=== PATIENT | male | born 1945 | race Caucasian/White ===

== ENCOUNTER 2020-05-19 18:05 | Emergency (ER) | payer MEDICARE, SELFPAY ==
--- NOTE | ~2020-05-19 | CT_ITS ---
EXAMINATION: CT abdomen pelvis wo con DATE: 05/19/2020 18:58 INDICATION: Left lower quadrant abdominal pain TECHNIQUE: Computed tomography (CT) of the abdomen and pelvis was performed without intravenous contr ast. Automated exposure control and iterative reconstruction technique were employed. Exam dose: 834 .60 mGy-cm total exam DLP. COMPARISON: None. FINDINGS: Minimal predominantly dependent bilateral lower lobe atelectasis. Normal heart size. Coronary artery calcifications. No pericardial or pleural effusion. Small sliding hiatal hernia. Numerous cysts are scattered throughout both lobes of the liver and caudate process. Hepatic and sple hansel calcified granulomas. No pancreatic mass lesion or calcification or pancreatic duct dilatation. T he gallbladder is present. No bile duct dilatation. No adrenal mass lesion. Approximately 8 mm hyperdense right renal cyst. The kidneys are otherwise unremarkable. No urinary tr act calculus or hydroureteronephrosis. There is atherosclerotic calcification of the abdominal aorta, superior mesenteric and renal arteries , iliac arteries and femoral arteries. No abdominal aortic aneurysm. There is prostate enlargement. The urinary bladder is unremarkable. The rectum and colon have been resected. Right lower quadrant ileostomy. There is borderline diamet er of the small bowel with air fluid levels. No apparent obstruction, no pneumatosis or bowel wall t hickening; consider enteritis. No pneumoperitoneum. Left fat containing inguinal hernia. Status post left femoral pinning. No suspicious osteolytic or osteoblastic lesions are noted. IMPRESSION: Status post colectomy and ileostomy Borderline diameter of small bowel, with air fluid levels, without apparent obstruction; consider ent eritis Hepatic cysts 8 mm right hyperdense renal cyst Small sliding hiatal hernia Reviewed, dictated and finalized at [facility]. Reviewed, dictated and finalized at [facility]. IMPRESSION: Status post colectomy and ileostomy Borderline diameter of small bowel, with air fluid levels, without apparent obs truction; consider enteritis Hepatic cysts 8 mm right hyperdense renal cyst Small sliding hiatal hernia
[2020-05-19 18:27] VITALS: BP 140/100; PULSE 120; RESP 16; TEMP 35.8; O2SAT 98
[2020-05-19 18:40] LABS: Basophils Percent Auto 0.2 % (0.2-1.2); Hematocrit 46.8 % (42.0-52.0); Hemoglobin 15.2 g/dL (14.0-18.0); Immature Granulocyte Absolute 0.03 K/mm3 (0.00-0.031); Immature Granulocyte Percent A 0.3 % (0-0.5); Lymphocytes Absolute Auto 0.61 K/mm3 (0.9-3.2); Lymphocytes Percent Auto 5.8 % (18.3-44.2); Mean Corpuscular HGB Conc 32.5 g/dl (32-36); Mean Corpuscular Hemoglobin 30.9 pg (26-34); Mean Corpuscular Volume 95.1 fl (80-100); Mean Platelet Volume 9.9 fl (7.4-10.4); Monocytes Absolute Auto 0.5 K/mm3 (0.1-0.6); Neutrophils Absolute Auto 9.4 K/mm3 (1.3-6.7); Neutrophils Percent Auto 88.7 % (45.5-73.1); Platelet Count Result 262 k/mm3 (150-375); Red Blood Count 4.92 M/mm3 (4.6-6.20); Red Cell Distribution Width 13.3 % (11.5-14.5); White Blood Count 10.6 K/mm3 (4.5-10.0)
[2020-05-19 18:51] LABS: Alanine Aminotransferase 26 U/L (4-50); Albumin Level 4.5 g/dL (3.5-5.1); Alkaline Phosphatase 104 U/L (38-126); Aspartate Amino Transferase 30 U/L (17-59); Bilirubin,Total 0.4 mg/dL (0.2-1.3); Blood Urea Nitrogen 15 mg/dL (9-20); Calcium 9.4 mg/dL (8.4-10.2); Carbon Dioxide 22 mmol/L (22-30); Chloride 102 mmol/L (98-107); Estimated CRCL calculation 74 ml/min; Estimated Glomerular Filt Rate > 60; Glucose 143 mg/dL (75-110); Lipase 82 U/L (23-300); Sodium 135 mmol/L (137-145)
--- NOTE | 2020-05-19 19:16 | ED.ABDPAIN ---
HPI - Abdominal Pain General Chief Complaint: Abdominal Pain Stated Complaint: abd pain Time Seen by Provider: 05/19/20 18:46 Source: patient and family History of Present Illness HPI narrative: 74 years old white male history of Crohn's disease on sulfasalazine 4 tablets 4 times a day, right ileostomy, hypertension, hyperlipidemia, coronary stents presents with left lower quadrant pain started last night, constant, worse with movement, better at rest. Patient denies any fever, chills, nausea, vomiting. Patient did not eat since last night, have clear liquid stool in the ileostomy bag. 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 [employer] Related Data Home Medications Medication Instructions Recorded Confirmed atorvastatin 10 mg PO DAILY 05/19/20 hydrocodone-acetaminophen 1 tablet PO Q4H PRN 05/19/20 lisinopril 5 mg PO DAILY 05/19/20 metoprolol tartrate 25 mg PO BID 05/19/20 nitroglycerin [Nitrostat] 0.4 mg SUBLINGUAL Q5-15M PRN 05/19/20 primidone 100 mg PO BID 05/19/20 warfarin 7.5 mg PO 2XW 05/19/20 warfarin See Rx Instructions .ROUTE .COMPLEX 05/19/20 Allergies Allergy/AdvReac Type Severity Reaction Status Date / Time iodine Allergy Mild Unknown Verified 05/19/20 19:08 SHELLFISH Allergy Mild Unknown Uncoded 05/19/20 18:33 Review of Systems Review of Systems: Narrative: CONSTITUTIONAL: Denies fever, chills, or sweats. EYES: Denies visual changes, redness, or discharge. ENT: Denies rhinorrhea, congestion, sore throat, or otalgia. CARDIOVASCULAR: Denies chest pain, palpitations, or edema. RESPIRATORY: Denies cough or dyspnea. GASTROINTESTINAL: Denies abdominal pain, nausea, vomiting, or diarrhea. GENITOURINARY: Denies dysuria or hematuria. SKIN: Denies rash or itching. MUSCULOSKELETAL: Denies back pain, joint pain, or myalgia. NEUROLOGIC: Denies headache, numbness, or weakness. PSYCHIATRIC: Denies anxiety or depression. PMFSH Social History Social History Gender identity (if verbalized by the patient): Male Exam Narrative: Exam Narrative: General appearance: Well-developed, well-nourished Skin: Normal color Head: Normocephalic, nontraumatic Eyes: Clear conjunctiva ENT: Oropharynx normal, ears normal, nose normal Neck: Supple, nontender Chest and respiratory: Airway patent, no respiratory distress, no accessory muscle use Heart: Regular rate/rhythm Abdomen: Soft, moderate tenderness left lower abdomen, bulging, slightly distended, quiet bowel sounds, right lower abdomen ileostomy bag in place, have brownish liquid stool, no organomegaly, quiet bowel sounds Vascular: Normal peripheral pulses, normal capillary refill. Musculoskeletal: Normal range of motion, nontender back Neurologic: Alert and oriented ?3, [employer] B[employer] EXP[employer] is normal as tested, no gross motor deficit Course Course Emergency Course: Stable Vital Signs Vital signs: Vital Signs Temperature 35.8 C L 05/19/20 18: Pulse Rate 120 H 05/19/20 18:27 Respiratory Rate 16 05/19/20 18:27 Blood Pressure 140/100 H 05/19/20 18:27 Pulse Oximetry 98 05/19/20 18:27 Temperature 35.8 C L 05/19/20 18:27 Pulse Rate 83 05/19/20 21:15 Respiratory Rate 14 05/19/20 21:15 Blood Pressure 160/86 H 05/19/20 21:15 Pulse Oximetry 98 05/19/20 21:15 MDM - Abdominal Pain MDM Narrative Medical decision making narrative: Abdominal pain in a patient with Crohn's disease. Flareup of Crohn's, obstruction, diverticulitis are my concern. Labs, CT abdomen pelvis, IV fluids, IV Dilaudid and Zofran ordered. Further plan to follow Differential Diagnosis Differential diagnosis: Likely abdominal pain, diverticulitis,
--- NOTE | 2020-05-19 19:29 | PC.NURSE ---
Assumed care of pt. at this time. Report from [facility]
[2020-05-19] MEDS: ONDANSETRON INJ 4 MG/2 ML VIAL IV PUSH (19:31)
[2020-05-19] MEDS: SODIUM CHLORIDE 0.9% IV 1,000 ML 999 ML IV CONT (19:32)
[2020-05-19 20:00] VITALS: BP 166/88; PULSE 89; RESP 17; O2SAT 95
--- NOTE | 2020-05-19 20:23 | PC.NURSE ---
Pt attempting for urine sample
[2020-05-19 21:15] VITALS: BP 160/86; PULSE 83; RESP 14; O2SAT 98
[2020-05-19 21:30] LABS: Add Urine Microscopic? YES; Appearance Urine Clear (Clear); Bilirubin Urine Negative (Negative); Blood Urine Negative (Negative); Color Urine Yellow (Yellow); Glucose Urine UA Negative (Negative); Ketones Urine 1+ mg/dL (Negative); Leukocyte Esterase Ur Negative LEU/UL (Negative); Mucus Urine Moderate /lpf; Nitrate Urine Negative (Negative); Protein Urine 1+ mg/dL (Negative); Specific Grav Ur 1.029 (1.001-1.035); Urobilinogen Urine Negative mg/dL (<2.0); WBC Urine 0-3 /hpf
[2020-05-19 21:51] VITALS: BP 142/78; PULSE 86; RESP 20; O2SAT 98
[2020-05-19] MEDS: AMOXICILLIN/CLAVULANATE K 875-125 MG TAB 1 TABLET (22:00)
== END 2020-05-19 22:01 | disposition home or self-care (01) ==
PROVIDERS: Emergency Medicine; Emergency Provider Emergency Medicine; PCP Family Medicine
DX: K52.9 Noninfective gastroenteritis and colitis, unspecified (principal); K50.90 Crohn's disease, unspecified, without complications; I10 Essential (primary) hypertension; E78.5 Hyperlipidemia, unspecified; Z95.5 Presence of coronary angioplasty implant and graft; Z79.01 Long term (current) use of anticoagulants; Z93.2 Ileostomy status; Z90.49 Acquired absence of other specified parts of digestive tract; K76.89 Other specified diseases of liver; N28.1 Cyst of kidney, acquired; K44.9 Diaphragmatic hernia without obstruction or gangrene
CPT/HCPCS: 36415; 74176; 80053; 81001; 83690; 85025; 96374; 96375; 99284; A9270; J1170; J2405; J7030

== ENCOUNTER 2020-07-13 06:59 | Outpatient (NON) | payer MEDICARE, SELFPAY ==
[2020-07-14 00:37] LABS: SARS-CoV-2 RNA PCR Negative
== END 2020-07-13 07:00 ==
PROVIDERS: PCP Family Medicine; Visit Provider Family Medicine
DX: R68.89 Other general symptoms and signs (principal); Z20.828 Contact with and (suspected) exposure to other viral communicable diseases
CPT/HCPCS: 87635; C9803; U0003

== ENCOUNTER 2021-01-04 08:34 | Emergency (ER) | payer OTHER, SELFPAY ==
[2021-01-04 08:41] VITALS: BP 117/84; PULSE 68; RESP 20; TEMP 36.5; O2SAT 100
--- NOTE | 2021-01-04 08:41 | ED.GENADULT ---
HPI - General Adult General Chief complaint: Unspecified Stated complaint: possible too much warfarin Time Seen by Provider: 01/04/21 08:41 Source: patient Mode of arrival: ambulatory Limitations: no limitations History of Present Illness HPI narrative: A 75-year-old male comes into the emergency department this morning with complaints of accidentally taking an extra dose of his warfarin. Patient states that he took his warfarin, normal late last night. He states when he went to go take his morning medicines he accidentally grabbed the p.m. container and took all of his evening medications. Patient states that he now has had to 10 mg warfarin tablets within the span of 12 hours. Patient denies any bleeding or any issues. He states that he cannot and to get his INR checked. Related Data Home Medications Medication Instructions Recorded Confirmed atorvastatin 10 mg PO DAILY 05/19/20 hydrocodone-acetaminophen 1 tablet PO Q4H PRN 05/19/20 lisinopril 5 mg PO DAILY 05/19/20 metoprolol tartrate 25 mg PO BID 05/19/20 nitroglycerin [Nitrostat] 0.4 mg SUBLINGUAL Q5-15M PRN 05/19/20 primidone 100 mg PO BID 05/19/20 warfarin 7.5 mg PO 2XW 05/19/20 warfarin See Rx Instructions .ROUTE .COMPLEX 05/19/20 Allergies Allergy/AdvReac Type Severity Reaction Status Date / Time iodine Allergy Mild Unknown Verified 01/04/21 08:43 SHELLFISH Allergy Mild Unknown Uncoded 05/19/20 18:33 Review of Systems Review of Systems: Narrative: CONSTITUTIONAL: Denies fever, chills, or sweats. EYES: Denies visual changes, redness, or discharge. ENT: Denies rhinorrhea, congestion, sore throat, or otalgia. CARDIOVASCULAR: Denies chest pain, palpitations, or edema. RESPIRATORY: Denies cough or dyspnea. GASTROINTESTINAL: Denies abdominal pain, nausea, vomiting, or diarrhea. GENITOURINARY: Denies dysuria or hematuria. SKIN: Denies rash or itching. MUSCULOSKELETAL: Denies back pain, joint pain, or myalgia. NEUROLOGIC: Denies headache, numbness, dizziness, or weakness. PSYCHIATRIC: Denies anxiety or depression. [facility] Social History Social History Gender identity (if verbalized by the patient): Male Exam Narrative: Exam Narrative: GENERAL: Well-appearing, well-nourished, and in no acute distress. HEAD: Normocephalic, atraumatic. EYES: PERRLA and EOMI. ENT: Nares clear, no rhinorrhea or epistaxis. Mucous membranes moist. Oropharynx without tonsillar hypertrophy exudate or other lesions. Bilateral TMs pearly hough nonbulging NECK: Supple. No adenopathy or masses. No carotid bruits or JVD CHEST: Clear to auscultation. No respiratory distress. No wheezes rales or rhonchi HEART: Regular rate and rhythm. No murmur heard. Normal peripheral pulses. ABDOMEN: Soft, nontender, nondistended, normal active bowel sounds. EXTREMITIES: Normal range of motion. No edema. SKIN: Warm, dry, no rash. NEURO: No focal deficits. Alert and oriented x3. PSYCH: Normal mood and affect. Course Vital Signs Vital signs: Vital Signs Temperature 36.5 C 01/04/21 08:41 Pulse Rate 68 01/04/21 08:41 Respiratory Rate 20 01/04/21 08:41 Blood Pressure 117/84 01/04/21 08:41 Pulse Oximetry 100 01/04/21 08:41 Temperature 36.5 C 01/04/21 08:41 Pulse Rate 68 01/04/21 08:41 Respiratory Rate 20 01/04/21 08:41 Blood Pressure 117/84 01/04/21 08:41 Pulse Oximetry 100 01/04/21 08:41 Medical Decision Making MDM Narrative Medical decision making narrative: In brief this 75-year-old male came into the emergency department today after accidentally taking an extra dose of his Coumadin. After discussing it over with the patient and reassuring him I told him that while an extra dose this early on may temporarily raise his INR that he may skip his dose tonight and resume his schedule as normal tomorrow morning. Patient denied any bleeding issues. He stated that he felt fine and originally had presented to get his
== END 2021-01-04 09:13 | disposition home or self-care (01) ==
PROVIDERS: Emergency Provider Emergency Medicine
DX: T45.511A Poisoning by anticoagulants, accidental (unintentional), initial encounter (principal); Z79.01 Long term (current) use of anticoagulants
CPT/HCPCS: 99281

== ENCOUNTER 2021-01-18 13:58 | Outpatient (CLI) | payer OTHER, SELFPAY ==
--- NOTE | ~2021-01-18 | XR_ITS ---
EXAMINATION: XR chest 2V EXAM DATE: 01/18/2021 15:56 INDICATION: Primary osteoarthritis, right knee. Preoperative. TECHNIQUE: Frontal and lateral projections of the chest obtained and reviewed. Comparison is made to prior examination from 06/22/2018. FINDINGS: Mild hyperinflation. The lungs are clear. There are no pleural effusions. The cardiomedia stinal silhouette is within normal limits. There is no pneumothorax suspected. The bones and soft t issues are unremarkable. IMPRESSION: No acute cardiopulmonary findings. Reviewed, dictated and finalized at [facility]. [employer] OUTRE[employer] WORK[employer]
--- NOTE | 2021-01-18 15:27 | ECG_ITS ---
Measurements Intervals [place] Rate: 62 P: 22 IN: 135 QRS: -25 QRSD: 99 T: 10 QT: 405 QTc: 413 Interpretive Statements SINUS RHYTHM POOR R WAVE PROGRESSION, ANTERIOR LEADS BASELINE ARTIFACT- I, III, AVR, AVL, AVF BORDERLINE ECG Electronically Signed On 01-18-2021 15:46:04 ACADEMIC COORDINATOR by Babak Eden D.O.
[2021-01-18 15:56] LABS: Basophils Percent Auto 0.8 % (0.2-1.2); Eosinophils Percent Auto 0.6 % (0-4.4); Hematocrit 43.9 % (42.0-52.0); Hemoglobin 13.9 g/dL (14.0-18.0); Immature Granulocyte Absolute 0.02 K/mm3 (0.00-0.031); Immature Granulocyte Percent A 0.4 % (0-0.5); Lymphocytes Absolute Auto 1.33 K/mm3 (0.9-3.2); Lymphocytes Percent Auto 27.6 % (18.3-44.2); Mean Corpuscular HGB Conc 31.7 g/dl (32-36); Mean Corpuscular Hemoglobin 31.8 pg (26-34); Mean Corpuscular Volume 100.5 fl (80-100); Mean Platelet Volume 9.4 fl (7.4-10.4); Monocytes Absolute Auto 0.5 K/mm3 (0.1-0.6); Monocytes Percent Auto 9.3 % (2.6-8.5); Neutrophils Percent Auto 61.3 % (45.5-73.1); Platelet Count Result 211 k/mm3 (150-375); Red Blood Count 4.37 M/mm3 (4.6-6.20); Red Cell Distribution Width 13.9 % (11.5-14.5); White Blood Count 4.8 K/mm3 (4.5-10.0)
[2021-01-18 16:08] LABS: INR 1.8; Prothrombin Time 21.8 Seconds (11.1-14.7)
[2021-01-18 16:09] LABS: Partial Thromboplastin Time 33.2 SECONDS (22.3-36.8)
[2021-01-18 16:19] LABS: Albumin Level 3.8 g/dL (3.5-5.1); Anion Gap 1 mmol/L (8-16); Blood Urea Nitrogen 11 mg/dL (9-20); Calcium 8.7 mg/dL (8.4-10.2); Carbon Dioxide 32 mmol/L (22-30); Chloride 102 mmol/L (98-107); Estimated Glomerular Filt Rate > 60; Glucose 98 mg/dL (75-110); Potassium 4.3 mmol/L (3.4-5.0); Sodium 135 mmol/L (137-145)
[2021-01-18 16:21] LABS: Hemoglobin A1C 5.4 % (<5.7); Urine Cotinine NEGATIVE
== END 2021-01-18 13:59 | disposition home or self-care (01) ==
LOC: ANHSURGERY 14:00
PROVIDERS: Anesthesiology; Visit Provider Orthopaedic Surgery
DX: Z01.818 Encounter for other preprocedural examination (principal); M17.11 Unilateral primary osteoarthritis, right knee; Z92.29 Personal history of other drug therapy
CPT/HCPCS: 36415; 71046; 80048; 80307; 82040; 83036; 85025; 85610; 85730; 87070; 87077; 87186; 93005

== ENCOUNTER → 2021-02-01 01:54 | Outpatient (CLI) | payer OTHER, SELFPAY ==
[2021-02-01 19:28] LABS: SARS-CoV-2 RNA PCR Negative
== END ==
PROVIDERS: Visit Provider Orthopaedic Surgery
DX: Z01.812 Encounter for preprocedural laboratory examination (principal); Z20.822 Contact with and (suspected) exposure to COVID-19
CPT/HCPCS: C9803; U0003; U0005

== ENCOUNTER 2021-02-04 01:35 | Day surgery (SDC) | payer OTHER, SELFPAY ==
[2021-01-18 14:30] VITALS: BMI 28.5
--- NOTE | 2021-02-01 08:02 | PM.IMHP ---
H&P: HPI History of Present Illness Date/Time: 02/01/21 08:02 75-year-old male patient Dr. Guillen. He presents today for a right total knee arthroplasty. Patient has been having pain in this knee for years. He has been putting off knee replacement for long as possible. he has reached a point now where he is having pain daily basis he feels he is ready proceed with total knee arthroplasty rather continue nonsurgical treatment. He is unable take anti-inflammatories this point. He has a history of Crohn's disease and avoids anti-inflammatories. Patient does have a significant history pulmonary embolism back in 2017. He has been evaluated by hematology. Patient may have a Factor 5 Leiden deficiency. He was advised that he needs to be on Coumadin for life. Chief Complaint: right knee DJD Review of Systems Review of Systems: All systems reviewed & are unremarkable except as noted in HPI and below PMFSH Family History Family History (Updated 02/01/21 @ 08:16 by DIANE Geronimo) Other Heart disease Hypertension Social History Social History Smoking packs per day: 1 Smoking cigarettes per day: 20.0 Years smoked: 40 Smoking pack-years: 40.00 Smoking status: Former smoker Smoking end date: 05/16/08 Alcohol intake: current Drinks per week: 1 Substance use: never Gender identity (if verbalized by the patient): Male Spiritual care concerns: No Meds Home Medications and Allergies Home Medications Medication Instructions Recorded Confirmed Type atorvastatin 10 mg PO DAILY 05/19/20 01/18/21 History lisinopril 5 mg PO QAM 05/19/20 01/18/21 History metoprolol tartrate 25 mg PO BID 05/19/20 01/18/21 History nitroglycerin [Nitrostat] 0.4 mg SUBLINGUAL Q5-15M PRN 05/19/20 01/18/21 History primidone 200 mg PO BID 05/19/20 01/18/21 History warfarin See Rx Instructions .ROUTE .COMPLEX 05/19/20 01/18/21 History aspirin [Aspirin Low Dose] 81 mg PO DAILY 01/18/21 01/18/21 History coffee xt-phosphatidyl serine 1 tablet PO DAILY 01/18/21 01/18/21 History [Neuriva Original] cyanocobalamin (vitamin B-12) 1,000 mcg PO DAILY 01/18/21 01/18/21 History [Vitamin B-12] bownxocxout-xxr-ruiadlhxt-vitC 2 cap PO DAILY 01/18/21 01/18/21 History [Glucosamine Complex-MSM] lutein 20 mg PO DAILY 01/18/21 01/18/21 History multivitamin [Multiple Vitamin] 1 tablet PO DAILY 01/18/21 01/18/21 History sulfasalazine 500 mg PO QID 01/18/21 01/18/21 History warfarin 12.5 mg PO DIRECTED 01/18/21 01/18/21 History Allergies Allergy/AdvReac Type Severity Reaction Status Date / Time iodine Allergy Severe THROAT Verified 01/18/21 14:13 SWELLING SHELLFISH Allergy Severe THROAT Uncoded 01/18/21 14:13 SWELLING Exam Narrative: Exam Narrative: 75-year-old male for alert pleasant. He is 5 ft 10 and 200 lb. Range of motion right knee is from 3-135 degrees. He does have a large popliteal cyst palpable. Patient does walk with subtle limp. He has moderate medial pseudolaxity to valgus stress. Mild effusion. Normal sensation right lower extremity. No edema in the right lower extremity. Hip range of motion is full without discomfort. Normal quad strength. Severe pain with patellofemoral grind and moderate medial joint line tenderness. Resp: Auscultation: clear to auscultation bilaterally Cardio: Rate: regular rate Rhythm: regular rhythm Assessment and Plan Additional Plan 75-year-old male who has [id number] arthritis medial compartment of the right knee with continued symptoms. He feels at this point is ready to proceed with total knee arthroplasty. Surgical procedure as well as risks and complications were discussed in detail and all questions were answered and we will proceed. Patient will see his primary care doctor for pre-surgical clearance he has also been evaluated by his oxidized finish plater Dr. Mcnulty. Patient did have an echo in March of 2020. His eject
--- NOTE | 2021-02-01 14:49 | WPDANESEPPF ---
Anes - Initial Pre Proc Eval Procedure: Operation Date: 02/04/21 07:30 Proposed Procedures p Right Total Knee Arthroplasty - Clarence Street MD Date/Time: 02/01/21 14:49 Surgeon: Clarence Street MD Pre Op Diagnosis: OA Right Knee Patient Data Age: 75 Gender: M Height: 1.78 m Weight: 90.4 kg Allergies Allergy/AdvReac Type Severity Reaction Status Date / Time iodine Allergy Severe THROAT Verified 02/04/21 06:09 SWELLING SHELLFISH Allergy Severe THROAT Uncoded 02/04/21 06:09 SWELLING Home Medications Medication Instructions Recorded Confirmed Type atorvastatin 10 mg PO DAILY 05/19/20 02/04/21 History lisinopril 5 mg PO QAM 05/19/20 02/04/21 History metoprolol tartrate 25 mg PO BID 05/19/20 02/04/21 History nitroglycerin [Nitrostat] 0.4 mg SUBLINGUAL Q5-15M PRN 05/19/20 01/18/21 History primidone 200 mg PO BID 05/19/20 02/04/21 History warfarin See Rx Instructions .ROUTE .COMPLEX 05/19/20 02/04/21 History aspirin [Aspirin Low Dose] 81 mg PO DAILY 01/18/21 02/04/21 History coffee xt-phosphatidyl serine 1 tablet PO DAILY 01/18/21 02/04/21 History [Neuriva Original] cyanocobalamin (vitamin B-12) 1,000 mcg PO DAILY 01/18/21 02/04/21 History [Vitamin B-12] cqpjxnqcyra-dun-ydzziamtq-vitC 2 cap PO DAILY 01/18/21 02/04/21 History [Glucosamine Complex-MSM] lutein 20 mg PO DAILY 01/18/21 02/04/21 History multivitamin [Multiple Vitamin] 1 tablet PO DAILY 01/18/21 02/04/21 History sulfasalazine 500 mg PO QID 01/18/21 02/04/21 History warfarin 12.5 mg PO DIRECTED 01/18/21 02/04/21 History Patient hx anesthesia problems: none Family hx anesthesia problems: none PMFSH Past Medical History Medical History (Updated 02/01/21 @ 14:50 by Vinnie Lozano DO) CAD (coronary artery disease) Crohn's disease DVT (deep venous thrombosis) Hypertension Pulmonary embolism Surgical History Surgical History (Updated 02/01/21 @ 14:50 by Vinnie Lozano DO) History of coronary artery stent placement [id number] Family History Family History (Updated 02/01/21 @ 08:16 by DIANE Geronimo) Other Heart disease Hypertension Social History Social History Smoking packs per day: 1 Smoking cigarettes per day: 20.0 Years smoked: 40 Smoking pack-years: 40.00 Smoking status: Former smoker Smoking end date: 05/16/08 Alcohol intake: current Drinks per week: 1 Alcohol use details: 1 WINE/DAY, DRANK HEAVILY X 30 YEARS Substance use: never Living arrangements: alone Gender identity (if verbalized by the patient): Male Spiritual care concerns: No Anes - Eval Final PreProcedure Day of Procedure 02/01/21 14:49 Patient weight: overweight Heart: regular rate and rhythm Lungs: clear to auscultation and normal air movement Airway: Mallampati scale class II Neurological: alert and oriented Last oral intake: >/= 8 hours ASA classification: III Emergent: no Anesthetic plan: proceed Anesthesia type and monitoring: general LMA and standard monitoring Informed Consent: The patient's anesthetic plan and its attendant risks and benefits were discussed with the patient/family/POA. Questions were solicited and answers provided to the satisfaction of the patient/family/POA.
[2021-02-04] VITALS (14 sets, daily range): BP systolic 120–156; BP diastolic 58–82; PULSE 66–108; RESP 8–96; TEMP 36.2–36.8; O2SAT 18–100; BMI 29.0
--- NOTE | ~2021-02-04 | XR_ITS ---
EXAMINATION: XR knee RT 2V DATE: 02/04/2021 11:04 INDICATION: Postoperative evaluation following right total knee arthroplasty. TECHNIQUE: Anteroposterior and lateral views of the right knee were obtained. COMPARISON: None. FINDINGS: Right total knee arthroplasty with patellar resurfacing appears well seated and in near anatomic alig nment. No fractures identified. Skin expected postoperative subcutaneous and intra-articular gas. IMPRESSION: 1. Right total knee arthroplasty, negative for postoperative purposes. Reviewed, dictated and finalized at location A.
[2021-02-04] MEDS: LACTATED RINGERS 1,000 ML 30 ML IV CONT ×2 (07:07→11:04)
[2021-02-04] MEDS: ACETAMINOPHEN 500 MG TABLET 1000 MG PO ×2 (07:08→17:49)
--- NOTE | 2021-02-04 07:08 | WPDHPUPDATE1 ---
History and Physical Update Update Date/Time: 02/04/21 07:08 History and Physical has been reviewed, including an updated exam of the patient. There are NO changes in the patient's condition. Risks, benefits, and alternatives have been discussed and questions answered. Patient agrees to proceed with procedure. Last Lovenox at 530 pm last evening
[2021-02-04 07:33] LABS: INR 0.9; Prothrombin Time 13.1 Seconds (11.1-14.7)
[2021-02-04] MEDS: ceFAZolin 2 GM/D5W 50 ML 2 GM/50 ML BAG IVPB (07:47)
[2021-02-04] MEDS: ceFAZolin SODIUM 1 GM VIAL 3 GM IRRIGATION (08:12)
[2021-02-04] MEDS: TRANEXAMIC ACID 1,000 MG/10 ML AMPUL 1000 MG TOPICAL (08:13)
[2021-02-04] MEDS: GENTAMICIN BONE CEMENT REFOBACIN 1 EACH TOPICAL (09:57)
[2021-02-04] MEDS: ceFAZolin SODIUM 1 GM VIAL IV PUSH (10:24)
--- NOTE | 2021-02-04 10:51 | PM.PROC ---
Procedure Note - Detailed Date of procedure: 02/04/21 Pre-op diagnosis: OA Right Knee Post-op diagnosis: same Procedure performed: Right total knee arthroplasty Description of procedure: Patient was brought to the operating room and general anesthesia was administered. He received 2 g of Ancef weight based vancomycin preoperatively. The right knee was prepped draped usual fashion. Limb was exsanguinated and tourniquet elevated to 250 mmHg. A 7 in longitudinal midline incision was used and a standard parapatellar arthrotomy was utilized splitting quadriceps tendon 5 mm from its medial edge. The patella had some mild medial degenerative changes. It measured 20 7 mm in thickness and was cut to 18 mm. Protector cap was applied. Next a guide leena was inserted down the femoral canal after aspiration of canal contents using a by degree valgus cutting bushing, 9 mm of bone removed the distal femur. Because of wear medially this removed the same amount medially and laterally. Next the tibial plateau was cut. We tried to make a skim cut in tried to put it at about 1 degree of varus because of the pronounced medial slope of his tibial anatomy. After this was done we checked flexion gap and we were still far too tight medially another mm of bone was removed which got us flush with the base of the defect. Meniscal remnants were excised. Anteromedial mid medial osteophyte removed the tibia. Medial osteophytes removed medial femoral condyle. With this done the knee accepted the 10 mm spacer block in extension. It was a little bit tighter medially than laterally but close. In flexion the medial side opened up 8 mm the lateral side 14 mm. The femur was addressed via we set the sizing guide to 4? external rotation which matched the [place] line accurately. Femur was cut with a 75 cutting block and the femoral trial fit line to line medial to lateral but was going to be a bit proud anteriorly. The tibia was sized to a 79 and rotated such that it was parallel the anterior surface the tibia referenced off medial 1/3 of the tibial tubercle and the 2nd metatarsal. This was punched. We trialed with the 10 and it was too tight medially at 90? of flexion. The knee came out to full extension nicely with 1/2 to 2 mm of medial opening 3 lateral opening. I had removed posteromedial tibial osteophyte after we punched the tibia tray trial. I felt that the femur needed additional external rotation to give proper balance. We removed the medial pin from the 72.5 cutting block and applied the distal femur with an additional 2? of external rotation and pinned both sides with the threaded pins. The femur was then downsized and this removed about 2 mm of bone from the posterior medial femoral condyle. The other cuts were revisited. This gave a nice fit relative to the anterior cortex now. On trialing we now had appropriate balance at 90? of flexion with a stability to anterior drawer at 90? with a 10 insert and the other findings were the same. Lug holes were drilled. We had removed posterior femoral osteophytes earlier but we did not have to do a significant posterior capsular release. The patella was sized to a 34 and the lug holes drilled and the 8.5 mm poly restored patellar thickness to 27 mm. Patellar tracking was almost perfect. A step drill was used to make multiple perforations in the tibial plateau and distal femur the bony surfaces thoroughly irrigated and dried. Two batches of methylmethacrylate were mixed 1 containing gentamicin powder the cement applied the tibial component and then to the femoral component and then cement applied the tibia pressurized the tibial component fully seated cement applied to the femur the femoral component fully seated the knee brought extension with a 10 mm 5 in 1 poly trial for pressurization and the dura by 8.5 patellar button was cemented. Tourniquet was released at 108 minutes. Cement was allowed to harden after which excess cement so
[2021-02-04] MEDS: fentaNYL CITRATE INJ (*CRX) 100 MCG/2 ML VIAL 25 MCG IV PUSH ×4 (11:21→11:33)
[2021-02-04] MEDS: HYDROmorphone HCL INJ (*CRX) 1 MG/ML SYR 0.5 MG IV PUSH ×2 (11:40→11:54)
--- NOTE | 2021-02-04 12:25 | ADMGEN ---
This patient, Ezequiel Madrigal, was admitted to Medical Room 248-01. Patient/family oriented to hospital policies and general routines including ID bracelet, bed and alarms, visiting hours, pain management, procedures, bathroom and other care routines, personal items, smoking policy, room service/diet, and visiting hours. Information on how to activate the Rapid Response Team has been discussed. Patient/Family are encouraged to report perceived risks to care and to ask questions if they do not understand what they are told or what they should do.
[2021-02-04] MEDS: SODIUM CHLORIDE 0.9% IV 1,000 ML 125 ML IV CONT (12:46)
[2021-02-04] MEDS: oxyCODONE HCL (*CRX) 5 MG TAB IR PO ×4 (12:47→20:46)
[2021-02-04] MEDS: sulfaSALAzine 500 MG TABLET PO ×3 (14:27→20:51)
[2021-02-04] MEDS: PRIMIDONE 50 MG TABLET 200 MG PO (16:30)
[2021-02-04] MEDS: SENNA/DOCUSATE SODIUM TABLET 2 TAB PO (16:31)
--- NOTE | 2021-02-04 20:00 | WPDCN ---
Assessment and Plan Assessment and plan (1) Arthritis of right knee: Code(s): M17.11 - Unilateral primary osteoarthritis, right knee Status: Acute Assessment and Plan: Postoperative day 0, status post right total knee arthroplasty. Wound Care pain control will be deferred to Dr. Street. (2) Current use of nursing home anticoagulation: Code(s): Z79.01 - jail (current) use of anticoagulants Status: Acute Assessment and Plan: Patient has been on warfarin for many years due to history of recurrent DVT and pulmonary embolism. He has been told that he has to drive from [place] to [facility] daily for an INR check until therapeutic. This rightfully concerns the patient with his recent surgery. Unfortunately he has been told that he cannot take Eliquis or Xarelto with his primidone, as primidone can make both of these less effective. Primidone is the only medication that has helped his tremors. He could possibly be started on Pradaxa for a month or so until he is able to get up and about easier, and could be transitioned back to warfarin thereafter. I am not certain as to what his co-pay would be for this and will ask care coordination to look into this. (3) Hypertension: Code(s): I10 - Essential (primary) hypertension Status: Acute Assessment and Plan: Blood pressures were reviewed and they are reasonably well controlled, may be a bit elevated post surgery due to pain. His antihypertensives will be reviewed and resumed as appropriate. (4) Coronary artery disease: Code(s): I25.10 - Atherosclerotic heart disease of [place] coronary artery without angina pectoris Status: Acute Assessment and Plan: No acute issues. Continue statin, beta-nj, and aspirin. (5) Essential tremor: Code(s): G25.0 - Essential tremor Status: Acute Assessment and Plan: Continue primidone. (6) Crohn's disease: Code(s): K50.90 - Crohn's disease, unspecified, without complications Status: Acute Assessment and Plan: No recent issues. Continue sulfasalazine. Additional Plan Thank you for allowing us to participate in this patient's care. Please do not hesitate to contact us with any questions. Supervising physician for this history and physical is Dr. Shola Santana. HPI Data of Consult Date/Time: 02/04/21 20:00 Requesting Physician: Clarence Street MD Primary Care Provider: Wilmer Breen, Consult Narrative Narrative: This is a 75-year-old male with osteoarthritis of both knees, coronary artery disease status post stent 2013, hypertension, hyperlipidemia, Crohn's, and history of DVT and pulmonary embolism on long-term warfarin whom the hospitalist service has been consulted to manage the patient's medical condition postoperatively. He has had arthritis in both of his knees for about the past 10 years, though it has gotten much worse over the past 2 years or so. Conservative outpatient therapy has not provided him with lasting benefits however he was not able to have surgery until recently as he has been caring for his who was ill with cancer. Unfortunately she last fall. In any event, he opted for surgery today and his surgery was performed under general anesthesia with no immediate complications documented an estimated blood loss of 200 milliliters. At the time of my evaluation, he complains of cramping pain about the knee rated 5/10. He denies paresthesias, skin color, and temperature changes distal to the surgical site. He also denies postoperative fever chills sweats chest pain shortness of breath nausea and vomiting. On discharge he is going to be staying with his brother and his family in [place]. They live in a ranch style home and will be able to help him out. His biggest concern is that he has been told that he will need to travel from [place] to [place] each day to have his INR checked and tel
[2021-02-04] MEDS: FAMOTIDINE 20 MG TABLET PO (20:51)
[2021-02-04] MEDS: ENOXAPARIN 30 MG/0.3 ML SYRINGE SUB-Q (20:51)
[2021-02-04] MEDS: METOPROLOL TARTRATE 25 MG TABLET PO (20:52)
[2021-02-05] MEDS: oxyCODONE HCL (*CRX) 5 MG TAB IR PO ×7 (00:21→12:30)
[2021-02-05] MEDS: ACETAMINOPHEN 500 MG TABLET 1000 MG PO ×3 (00:23→12:29)
[2021-02-05 01:58] VITALS: BP 123/54; PULSE 77; RESP 16; TEMP 36.5; O2SAT 100
[2021-02-05 05:12] VITALS: BP 118/74; PULSE 78; RESP 16; TEMP 36; O2SAT 100
[2021-02-05 05:28] LABS: Basophils Percent Auto 0.7 % (0.2-1.2); Eosinophils Percent Auto 0.7 % (0-4.4); Hematocrit 36.3 % (42.0-52.0); Hemoglobin 11.4 g/dL (14.0-18.0); Immature Granulocyte Absolute 0.03 K/mm3 (0.00-0.031); Immature Granulocyte Percent A 0.5 % (0-0.5); Lymphocytes Absolute Auto 1.36 K/mm3 (0.9-3.2); Lymphocytes Percent Auto 22.9 % (18.3-44.2); Mean Corpuscular HGB Conc 31.4 g/dl (32-36); Mean Corpuscular Hemoglobin 31.8 pg (26-34); Mean Corpuscular Volume 101.1 fl (80-100); Mean Platelet Volume 9.7 fl (7.4-10.4); Monocytes Absolute Auto 0.7 K/mm3 (0.1-0.6); Monocytes Percent Auto 11.8 % (2.6-8.5); Neutrophils Absolute Auto 3.8 K/mm3 (1.3-6.7); Neutrophils Percent Auto 63.4 % (45.5-73.1); Platelet Count Result 177 k/mm3 (150-375); Red Blood Count 3.59 M/mm3 (4.6-6.20); Red Cell Distribution Width 13.5 % (11.5-14.5); White Blood Count 5.9 K/mm3 (4.5-10.0)
[2021-02-05 05:33] LABS: Prothrombin Time 14.2 Seconds (11.1-14.7)
[2021-02-05 05:42] LABS: Alanine Aminotransferase 22 U/L (4-50); Albumin Level 3.1 g/dL (3.5-5.1); Alkaline Phosphatase 50 U/L (38-126); Anion Gap 1 mmol/L (8-16); Aspartate Amino Transferase 27 U/L (17-59); Bilirubin,Total 0.3 mg/dL (0.2-1.3); Blood Urea Nitrogen 10 mg/dL (9-20); Calcium 8.3 mg/dL (8.4-10.2); Carbon Dioxide 32 mmol/L (22-30); Chloride 104 mmol/L (98-107); Estimated CRCL calculation 73 ml/min; Estimated Glomerular Filt Rate > 60; Glucose 101 mg/dL (75-110); Sodium 137 mmol/L (137-145)
--- NOTE | 2021-02-05 06:33 | PM.PNORT ---
Progress Note: A&P Additional Plan POD 1 alert avss wd-dry min swelling, NVI , pt has been up walking yesterday, pain is controlled, plan to have pt work with PT today then send home this afternoon, labs-noted Subjective Subjective Date/Time Seen: 02/05/21 06:33 Objective Data Vital Signs Vital Signs: Vital Signs - 24 hr 02/04/21 07:35 02/04/21 11:04 02/04/21 11:20 Temperature 36.5 C 36.3 C L Pulse Rate 66 83 86 Respiratory Rate 16 8 L 16 Blood Pressure 120/63 140/65 138/67 Pulse Oximetry 98 100 100 02/04/21 11:35 02/04/21 11:50 02/04/21 12:05 Temperature Pulse Rate 86 87 82 Respiratory Rate 14 20 14 Blood Pressure 143/82 H 144/76 H 151/71 H Pulse Oximetry 100 97 99 02/04/21 12:35 02/04/21 12:50 02/04/21 13:20 Temperature 36.6 C 36.2 C L 36.7 C Pulse Rate 83 83 83 Respiratory Rate 18 20 18 Blood Pressure 156/69 H 144/78 H 149/63 H Pulse Oximetry 97 97 97 02/04/21 13:48 02/04/21 14:20 02/04/21 17:58 Temperature 36.4 C L 36.8 C Pulse Rate 108 H 91 Respiratory Rate 96 H 20 Blood Pressure 129/80 140/58 L Pulse Oximetry 94 18 L 100 02/04/21 20:52 02/04/21 20:55 02/05/21 01:58 Temperature 36.3 C L 36.5 C Pulse Rate 79 79 77 Respiratory Rate 16 16 Blood Pressure 130/61 123/54 L Pulse Oximetry 99 100 02/05/21 05:12 Temperature 36.0 C L Pulse Rate 78 Respiratory Rate 16 Blood Pressure 118/74 Pulse Oximetry 100 Intake/Output Intake/Output: Intake & Output 02/02/21 02/03/21 02/04/21 02/05/21 23:59 23:59 23:59 23:59 Intake Total 1290 250 Output Total 400 2100 Balance 890 -1850 Meds/Results Medications: Active Medications Generic Name Dose Route Start Last Admin Trade Name Freq PRN Reason Stop Dose Admin Acetaminophen 1,000 mg 02/04/21 18:00 02/05/21 00:23 Acetaminophen 500 Mg Tablet PO 1,000 mg Q6HR VICTOR HUGO Administration Aspirin 81 mg 02/05/21 09:00 Aspirin 81 Mg Enteric Tablet PO DAILY [facility] Atorvastatin Calcium 10 mg 02/05/21 09:00 Atorvastatin 10 Mg Tablet PO DAILY [facility] Bisacodyl 10 mg 02/04/21 12:13 Bisacodyl 10 Mg Suppository RECTAL DAILY PRN Constipation Celecoxib 100 mg 02/05/21 08:00 Celecoxib 100 Mg Capsule PO DAILY@0800 VICTOR HUGO Cephalexin HCl 500 mg 02/05/21 12:00 Cephalexin 500 Mg Capsule PO 02/12/21 12:01 Q6HR VICTOR HUGO Cyanocobalamin 1,000 mcg 02/05/21 09:00 Cyanocobalamin 1,000 Mcg Tablet PO DAILY [facility] Diphenhydramine HCl 25 mg 02/04/21 12:13 Diphenhydramine Hcl Inj 50 Mg/Ml Vial IV PUSH Q6H PRN Itching Enoxaparin Sodium 30 mg 02/04/21 21:00 02/04/21 20:51 Enoxaparin 30 Mg/0.3 Ml Syringe SUB-Q 30 mg Q12HR VICTOR HUGO Administration Famotidine 20 mg 02/04/21 21:00 02/04/21 20:51 Famotidine 20 Mg Tablet PO 20 mg Q12HR VICTOR HUGO Administration Vancomycin HCl 1,000 mg in 250 mls @ 250 mls/hr 02/04/21 19:00 02/04/21 20:16 Vancomycin 1,000 Mg/D5w 250 Ml IVPB 02/05/21 07:59 Infused Q12H VICTOR HUGO Infusion Cefazolin Sodium 1 gm in 50 mls @ 100 mls/hr 02/04/21 16:00 02/05/21 00:53 Ancef 1 Gm/D5w 50 Ml Pm IVPB 02/05/21 08:29 Infused Q8H VICTOR HUGO Infusion Lisinopril 5 mg 02/05/21 09:00 Lisinopril 5 Mg Tablet PO QAM [facility] Metoprolol Tartrate 25 mg 02/04/21 21:00 02/04/21 20:52 Metoprolol Tartrate 25 Mg Tablet PO 25 mg Q12HR VICTOR HUGO Administration Morphine Sulfate 2 mg 02/04/21 12:13 Morphine Sulfate (*Crx) 2 Mg/Ml Inj IV PUSH Q4H PRN Pain Rated 7-10 Naloxone HCl 0.1 mg 02/04/21 12:13 Naloxone Hcl 0.4 Mg/Ml Vial IV PUSH Q2M PRN Opiate Reversal Non-Formulary Medication 20 mg 02/05/21 09:00 Lutein PO 03/07/21 09:01 DAILY VICTOR HUGO Ondansetron HCl 4 mg 02/04/21 12:13 Ondansetron Inj 4 Mg/2 Ml Vial IV PUSH Q4H PRN Nausea And Vomiting Oxycodone HCl 5 mg 02/04/21 13:00 02/05/21 04:13 Oxycodone Hcl (*Crx) 5 Mg Tab Ir PO 5 mg Q4HR VICTOR HUGO Administration Oxycodone H
--- NOTE | 2021-02-05 06:47 | PM.DS ---
DS: Admitting Diagnosis Admitting Diagnosis Admitting Diagnosis: right knee DJD DS: Summary Hospital Course Hospital Course: stable Time Spent with Patient Time attestation: Total time spent providing and/or coordinating discharge services: 75-year-old male right total arthroplasty on 02/04/2021. Underwent procedure without complications postop he has been afebrile vital Signs was stable no rash intact wound is dry. He has a Mepilex dressing over it. He is weight-bearing as tolerated. He is on bridging Coumadin 30 mg b.i.d. until the INR becomes therapeutic. He is on oxycodone for pain as well as Celebrex 100 mg daily. He is going to work with therapy on postop day 1 and be discharged later that day on 02/05. He was advised to undergo sound keep leg elevated to prevent swelling but does exercise on a regular basis. His outpatient therapy set up. He is going to go back on Coumadin starting on 02/05. He will take 12.5 mg nightly for 2 nights he will have an INR are checked on and we will adjust his Coumadin accordingly. He will be on his Lovenox until the Coumadin becomes therapeutic. This was all discussed with the patient in detail so he is well aware of this. Patient was advised any questions or concerns once he goes home he should call the office otherwise will see him at his point dates. DS: Data Data Completed and Pending Labs on day of discharge: Labs from last 24 hours 02/05/21 02/05/21 02/05/21 05:03 05:03 05:03 WBC 5.9 RBC 3.59 L Hgb 11.4 L Hct 36.3 L MCV 101.1 H MCH 31.8 MCHC 31.4 L RDW 13.5 Plt Count 177 MPV 9.7 Immature Gran % (Auto) 0.5 Neut % (Auto) 63.4 Lymph % (Auto) 22.9 [place] % (Auto) 11.8 H Eos % (Auto) 0.7 Baso % (Auto) 0.7 Lymph # (Auto) 1.36 [place] # (Auto) 0.7 H Eos # (Auto) 0.0 Baso # (Auto) 0.0 Abs Immat Gran (auto) 0.03 Absolute Neuts (auto) 3.8 Absolute Nucleated RBC 0.0 Nucleated RBC % 0.0 PT 14.2 INR 1.0 Sodium 137 Potassium 4.0 Chloride 104 Carbon Dioxide 32 H Anion Gap 1 L BUN 10 Creatinine 0.80 Estim Creat Clear Calc 73 Estimated GFR > 60 Glucose 101 Calcium 8.3 L Total Bilirubin 0.3 Direct Bilirubin 0.0 AST 27 ALT 22 Alkaline Phosphatase 50 Total Protein 6.0 L Albumin 3.1 L Blood Type Antibody Screen 02/04/21 02/04/21 07:18 07:18 WBC RBC Hgb Hct MCV MCH MCHC RDW Plt Count MPV Immature Gran % (Auto) Neut % (Auto) Lymph % (Auto) [place] % (Auto) Eos % (Auto) Baso % (Auto) Lymph # (Auto) [place] # (Auto) Eos # (Auto) Baso # (Auto) Abs Immat Gran (auto) Absolute Neuts (auto) Absolute Nucleated RBC Nucleated RBC % PT 13.1 INR 0.9 Sodium Potassium Chloride Carbon Dioxide Anion Gap BUN Creatinine Estim Creat Clear Calc Estimated GFR Glucose Calcium Total Bilirubin Direct Bilirubin AST ALT Alkaline Phosphatase Total Protein Albumin Blood Type A Positive Antibody Screen Negative Discharge Plan Discharge Patient Disposition: Home, Self-Care Discharge Instructions: ERLINDA PARKINSON M.D [facility] [address] [place], [place] [id number] POST-OPERATIVE DISCHARGE INSTRUCTIONS TOTAL KNEE ARTHROPLASTY 1. When resting, lie on back with leg elevated above hear to minimize swelling. Significant swelling could indicate a blood clot and if this occurs call the office (or go to the ER) to have a venous ultrasound. 2. Do exercise 5 times a day. 3. Do not sit with leg down except for meals. 4. Wound Care: Nursing will give additional dressings at discharge. Patient to change dressing at home 1 week from surgery, then maintain until seen in office. 5. May shower with dressing in place. 6. Follow weight bearing status instructions. Patient Inst
[2021-02-05] MEDS: ENOXAPARIN 30 MG/0.3 ML SYRINGE SUB-Q (08:24)
[2021-02-05] MEDS: FAMOTIDINE 20 MG TABLET PO (08:24)
[2021-02-05] MEDS: METOPROLOL TARTRATE 25 MG TABLET PO (08:24)
[2021-02-05] MEDS: ASPIRIN 81 MG ENTERIC TABLET PO (08:24)
[2021-02-05] MEDS: lisinopriL 5 MG TABLET PO (08:24)
[2021-02-05] MEDS: CYANOCOBALAMIN 1,000 MCG TABLET 1000 MCG PO (08:24)
[2021-02-05] MEDS: ATORVASTATIN 10 MG TABLET PO (08:24)
[2021-02-05] MEDS: PRIMIDONE 50 MG TABLET 200 MG PO (08:25)
[2021-02-05] MEDS: sulfaSALAzine 500 MG TABLET PO ×2 (08:25→12:30)
[2021-02-05] MEDS: CELECOXIB 100 MG CAPSULE PO (09:46)
[2021-02-05 09:55] VITALS: O2SAT 93
[2021-02-05 10:51] VITALS: BMI 29.0
--- NOTE | 2021-02-05 11:17 | PCNSR ---
On 02/05/21, the student,Stefani Porter, provided care and completed [facility] documentation on this patient. I have reviewed the student's documentation and agree with the findings.
[2021-02-05] MEDS: CEPHALEXIN 500 MG CAPSULE PO (12:30)
--- NOTE | 2021-02-05 13:51 | PC.NURSE ---
On 02/05/21, the student, [ Gabi Sharma], provided care and completed [facility] documentation on this patient. I have reviewed the student's documentation and agree with the findings.
== END 2021-02-05 13:25 | disposition home or self-care (01) ==
LOC: ANHSURGERY 06:00 → ANH2MED 12:16
PROVIDERS: Anesthesiology; Physician Assistant; Physician Assistant Surgical; Visit Provider Orthopaedic Surgery
PROC: (CPT 27447; principal; 2021-02-04 07:30)
DX: M17.11 Unilateral primary osteoarthritis, right knee (principal); K50.90 Crohn's disease, unspecified, without complications; Z87.891 Personal history of nicotine dependence; Z86.711 Personal history of pulmonary embolism; Z79.01 Long term (current) use of anticoagulants; Z79.82 Long term (current) use of aspirin; Z86.718 Personal history of other venous thrombosis and embolism; I25.10 Atherosclerotic heart disease of native coronary artery without angina pectoris; I10 Essential (primary) hypertension; G25.0 Essential tremor
CPT/HCPCS: 27447; 36415; 71046; 73560; 80048; 80076; 80307; 82040; 83036; 85025; 85610; 85730; 86850; 86900; 86901; 87070; 87077; 87186; 93005; 97110; 97116; 97161; 97165; 97530; 97535; A9270; C1713; C1776; C9803; J0171; J0330; J0690; J1100; J1170; J1650; J2270; J2405; J2704; J2795; J3010; J3370; J7030; J7120; U0003; U0005

== ENCOUNTER 2021-02-11 10:36 | Outpatient (RCR) | payer OTHER, SELFPAY ==
[2021-02-06 13:55] LABS: INR 1.1; Prothrombin Time 15.2 Seconds (11.1-14.7)
[2021-02-08 11:04] LABS: INR 1.2; Prothrombin Time 15.3 Seconds (11.1-14.7)
[2021-02-11 11:04] LABS: INR 1.2; Prothrombin Time 15.5 Seconds (11.1-14.7)
== END 2021-05-07 23:59 | disposition home or self-care (01) ==
LOC: ANHLAB 10:36
PROVIDERS: Visit Provider Physician Assistant Surgical
DX: I26.99 Other pulmonary embolism without acute cor pulmonale (principal)
CPT/HCPCS: 36415; 85610

== ENCOUNTER 2021-03-15 10:42 | Outpatient (CLI) | payer OTHER, SELFPAY ==
[2021-03-15 11:08] LABS: Basophils Percent Auto 0.5 % (0.2-1.2); Eosinophils Absolute Auto 0.1 K/mm3 (0-0.3); Eosinophils Percent Auto 1.6 % (0-4.4); Hematocrit 41.2 % (42.0-52.0); Immature Granulocyte Absolute 0.01 K/mm3 (0.00-0.031); Immature Granulocyte Percent A 0.3 % (0-0.5); Lymphocytes Absolute Auto 1.05 K/mm3 (0.9-3.2); Lymphocytes Percent Auto 27.3 % (18.3-44.2); Mean Corpuscular HGB Conc 31.6 g/dl (32-36); Mean Corpuscular Volume 101.5 fl (80-100); Mean Platelet Volume 9.3 fl (7.4-10.4); Monocytes Absolute Auto 0.3 K/mm3 (0.1-0.6); Monocytes Percent Auto 7.3 % (2.6-8.5); Neutrophils Absolute Auto 2.4 K/mm3 (1.3-6.7); Platelet Count Result 228 k/mm3 (150-375); Red Blood Count 4.06 M/mm3 (4.6-6.20); Red Cell Distribution Width 13.6 % (11.5-14.5); White Blood Count 3.9 K/mm3 (4.5-10.0)
[2021-03-15 11:39] LABS: Alanine Aminotransferase 20 U/L (4-50); Albumin Level 4.2 g/dL (3.5-5.1); Alkaline Phosphatase 57 U/L (38-126); Anion Gap 5 mmol/L (8-16); Aspartate Amino Transferase 51 U/L (17-59); Bilirubin,Total 0.9 mg/dL (0.2-1.3); Blood Urea Nitrogen 14 mg/dL (9-20); Carbon Dioxide 27 mmol/L (22-30); Chloride 105 mmol/L (98-107); Estimated Glomerular Filt Rate > 60; Glucose 138 mg/dL (75-110); Sodium 137 mmol/L (137-145)
[2021-03-15 11:48] LABS: Prostate Specific Antigen 1.1 ng/mL (< OR = 4.0)
== END 2021-03-15 10:43 | disposition home or self-care (01) ==
LOC: ANHLAB 10:49
DX: I10 Essential (primary) hypertension (principal); N52.9 Male erectile dysfunction, unspecified; N40.1 Benign prostatic hyperplasia with lower urinary tract symptoms; R35.1 Nocturia
CPT/HCPCS: 36415; 80053; 84153; 85025

== ENCOUNTER 2021-04-07 19:30 | Inpatient (IN) | payer OTHER, SELFPAY ==
[2021-04-07] VITALS (12 sets, daily range): BP systolic 119–142; BP diastolic 65–87; PULSE 85–107; RESP 14–21; TEMP 36.3–36.9; O2SAT 96–100; BMI 25.4
--- NOTE | ~2021-04-07 | XR_ITS ---
UGI-AIR CONTRAST/SMALL BOWEL INDICATION: Crohn's disease. GI bleed. TECHNIQUE: Serial images of the upper GI tract structures and small bowel are performed following ora l administration of barium. COMPARISON: None FINDINGS: Barium flowed readily through the esophagus without evidence of hernia or reflux. Gastric contour, mucosa and motility are normal. The duodenal bulb fills and empties regularly. There is a d uodenal diverticulum. The duodenal sweep is in normal position. Mucosal pattern of small bowel is un remarkable. The colon is surgically absent with ileostomy in the right lower abdomen. No significant small bowel dilation. IMPRESSION: 1: Duodenal diverticulum. 2: Surgical changes, consistent with previous colectomy. 3: No obstruction. No strictures identified. Reviewed, dictated and finalized at location A.
--- NOTE | 2021-04-07 19:40 | ED.GENADULT ---
HPI - General Adult General Chief complaint: Unspecified Stated complaint: Bleeding ileostomy Time Seen by Provider: 04/07/21 19:40 History of Present Illness HPI narrative: 75 yo male w/ h/o crohn's disease s/p colectomy & ileostomy, PE on warfarin presents to the ED for a GI bleed. He reports that his ileostomy bag has filled with with blood twice throughout the day today. After the second time he does note feeling a bit fatigued, and light headed. No syncope, SOB, abdominal pain, fever. Most recent INR was 1.9. He sees Dr. Banerjee. Related Data Home Medications Medication Instructions Recorded Confirmed atorvastatin 10 mg PO DAILY 05/19/20 04/08/21 lisinopril 5 mg PO QAM 05/19/20 04/08/21 metoprolol tartrate 25 mg PO BID 05/19/20 04/08/21 nitroglycerin [Nitrostat] 0.4 mg SUBLINGUAL Q5-15M PRN 05/19/20 04/08/21 primidone 150 mg PO BID 05/19/20 04/08/21 warfarin See Rx Instructions .ROUTE .COMPLEX 05/19/20 04/08/21 Glucosamine Complex-MSM 2 cap PO DAILY 01/18/21 04/08/21 Neuriva Original 1 tablet PO DAILY 01/18/21 04/08/21 aspirin [Aspirin Low Dose] 81 mg PO DAILY 01/18/21 04/08/21 multivitamin 1 tablet PO DAILY 01/18/21 04/08/21 sulfasalazine 500 mg PO QID 01/18/21 04/08/21 warfarin 12.5 mg PO DIRECTED 01/18/21 04/08/21 lutein 20 mg PO DAILY 04/08/21 04/08/21 mecobalamin (vitamin B12) [B12 1,000 mcg PO DAILY 04/08/21 04/08/21 Active] oxycodone 5 mg PO Q4HR PRN 04/08/21 04/08/21 Allergies Allergy/AdvReac Type Severity Reaction Status Date / Time Iodine and Iodide Containing Allergy Severe Swelling Verified 04/08/21 00:33 Produc of Lip/Tongue/Throat shellfish derived Allergy Severe Swelling Verified 04/08/21 00:33 of Lip/Tongue/Throat SHELLFISH Allergy Severe THROAT Uncoded 04/07/21 19:48 SWELLING Review of Systems Review of Systems: All systems reviewed & are unremarkable except as noted in HPI and below Cardiovascular: Cardiovascular: Denies chest pain Respiratory: Respiratory: Denies dyspnea Gastrointestinal: Gastrointestinal: Reports as per HPI Genitourinary: Genitourinary: Reports no additional male genitourinary complaints Neurologic: Denies syncope, Denies numbness and Denies weakness Hematologic/Lymphatic: Hematologic/Lymphatic: Reports easy bleeding PMFSH Past Medical History Medical History Coronary artery disease Status post stent in 2012. Crohn's disease Status post total colectomy with ileostomy. Current use of manager terminal anticoagulation Chronic warfarin secondary to recurrent DVT and pulmonary embolism. Deep venous thrombosis Left lower extremity x2. Essential tremor History of Jared's gangrene Hyperlipemia Hypertension Pulmonary embolism Surgical History Surgical History History of appendectomy History of arthroplasty of right knee (~02/05/21) History of cataract extraction History of coronary artery stent placement (~2012) x1. Patient of Dr. Griffin. History of hip surgery (~2010) Pinning of left hip fracture with subsequent hardware removal. 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 Status post right knee replacement Family History Family History Other Heart disease Hypertension Social History Social History Social History: Surrogate decision maker: Ethan Madrigal, son. Code status: Full code. Smoking packs per day: 1 Smoking cigarettes per day: 20.0 Years smoked: 40 Smoking pack-years: 40.00 Smoking status: Former smoker Additional smoking assessment comments: quit 20 y
[2021-04-07 20:03] LABS: Basophils Percent Auto 0.6 % (0.2-1.2); Eosinophils Percent Auto 0.6 % (0-4.4); Hematocrit 36.4 % (42.0-52.0); Hemoglobin 11.8 g/dL (14.0-18.0); Immature Granulocyte Absolute 0.03 K/mm3 (0.00-0.031); Immature Granulocyte Percent A 0.5 % (0-0.5); Lymphocytes Absolute Auto 1.47 K/mm3 (0.9-3.2); Lymphocytes Percent Auto 22.3 % (18.3-44.2); Mean Corpuscular HGB Conc 32.4 g/dl (32-36); Mean Corpuscular Hemoglobin 32.2 pg (26-34); Mean Corpuscular Volume 99.2 fl (80-100); Mean Platelet Volume 9.5 fl (7.4-10.4); Monocytes Absolute Auto 0.5 K/mm3 (0.1-0.6); Monocytes Percent Auto 7.9 % (2.6-8.5); Neutrophils Absolute Auto 4.5 K/mm3 (1.3-6.7); Neutrophils Percent Auto 68.1 % (45.5-73.1); Platelet Count Result 219 k/mm3 (150-375); Red Blood Count 3.67 M/mm3 (4.6-6.20); Red Cell Distribution Width 14.1 % (11.5-14.5); White Blood Count 6.6 K/mm3 (4.5-10.0)
[2021-04-07 20:14] LABS: INR 2.2; Prothrombin Time 25.4 Seconds (11.1-14.7)
[2021-04-07 20:15] LABS: Alanine Aminotransferase 19 U/L (4-50); Albumin Level 3.8 g/dL (3.5-5.1); Alkaline Phosphatase 68 U/L (38-126); Anion Gap 3 mmol/L (8-16); Aspartate Amino Transferase 29 U/L (17-59); Bilirubin,Total 0.1 mg/dL (0.2-1.3); Blood Urea Nitrogen 16 mg/dL (9-20); Calcium 8.7 mg/dL (8.4-10.2); Carbon Dioxide 22 mmol/L (22-30); Chloride 106 mmol/L (98-107); Estimated CRCL calculation 73 ml/min; Estimated Glomerular Filt Rate > 60; Glucose 124 mg/dL (75-110); Partial Thromboplastin Time 37.1 SECONDS (22.3-36.8); Potassium 3.8 mmol/L (3.4-5.0); Sodium 131 mmol/L (137-145)
--- NOTE | 2021-04-07 20:28 | PC.NURSE ---
200 ml of dark red fluid taken out of ileostomy at this time.
[2021-04-07] MEDS: SODIUM CHLORIDE 0.9% IV 1,000 ML 999 ML IV CONT (20:30)
[2021-04-07] MEDS: PHYTONADIONE 2.5 MG TAB PO (20:36)
[2021-04-07] MEDS: PANTOPRAZOLE SODIUM IV 40 MG VIAL IV PUSH (20:37)
--- NOTE | 2021-04-07 21:33 | PC.NURSE ---
450 ml taken from ileostomy bag at this time.
--- NOTE | 2021-04-07 22:17 | PM.IMHP ---
H&P: HPI History of Present Illness Date/Time: 04/07/21 22:17 Chief Complaint: GI bleed Narrative: This is a 75-year-old male with past medical history significant from or Crohn's disease patient had colon resection with ileostomy placement, pulmonary embolism on Coumadin.Patient presented to the emergency room after he had bright red blood in the ileostomy bag roughly 500 mL. Patient has been in his usual state of health up until this. He denies any nausea vomiting he felt dizzy no near-syncope or syncope no chest pain no PND no orthopnea no cough no fever no rigors no chills. Preliminary workup was significant for a decreasing hemoglobin from 13-11 a repeat showed a hemoglobin of 9, his INR was 2.2. Review of Systems Review of Systems: Narrative: Patient presented to the emergency room due to bright red blood per rectum in his ileostomy bag. Constitutional: Constitutional: Denies chills, Denies fatigue, Denies fever(s), Denies malaise and Denies weakness Eyes: Eyes: Denies change in vision ENT: Denies nasal congestion and Denies nasal discharge Cardiovascular: Cardiovascular: Denies irregular heart rhythm, Denies leg edema, Reports lightheadedness, Denies radiating jaw, neck or arm pain, Denies dyspnea and Denies dyspnea on exertion Respiratory: Respiratory: Denies cough, Denies dyspnea and Denies wheezing Gastrointestinal: Gastrointestinal: Reports hematochezia (Ileostomy bag), Denies GI cramping and Denies vomiting Genitourinary: Genitourinary: Denies dysuria and Denies flank pain Musculoskeletal: Musculoskeletal: Denies arthralgias, Denies joint swelling and Denies muscle weakness Integumentary/Breasts: Skin/Breast: Denies rash Neurologic: Denies focal weakness and Denies Sensory deficit (Neuro) Psychiatric: Psychiatric: Reports no additional psychiatric complaints Endocrine: Endocrine: Reports no additional endocrine complaints Hematologic/Lymphatic: Hematologic/Lymphatic: Denies no additional hematologic/lymphatic complaints [facility] Past Medical History Medical History (Updated 04/08/21 @ 02:36 by Shola Santana MD) Coronary artery disease Status post stent in 2012. Crohn's disease Status post total colectomy with ileostomy. 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 Deep venous thrombosis Left lower extremity x2. Essential tremor History of Jared's gangrene Hypertension Pulmonary embolism Surgical History Surgical History (Updated 02/05/21 @ 00:06 by Emily Khan PA-C) History of appendectomy History of arthroplasty of right knee (~02/05/21) History of cataract extraction History of coronary artery stent placement (~2012) x1. Patient of Dr. Griffin. History of hip surgery (~2010) Pinning of left hip fracture with subsequent hardware removal. 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 Family History Family History Other Heart disease Hypertension Social History Social History (Updated 02/05/21 @ 00:08 by Emily Khan PA-C) Social History: Surrogate decision maker: Ethan Madrigal, son. Code status: Full code. Smoking packs per day: 1 Smoking cigarettes per day: 20.0 Years smoked: 40 Smoking pack-years: 40.00 Smoking status: Former smoker Additional smoking assessment comments: quit 20 years ago Alcohol intake: never Drinks per week: 1 Substance use: never Additional living arrangements comments: The patient is and lives in his own home in [place]. Additional occupation/education comments: Retired. 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
--- NOTE | 2021-04-07 23:50 | ADMGEN ---
This patient, Ezequiel Madrigal, was admitted to 3 Med Surg Room 304-01@23:48. Report taken from Summer RN in ED. Patient/family oriented to hospital policies and general routines including ID bracelet, bed and alarms, visiting hours, pain management, procedures, bathroom and other care routines, personal items, smoking policy, room service/diet, and visiting hours. Information on how to activate the Rapid Response Team has been discussed. Patient/Family are encouraged to report perceived risks to care and to ask questions if they do not understand what they are told or what they should do.
[2021-04-08] VITALS (17 sets, daily range): BP systolic 85–147; BP diastolic 48–90; PULSE 67–116; RESP 16–22; TEMP 36.2–36.6; O2SAT 96–100
[2021-04-08 01:01] LABS: Hematocrit 30.4 % (42.0-52.0); Hemoglobin 9.8 g/dL (14.0-18.0)
[2021-04-08] MEDS: LACTATED RINGERS 1,000 ML 125 ML IV CONT ×4 (01:40→20:23)
--- NOTE | 2021-04-08 01:48 | PC.NURSE ---
0115: Pt assessment via SN. Ambulated to bathroom to empty ileostomy bag w/ standby assist and noted unsteady gait and balance. Pt reports that he is nauseous and dizzy. Latest H&H has dropped to 9.5. Assisted pt back to bed w/ bed alarm activated followed by instructions to call for nurse/[facility] for assistance to get out of bed. Pt verbalized understanding and agreed to comply. Will continue to monitor.
[2021-04-08 05:54] LABS: Hematocrit 26.8 % (42.0-52.0); Hemoglobin 8.9 g/dL (14.0-18.0)
--- NOTE | 2021-04-08 08:01 | WPDGICN ---
Assessment and Plan Assessment and plan (1) Acute GI bleeding: Code(s): K92.2 - Gastrointestinal hemorrhage, unspecified Status: Acute Assessment and Plan: Patient with sudden onset of bleeding from the ileostomy. This is where he has had bleeding before. History of colon total colectomy secondary to Crohn's disease. Suspect this is similar to previous bleeding episodes may be Crohn's disease in the distal small bowel. Plan is for ileoscopy today small-bowel follow-through if necessary subsequently. Anticoagulation will need to be held. (2) Current use of shelter anticoagulation: Code(s): Z79.01 - prison (current) use of anticoagulants Status: Acute (3) Pulmonary embolism: Code(s): I26.99 - Other pulmonary embolism without acute cor pulmonale Status: Acute (4) Crohn's disease: Code(s): K50.90 - Crohn's disease, unspecified, without complications Status: Acute Assessment and Plan: Continue sulfasalazine. Previous Pentasa has been discontinued because of expense. (5) Ileostomy in place: Code(s): Z93.2 - Ileostomy status Status: Acute Assessment and Plan: History of total colectomy on the basis of Crohn's disease. He has had several surgeries most recently 20 years ago. GI Consult Note Consult date/time: 04/08/21 08:01 HPI: Ezeqiuel Madrigal is a 75 year old male Presents for evaluation of GI bleeding. Patient in usual state of health last evening began to pass bright red blood from his ileoscopy to me. Patient denies any abdominal pain. He denies any lightheadedness. He was admitted for observation decline in hemoglobin was identified. Patient's past medical history is significant for Crohn's disease. He underwent several surgeries in [place]. Twenty years ago ultimately had a says total colectomy. He now has an ileostomy. He was seen by my service 5 years ago with bleeding from the ostomy site. This improved with Pentasa. Pentasa subsequently was discontinued because of its great expense. Patient reports additional bleeding from the ileostomy 2-3 years ago while in [place]. This ultimately was identified as bleeding from the ostomy site he was treated with sulfasalazine. Over the intervening 2 years patient has had pulmonary embolism. He now is on chronic Coumadin anticoagulation. Review of Systems Review of Systems: All systems reviewed & are unremarkable except as noted in HPI and below PMFSH Past Medical History Medical History (Updated 04/08/21 @ 02:36 by Shola Santana MD) Coronary artery disease Status post stent in 2012. Crohn's disease Status post total colectomy with ileostomy. 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 Deep venous thrombosis Left lower extremity x2. Essential tremor History of Jared's gangrene Hypertension Pulmonary embolism Surgical History Surgical History (Updated 02/05/21 @ 00:06 by Emily Khan PA-C) History of appendectomy History of arthroplasty of right knee (~02/05/21) History of cataract extraction History of coronary artery stent placement (~2012) x1. Patient of Dr. Griffin. History of hip surgery (~2010) Pinning of left hip fracture with subsequent hardware removal. 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 Family History Family History Other Heart disease Hypertension Social History Social History (Updated 02/05/21 @ 00:08 by Emily Khan PA-C) Social History: Surrogate decision maker: Ethan Madrigal, son. Code status: Full code. Smoking packs per day: 1 Smoking cigare
[2021-04-08] MEDS: PRIMIDONE 50 MG TABLET 150 MG PO ×2 (09:11→20:22)
[2021-04-08] MEDS: lisinopriL 5 MG TABLET PO (09:12)
[2021-04-08] MEDS: METOPROLOL TARTRATE 25 MG TABLET PO ×2 (09:13→20:24)
--- NOTE | 2021-04-08 10:09 | WPDANESEPPF ---
Anes - Initial Pre Proc Eval Procedure: Operation Date: 04/08/21 13:30 Proposed Procedures p Ileoscopy - Toby Banerjee MD Date/Time: 04/08/21 10:09 Surgeon: Shola Santana MD Pre Op Diagnosis: Lower GI bleed, Crohn's Disease Patient Data Age: 75 Gender: M Height: 5 ft 10.5 in Weight: 81.8 kg Last Vital Signs Temp 36.2 C L 04/08/21 10:05 Pulse 76 04/08/21 10:05 Resp 18 04/08/21 10:05 BP 147/90 H 04/08/21 10:05 Pulse Ox 100 04/08/21 10:05 Allergies Allergy/AdvReac Type Severity Reaction Status Date / Time Iodine and Iodide Containing Allergy Severe Swelling Verified 04/08/21 00:33 Produc of Lip/Tongue/Throat shellfish derived Allergy Severe Swelling Verified 04/08/21 00:33 of Lip/Tongue/Throat SHELLFISH Allergy Severe THROAT Uncoded 04/07/21 19:48 SWELLING Home Medications Medication Instructions Recorded Confirmed Type atorvastatin 10 mg PO DAILY 05/19/20 04/08/21 History lisinopril 5 mg PO QAM 05/19/20 04/08/21 History metoprolol tartrate 25 mg PO BID 05/19/20 04/08/21 History nitroglycerin [Nitrostat] 0.4 mg SUBLINGUAL Q5-15M PRN 05/19/20 04/08/21 History primidone 150 mg PO BID 05/19/20 04/08/21 History warfarin See Rx Instructions .ROUTE .COMPLEX 05/19/20 04/08/21 History Glucosamine Complex-MSM 2 cap PO DAILY 01/18/21 04/08/21 History Neuriva Original 1 tablet PO DAILY 01/18/21 04/08/21 History aspirin [Aspirin Low Dose] 81 mg PO DAILY 01/18/21 04/08/21 History multivitamin 1 tablet PO DAILY 01/18/21 04/08/21 History sulfasalazine 500 mg PO QID 01/18/21 04/08/21 History warfarin 12.5 mg PO DIRECTED 01/18/21 04/08/21 History lutein 20 mg PO DAILY 04/08/21 04/08/21 History mecobalamin (vitamin B12) [B12 1,000 mcg PO DAILY 04/08/21 04/08/21 History Active] oxycodone 5 mg PO Q4HR PRN 04/08/21 04/08/21 History Laboratory Tests 04/07/21 04/07/21 04/07/21 19:56 19:56 19:56 WBC 6.6 K/mm3 K/mm3 (4.5-10.0) RBC 3.67 M/mm3 L M/mm3 (4.6-6.20) Hgb 11.8 g/dL L g/dL (14.0-18.0) Hct 36.4 % L % (42.0-52.0) MCV 99.2 fl fl (80-100) MCH 32.2 pg pg (26-34) MCHC 32.4 g/dl g/dl (32-36) RDW 14.1 % % (11.5-14.5) Plt Count 219 k/mm3 k/mm3 (150-375) MPV 9.5 fl fl (7.4-10.4) Immature Gran % (Auto) 0.5 % % (0-0.5) Neut % (Auto) 68.1 % % (45.5-73.1) Lymph % (Auto) 22.3 % % (18.3-44.2) [place] % (Auto) 7.9 % % (2.6-8.5) Eos % (Auto) 0.6 % % (0-4.4) Baso % (Auto) 0.6 % % (0.2-1.2) Lymph # (Auto) 1.47 K/mm3 K/mm3 (0.9-3.2) [place] # (Auto) 0.5 K/mm3 K/mm3 (0.1-0.6) Eos # (Auto) 0.0 K/mm3 K/mm3 (0-0.3) Baso # (Auto) 0.0 K/mm3 K/mm3 (0.0-0.1) Abs Immat Gran (auto) 0.03 K/mm3 K/mm3 (0.00-0.031) Absolute Neuts (auto) 4.5 K/mm3 K/mm3 (1.3-6.7) Absolute Nucleated RBC 0.0 K/mm3 K/mm3 (0.0-0.012) Nucleated RBC % 0.0 % % (0.0-0.2) PT 25.4 Seconds H Seconds (11.1-14.7) INR 2.2 APTT 37.1 SECONDS H SECONDS (22.3-36.8) Sodium 131 mmol/L L mmol/L (137-145) Potassium 3.8 mmol/L mmol/L (3.4-5.0) Chloride 106 mmol/L mmol/L (98-107) Carbon Dioxide 22 mmol/L mmol/L (22-30) Anion Gap 3 mmol/L L mmol/L (8-16) BUN 16 mg/dL mg/dL (9-20) Creatinine 0.80 mg/dL mg/dL (0.7-1.3) Estim Creat Clear Calc 73 ml/min ml/min Estimated GFR > 60 (59 - ) Glucose 124 mg/dL H mg/dL (75-110) Calcium 8.7 mg/dL mg/dL (8.4-10.2) Total Bilirubin 0.1 mg/dL L mg/dL (0.2-1.3) AST 29 U/L U/L (17-59) ALT 19 U/L U/L (4-50) Alkaline Phosphatase 68 U/L U/L (38-126) Total Protein 6.0 g/dL L g/dL (6.3-8.2) Albumin 3.8 g/dL
[2021-04-08 10:10] LABS: Hematocrit 30.3 % (42.0-52.0); Hemoglobin 9.8 g/dL (14.0-18.0)
[2021-04-08] MEDS: AMPICILLIN 2 GM/NS 100 ML 2 GM/100 ML BAG IVPB (10:23)
[2021-04-08] MEDS: ATORVASTATIN 10 MG TABLET PO (11:33)
--- NOTE | 2021-04-08 12:18 | P.PNIM_ITS ---
Progress Note: A&P Assessment and Plan (1) Acute GI bleeding: Code(s): K92.2 - Gastrointestinal hemorrhage, unspecified Status: Acute Assessment and Plan: * Keep NPO * Current Hgb 9.8 * trend hgb * H&H q.6 hours 2nd repeated shows a hemoglobin of 9 * GI has been consulted Dr. Pop * Transfuse as needed * Hold Coumadin for now * Labs in the am (2) Ileostomy in place: Code(s): Z93.2 - Ileostomy status Status: Acute Assessment and Plan: * Ileostomy care (3) Current use of pen[facility]iary anticoagulation: Code(s): Z79.01 - nursing home (current) use of anticoagulants Status: Acute Assessment and Plan: * History of recurrent DVTand PE * Hold Coumadin for now. * SCDs * early mobility (4) Pulmonary embolism: Code(s): I26.99 - Other pulmonary embolism without acute cor pulmonale Status: Acute Assessment and Plan: * Patient with history of pulmonary embolism x3 * Hold Coumadin for now * SCDs and early mobility (5) Crohn's disease: Code(s): K50.90 - Crohn's disease, unspecified, without complications Status: Acute Assessment and Plan: * Continue sulfasalazine 1000mg PO q12hr * status post total colectomy * Ileostomy in place (6) Coronary artery disease: Code(s): I25.10 - Atherosclerotic heart disease of [place] coronary artery without angina pectoris Status: Acute Assessment and Plan: * Continue home metoprolol and lisinopril holding aspirin * On statin (7) Hypertension: Code(s): I10 - Essential (primary) hypertension Status: Acute Assessment and Plan: * Current Blood pressure is 101/60 * Comtinue home metoprolol 25mg BID and Lisinopril 5mg PO daily * Trend Blood pressure * Adjust medications as needed (8) Hyperlipemia: Code(s): E78.5 - Hyperlipidemia, unspecified Status: Acute Assessment and Plan: * Atorvastatin 10mg PO daily (9) Status post right knee replacement: Code(s): Z96.651 - Presence of right artificial knee joint Status: Acute Assessment and Plan: * Patient stated that he had a knee replacement on the right side 8 weeks ago * At home he has been taking oxycodone 5 mg p.o. at bedtime * Will continue home pain medication at this time Subjective Date/time seen: 04/08/21 12:18 Patient is a 75-year-old male with past medical history of coronary artery disease, Crohn's disease, deep vein thrombosis, hypertension who presented the ED after he noticed about 500 mL of blood was in his ostomy bag. Since admission patient has been seen by Dr. Banerjee who had taken the patient down for EGD and found that he was bleeding from his ileum. Patient has originally been on warfarin long-term up for recurrent DVTs in his bilateral legs. Patient also stated that his warfarin is managed by Dr. Paez. Patient also has an ileostomy due to Crohn's disease. Currently patient is sitting in chair with no complaints. Hemoglobin was 11.8 upon admission currently is at 9.8. Warfarin has been discontinued for time being, from Dr. Banerjee to keep it helped for 1 week. Patient has been started on a p.o. diet. Patient denies chest pain, shortness of breath, nausea, vomiting, abdominal pain, lightheadedness, numbness and tingling, abnormal swelling, sweats, chills, weakness or fatigue. Patient did r
--- NOTE | 2021-04-08 12:18 | PM.IMPN ---
Progress Note: A&P Assessment and Plan (1) Acute GI bleeding: Code(s): K92.2 - Gastrointestinal hemorrhage, unspecified Status: Acute Assessment and Plan: Keep NPO Current Hgb 9.8 trend hgb H&H q.6 hours 2nd repeated shows a hemoglobin of 9 GI has been consulted Dr. Pop Transfuse as needed Hold Coumadin for now Labs in the am (2) Ileostomy in place: Code(s): Z93.2 - Ileostomy status Status: Acute Assessment and Plan: Ileostomy care (3) Current use of halfway anticoagulation: Code(s): Z79.01 - custodial (current) use of anticoagulants Status: Acute Assessment and Plan: History of recurrent DVTand PE Hold Coumadin for now. SCDs early mobility (4) Pulmonary embolism: Code(s): I26.99 - Other pulmonary embolism without acute cor pulmonale Status: Acute Assessment and Plan: Patient with history of pulmonary embolism x3 Hold Coumadin for now SCDs and early mobility (5) Crohn's disease: Code(s): K50.90 - Crohn's disease, unspecified, without complications Status: Acute Assessment and Plan: Continue sulfasalazine 1000mg PO q12hr status post total colectomy Ileostomy in place (6) Coronary artery disease: Code(s): I25.10 - Atherosclerotic heart disease of [place] coronary artery without angina pectoris Status: Acute Assessment and Plan: Continue home metoprolol and lisinopril holding aspirin On statin (7) Hypertension: Code(s): I10 - Essential (primary) hypertension Status: Acute Assessment and Plan: Current Blood pressure is 101/60 Comtinue home metoprolol 25mg BID and Lisinopril 5mg PO daily Trend Blood pressure Adjust medications as needed (8) Hyperlipemia: Code(s): E78.5 - Hyperlipidemia, unspecified Status: Acute Assessment and Plan: Atorvastatin 10mg PO daily (9) Status post right knee replacement: Code(s): Z96.651 - Presence of right artificial knee joint Status: Acute Assessment and Plan: Patient stated that he had a knee replacement on the right side 8 weeks ago At home he has been taking oxycodone 5 mg p.o. at bedtime Will continue home pain medication at this time Subjective Date/time seen: 04/08/21 12:18 Patient is a 75-year-old male with past medical history of coronary artery disease, Crohn's disease, deep vein thrombosis, hypertension who presented the ED after he noticed about 500 mL of blood was in his ostomy bag. Since admission patient has been seen by Dr. Banerjee who had taken the patient down for EGD and found that he was bleeding from his ileum. Patient has originally been on warfarin long-term up for recurrent DVTs in his bilateral legs. Patient also stated that his warfarin is managed by Dr. Paez. Patient also has an ileostomy due to Crohn's disease. Currently patient is sitting in chair with no complaints. Hemoglobin was 11.8 upon admission currently is at 9.8. Warfarin has been discontinued for time being, from Dr. Banerjee to keep it helped for 1 week. Patient has been started on a p.o. diet. Patient denies chest pain, shortness of breath, nausea, vomiting, abdominal pain, lightheadedness, numbness and tingling, abnormal swelling, sweats, chills, weakness or fatigue. Patient did report to having some dizziness upon getting up and going to the bathroom. Educated patient about asking for help with any activity. Patient also stated that he had a knee replacement done 8 weeks ago and that he has been taking oxycodone for pain at nighttime. He also stated that he takes 12.5 mg of warfarin Mondays and Fridays and 10 mg of warfarin every other day of the week however last week he had his INR checked and was 1.9 so they were wanting him to take 12.5 for the next 2 weeks. Upon admission patient's INR was 2.2. Educated bebeto
[2021-04-08] MEDS: sulfaSALAzine 500 MG TABLET 1000 MG PO ×2 (13:06→17:26)
[2021-04-08 15:35] LABS: Hematocrit 27.1 % (42.0-52.0); Hemoglobin 8.6 g/dL (14.0-18.0)
[2021-04-08] MEDS: oxyCODONE HCL (*CRX) 5 MG TAB IR PO (21:44)
[2021-04-09] VITALS (19 sets, daily range): BP systolic 90–147; BP diastolic 46–69; PULSE 79–119; RESP 16–20; TEMP 36.3–37.3; O2SAT 96–100
[2021-04-09] MEDS: LACTATED RINGERS 1,000 ML 125 ML IV CONT (04:36)
--- NOTE | 2021-04-09 05:17 | PC.NURSE ---
as documented by BRIDGE DESIGN ENGINEER, patient had 1400ml out of lubna stool/bm output from ileostomy. Patient is more pale and dizzy when standing this morning. Anticipating lower H&H results from lab draw. -CORIN STONE
[2021-04-09 05:23] LABS: Hematocrit 21.7 % (42.0-52.0); Hemoglobin 7.1 g/dL (14.0-18.0); Mean Corpuscular HGB Conc 32.7 g/dl (32-36); Mean Corpuscular Hemoglobin 32.3 pg (26-34); Mean Corpuscular Volume 98.6 fl (80-100); Mean Platelet Volume 9.6 fl (7.4-10.4); Platelet Count Result 166 k/mm3 (150-375); Red Cell Distribution Width 14.1 % (11.5-14.5); White Blood Count 6.3 K/mm3 (4.5-10.0)
[2021-04-09 05:37] LABS: Alanine Aminotransferase 12 U/L (4-50); Albumin Level 2.4 g/dL (3.5-5.1); Alkaline Phosphatase 45 U/L (38-126); Anion Gap 1 mmol/L (8-16); Aspartate Amino Transferase 19 U/L (17-59); Bilirubin,Total 0.2 mg/dL (0.2-1.3); Blood Urea Nitrogen 9 mg/dL (9-20); Carbon Dioxide 26 mmol/L (22-30); Chloride 107 mmol/L (98-107); Estimated CRCL calculation 96 ml/min; Estimated Glomerular Filt Rate > 60; Glucose 110 mg/dL (75-110); Potassium 3.8 mmol/L (3.4-5.0); Sodium 134 mmol/L (137-145)
--- NOTE | 2021-04-09 05:52 | PC.NURSE ---
called Dr. Santana over patients downward trend in H&H and she ordered 1 unit of blood. -CORIN STONE
--- NOTE | 2021-04-09 07:23 | WPDGIPROGNO ---
Progress Note: A&P Assessment and Plan (1) Acute GI bleeding: Code(s): K92.2 - Gastrointestinal hemorrhage, unspecified Status: Acute Assessment and Plan: Patient with GI bleeding. Ileoscopy yesterday revealed erosions consistent with active Crohn's disease. It is uncertain whether bleeding could be more proximal to this plan is for a small bowel series. Will start steroids in addition to mesalamine. Hold anticoagulation. (2) Crohn's disease: Code(s): K50.90 - Crohn's disease, unspecified, without complications Status: Acute Assessment and Plan: Patient with known Crohn's disease status post previous colectomy. He has evidence for small bowel Crohn's disease in distal ileum. May have disease more proximal. Plan to obtain small-bowel follow-through start steroids and additional mesalamine. Patient may need additional therapy such as Imuran if steroids fail to control bleeding. (3) Current use of termite treater helper anticoagulation: Code(s): Z79.01 - buttermaker helper (current) use of anticoagulants Status: Acute Assessment and Plan: Anticoagulation undoubtedly contributes to her current bleeding. Anticoagulation will need to be held until bleeding stops. Subjective Date/time seen: 04/09/21 07:23 Patient comfortable this morning. He noticed moderate amount of bright red blood in his ostomy bag throughout the night. Denies dizziness or lightheadedness. Tolerating diet. He denies abdominal pain. Review of Systems Review of Systems: All systems reviewed & are unremarkable except as noted in HPI and below Exam Narrative: Exam Narrative: Physical exam reveals patient to be alert comfortable at rest he is anicteric. Lungs are clear. Heart without murmur. Abdomen bowel sounds present soft nontender ileostomy bag with old blood. No active blood at this time. Objective Data Vital Signs Vital Signs: Vital Signs - 24 hr 04/08/21 08:00 04/08/21 10:05 04/08/21 10:39 Temperature 97.1 F L Pulse Rate 75 76 74 Respiratory Rate 18 17 Blood Pressure 147/90 H 85/48 L Pulse Oximetry 100 96 04/08/21 10:49 04/08/21 10:59 04/08/21 11:26 Temperature 97.3 F L Pulse Rate 75 69 77 Respiratory Rate 22 H 16 16 Blood Pressure 111/57 L 117/60 101/60 Pulse Oximetry 98 100 100 04/08/21 12:00 04/08/21 14:00 04/08/21 14:24 Temperature 97.4 F L Pulse Rate 82 97 Respiratory Rate 16 Blood Pressure 109/52 L Pulse Oximetry 100 99 04/08/21 16:00 04/08/21 20:00 04/08/21 20:24 Temperature Pulse Rate 67 116 H 86 Respiratory Rate Blood Pressure Pulse Oximetry 04/08/21 20:45 04/08/21 21:42 04/09/21 00:00 Temperature 97.8 F Pulse Rate 83 83 Respiratory Rate 18 Blood Pressure 108/54 L Pulse Oximetry 100 100 04/09/21 04:00 04/09/21 05:48 Temperature 98.3 F Pulse Rate 85 90 Respiratory Rate 18 Blood Pressure 109/59 L Pulse Oximetry 100 Intake/Output Intake/Output: Intake & Output 04/06/21 04/07/21 04/08/21 04/09/21 23:59 23:59 23:59 23:59 Intake Total 1000 4100 1750 Output Total 1200 1400 Balance 1000 2900 350 Meds/Results Medications: Active Medications Generic Name Dose Route Start Last Admin Trade Name Santiagoq PRN Reason Stop Dose Admin Atorvastatin Calcium 10 mg 04/08/21 09:00 04/08/21 11:33 Atorvastatin 10 Mg Tablet PO 10 mg DAILY VICTOR HUGO Administration Sodium Chloride 250 mls @ 30 mls/hr 04/09/21 05:58 Normal Saline Iv IV CONT 04/09/21 14:17 .[id number] STA Lisinopril 5 mg 04/08/21 09:00 04/08/21 09:12 Lisinopril 5 Mg Tablet PO 5 mg QAM VICTOR HUGO Administration Methylprednisolone Sodium Succinate 60 mg 04/09/21 14:00 Methylprednisolone Sod Succ 125 Mg Vial IV PUSH Q8HR VICTOR HUGO Metoprolol Tartrate 25 mg 04/08/21 09:00 04/08/21 20:24 Metoprolol Tartrate 25 Mg Tablet PO 25 mg Q12HR VICTOR HUGO Administration Multivitamins Therapeutic 1 tablet 04/09/21 09:00 Multivita
--- NOTE | 2021-04-09 08:18 | P.PNIM_ITS ---
Progress Note: A&P Assessment and Plan (1) Acute GI bleeding: Code(s): K92.2 - Gastrointestinal hemorrhage, unspecified Status: Acute Assessment and Plan: * Excoriation of ilium found by endoscopy, from active Crohn's disease * Ostomy bag has blood and stool in it * Biopsies pending * Current Hgb 7.1 * Transfuse 1 unit of PRBC (04/09/21) * Repeat H/H 1 hour after transfusion * serial H/H q6hr for 24 hours * Trend H/H * GI has been consulted Dr. Banerjee thank you for recommendations * Transfuse as needed * Hold Coumadin for now * Add solumedrol 60mg Q6hr IV * Sulfasalazine 1000mg PO TID * Dr. Banerjee stated that this patient would benefit more from Pentasa. Care coordination is going to looking into the insurance to see if they will cover it. If so will switch patient to this for better Crohn's control. * Small bowel follow through scheduled for today * Labs in the am * heart healthy low sodium diet (2) Ileostomy in place: Code(s): Z93.2 - Ileostomy status Status: Acute Assessment and Plan: * Ileostomy care * Consult wound nurse for ostomy care * Patient needs a particular ostomy bag (3) Current use of car builder anticoagulation: Code(s): Z79.01 - chemical pathologist (current) use of anticoagulants Status: Acute Assessment and Plan: * History of recurrent DVTand PE * Hold Coumadin for now. * SCDs * early mobility (4) Pulmonary embolism: Code(s): I26.99 - Other pulmonary embolism without acute cor pulmonale Status: Acute Assessment and Plan: * Patient with history of pulmonary embolism x3 * Hold Coumadin for now * SCDs and early mobility (5) Crohn's disease: Code(s): K50.90 - Crohn's disease, unspecified, without complications Status: Acute Assessment and Plan: * Continue sulfasalazine 1000mg PO q12hr * status post total colectomy * Ileostomy in place (6) Coronary artery disease: Code(s): I25.10 - Atherosclerotic heart disease of [place] coronary artery without angina pectoris Status: Acute Assessment and Plan: * Continue home metoprolol and lisinopril holding aspirin * On statin (7) Hypertension: Code(s): I10 - Essential (primary) hypertension Status: Acute Assessment and Plan: * Current Blood pressure is 101/60 * Comtinue home metoprolol 25mg BID and Lisinopril 5mg PO daily * Trend Blood pressure * Adjust medications as needed (8) Hyperlipemia: Code(s): E78.5 - Hyperlipidemia, unspecified Status: Acute Assessment and Plan: * Atorvastatin 10mg PO daily (9) Status post right knee replacement: Code(s): Z96.651 - Presence of right artificial knee joint Status: Acute Assessment and Plan: * Patient stated that he had a knee replacement on the right side 8 weeks ago * At home he has been taking oxycodone 5 mg p.o. at bedtime * Will continue home pain medication at this time Subjective Date/time seen: 04/09/21 08:18 Patient is a 75-year-old male with past medical history of coronary artery disease, Crohn's disease, deep vein thrombosis, hypertension who presented the ED after he noticed about 500 mL of blood was in his ostomy bag. Since admission patient has been seen by Dr. Banerjee who performed an EGD and found that he was bleeding fr
--- NOTE | 2021-04-09 08:18 | PM.IMPN ---
Progress Note: A&P Assessment and Plan (1) Acute GI bleeding: Code(s): K92.2 - Gastrointestinal hemorrhage, unspecified Status: Acute Assessment and Plan: Excoriation of ilium found by endoscopy, from active Crohn's disease Ostomy bag has blood and stool in it Biopsies pending Current Hgb 7.1 Transfuse 1 unit of PRBC (04/09/21) Repeat H/H 1 hour after transfusion serial H/H q6hr for 24 hours Trend H/H GI has been consulted Dr. Banerjee thank you for recommendations Transfuse as needed Hold Coumadin for now Add solumedrol 60mg Q6hr IV Sulfasalazine 1000mg PO TID Dr. Banerjee stated that this patient would benefit more from Pentasa. Care coordination is going to looking into the insurance to see if they will cover it. If so will switch patient to this for better Crohn's control. Small bowel follow through scheduled for today Labs in the am heart healthy low sodium diet (2) Ileostomy in place: Code(s): Z93.2 - Ileostomy status Status: Acute Assessment and Plan: Ileostomy care Consult wound nurse for ostomy care Patient needs a particular ostomy bag (3) Current use of [facility] anticoagulation: Code(s): Z79.01 - alf (current) use of anticoagulants Status: Acute Assessment and Plan: History of recurrent DVTand PE Hold Coumadin for now. SCDs early mobility (4) Pulmonary embolism: Code(s): I26.99 - Other pulmonary embolism without acute cor pulmonale Status: Acute Assessment and Plan: Patient with history of pulmonary embolism x3 Hold Coumadin for now SCDs and early mobility (5) Crohn's disease: Code(s): K50.90 - Crohn's disease, unspecified, without complications Status: Acute Assessment and Plan: Continue sulfasalazine 1000mg PO q12hr status post total colectomy Ileostomy in place (6) Coronary artery disease: Code(s): I25.10 - Atherosclerotic heart disease of [place] coronary artery without angina pectoris Status: Acute Assessment and Plan: Continue home metoprolol and lisinopril holding aspirin On statin (7) Hypertension: Code(s): I10 - Essential (primary) hypertension Status: Acute Assessment and Plan: Current Blood pressure is 101/60 Comtinue home metoprolol 25mg BID and Lisinopril 5mg PO daily Trend Blood pressure Adjust medications as needed (8) Hyperlipemia: Code(s): E78.5 - Hyperlipidemia, unspecified Status: Acute Assessment and Plan: Atorvastatin 10mg PO daily (9) Status post right knee replacement: Code(s): Z96.651 - Presence of right artificial knee joint Status: Acute Assessment and Plan: Patient stated that he had a knee replacement on the right side 8 weeks ago At home he has been taking oxycodone 5 mg p.o. at bedtime Will continue home pain medication at this time Subjective Date/time seen: 04/09/21 08:18 Patient is a 75-year-old male with past medical history of coronary artery disease, Crohn's disease, deep vein thrombosis, hypertension who presented the ED after he noticed about 500 mL of blood was in his ostomy bag. Since admission patient has been seen by Dr. Banerjee who performed an EGD and found that he was bleeding from his ileum. Patient has been on warfarin long-term up for recurrent DVTs in his bilateral legs. Today hemoglobin is down to 7.1 patient will receive 1 unit of packed red blood. Patient stated that he is very weak and lethargic today. He also stated that he feels a little dizzy and weak. Patient also looks very pale. Patient also stated that he needs to change his ostomy bag, however he stated that he only had 1 bag left. I explained to the patient that he could ask nursing staff for 1 from here. He stated that he was unsure if it would work because his is an oblong shape and not ro
[2021-04-09] MEDS: SODIUM CHLORIDE 0.9% IV 250 ML 30 ML IV CONT ×2 (08:20→18:43)
[2021-04-09] MEDS: MULTIVITAMINS THERAPEUTIC TAB (*BKC) 1 TABLET PO (08:22)
[2021-04-09] MEDS: ATORVASTATIN 10 MG TABLET PO (08:22)
[2021-04-09] MEDS: METOPROLOL TARTRATE 25 MG TABLET PO ×2 (08:22→21:33)
[2021-04-09] MEDS: lisinopriL 5 MG TABLET PO (08:22)
[2021-04-09] MEDS: PRIMIDONE 50 MG TABLET 150 MG PO ×2 (08:23→21:33)
[2021-04-09] MEDS: sulfaSALAzine 500 MG TABLET 1000 MG PO ×2 (08:23→18:43)
[2021-04-09] MEDS: oxyCODONE HCL (*CRX) 5 MG TAB IR PO (08:24)
[2021-04-09 08:30] LABS: INR 1.7; Prothrombin Time 20.3 Seconds (11.1-14.7)
[2021-04-09] MEDS: methylPREDNISolone SOD SUCC 125 MG VIAL 60 MG IV PUSH ×2 (11:19→21:34)
[2021-04-09 12:37] LABS: Hematocrit 22.8 % (42.0-52.0); Hemoglobin 7.3 g/dL (14.0-18.0)
[2021-04-09 22:37] LABS: Hematocrit 26.2 % (42.0-52.0); Hemoglobin 8.6 g/dL (14.0-18.0)
[2021-04-10] VITALS (8 sets, daily range): BP systolic 114–126; BP diastolic 56–76; PULSE 75–85; RESP 18–20; TEMP 36.4–36.8; O2SAT 98–99
[2021-04-10] MEDS: methylPREDNISolone SOD SUCC 125 MG VIAL 60 MG IV PUSH (05:42)
[2021-04-10 06:08] LABS: Hematocrit 24.1 % (42.0-52.0); Hemoglobin 7.9 g/dL (14.0-18.0); Mean Corpuscular HGB Conc 32.8 g/dl (32-36); Mean Corpuscular Hemoglobin 31.2 pg (26-34); Mean Corpuscular Volume 95.3 fl (80-100); Platelet Count Result 161 k/mm3 (150-375); Red Blood Count 2.53 M/mm3 (4.6-6.20); Red Cell Distribution Width 15.9 % (11.5-14.5); White Blood Count 5.5 K/mm3 (4.5-10.0)
[2021-04-10 06:29] LABS: Alanine Aminotransferase 12 U/L (4-50); Albumin Level 2.6 g/dL (3.5-5.1); Alkaline Phosphatase 43 U/L (38-126); Anion Gap 3 mmol/L (8-16); Aspartate Amino Transferase 19 U/L (17-59); Bilirubin,Total 0.3 mg/dL (0.2-1.3); Blood Urea Nitrogen 9 mg/dL (9-20); Calcium 8.2 mg/dL (8.4-10.2); Carbon Dioxide 28 mmol/L (22-30); Chloride 104 mmol/L (98-107); Estimated CRCL calculation 74 ml/min; Estimated Glomerular Filt Rate > 60; Glucose 116 mg/dL (75-110); Potassium 3.8 mmol/L (3.4-5.0); Sodium 135 mmol/L (137-145)
--- NOTE | 2021-04-10 08:09 | WPDGIPROGNO ---
Progress Note: A&P Assessment and Plan (1) Acute GI bleeding: Code(s): K92.2 - Gastrointestinal hemorrhage, unspecified Status: Acute Assessment and Plan: Current bleeding appears to have stopped. Appears to be exacerbated by warfarin anticoagulation. We will need to hold Coumadin for a period of time perhaps 2 weeks to allow his inflammatory bowel disease to heal. Continue monitor hemoglobin intermittently after discharge. Advance diet. (2) Crohn's disease: Code(s): K50.90 - Crohn's disease, unspecified, without complications Status: Acute Assessment and Plan: Patient with known Crohn's disease. Erosions in the distal ileum are consistent with Crohn's disease. Small-bowel follow-through and upper GI reveals no evidence of additional Crohn's disease however specificity of this exam is somewhat limited. Plan is to continue sulfasalazine. Pentasa would be preferred if patient is able to afford this medication. We will add prednisone and discontinue Solu-Medrol. He will be discharged on a tapering dose of prednisone. 20 mg and decrease by 5 mg weekly. Consider Imuran if additional medication is required. Alternatively a biologic agent could be considered as an outpatient. Coumadin as stated will need to be held briefly because of bleeding. (3) Ileostomy in place: Code(s): Z93.2 - Ileostomy status Status: Acute Assessment and Plan: Patient has a prior history of total colectomy because of Crohn's disease. Ileostomy otherwise functioning fine. (4) Current use of long term care pharmacist anticoagulation: Code(s): Z79.01 - [facility] (current) use of anticoagulants Status: Acute Assessment and Plan: Patient requires long-term anticoagulation use because of prior pulmonary embolus. Coumadin her anticoagulation will need to be held briefly to ensure that bleeding has stopped prior to resuming this medication. Perhaps hold it for 2 weeks at this time. Subjective Date/time seen: 04/10/21 08:09 Patient is alert and comfortable this morning. He reports no additional blood in his ostomy bag. He denies abdominal pain. Tolerating diet without difficulty. Review of Systems Review of Systems: All systems reviewed & are unremarkable except as noted in HPI and below Exam Narrative: Exam Narrative: Physical exam reveals patient be alert. Vital signs are stable. HEENT exam is unremarkable. Patient is anicteric. Lungs are clear. Heart without murmur. Abdomen bowel sounds present soft nontender right lower quadrant ostomy bags intact. No obvious bleeding at this time. Objective Data Vital Signs Vital Signs: Vital Signs - 24 hr 04/09/21 08:18 04/09/21 08:22 04/09/21 08:35 Temperature 97.9 F 98.5 F Pulse Rate 92 84 83 Respiratory Rate 16 16 Blood Pressure 134/62 109/50 L Pulse Oximetry 100 99 04/09/21 09:35 04/09/21 10:35 04/09/21 11:33 Temperature 97.3 F L 97.5 F L 98.6 F Pulse Rate 88 87 79 Respiratory Rate 16 16 16 Blood Pressure 95/46 L 90/47 L 97/53 L Pulse Oximetry 98 98 99 04/09/21 12:00 04/09/21 16:00 04/09/21 18:37 Temperature 97.6 F Pulse Rate 86 92 118 H Respiratory Rate 16 Blood Pressure 114/69 Pulse Oximetry 100 04/09/21 18:53 04/09/21 19:53 04/09/21 20:00 Temperature 98.1 F 99.2 F Pulse Rate 119 H 98 99 Respiratory Rate 16 16 Blood Pressure 134/63 123/63 Pulse Oximetry 98 100 04/09/21 20:53 04/09/21 21:33 04/09/21 22:00 Temperature 99.0 F 99.2 F Pulse Rate 98 98 111 H Respiratory Rate 20 20 Blood Pressure 114/62 147/63 H Pulse Oximetry 96 98 04/10/21 00:00 04/10/21 04:00 04/10/21 05:42 Temperature 97.5 F L Pulse Rate 79 76 75 Respiratory Rate 20 Blood Pressure 124/56 L Pulse Oximetry 98 Intake/Output Intake/Output: Intake & Output 04/07/21 04/08/21 04/09/21 04/10/21 23:59 23:59 23:59 23:59 Intake Total 1000 4100 2850 350 Output Total 1200 2700 Balance 1000 2900 1
[2021-04-10] MEDS: lisinopriL 5 MG TABLET PO (09:32)
[2021-04-10] MEDS: PRIMIDONE 50 MG TABLET 150 MG PO ×2 (09:32→20:32)
[2021-04-10] MEDS: ATORVASTATIN 10 MG TABLET PO (09:33)
[2021-04-10] MEDS: METOPROLOL TARTRATE 25 MG TABLET PO ×2 (09:33→20:32)
[2021-04-10] MEDS: MULTIVITAMINS THERAPEUTIC TAB (*BKC) 1 TABLET PO (09:33)
--- NOTE | 2021-04-10 10:24 | P.PNIM_ITS ---
Progress Note: A&P Assessment and Plan (1) Acute GI bleeding: Code(s): K92.2 - Gastrointestinal hemorrhage, unspecified Status: Acute Assessment and Plan: * Excoriation of ilium found by endoscopy, from active Crohn's disease * Ostomy bag has blood and stool in it * Biopsies pending * Current Hgb 7.9 * Transfuse 2 unit of PRBC (04/09/21) * serial H/H q6hr x 2 * Trend H/H * GI has been consulted Dr. Banerjee thank you for recommendations * Transfuse as needed * Hold Coumadin for now * Add solumedrol 60mg Q6hr IV, changed to prednisone 20mg po daily * Sulfasalazine 1000mg PO TID, changed to mesalamine 1000mg PO QID * Dr. Banerjee started the patient on mesalamine which is generic for pentasa. Care coordination is going to looking into the insurance to see if they will cover it. If so will switch patient to this for better Crohn's control. * Small bowel follow through showed no obstruction or strictures * Labs in the am * heart healthy low sodium diet * Added ferrous sulfate 324mg and B12 1000mg (2) Ileostomy in place: Code(s): Z93.2 - Ileostomy status Status: Acute Assessment and Plan: * Ileostomy care * Consult wound nurse for ostomy care * Patient needs a particular ostomy bag (3) Current use of [facility] anticoagulation: Code(s): Z79.01 - assisted (current) use of anticoagulants Status: Acute Assessment and Plan: * History of recurrent DVTand PE * Hold Coumadin for 2 weeks after bleeding stops * SCDs * early mobility PT/OT (4) Pulmonary embolism: Code(s): I26.99 - Other pulmonary embolism without acute cor pulmonale Status: Acute Assessment and Plan: * Patient with history of pulmonary embolism x3 * Hold Coumadin for now * SCDs and early mobility * PT/OT (5) Crohn's disease: Code(s): K50.90 - Crohn's disease, unspecified, without complications Status: Acute Assessment and Plan: * Continue sulfasalazine 1000mg PO q12hr * status post total colectomy * Ileostomy in place * See above plan (6) Coronary artery disease: Code(s): I25.10 - Atherosclerotic heart disease of [place] coronary artery without angina pectoris Status: Acute Assessment and Plan: * Continue home metoprolol 25mg po BID and lisinopril 5mg PO daily holding aspirin * On statin (7) Hypertension: Code(s): I10 - Essential (primary) hypertension Status: Acute Assessment and Plan: * Current Blood pressure is 124/56 * Continue home metoprolol 25mg BID and Lisinopril 5mg PO daily * Trend Blood pressure * Adjust medications as needed (8) Hyperlipemia: Code(s): E78.5 - Hyperlipidemia, unspecified Status: Acute Assessment and Plan: * Atorvastatin 10mg PO daily (9) Status post right knee replacement: Code(s): Z96.651 - Presence of right artificial knee joint Status: Acute Assessment and Plan: * Patient stated that he had a knee replacement on the right side 8 weeks ago * At home he has been taking oxycodone 5 mg p.o. at bedtime * Will continue home pain medication at this time * PT/OT eval and treat ordered Subjective Date/time seen: 04/10/21 10:24 Patient is a 75-year-old male with past medical history of coronary artery disease, Crohn's disease, deep
--- NOTE | 2021-04-10 10:24 | PM.IMPN ---
Progress Note: A&P Assessment and Plan (1) Acute GI bleeding: Code(s): K92.2 - Gastrointestinal hemorrhage, unspecified Status: Acute Assessment and Plan: Excoriation of ilium found by endoscopy, from active Crohn's disease Ostomy bag has blood and stool in it Biopsies pending Current Hgb 7.9 Transfuse 2 unit of PRBC (04/09/21) serial H/H q6hr x 2 Trend H/H GI has been consulted Dr. Banerjee thank you for recommendations Transfuse as needed Hold Coumadin for now Add solumedrol 60mg Q6hr IV, changed to prednisone 20mg po daily Sulfasalazine 1000mg PO TID, changed to mesalamine 1000mg PO QID Dr. Banerjee started the patient on mesalamine which is generic for pentasa. Care coordination is going to looking into the insurance to see if they will cover it. If so will switch patient to this for better Crohn's control. Small bowel follow through showed no obstruction or strictures Labs in the am heart healthy low sodium diet Added ferrous sulfate 324mg and B12 1000mg (2) Ileostomy in place: Code(s): Z93.2 - Ileostomy status Status: Acute Assessment and Plan: Ileostomy care Consult wound nurse for ostomy care Patient needs a particular ostomy bag (3) Current use of [facility] anticoagulation: Code(s): Z79.01 - group home (current) use of anticoagulants Status: Acute Assessment and Plan: History of recurrent DVTand PE Hold Coumadin for 2 weeks after bleeding stops SCDs early mobility PT/OT (4) Pulmonary embolism: Code(s): I26.99 - Other pulmonary embolism without acute cor pulmonale Status: Acute Assessment and Plan: Patient with history of pulmonary embolism x3 Hold Coumadin for now SCDs and early mobility PT/OT (5) Crohn's disease: Code(s): K50.90 - Crohn's disease, unspecified, without complications Status: Acute Assessment and Plan: Continue sulfasalazine 1000mg PO q12hr status post total colectomy Ileostomy in place See above plan (6) Coronary artery disease: Code(s): I25.10 - Atherosclerotic heart disease of [place] coronary artery without angina pectoris Status: Acute Assessment and Plan: Continue home metoprolol 25mg po BID and lisinopril 5mg PO daily holding aspirin On statin (7) Hypertension: Code(s): I10 - Essential (primary) hypertension Status: Acute Assessment and Plan: Current Blood pressure is 124/56 Continue home metoprolol 25mg BID and Lisinopril 5mg PO daily Trend Blood pressure Adjust medications as needed (8) Hyperlipemia: Code(s): E78.5 - Hyperlipidemia, unspecified Status: Acute Assessment and Plan: Atorvastatin 10mg PO daily (9) Status post right knee replacement: Code(s): Z96.651 - Presence of right artificial knee joint Status: Acute Assessment and Plan: Patient stated that he had a knee replacement on the right side 8 weeks ago At home he has been taking oxycodone 5 mg p.o. at bedtime Will continue home pain medication at this time PT/OT eval and treat ordered Subjective Date/time seen: 04/10/21 10:24 Patient is a 75-year-old male with past medical history of coronary artery disease, Crohn's disease, deep vein thrombosis, hypertension who presented the ED after he noticed about 500 mL of blood was in his ostomy bag. Since admission patient has been seen by Dr. Banerjee who performed an EGD and found that he was bleeding from his ileum. Patient is doing a lot better today he was sitting in the chair talking on the phone when I walked in the door. Patient had some questions about current care. Patient inquired about his hemoglobin which today is more stable at 7.9. Patient also wanted to know how long he was going to be off his warfarin. According to GI the patient will be off his warfarin for preferable
[2021-04-10] MEDS: MESALAMINE 250 MG CAP CR 1000 MG PO ×3 (12:21→20:31)
[2021-04-10 12:25] LABS: Hematocrit 27.6 % (42.0-52.0); Hemoglobin 9.2 g/dL (14.0-18.0)
[2021-04-10] MEDS: FERROUS SULFATE 324 MG TABLET PO (15:16)
[2021-04-10] MEDS: CYANOCOBALAMIN 1,000 MCG TABLET 1000 MCG PO (15:16)
[2021-04-10 17:56] LABS: Hematocrit 26.5 % (42.0-52.0); Hemoglobin 8.6 g/dL (14.0-18.0)
[2021-04-10] MEDS: FAMOTIDINE 20 MG TABLET PO (20:32)
[2021-04-11 05:59] VITALS: BP 106/55; PULSE 73; RESP 18; TEMP 36.9; O2SAT 97
[2021-04-11 06:08] LABS: Hematocrit 22.8 % (42.0-52.0); Hemoglobin 7.4 g/dL (14.0-18.0); Mean Corpuscular HGB Conc 32.5 g/dl (32-36); Mean Corpuscular Volume 95.4 fl (80-100); Mean Platelet Volume 9.9 fl (7.4-10.4); Platelet Count Result 174 k/mm3 (150-375); Red Blood Count 2.39 M/mm3 (4.6-6.20); Red Cell Distribution Width 15.9 % (11.5-14.5); White Blood Count 5.6 K/mm3 (4.5-10.0)
--- NOTE | 2021-04-11 08:06 | WPDGIPROGNO ---
Progress Note: A&P Assessment and Plan (1) Acute GI bleeding: Code(s): K92.2 - Gastrointestinal hemorrhage, unspecified Status: Acute Assessment and Plan: Bleeding has resolved. Appears to be from Crohn's disease in the small intestine. Benign ulcerations erosions in the distal ileum identified by endoscopy. Bleeding has now stopped along with holding the Coumadin. Upper GI small bowel series revealed no evidence for ulcerations. I suspect small-bowel ulcerations from Crohn's disease could have been missed. Plan is to start with prednisone 20 mg p.o. daily and taper by 5 mg weekly. I would hold anticoagulation for 2 weeks. Pentasa would be the best formulation of mesalamine as this works in the small bowel. Other forms of mesalamine only work in the colon which has been removed. If Pentasa is not a feasible then Imuran will be prescribed. In anticipation of this TPMT level will be obtained. Hopefully patient can be discharged today follow-up my office in 1-2 weeks. (2) Crohn's disease: Code(s): K50.90 - Crohn's disease, unspecified, without complications Status: Acute Assessment and Plan: Patient is status post colectomy because of Crohn's disease. He appears to have small-bowel disease evident in the ileum. Proximal lesions not excluded. (3) Current use of senior living anticoagulation: Code(s): Z79.01 - [facility] (current) use of anticoagulants Status: Acute Assessment and Plan: Patient on warfarin because history of DVTs. Because of bleeding we should hold the Coumadin for 2 weeks to allow some healing of his Crohn's disease before re- implementing this period (4) Ileostomy in place: Code(s): Z93.2 - Ileostomy status Status: Acute Assessment and Plan: ileostomy is functioning well. No change anticipated. (5) Pulmonary embolism: Code(s): I26.99 - Other pulmonary embolism without acute cor pulmonale Status: Acute (6) Status post right knee replacement: Code(s): Z96.651 - Presence of right artificial knee joint Status: Acute Assessment and Plan: Patient states he is healing up well after his knee surgery. Nonsteroidal anti-inflammatory agents continue to be held. Subjective Date/time seen: 04/11/21 08:06 Patient comfortable today. Reports much greater energy. Tolerating diet without difficulty. His ostomy bag has not showed any bleeding yesterday nor today. He denies abdominal pain. Review of Systems Review of Systems: All systems reviewed & are unremarkable except as noted in HPI and below Exam Narrative: Exam Narrative: Physical exam reveals patient be alert. Vital signs are stable. HEENT exam is unremarkable he is anicteric. Lungs are clear. Heart without murmur. Abdomen bowel sounds are present soft nontender with no organomegaly. Ileostomy bag in the right lower quadrant has greenish brown stool. Objective Data Vital Signs Vital Signs: Vital Signs - 24 hr 04/10/21 09:33 04/10/21 14:00 04/10/21 20:32 Temperature 97.6 F Pulse Rate 85 85 85 Respiratory Rate 20 Blood Pressure 126/76 Pulse Oximetry 99 04/10/21 21:24 04/11/21 05:59 Temperature 98.2 F 98.5 F Pulse Rate 85 73 Respiratory Rate 18 18 Blood Pressure 114/56 L 106/55 L Pulse Oximetry 99 97 Intake/Output Intake/Output: Intake & Output 04/08/21 04/09/21 04/10/21 04/11/21 23:59 23:59 23:59 23:59 Intake Total 4100 2850 1870 1000 Output Total 1200 2700 875 Balance 2900 170 232 1075 Meds/Results Medications: Active Medications Generic Name Dose Route Start Last Admin Trade Name Freq PRN Reason Stop Dose Admin Acetaminophen 650 mg 04/09/21 09:26 Acetaminophen 325 Mg Tablet PO Q6H PRN Mild Pain (1-3) or Fever Atorvastatin Calcium 10 mg 04/08/21 09:00 04/10/21 09:33 Atorvastatin 10 Mg Tablet PO 10 mg DAILY VICTOR HUGO Administration Cyanocobalamin 1,000 mcg 04/10/21 09:00 05
[2021-04-11] MEDS: FERROUS SULFATE 324 MG TABLET PO ×2 (08:55→16:54)
[2021-04-11] MEDS: MESALAMINE 250 MG CAP CR 1000 MG PO ×3 (08:55→17:26)
[2021-04-11 08:56] VITALS: PULSE 82
[2021-04-11] MEDS: lisinopriL 5 MG TABLET PO (08:56)
[2021-04-11] MEDS: METOPROLOL TARTRATE 25 MG TABLET PO (08:56)
[2021-04-11] MEDS: PRIMIDONE 50 MG TABLET 150 MG PO (08:56)
[2021-04-11] MEDS: MULTIVITAMINS THERAPEUTIC TAB (*BKC) 1 TABLET PO (08:56)
[2021-04-11] MEDS: FAMOTIDINE 20 MG TABLET PO (08:56)
[2021-04-11] MEDS: ATORVASTATIN 10 MG TABLET PO (08:56)
[2021-04-11] MEDS: CYANOCOBALAMIN 1,000 MCG TABLET 1000 MCG PO (08:56)
[2021-04-11] MEDS: predniSONE 20 MG TABLET PO (08:56)
[2021-04-11 11:53] LABS: Hematocrit 26.4 % (42.0-52.0); Hemoglobin 8.6 g/dL (14.0-18.0)
--- NOTE | 2021-04-11 15:07 | PM.DS ---
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: Code(s): Z79.01 - [employer] continuous [employer] (current) use of anticoagulants Status: Acute (4) Pulmonary embolism: Code(s): I26.99 - Other pulmonary embolism without acute cor pulmonale Status: Acute (5) Crohn's disease: Code(s): K50.90 - Crohn's disease, unspecified, without complications Status: Acute (6) Coronary artery disease: Code(s): I25.10 - Atherosclerotic heart disease of [place] coronary artery without angina pectoris Status: Acute (7) Hypertension: Code(s): I10 - Essential (primary) hypertension Status: Acute (8) Hyperlipemia: Code(s): E78.5 - Hyperlipidemia, unspecified Status: Acute (9) Status post right knee replacement: Code(s): Z96.651 - Presence of right artificial knee joint Status: Acute DS: Summary Hospital Course Reason for hospitalization: 75yo male with Crohn's disease here for bleeding from his ileostomy. Please see H&P for details Hospital Course: Patient presented emergency room with bright red blood per ileostomy bag. He is on Coumadin for history of PE. His INR was 2.2. Hemoglobin was but did drop to 7.1 a day and half after admission. He received 2 units of packed red blood cells. Hemoglobin climbed to the 7-8 range and remained stable. GI was consulted. Patient underwent ileoscopy on 04/08/2021. Was found to have ileal erosions most consistent with inflammatory bowel disease. Biopsies were taken. Patient was started on Solu-Medrol and then transition to prednisone. We continue the mesalamine but Pentasa was recommended given its slow release. Pentasa was unable to be obtained due cost and insurance. TPMT blood test was ordered and is pending. GI recommended Imuran [address] Banerjee discussed the side effects of Imuran with the patient and patient was agreeable to proceed. Patient has not had any further blood loss for over 24 hours. Plan to hold anticoagulation for 2 weeks. Repeat CBC and a week. Home with prednisone taper as well. Patient id is about 8 weeks out from a right total knee replacement. We did have therapy work with him for this. Patient overall did well as a to be discharged home on 04/11/2021. Patient was instructed to return to the ER or contact his GI doctor if he has recurrent bleeding. Status at Discharge Cognitive/behavioral status at discharge: stable Time Spent with Patient Time attestation: Total time spent providing and/or coordinating discharge services: 40 minutes Time spent: Greater than 30 minutes Exam Narrative: Exam Narrative: AF 98.5 106/55 82 18 97% ra Gen - NARD Chest - CTA bilaterally, nml RR CV - RRR S1/S2 Abd - Soft, NT/ND, Positive BS. Ileostomy in the right lower abd with soft brown stool in bag Ext - No pedal edema Psych - Nml mood and affect Skin - Warm and dry DS: Data Data Completed and Pending Completed studies during hospitalization: Pending at discharge 04/08/21 10:34 Surgical [PTH] Routine Labs on day of discharge: Labs from last 24 hours 04/11/21 04/11/21 04/11/21 11:37 08:20 05:30 WBC 5.6 RBC 2.39 L Hgb 8.6 L 7.4 L Hct 26.4 L 22.8 L MCV 95.4 MCH 31.0 MCHC 32.5 RDW 15.9 H Plt Count 174 MPV 9.9 TPMT Activity, Quant Pending 04/10/21 17:44 WBC RBC Hgb 8.6 L Hct 26.5 L MCV MCH MCHC RDW Plt Count MPV TPMT Activity, Quant Discharge Plan Discharge Attending physician on discharge: Syd Velasquez Consulting providers: Toby Banerjee Discharging Clinician: Syd Velasquez
[2021-04-18 09:39] LABS: TPMT Activity 18
--- NOTE | 2021-04-19 13:03 | PC.NURSE ---
TPMT is WNL at 18. Dr. Velasquez aware.
== END 2021-04-11 18:30 | disposition home or self-care (01) | DRG 386 ==
LOC: ANHED 20:15 → ANH3MEDSUR 23:02
PROVIDERS: Internal Medicine Gastroenterology; Nurse Practitioner; Admitting Provider Internal Medicine; Emergency Provider Emergency Medicine; Visit Provider Internal Medicine
PROC: 0DJD8ZZ Inspection of Lower Intestinal Tract, Via Natural or Artificial Opening Endoscopic (ICD-10-PCS; CPT 45378; principal; 2021-04-08 13:30)
DX: K50.018 Crohn's disease of small intestine with other complication (principal); D62 Acute posthemorrhagic anemia; I25.10 Atherosclerotic heart disease of native coronary artery without angina pectoris; E78.5 Hyperlipidemia, unspecified; I10 Essential (primary) hypertension; Z96.651 Presence of right artificial knee joint; Z79.01 Long term (current) use of anticoagulants; Z86.718 Personal history of other venous thrombosis and embolism; Z98.42 Cataract extraction status, left eye; Z98.41 Cataract extraction status, right eye; Z95.5 Presence of coronary angioplasty implant and graft; Z87.891 Personal history of nicotine dependence; Z90.49 Acquired absence of other specified parts of digestive tract; Z86.711 Personal history of pulmonary embolism
CPT/HCPCS: 36415; 36430; 74240; 74248; 80053; 82657; 85014; 85018; 85025; 85027; 85610; 85730; 86850; 86900; 86901; 86923; 88305; 96361; 96374; 96375; 97110; 97161; 97165; 99285; A9270; C9113; G0378; J0290; J2704; J2930; J7030; J7050; J7120; J7512; P9016

== ENCOUNTER 2021-04-15 15:10 | Emergency (ER) | payer OTHER, SELFPAY ==
[2021-04-15 15:49] VITALS: BP 134/60; PULSE 106; RESP 16; TEMP 36.3; O2SAT 100
[2021-04-15 16:09] LABS: Basophils Percent Auto 0.3 % (0.2-1.2); Hematocrit 28.5 % (42.0-52.0); Hemoglobin 8.8 g/dL (14.0-18.0); Immature Granulocyte Absolute 0.08 K/mm3 (0.00-0.031); Immature Granulocyte Percent A 1.1 % (0-0.5); Lymphocytes Absolute Auto 0.51 K/mm3 (0.9-3.2); Mean Corpuscular HGB Conc 30.9 g/dl (32-36); Mean Corpuscular Hemoglobin 31.2 pg (26-34); Mean Corpuscular Volume 101.1 fl (80-100); Mean Platelet Volume 9.2 fl (7.4-10.4); Monocytes Absolute Auto 0.2 K/mm3 (0.1-0.6); Monocytes Percent Auto 2.9 % (2.6-8.5); Neutrophils Absolute Auto 6.4 K/mm3 (1.3-6.7); Neutrophils Percent Auto 88.7 % (45.5-73.1); Platelet Count Result 319 k/mm3 (150-375); Red Blood Count 2.82 M/mm3 (4.6-6.20); Red Cell Distribution Width 17.1 % (11.5-14.5); White Blood Count 7.2 K/mm3 (4.5-10.0)
[2021-04-15 16:16] LABS: Alanine Aminotransferase 22 U/L (4-50); Albumin Level 3.6 g/dL (3.5-5.1); Alkaline Phosphatase 56 U/L (38-126); Anion Gap 6 mmol/L (8-16); Aspartate Amino Transferase 29 U/L (17-59); Bilirubin,Total < 0.1 mg/dL (0.2-1.3); Blood Urea Nitrogen 16 mg/dL (9-20); Calcium 8.6 mg/dL (8.4-10.2); Carbon Dioxide 24 mmol/L (22-30); Chloride 105 mmol/L (98-107); Estimated CRCL calculation 73 ml/min; Estimated Glomerular Filt Rate > 60; Glucose 128 mg/dL (75-110); Potassium 4.4 mmol/L (3.4-5.0); Sodium 135 mmol/L (137-145)
[2021-04-15 16:22] LABS: INR 0.9; Prothrombin Time 12.8 Seconds (11.1-14.7)
[2021-04-15 16:24] LABS: Partial Thromboplastin Time 21.2 SECONDS (22.3-36.8)
[2021-04-15 17:33] VITALS: BP 130/78; PULSE 97; RESP 18; O2SAT 100
--- NOTE | 2021-04-15 17:39 | ED.EXTPRO ---
HPI - Extremity Problem General Chief complaint: Extremity Problem,Nontraumatic Stated complaint: R LEG TIGHTNESS XTD Time Seen by Provider: 04/15/21 17:31 Source: patient Mode of arrival: ambulatory Limitations: no limitations History of Present Illness HPI Narrative: Patient is 75 years white male who presented to the ED with pain at the back of the right knee since he had knee surgery [address] Deluca. Was seen by him 1 month ago and was told to do physical activity. Patient had colonoscopy done recently, his Coumadin was stopped on April 07 and should be off Coumadin for 2 weeks. Patient noticed pain at the back of the right thigh and back of the right lower leg lately. Patient denies any chest pain or shortness of breath. Related Data Home Medications Medication Instructions Recorded Confirmed atorvastatin 10 mg PO DAILY 05/19/20 04/08/21 lisinopril 5 mg PO QAM 05/19/20 04/08/21 metoprolol tartrate 25 mg PO BID 05/19/20 04/08/21 nitroglycerin [Nitrostat] 0.4 mg SUBLINGUAL Q5-15M PRN 05/19/20 04/08/21 primidone 150 mg PO BID 05/19/20 04/08/21 warfarin See Rx Instructions .ROUTE .COMPLEX 05/19/20 04/08/21 Glucosamine Complex-MSM 2 cap PO DAILY 01/18/21 04/08/21 Neuriva Original 1 tablet PO DAILY 01/18/21 04/08/21 aspirin [Aspirin Low Dose] 81 mg PO DAILY 01/18/21 04/08/21 multivitamin 1 tablet PO DAILY 01/18/21 04/08/21 sulfasalazine 500 mg PO QID 01/18/21 04/08/21 warfarin 12.5 mg PO DIRECTED 01/18/21 04/08/21 B12 Active 1,000 mcg PO DAILY 04/08/21 04/08/21 lutein 20 mg PO DAILY 04/08/21 04/08/21 oxycodone 5 mg PO Q4HR PRN 04/08/21 04/08/21 Allergies Allergy/AdvReac Type Severity Reaction Status Date / Time Iodine and Iodide Containing Allergy Severe Swelling Verified 04/15/21 17:35 Produc of Lip/Tongue/Throat shellfish derived Allergy Severe Swelling Verified 04/15/21 17:35 of Lip/Tongue/Throat SHELLFISH Allergy Severe THROAT Uncoded 04/15/21 17:35 SWELLING Review of Systems Review of Systems: Narrative: CONSTITUTIONAL: Denies fever, chills, or sweats. EYES: Denies visual changes, redness, or discharge. ENT: Denies rhinorrhea, congestion, sore throat, or otalgia. CARDIOVASCULAR: Denies chest pain, palpitations, or edema. RESPIRATORY: Denies cough or dyspnea. GASTROINTESTINAL: Denies abdominal pain, nausea, vomiting, or diarrhea. GENITOURINARY: Denies dysuria or hematuria. SKIN: Denies rash or itching. MUSCULOSKELETAL: Denies back pain, joint pain, or myalgia. NEUROLOGIC: Denies headache, numbness, or weakness. PSYCHIATRIC: Denies anxiety or depression. [facility] Past Medical History Medical History Coronary artery disease Status post stent in 2012. Crohn's disease Status post total colectomy with ileostomy. 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 Deep venous thrombosis Left lower extremity x2. Essential tremor History of Jared's gangrene Hyperlipemia Hypertension Pulmonary embolism Surgical History Surgical History History of appendectomy History of arthroplasty of right knee (~02/05/21) History of cataract extraction History of coronary artery stent placement (~2012) x1. Patient of Dr. Griffin. History of hip surgery (~2010) Pinning of left hip fracture with subsequent hardware removal. 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 Status post right knee replacement Family History Family History Other Heart disease Hypertension Social History Social History Soc
--- NOTE | 2021-04-15 20:26 | PC.NURSE ---
Pt states that doctor took him off of blood thinners before today for an instance of hemorrhaging. Checked with ED doctor about administration per pt request. Pt would requesting to continue with administration.
[2021-04-15] MEDS: APIXABAN 5 MG TABLET 10 MG PO (20:28)
[2021-04-15 20:53] VITALS: BP 145/79; PULSE 92; RESP 18; O2SAT 99
== END 2021-04-15 20:30 | disposition home or self-care (01) ==
LOC: ANHED 18:18
PROVIDERS: Emergency Provider Emergency Medicine
DX: M25.561 Pain in right knee (principal); M79.651 Pain in right thigh; M79.661 Pain in right lower leg; I25.10 Atherosclerotic heart disease of native coronary artery without angina pectoris; K50.90 Crohn's disease, unspecified, without complications; E78.5 Hyperlipidemia, unspecified; I10 Essential (primary) hypertension; Z86.718 Personal history of other venous thrombosis and embolism; Z86.711 Personal history of pulmonary embolism; Z79.01 Long term (current) use of anticoagulants; Z79.82 Long term (current) use of aspirin; Z90.49 Acquired absence of other specified parts of digestive tract; Z98.49 Cataract extraction status, unspecified eye; Z95.5 Presence of coronary angioplasty implant and graft; Z96.651 Presence of right artificial knee joint; Z87.891 Personal history of nicotine dependence
CPT/HCPCS: 36415; 80053; 85025; 85610; 85730; 99283; A9270

== ENCOUNTER 2021-04-16 07:48 | Outpatient (CLI) | payer OTHER, SELFPAY ==
--- NOTE | ~2021-04-16 | US_ITS ---
EXAMINATION: US venous doppler LE RT DATE: 04/16/2021 08:22 INDICATION: Right lower limb pain. TECHNIQUE: Grayscale ultrasound images without and with compression and Doppler ultrasound images of the right lower extremity veins were obtained. COMPARISON: None. FINDINGS: The visualized portions of right common femoral vein, profunda (deep) femoral vein, femoral vein, per pereira veins, posterior tibial veins, and greater saphenous vein outflow are patent. There is thrombus in right popliteal vein. There is a 7.3 x 1.9 x 5.2 cm mixed hypoechoic and anechoic mass in the pop liteal fossa. IMPRESSION: 1. Deep vein thrombosis involving right popliteal vein. 2. Mass in the popliteal fossa, which may be a large Albright's cyst or a hematoma. Reviewed, dictated and finalized at location A. IMPRESSION: 1. Deep vein thrombosis involving right popliteal vein. 2. Mass in the popliteal fossa, which may be a large Albright's cyst or a hematoma .
== END 2021-04-16 07:49 | disposition home or self-care (01) ==
LOC: ANHIMG 07:50
DX: I82.401 Acute embolism and thrombosis of unspecified deep veins of right lower extremity (principal)
CPT/HCPCS: 93971

== ENCOUNTER 2021-04-16 09:03 | Inpatient (IN) | payer OTHER, SELFPAY ==
[2021-04-16] VITALS (13 sets, daily range): BP systolic 116–133; BP diastolic 59–73; PULSE 66–101; RESP 12–22; TEMP 36.6–37.2; O2SAT 98–100; BMI 25.0
--- NOTE | 2021-04-16 10:32 | ED.LOWEXIN ---
HPI - Extremity Injury (Lower) General Chief Complaint: Extremity Injury, Lower <ORQUIDEA Garcia Last Filed: 04/16/21 11:26> Stated Complaint: dvt RLE <ORQUIDEA Garcia Last Filed: 04/16/21 11:26> Time Seen by Provider: 04/16/21 09:08 <ORQUIDEA Garcia Last Filed: 04/16/21 11:26> Source: patient and RN notes reviewed <ORQUIDEA Garcia Last Filed: 04/16/21 11:26> Mode of arrival: ambulatory <ORQUIDEA Garcia Last Filed: 04/16/21 11:26> Limitations: no limitations <ORQUIDEA Garcia Last Filed: 04/16/21 11:26> History of Present Illness HPI Narrative: Patient is a 75-year-old male who presents to emergency department from imaging center found to have DVT in the right lower extremity is currently off his warfarin due to GI bleeding with history of colitis went home from the hospital on is followed by Dr. Banerjee for GI. Patient denies any current rectal bleeding. Patient notes that he does have fatigue with activity but denies any chest pain shortness of breath lightheadedness or [id number] patient lives at home by himself patient is currently on steroids. For his colitis and the plan was for him to be off his warfarin for 2 weeks patient now has DVT was on warfarin with history of pulmonary embolus 2016. . <ORQUIDEA Garcia Last Filed: 04/16/21 11:26> Related Data Home Medications: Home Medications Medication Instructions Recorded Confirmed atorvastatin 10 mg PO DAILY 05/19/20 04/16/21 lisinopril 5 mg PO QAM 05/19/20 04/16/21 metoprolol tartrate 25 mg PO BID 05/19/20 04/16/21 nitroglycerin [Nitrostat] 0.4 mg SUBLINGUAL Q5-15M PRN 05/19/20 04/16/21 primidone 150 mg PO BID 05/19/20 04/16/21 Glucosamine Complex-MSM 2 cap PO DAILY 01/18/21 04/16/21 Neuriva Original 1 tablet PO DAILY 01/18/21 04/16/21 multivitamin 1 tablet PO DAILY 01/18/21 04/16/21 sulfasalazine 500 mg PO QID 01/18/21 04/16/21 B12 Active 1,000 mcg PO DAILY 04/08/21 04/16/21 lutein 20 mg PO DAILY 04/08/21 04/16/21 oxycodone 5 mg PO Q4HR PRN 04/08/21 04/16/21 azathioprine 50 mg PO BID 04/17/21 04/17/21 <Tommy Parada PA-C - Last Filed: 04/16/21 11:26> Allergies/Adverse Reactions: Allergies Allergy/AdvReac Type Severity Reaction Status Date / Time Iodine and Iodide Containing Allergy Severe Swelling Verified 04/16/21 09:12 Produc of Lip/Tongue/Throat shellfish derived Allergy Severe Swelling Verified 04/16/21 09:12 of Lip/Tongue/Throat <Tommy Parada PA-C - Last Filed: 04/16/21 11:26> Review of Systems Review of Systems: All systems reviewed & are unremarkable except as noted in HPI and below <Tommy Parada PA-C - Last Filed: 04/16/21 11:26> [facility] Past Medical History Medical History: Medical History (Updated 04/17/21 @ 07:56 by Toby Banejree MD) Coronary artery disease Status post stent in 2012. Crohn's disease Status post total colectomy with ileostomy. 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 Deep venous thrombosis Left lower extremity x2. Essential tremor Gastrointestinal bleed Related to Crohn's disease. Hospitalized in October 2019 and March 2021. History of Jared's gangrene Hyperlipemia Hypertension Pulmonary embolism <Tommy Parada PA-C - Last Filed: 04/16/21 11:26> Surgical History Surgical History: Surgical History History of appendectomy History of arthroplasty of right knee (~02/05/21) History of cataract extraction History of coronary artery stent placement (~2012) x1. Patient of Dr. Griffin. History of hip surgery (~2010) Pinning of left hip fracture with subsequent hardware removal. History of ileostomy (~1995) History of right mastoidectomy History of total colectomy (~1995) History of umbilical hernia repair Status po
[2021-04-16] MEDS: HEPARIN SODIUM 5,000 UNITS/ML VIAL 6500 UNITS IV PUSH (11:10)
[2021-04-16] MEDS: HEPARIN SOD/D5W 100 UNITS/ML 25,000 UNITS/250 ML BAG 15 UNITS IV CONT (12:02)
[2021-04-16 13:08] LABS: Basophils Percent Auto 0.4 % (0.2-1.2); Hematocrit 26.8 % (42.0-52.0); Hemoglobin 8.3 g/dL (14.0-18.0); Immature Granulocyte Absolute 0.05 K/mm3 (0.00-0.031); Immature Granulocyte Percent A 0.9 % (0-0.5); Mean Corpuscular Hemoglobin 31.7 pg (26-34); Mean Corpuscular Volume 102.3 fl (80-100); Mean Platelet Volume 9.7 fl (7.4-10.4); Monocytes Absolute Auto 0.2 K/mm3 (0.1-0.6); Monocytes Percent Auto 3.9 % (2.6-8.5); Neutrophils Absolute Auto 4.4 K/mm3 (1.3-6.7); Neutrophils Percent Auto 81.8 % (45.5-73.1); Platelet Count Result 284 k/mm3 (150-375); Red Blood Count 2.62 M/mm3 (4.6-6.20); Red Cell Distribution Width 17.2 % (11.5-14.5); White Blood Count 5.4 K/mm3 (4.5-10.0)
[2021-04-16 13:17] LABS: Estimated CRCL calculation 95 ml/min; Estimated Glomerular Filt Rate > 60
[2021-04-16 13:21] LABS: INR 1.1; Prothrombin Time 14.4 Seconds (11.1-14.7)
--- NOTE | 2021-04-16 13:32 | WPDGICN ---
Assessment and Plan Assessment and plan (1) Crohn's disease: Code(s): K50.90 - Crohn's disease, unspecified, without complications Status: Acute Assessment and Plan: Patient with Crohn's disease status post total colectomy. He recently had GI bleeding from the ileostomy confirmed to show distal ileal Crohn's disease. More proximal disease has not been confirmed but would not be unusual. He is anemic on this basis having had recent bleeding. Currently stool is Hemoccult negative in the ER. Having stopped his anticoagulation. At this time it is necessary to resume anticoagulation because of active DVT. This is okay but we should monitor his hemoglobin and watch for evidence of rebleeding closely. Will continue prednisone 20 mg p.o. daily and anticipate tapering by 5 mg every week. Imuran 100-150 mg p.o. daily is advised. We should monitor his white blood cell count during this time period. TPMT level is pending and will be reviewed when available. This would assess for risk leukopenia. So the solids in his likely extra and not beneficial at this time. But no harm is felt in continuing it for the next month. Okay to reach resume anticoagulation if primary care service feels appropriate. Pentasa was suggested but is too expensive in on affordable for the patient. We will ask patient to follow up in the GI office 2 weeks after discharge. (2) Ileostomy in place: Code(s): Z93.2 - Ileostomy status Status: Acute Assessment and Plan: Patient and has an ileostomy. History of total colectomy because of Crohn's disease. Ileostomy functioning well in felt stable. (3) Current use of director long term care anticoagulation: Code(s): Z79.01 - correction (current) use of anticoagulants Status: Acute Assessment and Plan: Long-term anticoagulation use is anticipated. This should be safe if Crohn's disease remains inactive. We need to watch closely as he recently had GI blood loss from Crohn's disease. (4) DVT (deep venous thrombosis): Code(s): I82.409 - Acute embolism and thrombosis of unspecified deep veins of unspecified lower extremity Status: Acute Assessment and Plan: Patient with DVT status post recent knee surgery and replacement. Anticoagulation will be required. We talked about a filter in patient refuses IVC filter present. (5) Status post right knee replacement: Code(s): Z96.651 - Presence of right artificial knee joint Status: Acute GI Consult Note Consult date/time: 04/16/21 13:32 HPI: Ezequiel Madrigal is a 75 year old male I am asked to see because of history of ulcerative colitis. Patient has had ulcerative colitis for more than 10 years. He underwent multiple surgeries in [facility] with a total colectomy and ileostomy. He has been maintained on oral sulfasalazine because he could not afford Pentasa. Several years ago was admitted the hospital at [facility] with GI bleeding felt to be from terminal ileitis on Crohn's disease. He had a separate bleeding episode and was sent to [facility] Because of bleeding from the terminal ileitis. Within the last 2 years he has had a DVT with pulmonary embolus and has been maintained on warfarin anticoagulation. He underwent knee surgery earlier this spring. Last week was admitted the hospital with recurrent GI bleeding. An ileoscopy revealed inflammation in the last bit of the ileum consistent with active Crohn's disease upper GI small-bowel series was otherwise unremarkable. Patient's bleeding stopped when the warfarin was discontinued. Patient sent home in within the last several days notice swelling behind his right knee. Ultrasound revealed a popliteal DVT. He is now admitted for anticoagulation. He was restarted on Eliquis in the emergency room last evening. Current medications include tapering doses of prednisone currently 20 mg p.o. daily. He was started on Imuran 100 mg p.o. daily. TPMT
[2021-04-16 13:41] LABS: Partial Thromboplastin Time 145.4 SECONDS (22.3-36.8)
--- NOTE | 2021-04-16 13:45 | ADMGEN ---
This patient, Ezequiel Madrigal, was admitted to IMU Room 206-01 on 04/16/21 at 1333. Patient/family oriented to hospital policies and general routines including ID bracelet, bed and alarms, visiting hours, pain management, procedures, bathroom and other care routines, personal items, smoking policy, room service/diet, and visiting hours. Information on how to activate the Rapid Response Team has been discussed. Patient/Family are encouraged to report perceived risks to care and to ask questions if they do not understand what they are told or what they should do.
--- NOTE | 2021-04-16 14:15 | PM.IMHP ---
H&P: HPI History of Present Illness Date/Time: 04/16/21 14:15 Chief Complaint: DVT. Narrative: This is a 75-year-old male with history of recurrent DVT and pulmonary embolism, Crohn's, hypertension, coronary artery disease, and hypertension who presented to the emergency department earlier today from Radiology for further evaluation after he was found to have a DVT on ultrasound this morning. The patient is known to myself and the hospitalist service from recent admissions. I saw the patient in consultation on 02/04/2021 after an elective right total knee arthroplasty. He was then seen in the emergency department on 04/07/2021 for evaluation of bright red blood in his ileostomy bag and subsequent ileoscopy per Dr. Banerjee showed ileal erosions consistent with inflammatory bowel disease. He was treated with Solu-Medrol in addition to his usual mesalamine and ultimately it was recommended that he be started on Imuran. He was discharged home on 04/11/2021 and was instructed to hold his anticoagulation for total of 2 weeks to ensure his erosions had healed. Over the past 3 to 4 weeks he has had pain behind his right knee and sometimes along the incision site from recent arthroplasty, but that seems to have gotten worse over the past several days. He was seen in the emergency department for evaluation of that last night and due to lack of ultrasound he was sent home after receiving a dose of Eliquis, and was told returned today for ultrasound. Venous Doppler ultrasound of the right lower extremity showed a right popliteal DVT as well as either large Albrihgt cyst or possible hematoma. He has since been started on a heparin drip and he is being admitted overnight for close monitoring given recent GI bleed. At the time my evaluation he has no active complaints aside from discomfort in the posterior knee. He denies lightheadedness, dizziness, syncope, near syncope, chest pain, pleuritic pain, shortness of breath, palpitations, and any obvious blood in his ileostomy. He has not had abdominal pain, nausea, or vomiting. Review of Systems Review of Systems: Narrative: Twelve systems were reviewed with pertinent positives and negatives as per HPI. Except as documented, all other systems were reviewed and are negative. [facility] Past Medical History Medical History (Updated 04/16/21 @ 21:30 by Emily Khan PA-C) Coronary artery disease Status post stent in 2012. Crohn's disease Status post total colectomy with ileostomy. 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 Deep venous thrombosis Left lower extremity x2. Essential tremor Gastrointestinal bleed Related to Crohn's disease. Hospitalized in October 2019 and March 2021. History of Jared's gangrene Hyperlipemia Hypertension Pulmonary embolism Surgical History Surgical History History of appendectomy History of arthroplasty of right knee (~02/05/21) History of cataract extraction History of coronary artery stent placement (~2012) x1. Patient of Dr. Griffin. History of hip surgery (~2010) Pinning of left hip fracture with subsequent hardware removal. 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 Status post right knee replacement Family History Family History Other Heart disease Hypertension Social History Social History Social History: Surrogate decision maker: Ethan Madrigal, son. Code status: Full code. Smoking packs per day: 1 Smoking cigarettes per day: 20.0 Years smoked: 35 Smoking pack-years: 35.00 [place]
[2021-04-16 18:22] LABS: Hematocrit 29.6 % (42.0-52.0); Hemoglobin 9.1 g/dL (14.0-18.0)
[2021-04-16 18:33] LABS: Partial Thromboplastin Time 71.3 SECONDS (22.3-36.8)
[2021-04-16] MEDS: sulfaSALAzine 500 MG TABLET PO (20:07)
[2021-04-16] MEDS: PRIMIDONE 50 MG TABLET 150 MG PO (20:07)
[2021-04-16] MEDS: METOPROLOL TARTRATE 25 MG TABLET PO (20:07)
[2021-04-16] MEDS: FAMOTIDINE 20 MG TABLET PO (20:07)
[2021-04-16] MEDS: FERROUS SULFATE 324 MG TABLET PO (20:08)
[2021-04-16] MEDS: PANTOPRAZOLE SODIUM IV 40 MG VIAL IV PUSH (20:08)
[2021-04-16 23:56] LABS: Hematocrit 27.5 % (42.0-52.0); Hemoglobin 8.4 g/dL (14.0-18.0)
[2021-04-17] VITALS (14 sets, daily range): BP systolic 114–131; BP diastolic 49–66; PULSE 66–112; RESP 18–20; TEMP 35.6–36.8; O2SAT 97–100; BMI 24.7
[2021-04-17 01:08] LABS: Partial Thromboplastin Time 94.3 SECONDS (22.3-36.8)
[2021-04-17 04:56] LABS: Basophils Percent Auto 0.7 % (0.2-1.2); Eosinophils Percent Auto 0.5 % (0-4.4); Hematocrit 26.3 % (42.0-52.0); Hemoglobin 8.2 g/dL (14.0-18.0); Immature Granulocyte Absolute 0.12 K/mm3 (0.00-0.031); Lymphocytes Absolute Auto 1.82 K/mm3 (0.9-3.2); Mean Corpuscular HGB Conc 31.2 g/dl (32-36); Mean Corpuscular Hemoglobin 31.5 pg (26-34); Mean Corpuscular Volume 101.2 fl (80-100); Mean Platelet Volume 9.2 fl (7.4-10.4); Monocytes Absolute Auto 0.6 K/mm3 (0.1-0.6); Monocytes Percent Auto 9.6 % (2.6-8.5); Neutrophils Absolute Auto 3.5 K/mm3 (1.3-6.7); Neutrophils Percent Auto 57.2 % (45.5-73.1); Platelet Count Result 302 k/mm3 (150-375); Red Cell Distribution Width 17.2 % (11.5-14.5); White Blood Count 6.1 K/mm3 (4.5-10.0)
[2021-04-17 05:12] LABS: Alanine Aminotransferase 19 U/L (4-50); Albumin Level 3.1 g/dL (3.5-5.1); Alkaline Phosphatase 49 U/L (38-126); Anion Gap 6 mmol/L (8-16); Aspartate Amino Transferase 30 U/L (17-59); Bilirubin,Total 0.1 mg/dL (0.2-1.3); Blood Urea Nitrogen 11 mg/dL (9-20); Calcium 8.8 mg/dL (8.4-10.2); Carbon Dioxide 29 mmol/L (22-30); Chloride 103 mmol/L (98-107); Estimated CRCL calculation 75 ml/min; Estimated Glomerular Filt Rate > 60; Glucose 92 mg/dL (75-110); Magnesium 2.1 mg/dL (1.6-2.3); Potassium 4.1 mmol/L (3.4-5.0); Sodium 138 mmol/L (137-145)
[2021-04-17] MEDS: HEPARIN SOD/D5W 100 UNITS/ML 25,000 UNITS/250 ML BAG 15 UNITS IV CONT ×2 (06:43→23:23)
--- NOTE | 2021-04-17 07:55 | WPDGIPROGNO ---
Progress Note: A&P Assessment and Plan (1) Anemia: Code(s): D64.9 - Anemia, unspecified Status: Acute Assessment and Plan: patient with anemia likely related to previous bleeding when hospitalized a week ago. Current hemoglobin is stable. Will continue to monitor conservatively. (2) Crohn's disease: Code(s): K50.90 - Crohn's disease, unspecified, without complications Status: Acute Assessment and Plan: Patient with known Crohn's disease. Status post previous colectomy. He now has ileostomy in place. Active Crohn's disease evident distal ileum. Will continue prednisone with tapering dose. Now on Imuran. Awaiting TPMT level. Continue to monitor white blood cell count in the antrum. Request for Pentasa at a decreased dose is in progress. (3) Deep venous thrombosis of right popliteal vein: Code(s): I82.431 - Acute embolism and thrombosis of right popliteal vein Status: Acute Assessment and Plan: DVT noted by ultrasound. Now this requires anticoagulation. Her need to watch him closely for signs of bleeding. He does not want an IVC filter I would agree with this at present. 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 Ortho to evaluate. Subjective Date/time seen: 04/17/21 07:55 Patient feels good this morning. Complains of some right knee pain. Denies any blood in his stools. Tolerating diet. Denies abdominal pain. No bleeding described. Bowel movement through ostomy is normal. Review of Systems Review of Systems: All systems reviewed & are unremarkable except as noted in HPI and below Exam Narrative: Exam Narrative: Physical exam reveals patient to be alert. Vital signs stable. Patient is anicteric. Lungs are clear. Heart without murmur. Abdomen bowel sounds present soft nontender. Ostomy drainage is normal color. Extremities without clubbing cyanosis or edema. Fullness behind right knee noted. Objective Data Vital Signs Vital Signs: Vital Signs - 24 hr 04/16/21 09:07 04/16/21 10:56 04/16/21 12:43 Temperature 97.9 F Pulse Rate 94 81 80 Respiratory Rate 18 22 H 18 Blood Pressure 124/61 123/62 133/73 Pulse Oximetry 100 100 100 04/16/21 13:12 04/16/21 13:44 04/16/21 14:00 Temperature 98.6 F Pulse Rate 86 83 77 Respiratory Rate 18 12 Blood Pressure 125/64 116/59 L Pulse Oximetry 98 100 04/16/21 16:00 04/16/21 18:00 04/16/21 19:39 Temperature 99 F 98.0 F Pulse Rate 90 96 93 Respiratory Rate 12 18 Blood Pressure 131/66 120/64 Pulse Oximetry 99 100 04/16/21 20:00 04/16/21 20:07 04/16/21 22:00 Temperature Pulse Rate 101 H 101 H 75 Respiratory Rate 18 Blood Pressure Pulse Oximetry 100 04/16/21 23:01 04/17/21 00:00 04/17/21 02:00 Temperature 98.7 F Pulse Rate 66 76 72 Respiratory Rate 18 18 Blood Pressure 126/61 Pulse Oximetry 100 100 04/17/21 04:00 04/17/21 06:00 Temperature 98.2 F Pulse Rate 82 112 H Respiratory Rate 18 Blood Pressure 131/64 Pulse Oximetry 100 Intake/Output Intake/Output: Intake & Output 04/14/21 04/15/21 04/16/21 04/17/21 23:59 23:59 23:59 23:59 Intake Total 480 200 Output Total 1080 660 Iuogvag -429 -780 Meds/Results Medications: Active Medications Generic Name Dose Route Start Last Admin Trade Name Freq PRN Reason Stop Dose Admin Gato
--- OUTSIDE RECORDS SUMMARY | 2021-04-17 09:39 | XMS_ITS ---
:1945 Author Care Team Providers Name Role Phone DR. BARTOLO RICHMOND Primary Care Provider [phone] DR. BARTOLO RICHMOND Referring Provider [phone] Allergies Code Code System Name Reaction Severity Status Onset 5640 RxNorm Ibuprofen ? ? Active ? 5933 RxNorm Iodine ? ? Active ? Shellfish ? ? Active ? Derived Notes: Some allergies listed in Document: #[id number] could not be added to this patient's chart. Please review this docu ment and add these allergies to the patient's chart manually as needed. Medications Name Status Start Date Stop Date ? ? amoxicillin 500 mg capsule Completed ? 10/06 amoxicillin 875 mg-potassium clavulanate 125 mg tablet Active ? Not available TAKE 1 TABLET BY MOUTH EVERY 12 HOURS aspirin 81 mg effervescent tablet Active 11/14/2020 Not available Take 1 tablet every day by oral route. atorvastatin 10 mg tablet Active ? Not av ailable azelastine 137 mcg (0.1 %) nasal spray aerosol Completed ? 02/14/2021 USE 1 SPRAY(S) IN EACH NOSTRIL TWICE DAILY DIRECTED cefdinir 300 mg capsule Completed ? 02/15/20 celecoxib 100 mg capsule Completed ? 021 cephalexin 500 mg capsule Completed 02/14/20212020 clopidogrel 75 mg tablet Unknown ? Not izzy ilable cyanocobalamin (vit B-12) 1,000 mcg tablet Active ? Not available Take by oral route. cyclobenzaprine 10 mg tablet Unknown ? Not available donepezil 5 mg tablet Completed ? 10/06/2019 Effient 10 mg tablet Unknown ?
--- OUTSIDE RECORDS SUMMARY | 2021-04-17 09:39 | XMS_ITS | Encounter Summary ---
:1945 Author Care Team Providers Name Role Phone Dr. Wilmer Breen Primary Care Provider [phone] Dr. Wilmer Breen Referring Provider [phone] Reason for Visit Right Knee Problem/Pain Assessment and Plan Assessment Note Patient is doing well 9 days out r ight total knee arthroplasty. I have given him the chair exercises to start working on at home. I am going to call him later today with his INR results. I also need to clarify with home health so that they make sure they continue with his exercising a s well. He will follow-up in 2 and half weeks for his 1 month follow-up. 1. History of total knee arthrop lasty Discussion Note: None recorded.Patient educational handouts: No information available. Plan of Care Reminders Provider Appointments Return to on or around Eliseo Christianson, Office 05/15/2024 MD Lab None ? ? recorded. Referral None ? ? recorded. Procedures None ? ? recorded. Surgeries None ? ? recorded. Imaging None ? ? recorded. Medications Name Start Date ? ? aspirin 81 mg effervescent tablet 11/14/2020 Take 1 tablet every day by oral route. atorvastatin 10 mg tablet ? cyanocobalamin (vit B-12) 1,000 mcg tablet ? Take by oral route. Kenalog 10 mg/mL suspension for injection ? In office injection administered by
--- OUTSIDE RECORDS SUMMARY | 2021-04-17 09:39 | XMS_ITS | Encounter Summary ---
:1945 Author Care Team Providers Name Role Phone Dr. Wilmer Breen Primary Care Provider [phone] Dr. Wilmer Breen Referring Provider [phone] Reason for Visit Right Knee Problem/Pain Assessment and Plan Assessment Note Impression : Patient is making pro susannah relative to his right knee replacement. I would like to see him get a little bit more range of motion he would like to continue with physical therapy. Patient also has trochanteric pain syndr ome that is developed for unknown reasons. He feels that is inhibiting his physical therapy and therefore I have offered him a cortisone shot in the trochanteric bursa. Possible side effects including h ematoma and small risk of infection discussed. After Betadine and alcohol prep, 20 mg of Kenalog and 3 cc 1% lidocaine were injected the area of maximal tendernes s along the greater trochanteric bursa o f the right hip without difficulty. I will see him back in 4 weeks assess hi s progress. 1. History of total knee arthrop lasty ? XR, knee, 3 view 2. Pain in right hip joint ? Kenalog 10 mg/mL suspensio n for injection ? lidocaine (PF) 10 mg/mL (1 %) injection solution ? injection/aspiration joint /bursa (PROC) Discussion Note: None recorded.Patient educational handouts: No information available. Plan of Care Reminders Provider Appointments Return to on or around Eliseo Christianson, Office 05/15/2024 Lab None ? ? recorded. Referral None ? ? recorded. Procedures 03/21/2021 ? Injection/aspiratio
--- OUTSIDE RECORDS SUMMARY | 2021-04-17 09:39 | XMS_ITS | Encounter Summary ---
:1945 Author Care Team Providers Name Role Phone Dr. Wilmer Breen Primary Care Provider [phone] Dr. Wilmer Breen Referring Provider [phone] Reason for Visit Right Knee Problem/Pain post op Assessment and Plan Assessment Note Patient is a month out from right total knee. He is behind on his Motion. Last time I saw him I did give him 2 handouts on the chair exercises for flexion and extension. He has only been doing exerci ses on his own twice a day. I reiterated to him that he needs to be doing these ever y hour. I reviewed with him the chair exercises especially for flexion. I woul d like him to do flexion exercises every hour at home. We will refill his pain pills, he still having difficulty with pain control, he has a very low tolerance overall. I e ncouraged him to work hard on his exercises daily. We also reviewed a little bit mor e with his gait and walking so that he walks with a more natural gait. He states he r ealizes he has been not doing his exercises diligently at home. I think that he can make up a lot of ground his next 2 weeks if he just works a lot harder. I talked to him about doing outpatient therapy rather than home health. He declined. He states that his sister's bring him an exercise bike to use in the house. I encouraged him to use this on a regular basis as well. See him back in 2 weeks with x-rays the right kn ee. 1. History of total knee arthrop lasty 2. Osteoarthritis of knee Discussion Note: None recorded.Patient educational handouts: No information available. Plan of Care Reminders Provider Appointments Return to on or around Eliseo Christianson, Office 05/15/2024 Lab None
--- OUTSIDE RECORDS SUMMARY | 2021-04-17 09:40 | XMS_ITS ---
:1945 Author Care Team Providers Name Role Phone DR. BARTOLO RICHMOND Primary Care Provider [phone] DR. BARTOLO RICHMOND Referring Provider [phone] Allergies Code Code System Name Reaction Severity Status Onset 5640 RxNorm Ibuprofen ? ? Active ? 5933 RxNorm Iodine ? ? Active ? Shellfish ? ? Active ? Derived Notes: Some allergies listed in Document: #[id number] could not be added to this patient's chart. Please review this docu ment and add these allergies to the patient's chart manually as needed. Medications Name Status Start Date Stop Date ? ? amoxicillin 500 mg capsule Completed ? 10/06 amoxicillin 875 mg-potassium clavulanate 125 mg tablet Completed ? 11/14/2020 TAKE 1 TABLET BY MOUTH EVERY 12 HOURS aspirin 81 mg effervescent tablet Active 11/14/2020 Not available Take 1 tablet every day by oral route. atorvastatin 10 mg tablet Active ? Not av ailable atorvastatin tab 10mg Active 11/14/2020 Not availa ble clopidogrel tab 75mg Completed ? 10/06/2019 clopidogrel 75 mg tablet Unknown ? Not izzy ilable cyclobenzaprine 10 mg tablet Unknown ? Not available donepezil 5 mg tablet Completed ? 10/06/2019 Effient 10 mg tablet Unknown ? Not availab le ergocalciferol (vitamin D2) 1,250 mcg (50,000 unit) capsule Acti ve ? Not available TAKE 1 CAPSULE BY MOUTH ONE TIME PER WEEK Fluzone High-Dose Quad (PF) 240 mcg/0.7 mL IM syringe Ac tive ? Not available PHARMACY ADMINISTERED hydroco/apap tab 5-325mg Comple
[2021-04-17] MEDS: MULTIVITAMINS THERAPEUTIC TAB (*BKC) 1 TABLET PO (10:08)
[2021-04-17] MEDS: lisinopriL 5 MG TABLET PO (10:08)
[2021-04-17] MEDS: FERROUS SULFATE 324 MG TABLET PO ×2 (10:08→17:53)
[2021-04-17] MEDS: azaTHIOprine 50 MG TABLET 100 MG PO (10:08)
[2021-04-17] MEDS: FAMOTIDINE 20 MG TABLET PO ×2 (10:08→22:15)
[2021-04-17] MEDS: ATORVASTATIN 10 MG TABLET PO (10:08)
[2021-04-17] MEDS: CYANOCOBALAMIN 1,000 MCG TABLET 1000 MCG PO (10:08)
[2021-04-17] MEDS: sulfaSALAzine 500 MG TABLET PO ×4 (10:08→22:15)
[2021-04-17] MEDS: predniSONE 20 MG TABLET 80 MG PO (10:09)
[2021-04-17] MEDS: PRIMIDONE 50 MG TABLET 150 MG PO ×2 (10:09→17:52)
[2021-04-17] MEDS: METOPROLOL TARTRATE 25 MG TABLET PO ×2 (10:09→22:15)
[2021-04-17] MEDS: PANTOPRAZOLE SODIUM IV 40 MG VIAL IV PUSH (10:22)
--- NOTE | 2021-04-17 13:47 | PM.CNOR ---
Assessment and Plan Additional Plan Patient's right total knee arthroplasty is making good improvements with his range of motion. He has excellent stability. He has developed a DVT in the right popliteal vein at this point. He is under treatment for it. He has also had a GI bleed recently that is being treated as well. At this point there is no orthopedic addition needed for his overall treatment. He is going to try to resume outpatient therapy when he is discharged. He is going to discuss whether not it is reasonable to have therapy on the right leg since this is the leg with the DVT is going to discuss this with his marketing intelligence analyst. He will follow up with us in approximately 2-3 weeks. History of Present Illness HPI Consult date: 04/17/21 Chief complaint: dvt right leg [facility] Past Medical History Medical History (Updated 04/17/21 @ 07:56 by Toby Banerjee MD) Coronary artery disease Status post stent in 2012. Crohn's disease Status post total colectomy with ileostomy. 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 Deep venous thrombosis Left lower extremity x2. Essential tremor Gastrointestinal bleed Related to Crohn's disease. Hospitalized in October 2019 and March 2021. History of Jared's gangrene Hyperlipemia Hypertension Pulmonary embolism Surgical History Surgical History History of appendectomy History of arthroplasty of right knee (~02/05/21) History of cataract extraction History of coronary artery stent placement (~2012) x1. Patient of Dr. Griffin. History of hip surgery (~2010) Pinning of left hip fracture with subsequent hardware removal. 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 Status post right knee replacement Family History Family History Other Heart disease Hypertension Social History Social History Social History: Surrogate decision maker: Ethan Madrigal, son. Code status: Full code. Smoking packs per day: 1 Smoking cigarettes per day: 20.0 Years smoked: 35 Smoking pack-years: 35.00 Smoking status: Former smoker Tobacco type: cigarettes Additional smoking assessment comments: quit 20 years ago Alcohol intake: former Drinks per week: 1 Substance use: never Substance use type: does not use Additional living arrangements comments: The patient is and lives in his own home in [place]. Additional occupation/education comments: Retired. Gender identity (if verbalized by the patient): Male Spiritual care concerns: No Meds Home Medications and Allergies Home Medications Medication Instructions Recorded Confirmed Type atorvastatin 10 mg PO DAILY 05/19/20 04/16/21 History lisinopril 5 mg PO QAM 05/19/20 04/16/21 History metoprolol tartrate 25 mg PO BID 05/19/20 04/16/21 History nitroglycerin [Nitrostat] 0.4 mg SUBLINGUAL Q5-15M PRN 05/19/20 04/16/21 History primidone 150 mg PO BID 05/19/20 04/16/21 History Glucosamine Complex-MSM 2 cap PO DAILY 01/18/21 04/16/21 History Neuriva Original 1 tablet PO DAILY 01/18/21 04/16/21 History multivitamin 1 tablet PO DAILY 01/18/21 04/16/21 History sulfasalazine 500 mg PO QID 01/18/21 04/16/21 History B12 Active 1,000 mcg PO DAILY 04/08/21 04/16/21 History lutein 20 mg PO DAILY 04/08/21 04/16/21 History oxycodone 5 mg PO Q4HR PRN 04/08/21 04/16/21 History azathioprine 100 mg PO DAILY #60 tablet 04/11/21 04/16/21 Rx famotidine 20 mg PO Q12HR #60 tablet 04/11/21 04/16/21 Rx ferrous sulfate 324 mg PO BIDWM #60 tablet 04/11/21 04/16/21 Rx
--- NOTE | 2021-04-17 14:40 | PCNSR ---
On 04/17/21, the student, Karolina Llanes, provided care and completed [facility] documentation on this patient. I have reviewed the student's documentation and agree with the findings.
--- NOTE | 2021-04-17 15:17 | PM.IMPN ---
Progress Note: A&P Assessment and Plan (1) Deep venous thrombosis of right popliteal vein: Code(s): I82.431 - Acute embolism and thrombosis of right popliteal vein Status: Acute Assessment and Plan: The patient has been off of his warfarin as above due to recent GI bleeding secondary to active Crohn's disease. He has been started on a heparin drip with close monitoring of his hemoglobin and hematocrit and ileostomy output.consider eliquis ELIQUIS 10 mg po bid for 7 days then 5 mg po bid after that orthopedics consulted (2) Crohn's disease: Code(s): K50.90 - Crohn's disease, unspecified, without complications Status: Acute Assessment and Plan: Dr. Banerjee (Gastroenterology) has been consulted and he recommends continuing prednisone daily as well as Imuran.Gi consulted (3) Anemia: Code(s): D64.9 - Anemia, unspecified Status: Acute Assessment and Plan: Hemoglobin and hematocrit are stable recent gi bleed (4) Hypertension: Code(s): I10 - Essential (primary) hypertension Status: Acute Assessment and Plan: Blood pressures were reviewed and they have been stable. Subjective Date/time seen: 04/17/21 15:17 Interval history: 75-year-old male with history of recurrent DVT and pulmonary embolism, Crohn's, hypertension, coronary artery disease, and hypertension who presented to the emergency department earlier today from Radiology for further evaluation after he was found to have a DVT on ultrasound this morning. Pt has recent R knee replacement and recent GI Bleed. STop coumadin chamge to eliquis for Dvt, continue heparin tonite and Dc julia Review of Systems Review of Systems: All systems reviewed & are unremarkable except as noted in HPI and below Exam Narrative: Exam Narrative: General: Well-developed male Neck: Supple. Respiratory: Lungs are clear to auscultation bilaterally. Cardiovascular: Regular rate and rhythm with S1-S2. Gastrointestinal: Abdomen is soft, nontender, and nondistended with positive bowel sounds. Skin: Warm and dry. No rash or lesions on limited exam. Extremities: No cyanosis, clubbing, or significant edema. Scattered varicosities of the lower legs. Radial and pedal pulses intact. Neurological: Alert. Cranial nerves 2-12 are grossly intact. No gross focal deficits to casual conversation. Psychiatric: Pleasant and cooperative with normal mood and affect. In good spirits. Objective Data Vital Signs Vital Signs: Vital Signs - 24 hr 04/16/21 16:00 04/16/21 18:00 04/16/21 19:39 Temperature 37.2 C 36.7 C Pulse Rate 90 96 93 Respiratory Rate 12 18 Blood Pressure 131/66 120/64 Pulse Oximetry 99 100 04/16/21 20:00 04/16/21 20:07 04/16/21 22:00 Temperature Pulse Rate 101 H 101 H 75 Respiratory Rate 18 Blood Pressure Pulse Oximetry 100 04/16/21 23:01 04/17/21 00:00 04/17/21 02:00 Temperature 37.1 C Pulse Rate 66 76 72 Respiratory Rate 18 18 Blood Pressure 126/61 Pulse Oximetry 100 100 04/17/21 04:00 04/17/21 06:00 04/17/21 08:00 Temperature 36.8 C Pulse Rate 82 112 H 89 Respiratory Rate 18 Blood Pressure 131/64 Pulse Oximetry 100 04/17/21 08:34 04/17/21 09:26 04/17/21 10:00 Temperature 35.9 C L Pulse Rate 74 81 Respiratory Rate 20 Blood Pressure 131/66 Pulse Oximetry 100 98 04/17/21 12:54 Temperature 35.7 C L Pulse Rate 86 Respiratory Rate 20 Blood Pressure 114/49 L Pulse Oximetry 100 Intake/Output Intake/Output: Intake & Output 04/14/21 04/15/21 04/16/21 04/17/21 23:59 23:59 23:59 23:59 Intake Total 480 1280 Output Total 1080 1260 Balance -600 20 Meds/Results Medications: Active Medications Generic Name Dose Route Start Last Admin Trade Name Jameel PRN Reason Stop Dose Admin Atorvastatin Calcium 10 mg 04/17/21 09:00 04/17/21 10:08 Atorvastatin 10 Mg Tablet PO 10 mg DAILY VICTOR HUGO Administration Azath
[2021-04-17] MEDS: oxyCODONE HCL (*CRX) 5 MG TAB IR 10 MG PO (22:14)
[2021-04-18 03:50] VITALS: BP 129/66; PULSE 79; RESP 18; TEMP 36.7; O2SAT 100
[2021-04-18 06:42] LABS: Partial Thromboplastin Time 161.2 SECONDS (22.3-36.8)
[2021-04-18 08:00] VITALS: BP 125/64; PULSE 77; RESP 18; TEMP 36.4; O2SAT 100
--- NOTE | 2021-04-18 08:11 | WPDGIPROGNO ---
Progress Note: A&P Assessment and Plan (1) Crohn's disease: Code(s): K50.90 - Crohn's disease, unspecified, without complications Status: Acute Assessment and Plan: Patient with established diagnosis of Crohn's disease. Status post colectomy with subsequent ileostomy. Known to have active disease in the ileum. He may have Crohn's disease more proximally as well. This was bleeding last week. This bleeding has stopped. Patient currently doing well. Plan is to continue prednisone 20 mg to be tapered by 5 mg every week after discharge. Imuran 100 mg p.o. daily has been started will be continued. Follow-up CBC intermittently to monitor his white blood cell count. TPMT level is still pending. Anticipate follow-up in the office in 1 week. Patient remains on sulfasalazine. Which likely will be discontinued in month or so. If possible will substitute Pentasa. Currently this been too expensive for the patient be maintained on. He may be discharged from my perspective when okay with other services. (2) Ileostomy in place: Code(s): Z93.2 - Ileostomy status Status: Acute Assessment and Plan: Patient with history of colectomy because of Crohn's disease. Ileostomy functioning well at present. (3) Deep venous thrombosis of right popliteal vein: Code(s): I82.431 - Acute embolism and thrombosis of right popliteal vein Status: Acute Assessment and Plan: Current DVT of the right popliteal vein. He also has Albright's cyst in this area. Anticoagulation will be restarted. Currently on heparin drip. Hopefully oral anticoagulation early discharge of all services agree. (4) Anemia: Code(s): D64.9 - Anemia, unspecified Status: Acute Assessment and Plan: Anemia likely related to chronic caught Crohn's disease. Patient had GI bleeding 1 week ago no evidence of bleeding at present. Plan to monitor CBC after discharge. (5) Current use of [facility]cfp anticoagulation: Code(s): Z79.01 - custodial (current) use of anticoagulants Status: Acute Subjective Date/time seen: 04/18/21 08:11 Patient feels good this morning. Denies abdominal pain no evidence for blood in his ostomy bag. Tolerating diet without difficulty. Notes some swelling in his right knee. Attributed to cyst. Review of Systems Review of Systems: All systems reviewed & are unremarkable except as noted in HPI and below Exam Narrative: Exam Narrative: Physical exam reveals patient to be alert. Vital signs stable. Patient is anicteric. Lungs are clear. Heart without murmur. Abdomen bowel sounds are present soft nontender asked me bag intact no evidence for bleeding. Objective Data Vital Signs Vital Signs: Vital Signs - 24 hr 04/17/21 08:34 04/17/21 09:26 04/17/21 10:00 Temperature 96.6 F L Pulse Rate 74 81 Respiratory Rate 20 Blood Pressure 131/66 Pulse Oximetry 100 98 04/17/21 12:54 04/17/21 17:34 04/17/21 19:54 Temperature 96.3 F L 96.1 F L 98.3 F Pulse Rate 86 92 95 Respiratory Rate 20 18 20 Blood Pressure 114/49 L 125/63 131/60 Pulse Oximetry 100 100 97 04/17/21 20:00 04/17/21 22:15 04/17/21 23:24 Temperature Pulse Rate 95 78 Respiratory Rate 20 18 Blood Pressure Pulse Oximetry 97 04/18/21 03:50 Temperature 98.0 F Pulse Rate 79 Respiratory Rate 18 Blood Pressure 129/66 Pulse Oximetry 100 Intake/Output Intake/Output: Intake & Output 04/15/21 04/16/21 04/17/21 04/18/21 23:59 23:59 23:59 23:59 Intake Total 480 2870 300 Output Total 1080 2780 400 Balance -600 90 -100 Meds/Results Medications: Active Medications Generic Name Dose Route Start Last Admin Trade Name Freq PRN Reason Stop Dose Admin Atorvastatin Calcium 10 mg 04/17/21 09:00 04/17/21 10:08 Atorvastatin 10 Mg Tablet PO 10 mg DAILY VICTOR HUGO Administration Azathioprine 100 mg 04/17/21 09:00 04/17/21 10:08 Azathioprine 50 Mg Tablet PO 100 mg
[2021-04-18] MEDS: predniSONE 20 MG TABLET 80 MG PO (08:38)
[2021-04-18] MEDS: PRIMIDONE 50 MG TABLET 150 MG PO (08:38)
[2021-04-18] MEDS: CYANOCOBALAMIN 1,000 MCG TABLET 1000 MCG PO (08:38)
[2021-04-18] MEDS: lisinopriL 5 MG TABLET PO (08:38)
[2021-04-18] MEDS: sulfaSALAzine 500 MG TABLET PO ×2 (08:38→13:57)
[2021-04-18] MEDS: METOPROLOL TARTRATE 25 MG TABLET PO (08:38)
[2021-04-18] MEDS: azaTHIOprine 50 MG TABLET 100 MG PO (08:39)
[2021-04-18] MEDS: FAMOTIDINE 20 MG TABLET PO (08:39)
[2021-04-18] MEDS: MULTIVITAMINS THERAPEUTIC TAB (*BKC) 1 TABLET PO (08:39)
[2021-04-18] MEDS: ATORVASTATIN 10 MG TABLET PO (08:39)
[2021-04-18] MEDS: PANTOPRAZOLE SODIUM IV 40 MG VIAL IV PUSH (08:39)
[2021-04-18] MEDS: FERROUS SULFATE 324 MG TABLET PO (08:39)
--- OUTSIDE RECORDS SUMMARY | 2021-04-18 09:11 | XMS_ITS | Encounter Summary ---
:1945 Author Care Team Providers Name Role Phone Dr. Wilmer Breen Primary Care Provider [phone] Dr. Wilmer Breen Referring Provider [phone] Reason for Visit Right Knee Problem/Pain Assessment [...]
--- OUTSIDE RECORDS SUMMARY | 2021-04-18 09:11 | XMS_ITS | Encounter Summary ---
:1945 Author Care Team Providers Name Role Phone Dr. Wilmer Breen Primary Care Provider [phone] Dr. Wilmer Breen Referring Provider [phone] Reason for Visit Right Knee Problem/Pain post [...]
--- OUTSIDE RECORDS SUMMARY | 2021-04-18 09:11 | XMS_ITS | Encounter Summary ---
:1945 Author Care Team Providers Name Role Phone Dr. Wilmer Breen Primary Care Provider [phone] Dr. Wilmer Breen Referring Provider [phone] Reason for Visit Right Knee Problem/Pain Assessment [...]
--- OUTSIDE RECORDS SUMMARY | 2021-04-18 09:11 | XMS_ITS ---
:1945 Author Care Team Providers Name Role Phone DR. BARTOLO RICHMOND Primary Care Provider [phone] DR. BARTOLO RICHMOND Referring Provider [phone] Allergies Code Code System Name Reaction Severity Status Onset 5640 RxNorm Ibuprofen ? ? Active ? 5933 RxNorm Iodine ? ? Active ? Shellfish ? ? Active ? Derived Notes: Some allergies listed in Document: #[id number] could not be added to this patient's [...]
--- OUTSIDE RECORDS SUMMARY | 2021-04-18 09:11 | XMS_ITS ---
:1945 Author Care Team Providers Name Role Phone DR. BARTOLO RICHMOND Primary Care Provider [phone] DR. BARTOLO RICHMOND Referring Provider [phone] Allergies Code Code System Name Reaction Severity Status Onset 5640 RxNorm Ibuprofen ? ? Active ? 5933 RxNorm Iodine ? ? Active ? Shellfish ? ? Active ? Derived Notes: Some allergies listed in Document: #[id number] could not be added to this patient's [...]
[2021-04-18 09:59] VITALS: O2SAT 98
--- NOTE | 2021-04-18 13:35 | PM.DS ---
DS: Admitting Diagnosis Admitting Diagnosis Admitting Diagnosis: DVT. DS: Discharge Diagnosis Discharge Diagnosis (1) Deep venous thrombosis of right popliteal vein: Code(s): I82.431 - Acute embolism and thrombosis of right popliteal vein Status: Acute Assessment and Plan: The patient has been off of his warfarin as above due to recent GI bleeding secondary to active Crohn's disease. He has been started on a heparin drip with close monitoring of his hemoglobin and hematocrit and ileostomy output.consider eliquis for R leg dvt. ELIQUIS 10 mg po bid for 7 days then 5 mg po bid after that orthopedics consulted venous doppler showed -1. Deep vein thrombosis involving right popliteal vein. 2. Mass in the popliteal fossa, which may be a large Albright's cyst or a hematoma. (2) Crohn's disease: Code(s): K50.90 - Crohn's disease, unspecified, without complications Status: Acute Assessment and Plan: Dr. Banerjee (Gastroenterology) has been consulted and he recommends continuing prednisone daily as well as Imuran.Gi consulted (3) Anemia: Code(s): D64.9 - Anemia, unspecified Status: Acute Assessment and Plan: Hemoglobin and hematocrit are stable recent gi bleed (4) Hypertension: Code(s): I10 - Essential (primary) hypertension Status: Acute Assessment and Plan: Blood pressures were reviewed and they have been stable. DS: Summary Hospital Course Hospital Course: 75-year-old male with history of recurrent DVT and pulmonary embolism, Crohn's, hypertension, coronary artery disease, and hypertension who presented to the emergency department earlier today from Radiology for further evaluation after he was found to have a DVT on ultrasound this morning. Pt has recent R knee replacement and recent GI Bleed. Stop Coumadin change to Eliquis for Dvt. Time Spent with Patient Time attestation: Total time spent providing and/or coordinating discharge services:40 minutes on day of discharge Exam Narrative: Exam Narrative: General: Well-developed male Neck: Supple. Respiratory: Lungs are clear to auscultation bilaterally. Cardiovascular: Regular rate and rhythm with S1-S2. Gastrointestinal: Abdomen is soft, nontender, and nondistended with positive bowel sounds. Skin: Warm and dry. No rash or lesions on limited exam. Extremities: No cyanosis, clubbing, or significant edema. Scattered varicosities of the lower legs. Radial and pedal pulses intact.R calf tender arlin behind popiteal fossa Neurological: Alert. Cranial nerves 2-12 are grossly intact. No gross focal deficits to casual conversation. Psychiatric: Pleasant and cooperative with normal mood and affect. In good spirits. DS: Data Data Completed and Pending Labs on day of discharge: Labs from last 24 hours 04/18/21 05:44 APTT 161.2 H* Discharge Plan Discharge Attending physician on discharge: Tg Fields Consulting providers: Clarence Street ; Tommy Parada ; Toby Banerjee Discharging Clinician: Tg Fields Anticipated Discharge Date/Time: 04/18/21 17:00 Patient Disposition: Home, Self-Care Activity: as tolerated Diet: bland Discharge Instructions: SOME INTERACTION between primidone and eliquis patient is aware and will discuss with his MD I CHANGED HIS SCRIPT TO PRIMIDONE 150 mg po qdaily Pt to follow with PCP pt to follow with GI pts own Pt is to follow with othopedics pts own Pt to folow with neurology pts own pt may benefit from a rpt US of R leg in 1 months time Patient Instructions: Antibiotic Form, Heparin/Sodium Chloride Premix (Injection) Stand Alone Forms: General Discharge Information Follow-up/Referrals: Toby Banerjee MD [Physician] - Clarence Street MD [Physician] - Jamshid,Wilmer Silverman MD [Primary Care Provider] - Discharge Medications: New primidone [Mysoline] 50 mg Tablet 150 mg PO DAILY Qty: 60 RF:
[2021-04-18] MEDS: APIXABAN 5 MG TABLET 10 MG PO (13:57)
== END 2021-04-18 15:00 | disposition home or self-care (01) | DRG 300 ==
LOC: ANHED 11:26 → ANHIMU 15:25
PROVIDERS: Emergency Medicine Emergency Medical Services; Physician Assistant; Admitting Provider Internal Medicine; Emergency Provider Emergency Medicine; Visit Provider Family Medicine
DX: I82.431 Acute embolism and thrombosis of right popliteal vein (principal); K50.90 Crohn's disease, unspecified, without complications; Z93.2 Ileostomy status; M71.20 Synovial cyst of popliteal space [Baker], unspecified knee; Z96.651 Presence of right artificial knee joint; D64.9 Anemia, unspecified; I10 Essential (primary) hypertension; I25.10 Atherosclerotic heart disease of native coronary artery without angina pectoris; E78.5 Hyperlipidemia, unspecified; Z86.711 Personal history of pulmonary embolism; Z87.891 Personal history of nicotine dependence; Z95.5 Presence of coronary angioplasty implant and graft; Z98.49 Cataract extraction status, unspecified eye
CPT/HCPCS: 36415; 80053; 82565; 83735; 85014; 85018; 85025; 85610; 85730; 93971; 96365; 96366; 96375; 96376; 99283; 99285; A9270; C9113; G0378; J1644; J7512

== ENCOUNTER 2021-11-03 15:49 | Emergency (ER) | payer OTHER, SELFPAY ==
[2021-11-03 16:00] VITALS: BP 130/78; PULSE 85; RESP 20; TEMP 36.6; O2SAT 99
[2021-11-03 18:01] VITALS: BP 143/85; PULSE 79; RESP 18; O2SAT 100
[2021-11-03 18:53] VITALS: BP 146/84; PULSE 75; RESP 16; O2SAT 98
--- NOTE | 2021-11-03 19:51 | ED.EAR ---
HPI - Ear Problem General Chief complaint: Ear Stated complaint: bloody drainage rt ear Time Seen by Provider: 11/03/21 19:34 Source: patient Mode of arrival: ambulatory Limitations: no limitations History of Present Illness HPI Narrative: Patient presents for evaluation of bleeding from left ear. He indicates he woke from sleep this morning with his symptoms. Indicates it was just a small amount of oozing blood. He noted symptoms until this afternoon. This afternoon he experienced some dizziness and lightheadedness for about two hours. That has since resolved. At the time of the dizziness/lightheadedness check his blood pressure with readings in the 110/60's. He denies any recent or current chest pain, shortness of breath, neurological changes. 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 He is anticoagulated for life. Takes 10 mg of Coumadin daily with the exception of Mondays when he takes 12.5 mg. His last INR was performed 2 weeks ago with a reading 2.7. 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 He had surgical repair about two months ago and was told by surgeon that surgery was successful. Related Data Home Medications Medication Instructions Recorded Confirmed atorvastatin 10 mg PO DAILY 05/19/20 04/16/21 lisinopril 5 mg PO QAM 05/19/20 04/16/21 metoprolol tartrate 25 mg PO BID 05/19/20 04/16/21 nitroglycerin [Nitrostat] 0.4 mg SUBLINGUAL Q5-15M PRN 05/19/20 04/16/21 Glucosamine Complex-MSM 2 cap PO DAILY 01/18/21 04/16/21 multivitamin 1 tablet PO DAILY 01/18/21 04/16/21 B12 Active 1,000 mcg PO DAILY 04/08/21 04/16/21 lutein 20 mg PO DAILY 04/08/21 04/16/21 warfarin 10 mg tablet 5 mg PO 5XW tablet 05/01/21 05/01/21 Allergies Allergy/AdvReac Type Severity Reaction Status Date / Time Iodine and Iodide Containing Allergy Severe Swelling Verified 11/03/21 18:53 Produc of Lip/Tongue/Throat shellfish derived Allergy Severe Swelling Verified 11/03/21 18:53 of Lip/Tongue/Throat Review of Systems Review of Systems: CONSTITUTIONAL: Denies fever, chills, or sweats. EYES: Denies visual changes, redness, or discharge. ENT: Bleeding from the left ear earlier, now resolved. Reports chronic hearing loss in the right ear. Denies rhinorrhea, congestion, sore throat, or otalgia. CARDIOVASCULAR: Denies chest pain, palpitations, or edema. RESPIRATORY: Denies cough or dyspnea. GASTROINTESTINAL: Denies abdominal pain, nausea, vomiting, or diarrhea. GENITOURINARY: Denies dysuria or hematuria. SKIN: Denies rash or itching. MUSCULOSKELETAL: Denies back pain, joint pain, or myalgia. NEUROLOGIC: Reports dizziness and lightheadedness earlier, now resolved. Denies headache, numbness, or weakness. PSYCHIATRIC: Denies anxiety or depression. [facility] Past Medical History Medical History Coronary artery disease Status post stent in 2012. Crohn's disease Status post total colectomy with ileostomy. 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 Deep venous thrombosis Left lower extremity x2. Essential tremor Gastrointestinal bleed Related to Crohn's disease. Hospitalized in October 2019 and March 2021. History of Jared's gangrene Hyperlipemia Hypertension Pulmonary embolism Surgical History Surgical History History of appendectomy History of arthroplasty of right knee (~02/05/21) History of cataract extraction History of coronary artery stent placement (~2012) x1. Patient of Dr. Griffin. History of hip surgery (~2010) Pinning of left hip fracture with subsequent hardware removal. History of ileostomy (~1995) History of right mastoidectomy History of total colectomy (~1995) History of umbilical hernia repair Status post debridement Status post debridement of a large gangr
[2021-11-03 20:44] LABS: Basophils Percent Auto 0.8 % (0.2-1.2); Eosinophils Absolute Auto 0.1 K/mm3 (0-0.3); Eosinophils Percent Auto 1.2 % (0-4.4); Hematocrit 40.4 % (42.0-52.0); Hemoglobin 13.1 g/dL (14.0-18.0); Immature Granulocyte Absolute 0.03 K/mm3 (0.00-0.031); Immature Granulocyte Percent A 0.6 % (0-0.5); Lymphocytes Absolute Auto 1.59 K/mm3 (0.9-3.2); Mean Corpuscular HGB Conc 32.4 g/dl (32-36); Mean Corpuscular Hemoglobin 32.2 pg (26-34); Mean Corpuscular Volume 99.3 fl (80-100); Mean Platelet Volume 9.4 fl (7.4-10.4); Monocytes Absolute Auto 0.5 K/mm3 (0.1-0.6); Monocytes Percent Auto 9.7 % (2.6-8.5); Neutrophils Absolute Auto 2.9 K/mm3 (1.3-6.7); Neutrophils Percent Auto 56.7 % (45.5-73.1); Platelet Count Result 206 k/mm3 (150-375); Red Blood Count 4.07 M/mm3 (4.6-6.20); Red Cell Distribution Width 13.9 % (11.5-14.5); White Blood Count 5.1 K/mm3 (4.5-10.0)
[2021-11-03 20:54] LABS: INR 3.3; Prothrombin Time 32.6 Seconds (11.1-14.7)
[2021-11-03 20:58] LABS: Alanine Aminotransferase 27 U/L (4-50); Albumin Level 4.1 g/dL (3.5-5.1); Alkaline Phosphatase 76 U/L (38-126); Anion Gap 4 mmol/L (8-16); Aspartate Amino Transferase 30 U/L (17-59); Bilirubin,Total 0.3 mg/dL (0.2-1.3); Blood Urea Nitrogen 16 mg/dL (9-20); Calcium 9.2 mg/dL (8.4-10.2); Carbon Dioxide 26 mmol/L (22-30); Chloride 102 mmol/L (98-107); Estimated CRCL calculation 64 ml/min; Estimated Glomerular Filt Rate > 60; Glucose 104 mg/dL (65-110); Potassium 4.3 mmol/L (3.4-5.0); Sodium 132 mmol/L (137-145)
[2021-11-03 21:57] VITALS: BP 135/78; PULSE 80; RESP 16; O2SAT 100
== END 2021-11-03 21:58 | disposition home or self-care (01) ==
PROVIDERS: Emergency Provider Nurse Practitioner; PCP Student in an Organized Health Care Education/Training Program
DX: S00.412A Abrasion of left ear, initial encounter (principal); R89.2 Abnormal level of other drugs, medicaments and biological substances in specimens from other organs, systems and tissues; T45.515A Adverse effect of anticoagulants, initial encounter; Z79.01 Long term (current) use of anticoagulants; I25.10 Atherosclerotic heart disease of native coronary artery without angina pectoris; Z98.61 Coronary angioplasty status; Z86.718 Personal history of other venous thrombosis and embolism; I10 Essential (primary) hypertension; E78.5 Hyperlipidemia, unspecified; X58.XXXA Exposure to other specified factors, initial encounter
CPT/HCPCS: 36415; 80053; 85025; 85610; 85730; 99283

== ENCOUNTER 2022-02-12 01:29 | Inpatient (IN) | payer OTHER, SELFPAY ==
[2022-02-12] VITALS (14 sets, daily range): BP systolic 102–146; BP diastolic 58–76; PULSE 74–95; RESP 11–18; TEMP 36.1–36.8; O2SAT 91–100; BMI 29.9
--- NOTE | ~2022-02-12 | XR_ITS ---
EXAMINATION: XR sm bowel follow through WS DATE: 02/13/2022 13:58 INDICATION: Crohn's disease post colectomy with right lower quadrant and ileostomy presenting with Il eus versus small bowel obstruction or stricture. TECHNIQUE: Saw Cleaner radiograph(s) of the abdomen was/were obtained. Water-soluble oral contrast was admi nistered, and sequential radiographs of the abdomen were obtained until oral contrast was noted to be in the proximal colon. COMPARISON: None. FINDINGS: Saw Cleaner image demonstrates nasogastric tube tip in the body of the stomach with proximal side-port just below the level of the gastroesophageal junction. Surgical clips in the left lower quadrant. There a re few mildly dilated gas-filled loops of small bowel on the articulation officer image. Transit time from the stoma ch to the right lower quadrant and ileostomy was approximately 2 hours with subtle dilute contrast se en within the ostomy bag which progressively increases in amount and density over the next hour and 4 5 minutes. Contrast is first clearly evidently bowel at the ostomy at 3 hours. No focal transition po int in the more proximal bowel. IMPRESSION: 1. Diffuse mildly dilated small bowel without transition point and with normal progression of contras t to the right lower quadrant end ileostomy within 2 hours. This could represent either an ileus or l ow-grade obstruction/stricture at the level of the ostomy. Reviewed, dictated and finalized at location A. IMPRESSION: 1. Diffuse mildly dilated small bowel without transition point and with normal progression of contrast to the right lower quadrant end ileostomy within 2 hour s. This could represent either an ileus or low-grade obstruction/stricture at t he level of the ostomy.
--- NOTE | ~2022-02-12 | XR_ITS ---
EXAMINATION: XR abdomen/kub 1V DATE: 02/12/2022 05:59 INDICATION: Nasogastric tube verification TECHNIQUE: A supine view of the abdomen on 2 radiographs was obtained. COMPARISON: CT dated 02/12/2022 FINDINGS: Nasogastric tube tip at the gastroesophageal junction. There are couple minimally dilated gas-filled loops of small bowel which could represent ileus or obstruction. Surgical clips and sutures in the mi dline of the lower abdomen and pelvis. Right lower quadrant ostomy. Suspected old healed left femoral neck fracture with residual screw tracks. Lung bases are clear. IMPRESSION: 1. Nasogastric tube at the gastroesophageal junction. Recommend advancement by 15 cm. 2. Minimally dilated gas-filled loops of small bowel consistent with ileus versus obstruction. Reviewed, dictated and finalized at location A. IMPRESSION: 1. Nasogastric tube at the gastroesophageal junction. Recommend advancement by 15 cm. 2. Minimally dilated gas-filled loops of small bowel consistent with ileus vers us obstruction.
--- NOTE | ~2022-02-12 | XR_ITS ---
EXAMINATION: XR abdomen obstructive series EXAM DATE: 02/13/2022 08:41 INDICATION: Small bowel obstruction. TECHNIQUE: Frontal upright projection of the upper abdomen, frontal projection of the lower abdomen f or interpretation. Comparison is made to prior examination from 02/12/2022. FINDINGS: There is expected amount of colonic stool and gas. Multiple loops of moderately distended small bowel with air-fluid levels, ileus or possibly stomal stricturing unchanged There are no carlos picious calcifications identified. There is no organomegaly suspected. The bones are unremarkable. There is no free intraperitoneal air. The lung bases are clear. IMPRESSION: Moderately distended bowel, ileus or possibly stomal stricturing unchanged. No free air. Reviewed, dictated and finalized at location B. IMPRESSION: Moderately distended bowel, ileus or possibly stomal stricturing u nchanged. No free air.
--- NOTE | ~2022-02-12 | XR_ITS ---
EXAMINATION: XR abdomen NG/feed tube insert DATE: 02/12/2022 07:40 INDICATION: Nasogastric tube placement TECHNIQUE: A supine view of the abdomen and lower chest was obtained for evaluation of feeding tube placement. COMPARISON: 02/12/2022 FINDINGS: Nasogastric tube has been advanced with distal tip in proximal side port now in expected position in the body of the stomach. A few minimally dilated gas-filled loops of small bowel which could represen t ileus or obstruction. Surgical clip in the left lower quadrant of the abdomen. Mild streaky bibasil ar atelectasis. Heart size is normal. IMPRESSION: 1. Nasogastric tube in stomach. 2. Persistent ileus versus obstruction. Reviewed, dictated and finalized at location A.
--- NOTE | ~2022-02-12 | CT_ITS ---
EXAMINATION: CT abdomen pelvis wo con EXAM DATE: 02/12/2022 02:06 INDICATION: Abdominal pain, ileostomy, Crohn's . TECHNIQUE: Spiral CT of the abdomen and pelvis was performed without contrast. Axial, coronal and s agittal images of the abdomen and pelvis were reviewed. The dose-length product (DLP) for this exami [facility] [place] was 788.68 mGy-cm. The exposure was tailored according to patient size (auto mA exposure cont rol), and iterative reconstruction (ASIR) was used as additional dose reduction technique. Comparison is made to prior examination from 05/19/2020. FINDINGS: There is colectomy and right lower quadrant ostomy. There is moderately distended small bow el with air-fluid levels, but no wall thickening or pneumatosis. Dilated bowel to the ostomy site, no transition point. Probably ileus, although although stromal stricture not excluded. Please note that there was a similar appearance on prior CT 2019, correlate with that report, clinical course. There is a moderate-sized duodenal diverticulum. Multiple liver cysts. Punctate splenic granulomata. Pancreas, adrenal glands are unremarkable. The g allbladder is distended but otherwise unremarkable. There is no biliary duct dilation. There is a morin bcentimeter right renal hemorrhagic cyst. No nephrolithiasis or obstructive nephropathy. Mild prostat omegaly. Moderate-sized left inguinal fat-containing hernia. Small bladder stones. There is no retr operitoneal or pelvic lymphadenopathy. There is moderate scattered arteriosclerotic disease. The heart is normal in size. There are no pericardial or pleural effusions. The lung bases are unre markable. There are no osteoblastic or osteolytic lesions identified. IMPRESSION: 1. Colostomy, right lower quadrant ostomy with recurrent moderately dilated small bowel to the stoma , could be ileus but can't exclude ostomy stricturing. Correlate with clinical course from 2019. 2. Chronic findings above. Reviewed, dictated and finalized at location B. IMPRESSION: 1. Colostomy, right lower quadrant ostomy with recurrent moderately dilated sm all bowel to the stoma, could be ileus but can't exclude ostomy stricturing. C orrelate with clinical course from 2019. 2. Chronic findings above.
--- NOTE | 2022-02-12 01:49 | ED.GENADULT ---
HPI - General Adult General Chief complaint: Abdominal Pain Stated complaint: ABD PAIN Source: patient and RN notes reviewed Mode of arrival: EMS Limitations: no limitations History of Present Illness HPI narrative: 76-year-old male presented to the emergency department for evaluation of abdominal pain with associated nausea and vomiting. Patient does have a history of Crohn's, colectomy and has an ileostomy. Patient states for the majority of the day he has had left-sided abdominal pain. Patient states the pain began to worsen significantly after 5 PM. Patient does report multiple episodes of emesis. Patient denies any blood in the emesis. Patient does have an ileostomy and denies any change in the ostomy output. Patient does have a history of a cardiac stent placed in 2012. Patient had a pulmonary embolism in 2012 and is on Coumadin. Patient reports the ileostomy was placed in 1995. Patient states that he also had a hernia repair in [place] in [id number]. Related Data Home Medications Medication Instructions Recorded Confirmed atorvastatin 10 mg PO DAILY 05/19/20 02/12/22 lisinopril 5 mg PO QAM 05/19/20 02/12/22 metoprolol tartrate 25 mg PO BID 05/19/20 02/12/22 nitroglycerin [Nitrostat] 0.4 mg SUBLINGUAL Q5-15M PRN 05/19/20 02/12/22 Glucosamine Complex-MSM 1 cap PO BID 01/18/21 02/12/22 multivitamin 1 tablet PO DAILY 01/18/21 02/12/22 B12 Active 1,000 mcg PO DAILY 04/08/21 02/12/22 lutein 20 mg PO DAILY 04/08/21 02/12/22 warfarin 10 mg tablet 5 mg PO 5XW tablet 05/01/21 02/12/22 diphenhydramine HCl [Benadryl] 25 mg PO HS PRN 02/12/22 02/12/22 escitalopram oxalate 10 mg PO DAILY 02/12/22 02/12/22 ofloxacin 10 drp RIGHT EAR DAILY 02/12/22 02/12/22 primidone [Mysoline] 100 mg PO BID 02/12/22 02/12/22 tizanidine 4 mg PO PRN 02/12/22 02/12/22 Allergies Allergy/AdvReac Type Severity Reaction Status Date / Time Iodine and Iodide Containing Allergy Severe Swelling Verified 02/12/22 01:30 Produc of Lip/Tongue/Throat shellfish derived Allergy Severe Swelling Verified 02/12/22 01:30 of Lip/Tongue/Throat Review of Systems Review of Systems: CONSTITUTIONAL: Denies fever, chills, or sweats. EYES: Denies visual changes, redness, or discharge. ENT: Denies rhinorrhea, congestion, sore throat, or otalgia. CARDIOVASCULAR: Denies chest pain, palpitations, or edema. RESPIRATORY: Denies cough or dyspnea. GASTROINTESTINAL: Abdominal pain with associated nausea and vomiting GENITOURINARY: Denies dysuria or hematuria. SKIN: Denies rash or itching. MUSCULOSKELETAL: Denies back pain, joint pain, or myalgia. NEUROLOGIC: Denies headache, numbness, or weakness. [facility] Past Medical History Medical History (Updated 02/12/22 @ 05:59 by Melyssa Duarte DO) Coronary artery disease Status post stent in 2012. Crohn's disease Status post total colectomy with ileostomy. 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 Deep venous thrombosis Left lower extremity x2. Essential tremor Gastrointestinal bleed Related to Crohn's disease. Hospitalized in October 2019 and March 2021. History of Jared's gangrene Hyperlipemia Hypertension Pulmonary embolism Surgical History Surgical History (Updated 02/12/22 @ 07:20 by Melyssa Duarte DO) History of appendectomy History of arthroplasty of right knee (~02/05/21) History of coronary artery stent placement (~2012) x1. Patient of Dr. Griffin. History of hip surgery (~2010) Pinning of left hip fracture with subsequent hardware removal. History of ileostomy (~1995) History of right mastoidectomy History of total colectomy (~1995) History of umbilical hernia repair Status post cataract extraction of both eyes with insertion of intraocular lens Status post debridement Status post debridement of a large gangrenous infection in the left groin and genital region, likely Jared's gangrene. Status post right knee
[2022-02-12 01:51] LABS: Basophils Absolute Auto 0.1 K/mm3 (0.0-0.1); Basophils Percent Auto 0.3 % (0.2-1.2); Eosinophils Percent Auto 0.1 % (0-4.4); Hematocrit 48.6 % (42.0-52.0); Hemoglobin 15.6 g/dL (14.0-18.0); Immature Granulocyte Absolute 0.11 K/mm3 (0.00-0.031); Immature Granulocyte Percent A 0.7 % (0-0.5); Lymphocytes Absolute Auto 1.23 K/mm3 (0.9-3.2); Lymphocytes Percent Auto 7.8 % (18.3-44.2); Mean Corpuscular HGB Conc 32.1 g/dl (32-36); Mean Corpuscular Hemoglobin 32.2 pg (26-34); Mean Corpuscular Volume 100.4 fl (80-100); Mean Platelet Volume 9.4 fl (7.4-10.4); Monocytes Absolute Auto 0.7 K/mm3 (0.1-0.6); Monocytes Percent Auto 4.5 % (2.6-8.5); Neutrophils Absolute Auto 13.6 K/mm3 (1.3-6.7); Neutrophils Percent Auto 86.6 % (45.5-73.1); Platelet Count Result 268 k/mm3 (150-375); Red Blood Count 4.84 M/mm3 (4.6-6.20); Red Cell Distribution Width 13.4 % (11.5-14.5); White Blood Count 15.7 K/mm3 (4.5-10.0)
[2022-02-12 02:02] LABS: Alanine Aminotransferase 29 U/L (4-50); Albumin Level 4.6 g/dL (3.5-5.1); Alkaline Phosphatase 89 U/L (38-126); Anion Gap 10 mmol/L (8-16); Aspartate Amino Transferase 35 U/L (17-59); Bilirubin,Total 0.8 mg/dL (0.2-1.3); Blood Urea Nitrogen 18 mg/dL (9-20); Calcium 9.7 mg/dL (8.4-10.2); Carbon Dioxide 23 mmol/L (22-30); Chloride 100 mmol/L (98-107); Estimated CRCL calculation 76 ml/min; Estimated Glomerular Filt Rate > 60; Glucose 175 mg/dL (65-110); Lactic Acid Reflex 2.4 mmol/L (0.7-2.1); Lipase 63 U/L (23-300); Potassium 4.6 mmol/L (3.4-5.0); Sodium 133 mmol/L (137-145)
[2022-02-12] MEDS: ONDANSETRON INJ 4 MG/2 ML VIAL IV PUSH ×2 (02:10→13:21)
[2022-02-12] MEDS: HYDROmorphone HCL INJ (*CRX) 1 MG/ML SYR 0.5 MG IV PUSH ×3 (02:10→05:56)
[2022-02-12] MEDS: SODIUM CHLORIDE 0.9% IV 1,000 ML 999 ML IV CONT (02:38)
--- NOTE | 2022-02-12 04:34 | PC.NURSE ---
Pt attmempting to urinate. Still unable to at this time. Pt states he will try again.
[2022-02-12 04:42] LABS: Reflex Lactic Acid Yes or No Add Lactic
[2022-02-12 05:13] LABS: SARS-CoV-2 RNA PCR Negative
--- NOTE | 2022-02-12 05:43 | PM.IMHP ---
H&P: HPI History of Present Illness Date/Time: 02/12/22 05:43 Chief Complaint: Abdominal pain Narrative: 76-year-old male with past medical history of recurrent DVTs, pulmonary embolism, hypertension, coronary artery disease and Crohn's disease status post ileostomy who presented to the emergency department today due to abdominal pain. The patient reported that this morning he changed his ileostomy bag. As the day progressed he began having left-sided abdominal pain. Pain acutely worsened after 5:00 p.m.. When he went to evaluate his ostomy he realize that he had some of the plastic of the bag covering part of his ostomy. He subsequently changed his bag. At that time his ostomy output was his usual watery with flex which is what happened when he does not eat. He had only eaten oatmeal on the morning of the . He had nausea and vomiting and was unable to tolerate any food. He would have episodes of worsening cramping pain at that dose times is pain would an 8/10 in intensity. He denies any blood in his ostomy output or emesis. He has not had any fevers or chills. He denies any chest pain or shortness of breath. Review of Systems Review of Systems: 12 systems were reviewed with pertinent positives and negatives per HPI. Except as documented in the HPI, all other systems were reviewed and are negative. [facility], [facility] Past Medical History Medical History (Updated 02/12/22 @ 05:59 by Melyssa Duarte DO) Coronary artery disease Status post stent in 2012. Crohn's disease Status post total colectomy with ileostomy. 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 Deep venous thrombosis Left lower extremity x2. Essential tremor Gastrointestinal bleed Related to Crohn's disease. Hospitalized in October 2019 and March 2021. History of Jared's gangrene Hyperlipemia Hypertension Pulmonary embolism Surgical History Surgical History (Updated 02/12/22 @ 07:20 by Melyssa Duarte DO) History of appendectomy History of arthroplasty of right knee (~02/05/21) History of coronary artery stent placement (~2012) x1. Patient of Dr. Griffin. History of hip surgery (~2010) Pinning of left hip fracture with subsequent hardware removal. History of ileostomy (~1995) History of right mastoidectomy History of total colectomy (~1995) History of umbilical hernia repair Status post cataract extraction of both eyes with insertion of intraocular lens Status post debridement Status post debridement of a large gangrenous infection in the left groin and genital region, likely Jared's gangrene. Status post right knee replacement (01/2021) Family History Family History Other Heart disease Hypertension Social History Social History (Updated 02/12/22 @ 07:18 by Melyssa Duarte DO) Social History: Surrogate decision maker: Ethan Madrigal, kali. Code status: Full code. Smoking packs per day: 1 Smoking cigarettes per day: 20.0 Years smoked: 35 Smoking pack-years: 35.00 Smoking status: Former smoker Tobacco type: cigarettes Additional smoking assessment comments: quit 20 years ago Alcohol intake: never Drinks per week: 1 Alcohol use details: 1 wine/day. Previously drank in excess for about 30 years. Substance use: never Substance use type: does not use Additional living arrangements comments: The patient is since 2019 and lives in his own home in [place]. He has 3 adult sons 2 of which live locally and 1 daughter. 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 Gender identity (if verbalized by the patient): Male Spiritual care concerns: No Meds Home Medications and Allergies Home Medications Medic
[2022-02-12] MEDS: SODIUM CHLORIDE 0.9% IV 1,000 ML 125 ML IV CONT ×3 (05:56→20:39)
--- NOTE | 2022-02-12 06:33 | ADMGEN ---
This patient, Ezequiel Madrigal, was admitted to [facility] Surg Room 314-02. Patient/family oriented to hospital policies and general routines including ID bracelet, bed and alarms, visiting hours, pain management, procedures, bathroom and other care routines, personal items, smoking policy, room service/diet, and visiting hours. Information on how to activate the Rapid Response Team has been discussed. Patient/Family are encouraged to report perceived risks to care and to ask questions if they do not understand what they are told or what they should do.
[2022-02-12 07:30] LABS: Lactic Acid 2.1 mmol/L (0.7-2.1)
[2022-02-12 07:31] LABS: INR 2.2
--- NOTE | 2022-02-12 07:43 | WPDGICN ---
Assessment and Plan Assessment and plan (1) Crohn's disease: Qualifiers: Gastrointestinal tract location: unspecified location Digestive disease complication type: with intestinal obstruction Qualified Code(s): K50.912 - Crohn's disease, unspecified, with intestinal obstruction Code(s): K50.90 - Crohn's disease, unspecified, without complications Status: Acute Assessment and Plan: Patient with known Crohn's disease. Currently maintained on Pentasa. Tolerating well until last evening. Plan to continue this medication orally after pain resolves. Given his low abdominal pain urinalysis will be obtained. He may need a brief course of steroids if pain persists. (2) SBO (small bowel obstruction): Code(s): K56.609 - Unspecified intestinal obstruction, unspecified as to partial versus complete obstruction Status: Acute Assessment and Plan: Small-bowel obstruction appears resolving as he now has stool in his ostomy bag. Likely related to difficulties with changing the ostomy bag yesterday. Small-bowel series may be prudent to exclude any significant organic disease. (3) Ileostomy in place: Code(s): Z93.2 - Ileostomy status Status: Acute (4) Current use of senior care anticoagulation: Code(s): Z79.01 - rat exterminator (current) use of anticoagulants Status: Acute Assessment and Plan: Patient currently on warfarin because of history of DVTs and pulmonary embolism. No evidence of bleeding or present. Will continue this with cautious observation. GI Consult Note Consult date/time: 02/12/22 07:43 HPI: Ezequiel Madrigal is a 76 year old male I am asked to see because of a small-bowel obstruction. Patient has a history of Crohn's disease diagnosed more than 20 years ago. Because of significant disease he has undergone a total colectomy. Most recently seen by my service last summer when he had some bleeding via his ileostomy. Ileoscopy revealed some small erosions in the distal ileum. Consistent with Crohn's disease. Patient has been maintained on Pentasa since that time period and has done well. He does have an ostomy bag which she changed yesterday apparently covering the ostomy opening with plastic inadvertently. During this same interval of time he has had rather low bilateral abdominal pain. This is located in the suprapubic area. Upon presenting to the emergency room x-ray imaging suggested small-bowel obstruction. This morning patient is beginning to have greenish to brown stool in his ostomy bag. Patient does report some lower abdominal pain that is not yet resolved. He denies a fever. Patient does have a past medical history of recurrent DVTs and pulmonary embolism. For for this reason he is maintained on chronic warfarin anticoagulation. Review of Systems Review of Systems: All systems reviewed & are unremarkable except as noted in HPI and below PMFSH Past Medical History Medical History (Updated 02/12/22 @ 05:59 by Melyssa Duarte DO) Coronary artery disease Status post stent in 2012. Crohn's disease Status post total colectomy with ileostomy. 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 Deep venous thrombosis Left lower extremity x2. Essential tremor Gastrointestinal bleed Related to Crohn's disease. Hospitalized in October 2019 and March 2021. History of Jared's gangrene Hyperlipemia Hypertension Pulmonary embolism Surgical History Surgical History (Updated 02/12/22 @ 07:20 by Melyssa Duarte DO) History of appendectomy History of arthroplasty of right knee (~02/05/21) History of coronary artery stent placement (~2012) x1. Patient of Dr. Griffin. History of hip surgery (~2010) Pinning of left hip fracture with subsequent hardware removal. History of ileostomy (~1995) History of right mastoidectomy History of total colectomy (~1995) History of umbilical he
[2022-02-12] MEDS: HYDROmorphone HCL INJ (*CRX) 1 MG/ML SYR IV PUSH ×3 (08:30→21:05)
--- NOTE | 2022-02-12 10:39 | PM.CNGS ---
Assessment and Plan Assessment and plan (1) SBO (small bowel obstruction): Code(s): K56.609 - Unspecified intestinal obstruction, unspecified as to partial versus complete obstruction Status: Acute Assessment and Plan: CT scan reviewed and discussed with the patient in detail. There is evidence of dilated small bowel to the level of the ileostomy, which could be an ileus versus possible small bowel obstruction. The Radiologist is unable to rule out stricturing at the ostomy site as well. GI has been consulted and their recommendations are noted. This could also be related to a self-inflicted mechanical obstruction, considering his symptoms started after applying his ostomy appliance yesterday with plastic obstructing the stoma. Would agree with continuing NG tube decompression, bowel rest, IV analgesics PRN, and IV fluids today. His ileostomy is now functioning well with output in his bag at the time of my exam. Will repeat an obstructive series tomorrow morning. If it appears to be improving, then we could consider a gastrografin small bowel follow through to further evaluate the possible stricturing and small bowel obstruction. I discussed the plan with the patient and he agrees with the current plan. Thank you for allowing us to see the patient in consultation and we will continue to follow along with you. (2) Ileostomy in place: Code(s): Z93.2 - Ileostomy status Status: Acute Assessment and Plan: S/p total colectomy with ileostomy. Functioning well now with improved output. See plan above. (3) Crohn's disease: Qualifiers: Gastrointestinal tract location: unspecified location Digestive disease complication type: with intestinal obstruction Qualified Code(s): K50.912 - Crohn's disease, unspecified, with intestinal obstruction Code(s): K50.90 - Crohn's disease, unspecified, without complications Status: Acute Assessment and Plan: Patient with known Crohn's and currently being managed with Pentasa. Management per GI. (4) Current use of [facility] anticoagulation: Code(s): Z79.01 - nursing home (current) use of anticoagulants Status: Acute Assessment and Plan: Recommend holding warfarin for now. INR was 2.2. Repeat labs tomorrow. If INR drifts down, we would agree with a heparin drip if the Hospitalist feels he needs continued anticoagulation while NPO and being treated for the small bowel obstruction. (5) DVT (deep venous thrombosis): Code(s): I82.409 - Acute embolism and thrombosis of unspecified deep veins of unspecified lower extremity Status: Acute Assessment and Plan: Recurrent DVT and hx of PE. Currently on warfarin. Last time this was held for bleeding from his ileostomy site, he developed a DVT. Management per Hospitalist, who feels he may need a heparin drip while NPO if INR is not therapeutic. (6) Coronary artery disease: Code(s): I25.10 - Atherosclerotic heart disease of [place] coronary artery without angina pectoris Status: Acute (7) Hypertension: Code(s): I10 - Essential (primary) hypertension Status: Acute Additional Plan I have discussed the patient's case and plan of care with Dr. Preciado. History of Present Illness Consult details Consult date: 02/12/22 Reason for consult: other (Small-bowel obstruction) Requesting physician: Cody Vidal MD Narrative: This is a 76-year-old male with a known history of Crohn's disease status post total colectomy with ileostomy, recurrent DVTs and PE currently on warfarin therapy, coronary artery disease, and hypertension. He presented to the emergency department overnight with complaints of abdominal pain. The patient reports typically changing his ileostomy bag in the morning and when he went to do this yesterday morning, he apparently left a part of the plastic over the opening of the ostomy bag. Not knowing this initially, he went throughout the day wit
--- NOTE | 2022-02-12 11:00 | PM.IMPN ---
Progress Note: A&P Assessment and Plan (1) SBO (small bowel obstruction): Code(s): K56.609 - Unspecified intestinal obstruction, unspecified as to partial versus complete obstruction Status: Acute Assessment and Plan: Abdominal xray shows ileus vs small-bowel obstruction NG tube has been placed General surgery has been consulted Stool noted in the ostomy bag IV fluids for hydration Dilaudid for pain control Zofran for nausea NPO for now (2) Crohn's disease: Qualifiers: Digestive disease complication type: with intestinal obstruction Gastrointestinal tract location: unspecified location Qualified Code(s): K50.912 - Crohn's disease, unspecified, with intestinal obstruction Code(s): K50.90 - Crohn's disease, unspecified, without complications Status: Acute Assessment and Plan: Known history of Crohns maintained on Pentasa Hold Pentasa due to NPO status Gastroenterology consulted IV fluids, pain medications and nausea medications Dr. 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 PT 24.0 and INR 2.2 INR is not therapeutic Heparin gtt vs Lovenox full dose (4) Hypertension: Code(s): I10 - Essential (primary) hypertension Status: Acute Assessment and Plan: BP is 127/60 Home medications are lisinopril and metoprolol Will add some hydralizine and metoprolol IV while NPO Trend BP Adjust therapy as indicated Additional Plan Time Spent With Patient Time with patient: Greater than 35 minutes Subjective Date/time seen: 02/12/22 1100 Interval history: Date/Time: 02/12/22 05:43 Narrative: 76-year-old male with past medical history of recurrent DVTs, pulmonary embolism, hypertension, coronary artery disease and Crohn's disease status post ileostomy who presented to the emergency department today due to abdominal pain. The patient reported that this morning he changed his ileostomy bag. As the day progressed he began having left-sided abdominal pain. Pain acutely worsened after 5:00 p.m.. When he went to evaluate his ostomy he realize that he had some of the plastic of the bag covering part of his ostomy. He subsequently changed his bag. At that time his ostomy output was his usual watery with flex which is what happened when he does not eat. He had only eaten oatmeal on the morning of the . He had nausea and vomiting and was unable to tolerate any food. He would have episodes of worsening cramping pain at that dose times is pain would an 8/10 in intensity. He denies any blood in his ostomy output or emesis. He has not had any fevers or chills. He denies any chest pain or shortness of breath. Date/Time 02/12/22 1100 Patient is laying in bed. He says he is doing ok. He stated that he is still having pain, and stated that he he feels like he has a rock in his abdomen. There is liquid present in the bag, mixed with stool. He is concerned as it is not formed like he is used to. He did state that his pain is labile, and that he was due for pain mediations. He also has been tolerating ice chips. He denies any chest pain, shortness of breath, fevers, sweats, or chills. Review of Systems Review of Systems: All systems reviewed & are unremarkable except as noted in HPI and below Exam Const: General: cooperative, healthy appearing, no acute distress, well developed, alert and awake Nutritional Appearance: well nourished Orientation/consciousness: patient oriented x3 Limitations: no limitations HENMT: Head: normal to inspection Ears: hearing grossly
[2022-02-12 12:06] LABS: Appearance Urine Clear (Clear); Bilirubin Urine Negative (Negative); Blood Urine Negative (Negative); Color Urine Yellow (Yellow); Glucose Urine UA Negative (Negative); Ketones Urine Negative (Negative); Leukocyte Esterase Ur Negative LEU/UL (Negative); Nitrate Urine Negative (Negative); Protein Urine 1+ mg/dL (Negative); Specific Grav Ur >= 1.030 (1.001-1.035); Urobilinogen Urine 0.2 mg/dL (<2.0); pH Urine 5.5 (5.0-9.0)
--- NOTE | 2022-02-12 12:07 | PC.NURSE ---
Ethan Hernandez MEDICINE AIDE notified that pt has only voided 50 ml of urine this shift so far. Will monitor
[2022-02-12 12:09] LABS: Mucus Urine Heavy /lpf; Squamous Epithelial Cell Urine Rare /hpf (Few)
[2022-02-12 12:15] LABS: Add Urine Microscopic? YES
[2022-02-12] MEDS: OFLOXACIN 0.3% OPHTH SOLN 5 ML BTL 10 DROP RIGHT EAR (13:21)
[2022-02-12] MEDS: PRIMIDONE 50 MG TABLET 100 MG PO (16:19)
[2022-02-13] MEDS: SODIUM CHLORIDE 0.9% IV 1,000 ML 125 ML IV CONT (04:10)
[2022-02-13 06:00] VITALS: BP 149/65; PULSE 89; RESP 18; TEMP 36.9; O2SAT 96
[2022-02-13 06:10] LABS: Hematocrit 43.6 % (42.0-52.0); Hemoglobin 13.6 g/dL (14.0-18.0); Mean Corpuscular HGB Conc 31.2 g/dl (32-36); Mean Corpuscular Volume 102.6 fl (80-100); Mean Platelet Volume 9.3 fl (7.4-10.4); Platelet Count Result 205 k/mm3 (150-375); Red Blood Count 4.25 M/mm3 (4.6-6.20); Red Cell Distribution Width 13.8 % (11.5-14.5)
[2022-02-13 06:20] LABS: Anion Gap 6 mmol/L (8-16); Blood Urea Nitrogen 18 mg/dL (9-20); Calcium 8.1 mg/dL (8.4-10.2); Carbon Dioxide 27 mmol/L (22-30); Chloride 102 mmol/L (98-107); Estimated CRCL calculation 75 ml/min; Estimated Glomerular Filt Rate > 60; Glucose 114 mg/dL (65-110); Potassium 4.2 mmol/L (3.4-5.0); Sodium 135 mmol/L (137-145)
[2022-02-13 06:21] LABS: INR 2.7; Prothrombin Time 27.9 Seconds (11.1-14.7)
[2022-02-13 06:22] LABS: Partial Thromboplastin Time 55.5 SECONDS (22.3-36.8)
[2022-02-13 07:00] LABS: Band Neutrophils Percent 10 % (0-6); Eosinophils Absolute Manual 0.09 K/mm3 (0.02-0.5); Eosinophils Percent Manual 3 % (0-4); Lymphocytes Absolute Manual 1.02 K/mm3 (1.1-4.5); Monocytes Absolute Manual 0.72 K/mm3 (0.1-0.90); Monocytes Percent Manual 24 % (3-9); Neutrophils Absolute Manual 1.17 K/mm3 (1.3-6.7); Neutrophils Percent Manual 29 % (46-73); Platelet Estimate Adequate (Adequate); Total Cells Counted 100
--- NOTE | 2022-02-13 07:32 | WPDGIPROGNO ---
Progress Note: A&P Assessment and Plan (1) SBO (small bowel obstruction): Code(s): K56.609 - Unspecified intestinal obstruction, unspecified as to partial versus complete obstruction Status: Acute Assessment and Plan: Small-bowel obstruction appears resolved. Suspect this is related to difficulties with his ostomy bag. Plan to proceed with small-bowel follow-through when surgery Service agrees. If obstruction is cleared which appears to have cleared clinically then discontinuing NG tube in starting diet would be appropriate subsequently. (2) Crohn's disease: Qualifiers: Gastrointestinal tract location: unspecified location Digestive disease complication type: with intestinal obstruction Qualified Code(s): K50.912 - Crohn's disease, unspecified, with intestinal obstruction Code(s): K50.90 - Crohn's disease, unspecified, without complications Status: Acute Assessment and Plan: Patient is status post total colectomy with ileostomy in place. Previous ileoscopy has revealed some inflammation in the terminal ileum. Plan to resume Pentasa orally when diet tolerated. Subjective Date/time seen: 02/13/22 07:32 Patient is alert comfortable this morning. Vital signs are stable. He reports lower abdominal pain has lessened to some degree. He continues to pass gas and stool per via his ileostomy. He has. not eating he has remained on NG tube decompression overnight. Review of Systems Review of Systems: All systems reviewed & are unremarkable except as noted in HPI and below Exam Narrative: Physical exam reveals patient be alert. Vital signs stable. HEENT exam is and anicteric. Lungs are clear. Heart without murmur. Abdomen bowel sounds are present soft minimal suprapubic tenderness. Right lower quadrant ileostomy has stool and air in it. Objective Data Vital Signs Vital Signs: Vital Signs - 24 hr 02/12/22 08:59 02/12/22 14:00 02/12/22 22:00 Temperature 98.2 F 97.9 F Pulse Rate 83 95 Respiratory Rate 18 18 Blood Pressure 117/59 L 131/71 Pulse Oximetry 97 91 100 02/13/22 06:00 Temperature 98.4 F Pulse Rate 89 Respiratory Rate 18 Blood Pressure 149/65 H Pulse Oximetry 96 Intake/Output Intake/Output: Intake & Output 02/10/22 02/11/22 02/12/22 02/13/22 23:59 23:59 23:59 23:59 Intake Total 3000 1360 Output Total 4446 7159 Balance 850 -565 Meds/Results Medications: Active Medications Generic Name Dose Route Start Last Admin Trade Name Freq PRN Reason Stop Dose Admin Benzocaine 1 lozenge 02/12/22 13:23 Benzocaine/Menthol (*Bkc) 18 Ea Lozenge PO PRN PRN Sore Throat Hydromorphone HCl 1 mg 02/12/22 07:11 02/12/22 21:05 Hydromorphone Hcl Inj (*Crx) 1 Mg/Ml Syr IV PUSH 1 mg Q3H PRN Administration Pain Rated 7-10 Hydromorphone HCl 0.5 mg 02/12/22 13:25 Hydromorphone Hcl Inj (*Crx) 1 Mg/Ml Syr IV PUSH Q3H PRN Pain Rated 4-6 Sodium Chloride 1,000 mls @ 125 mls/hr 02/12/22 04:20 02/13/22 04:10 Normal Saline Iv IV CONT 125 mls/hr .Q8H VICTOR HUGO Administration Acetaminophen 1,000 mg in 100 mls @ 400 mls/hr 02/12/22 13:26 Ofirmev 1,000 Mg Ivpb IVPB 02/13/22 13:25 Q6H PRN Pain Rated 1-3 Ofloxacin 10 drop 02/12/22 09:00 02/12/22 13:21 Ofloxacin 0.3% Ophth Soln 5 Ml Btl RIGHT EAR 10 drop DAILY VICTOR HUGO Administration Ondansetron HCl 4 mg 02/12/22 04:20 02/12/22 13:21 Ondansetron Inj 4 Mg/2 Ml Vial IV PUSH 4 mg Q4H PRN Administration Nausea Primidone 100 mg 02/12/22 09:00 02/12/22 16:19 Primidone 50 Mg Tablet PO 100 mg BID VICTOR HUGO Administration Radiology Results: ITS Impressions Abdomen X-Ray 02/12/22 07:42 IMPRESSION: 1. Nasogastric tube in stomach. 2. Persistent ileus versus obstruction. Abdomen/Pelvis CT 02/12/22 08:53 IMPRESSION: 1. Colostomy, right lower quadrant ostomy with recurrent moderately dilated small bowel to the
[2022-02-13] MEDS: PRIMIDONE 50 MG TABLET 100 MG PO ×2 (08:09→16:58)
[2022-02-13] MEDS: HYDROmorphone HCL INJ (*CRX) 1 MG/ML SYR IV PUSH (08:09)
--- NOTE | 2022-02-13 10:25 | PHAR ---
HOME MEDICATION VERIFIED BY PHARMACY: NYSTOP NYSTATIN POWDER APPLY TOPICALLY TO RIGHT EAR TWICE EVERY OTHER DAY RX [id number]
--- NOTE | 2022-02-13 10:31 | PM.PNGS ---
Progress Note: A&P Assessment and Plan (1) SBO (small bowel obstruction): Onset Date: ~02/12/22 Code(s): K56.609 - Unspecified intestinal obstruction, unspecified as to partial versus complete obstruction Status: Acute Assessment and Plan: There was less out the NG overnight Will proceed to small-bowel follow-through through the NG for further diagnostic purposes. (2) Crohn's disease: Onset Date: Unknown Qualifiers: Digestive disease complication type: with intestinal obstruction Gastrointestinal tract location: unspecified location Qualified Code(s): K50.912 - Crohn's disease, unspecified, with intestinal obstruction Code(s): K50.90 - Crohn's disease, unspecified, without complications Status: Acute Assessment and Plan: This is been long-term and patient has had multiple previous surgeries. Will obtain small-bowel follow-through today for further diagnostic purposes both to rule out obstruction and to see if there are any areas of small bowel affected by continuing Crohn's disease. (3) Hyperlipemia: Onset Date: Unknown Code(s): E78.5 - Hyperlipidemia, unspecified Status: Acute Assessment and Plan: Resume medications when patient able to take p.o. (4) Essential tremor: Onset Date: Unknown Code(s): G25.0 - Essential tremor Status: Acute Assessment and Plan: The patient is receiving current medication and the NG being clamped for 1-2 hours after he receives it to foster absorption. (5) Current use of rodent exterminator anticoagulation: Code(s): Z79.01 - shelter (current) use of anticoagulants Status: Acute Assessment and Plan: INR 2.7 today so probably does not need adjuvant anticoagulation. If small-bowel obstruction is ruled out by small-bowel follow-through today patient may be able to take his Coumadin again tonight as dosed per hospitalist. (6) Coronary artery disease: Onset Date: ~2012 Code(s): I25.10 - Atherosclerotic heart disease of [place] coronary artery without angina pectoris Status: Acute Assessment and Plan: No current chest pain or cardiac problems. Subjective Subjective Date/Time Seen: 02/13/22 9:31 Patient lying in bed when I entered the room. He states that he recently took some pain medicine for abdominal pain. He is not nauseated. He has helped the nurses empty his ileostomy bag at least 2 times through the night. He is willing to proceed with a Small-bowel follow-through study through the NG tube. Review of Systems Review of Systems: All systems reviewed & are unremarkable except as noted in HPI and below Constitutional: Constitutional: Reports as per HPI, Denies chills and Denies fever(s) Cardiovascular: Cardiovascular: Denies chest pain and Denies dyspnea Respiratory: Respiratory: Reports no additional respiratory complaints and Denies dyspnea Gastrointestinal: Gastrointestinal: Reports as per HPI, Reports abdominal pain ( this comes and goes.), Denies bloating, Denies dyspepsia and Denies nausea Comments: Patient tells me today he has actually had multiple surgeries over the years for his Crohn's disease not just a one time total abdominal colectomy. The most recent surgery for Crohn's was a takedown of a ileal-rectal anastomosis with formation of a ileostomy and proctectomy. He then had one surgery since then to correct a ventral incisional hernia with mesh. Genitourinary: Genitourinary: Reports as per HPI Musculoskeletal: Musculoskeletal: Reports no additional musculoskeletal complaints Neurologic: Reports system reviewed and no additional complaints, except as documented and Denies memory loss Psychiatric: Psychiatric: Denies anxiety and Denies memory loss Exam Const: General: cooperative, comfortable, alert and awake Orientation/consciousness: patient oriented x3 HENMT: Head: normal to inspection Mouth: Yes moist mucous membr
[2022-02-13 12:40] VITALS: O2SAT 97
[2022-02-13 14:00] VITALS: BP 146/69; PULSE 81; RESP 20; TEMP 36.7; O2SAT 94
--- NOTE | 2022-02-13 14:35 | PM.IMPN ---
Progress Note: A&P Assessment and Plan (1) SBO (small bowel obstruction): Onset Date: ~02/12/22 Code(s): K56.609 - Unspecified intestinal obstruction, unspecified as to partial versus complete obstruction Status: Acute Assessment and Plan: Abdominal xray shows ileus vs small-bowel obstruction Abd CT moderately dilated small bowel to the stoma, could be ileus but can't exclude ostomy stricturing Small bowel follow through: Diffuse mildly dilated small bowel without transition point and with normal progression of contrast to the right lower quadrant end ileostomy within 2 hours. This could represent either an ileus or low-grade obstruction/stricture at the level of the ostomy. NG tube has been placed General surgery has been consulted Stool noted in the ostomy bag IV fluids for hydration cut in half and will be DC'd if he is able to tolerate liquids Dilaudid for pain control, [place] for pain has been added Zofran for nausea Diet advanced per surgery (2) Crohn's disease: Onset Date: Unknown Qualifiers: Digestive disease complication type: with intestinal obstruction Gastrointestinal tract location: unspecified location Qualified Code(s): K50.912 - Crohn's disease, unspecified, with intestinal obstruction Code(s): K50.90 - Crohn's disease, unspecified, without complications Status: Acute Assessment and Plan: Known history of Crohns maintained on Pentasa Hold Pentasa due to NPO status Gastroenterology consulted IV fluids, pain medications and nausea medications Dr. Banerjee is consulted Restarted Pentasa (3) Current use of prison anticoagulation: Code(s): Z79.01 - long term (current) use of anticoagulants Status: Acute Assessment and Plan: long-term anticoagulation due to history of pulmonary embolisms and recurrent DVTs Coumadin restarted at home dose PT 27.9 and INR 2.7 INR remains therapeutic (4) Hypertension: Code(s): I10 - Essential (primary) hypertension Status: Acute Assessment and Plan: BP is 149/65 Home medications are lisinopril and metoprolol have been restarted Trend BP Adjust therapy as indicated Subjective Date/time seen: 02/13/22 1437 Interval history: Date/Time: 02/12/22 05:43 Narrative: 76-year-old male with past medical history of recurrent DVTs, pulmonary embolism, hypertension, coronary artery disease and Crohn's disease status post ileostomy who presented to the emergency department today due to abdominal pain. The patient reported that this morning he changed his ileostomy bag. As the day progressed he began having left-sided abdominal pain. Pain acutely worsened after 5:00 p.m.. When he went to evaluate his ostomy he realize that he had some of the plastic of the bag covering part of his ostomy. He subsequently changed his bag. At that time his ostomy output was his usual watery with flex which is what happened when he does not eat. He had only eaten oatmeal on the morning of the . He had nausea and vomiting and was unable to tolerate any food. He would have episodes of worsening cramping pain at that dose times is pain would an 8/10 in intensity. He denies any blood in his ostomy output or emesis. He has not had any fevers or chills. He denies any chest pain or shortness of breath. Date/Time 02/12/22 1100 Patient is laying in bed. He says he is doing ok. He stated that he is still having pain, and stated that he he feels like he has a rock in his abdomen. There is liquid present in the bag, mixed with stool. He is concerned as it is not formed like he is used to. He did state that his pain is labile, and that he was due for pain mediations. He also has been tolerating ice chips. He denies any chest pain, shortness of breath, fevers, sweats, or chills. Date/Time 02/13/22 1437 Patient was lying in bed resting. Patient denies any abd
--- NOTE | 2022-02-13 14:35 | P.PNIM_ITS ---
Progress Note: A&P Assessment and Plan (1) SBO (small bowel obstruction): Onset Date: ~02/12/22 Code(s): K56.609 - Unspecified intestinal obstruction, unspecified as to partial versus complete obstruction Status: Acute Assessment and Plan: * Abdominal xray shows ileus vs small-bowel obstruction * Abd CT moderately dilated small bowel to the stoma, could be ileus but can't exclude ostomy stricturing * Small bowel follow through: Diffuse mildly dilated small bowel without transition point and with normal progression of contrast to the right lower quadrant end ileostomy within 2 hours. This could represent either an ileus or low-grade obstruction/stricture at the level of the ostomy. * NG tube has been placed * General surgery has been consulted * Stool noted in the ostomy bag * IV fluids for hydration cut in half and will be DC'd if he is able to tolerate liquids * Dilaudid for pain control, [place] for pain has been added * Zofran for nausea * Diet advanced per surgery (2) Crohn's disease: Onset Date: Unknown Qualifiers: Digestive disease complication type: with intestinal obstruction Gastrointestinal tract location: unspecified location Qualified Code(s): K50.912 - Crohn's disease, unspecified, with intestinal obstruction Code(s): K50.90 - Crohn's disease, unspecified, without complications Status: Acute Assessment and Plan: * Known history of Crohns maintained on Pentasa * Hold Pentasa due to NPO status * Gastroenterology consulted * IV fluids, pain medications and nausea medications * Dr. Banerjee is consulted * Restarted Pentasa (3) Current use of fpc anticoagulation: Code(s): Z79.01 - local [employer] (current) use of anticoagulants Status: Acute Assessment and Plan: * long-term anticoagulation due to history of pulmonary embolisms and recurrent DVTs * Coumadin restarted at home dose * PT 27.9 and INR 2.7 * INR remains therapeutic (4) Hypertension: Code(s): I10 - Essential (primary) hypertension Status: Acute Assessment and Plan: * BP is 149/65 * Home medications are lisinopril and metoprolol have been restarted * Trend BP * Adjust therapy as indicated Subjective Date/time seen: 02/13/22 1437 Interval history: Date/Time: 02/12/22 05:43 Narrative: 76-year-old male with past medical history of recurrent DVTs, pulmonary embolism, hypertension, coronary artery disease and Crohn's disease status post ileostomy who presented to the emergency department today due to abdominal pain. The patient reported that this morning he changed his ileostomy bag. As the day progressed he began having left-sided abdominal pain. Pain acutely worsened after 5:00 p.m.. When he went to evaluate his ostomy he realize that he had some of the plastic of the bag covering part of his ostomy. He subsequently changed his bag. At that time his ostomy output was his usual watery with flex which is what happened when he does not eat. He had only eaten oatmeal on the morning of the . He had nausea and vomiting and was unable to tolerate any food. He would have episodes of worsening cramping pain at that dose times is pain would an 8/10 in intensity. He denies any blood in his ostomy output or emesis. He has not had any fevers or chills. He denies any ch est pain or shortness of breath. Date/Time 02/12/22 1100 Patient is laying in bed. He says he is doing ok. He stated that he is still having pain, and stated that he he feels like he has
[2022-02-13] MEDS: SODIUM CHLORIDE 0.9% IV 1,000 ML 60 ML IV CONT (15:42)
[2022-02-13] MEDS: ATORVASTATIN 10 MG TABLET PO (16:57)
[2022-02-13] MEDS: lisinopriL 5 MG TABLET PO (16:57)
[2022-02-13] MEDS: ESCITALOPRAM OXALATE 10 MG TABLET PO (16:57)
[2022-02-13 16:58] VITALS: PULSE 80
[2022-02-13] MEDS: WARFARIN (*PBKC) 4 MG TABLET 8 MG PO (16:58)
[2022-02-13] MEDS: METOPROLOL TARTRATE 25 MG TABLET PO (16:58)
[2022-02-13] MEDS: HYDROcodone/acetaminophen (*CRX) 5-325 MG TABLET 1 TAB PO ×2 (17:02→22:52)
[2022-02-13] MEDS: MESALAMINE 250 MG CAP CR 2000 MG PO (17:45)
[2022-02-13 21:43] VITALS: BP 116/87; PULSE 71; RESP 18; TEMP 36.6; O2SAT 97
[2022-02-13 21:50] VITALS: O2SAT 96
[2022-02-14 06:00] VITALS: BP 124/66; PULSE 88; RESP 18; TEMP 36.8; O2SAT 93
[2022-02-14 06:10] LABS: Hemoglobin 12.9 g/dL (14.0-18.0); Mean Corpuscular HGB Conc 32.3 g/dl (32-36); Mean Corpuscular Hemoglobin 31.7 pg (26-34); Mean Corpuscular Volume 98.3 fl (80-100); Mean Platelet Volume 9.7 fl (7.4-10.4); Platelet Count Result 207 k/mm3 (150-375); Red Blood Count 4.07 M/mm3 (4.6-6.20); Red Cell Distribution Width 13.3 % (11.5-14.5); White Blood Count 4.9 K/mm3 (4.5-10.0)
[2022-02-14] MEDS: SODIUM CHLORIDE 0.9% IV 1,000 ML 60 ML IV CONT (06:13)
[2022-02-14 06:29] LABS: Alanine Aminotransferase 19 U/L (4-50); Albumin Level 3.5 g/dL (3.5-5.1); Alkaline Phosphatase 64 U/L (38-126); Anion Gap 4 mmol/L (8-16); Aspartate Amino Transferase 28 U/L (17-59); Bilirubin,Total 0.8 mg/dL (0.2-1.3); Blood Urea Nitrogen 17 mg/dL (9-20); Calcium 8.3 mg/dL (8.4-10.2); Carbon Dioxide 29 mmol/L (22-30); Chloride 98 mmol/L (98-107); Estimated CRCL calculation 75 ml/min; Estimated Glomerular Filt Rate > 60; Glucose 106 mg/dL (65-110); Magnesium 2.1 mg/dL (1.6-2.3); Potassium 3.3 mmol/L (3.4-5.0); Sodium 131 mmol/L (137-145)
[2022-02-14 07:50] LABS: Band Neutrophils Percent 3 % (0-6); Eosinophils Absolute Manual 0.04 K/mm3 (0.02-0.5); Eosinophils Percent Manual 1 % (0-4); Lymphocytes Absolute Manual 0.39 K/mm3 (1.1-4.5); Monocytes Absolute Manual 0.34 K/mm3 (0.1-0.90); Monocytes Percent Manual 7 % (3-9); Neutrophils Absolute Manual 4.11 K/mm3 (1.3-6.7); Neutrophils Percent Manual 81 % (46-73); Platelet Estimate Adequate (Adequate); Total Cells Counted 100
[2022-02-14 07:51] LABS: Stomatocytes 1+ (NORMAL)
[2022-02-14 08:37] VITALS: O2SAT 95
[2022-02-14] MEDS: KCL 20 MEQ/SW 100 ML 100 ML 50 MEQ IVPB (09:09)
[2022-02-14] MEDS: MESALAMINE 250 MG CAP CR 2000 MG PO (09:09)
[2022-02-14] MEDS: CYANOCOBALAMIN 1,000 MCG TABLET 1000 MCG PO (09:10)
[2022-02-14] MEDS: ESCITALOPRAM OXALATE 10 MG TABLET PO (09:10)
[2022-02-14] MEDS: METOPROLOL TARTRATE 25 MG TABLET PO (09:10)
[2022-02-14] MEDS: ATORVASTATIN 10 MG TABLET PO (09:10)
[2022-02-14] MEDS: MULTIVITAMINS THERAPEUTIC TAB (*BKC) 1 TABLET PO (09:10)
[2022-02-14] MEDS: lisinopriL 5 MG TABLET PO (09:10)
[2022-02-14] MEDS: PRIMIDONE 50 MG TABLET 100 MG PO (09:10)
[2022-02-14] MEDS: OFLOXACIN 0.3% OPHTH SOLN 5 ML BTL 10 DROP RIGHT EAR (09:12)
--- NOTE | 2022-02-14 09:43 | PM.PNGS ---
Progress Note: A&P Assessment and Plan (1) SBO (small bowel obstruction): Onset Date: ~02/12/22 Code(s): K56.609 - Unspecified intestinal obstruction, unspecified as to partial versus complete obstruction Status: Acute Assessment and Plan: The small-bowel follow-through yesterday showed no obstruction or significant stenosis related to Crohn's. Patient tolerating clears today with decreased cramping compared to when he 1st started last evening. Will allow him to gradually resume his usual diet but I would recommend that when he goes home that he stay on a low-fiber diet for 1 week. If no continuing problems he can resume his usual diet. (He states he typically avoids salads because he knows that too much lettuce does lead to some plugging of the small bowel. I will sign off. Patient is okay with me for discharge this evening or tomorrow. Please call if surgery service can be of further help. Patient does not need to follow-up with me. I would recommend follow-up with Dr. Banerjee as he seems to indicate regarding the patient's Crohn's (2) Crohn's disease: Onset Date: Unknown Qualifiers: Digestive disease complication type: with intestinal obstruction Gastrointestinal tract location: unspecified location Qualified Code(s): K50.912 - Crohn's disease, unspecified, with intestinal obstruction Code(s): K50.90 - Crohn's disease, unspecified, without complications Status: Acute Assessment and Plan: This is been long-term and patient has had multiple previous surgeries. He resumed his meds for his continuing Crohn's disease Patient has now resumed his usual oral medication and will follow up with Dr. Banerjee regarding this. (3) Hyperlipemia: Onset Date: Unknown Code(s): E78.5 - Hyperlipidemia, unspecified Status: Acute Assessment and Plan: Resume medications when patient able to take p.o. (4) Essential tremor: Onset Date: Unknown Code(s): G25.0 - Essential tremor Status: Acute Assessment and Plan: The patient is receiving hiscurrent medication for this. There has been no problems with the tremor during this admission. 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 (6) Coronary artery disease: Onset Date: ~2012 Code(s): I25.10 - Atherosclerotic heart disease of koi coronary artery without angina pectoris Status: Acute Assessment and Plan: No current chest pain or cardiac problems. Additional Plan I have discussed the patient's case and plan of care with arabella CONTRERAS Subjective Subjective Date/Time Seen: 02/14/22 09:43 Interval history: Patient sitting up in bed when I entered the room. He had just finished a clear liquid diet and has not had any cramping or problems. He is having very liquid output from his ileostomy. No nausea or vomiting. He states he did have some cramping lower abdominal pain when he went back on clears last night but that now has resolved. Review of Systems Review of Systems: All systems reviewed & are unremarkable except as noted in HPI and below Constitutional: Constitutional: Reports as per HPI, Denies chills, Denies fatigue and Denies fever(s) Eyes: Eyes: Reports no additional eye complaints and Denies change in vision ENT: Reports system reviewed and no additional complaints, except as documented Cardiovascular: Cardiovascular: Reports no additional cardiovascular complaints, Denies chest pain, Denies leg edema and Denies dyspnea Respiratory: Respiratory: Reports no additional respiratory complaints, Reports no additional respiratory complaints, Denies cough and Denies dyspnea Gastrointestinal: Gastrointestinal: Reports as per HPI, Reports no additional gastro
--- NOTE | 2022-02-14 12:06 | WPDGIPROGNO ---
Progress Note: A&P Assessment and Plan (1) SBO (small bowel obstruction): Onset Date: ~02/12/22 Code(s): K56.609 - Unspecified intestinal obstruction, unspecified as to partial versus complete obstruction Status: Acute Assessment and Plan: Small-bowel obstruction appears resolved. No obstruction on small bowel series. Would advance to low residue diet and advance gradually regular diet as an outpatient. Okay with me for discharge. (2) Crohn's disease: Onset Date: Unknown Qualifiers: Gastrointestinal tract location: unspecified location Digestive disease complication type: with intestinal obstruction Qualified Code(s): K50.912 - Crohn's disease, unspecified, with intestinal obstruction Code(s): K50.90 - Crohn's disease, unspecified, without complications Status: Acute Assessment and Plan: Patient with history of Crohn's disease. Known to have ileal disease by a recent ileoscopy. Would recommend resuming Pentasa. Will follow-up in the office electively plan to see in size 2 months , sooner if symptoms persist or recur. 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 (4) Ileostomy in place: Code(s): Z93.2 - Ileostomy status Status: Acute Subjective Date/time seen: 02/14/22 12:06 Patient alert much more comfortable this morning. Continues to pass stool via his ostomy. Tolerated liquid diet without difficulty. Notes small amount residual left lower quadrant pain. Review of Systems Review of Systems: All systems reviewed & are unremarkable except as noted in HPI and below Exam Narrative: Physical exam reveals patient be alert. Comfortable at rest. HEENT exam reveals no icterus. Lungs are clear. Heart without murmur. Abdomen soft. Bowel sounds are present. Fluid in stool in the ostomy bag. No masses but mild tenderness left lower quadrant. Objective Data Vital Signs Vital Signs: Vital Signs - 24 hr 02/13/22 12:40 02/13/22 14:00 02/13/22 16:58 Temperature 98.1 F Pulse Rate 81 80 Respiratory Rate 20 Blood Pressure 146/69 H Pulse Oximetry 97 94 02/13/22 21:43 02/13/22 21:50 02/14/22 06:00 Temperature 97.9 F 98.3 F Pulse Rate 71 88 Respiratory Rate 18 18 Blood Pressure 116/87 124/66 Pulse Oximetry 97 96 93 02/14/22 08:37 Temperature Pulse Rate Respiratory Rate Blood Pressure Pulse Oximetry 95 Intake/Output Intake/Output: Intake & Output 02/11/22 02/12/22 02/13/22 02/14/22 23:59 23:59 23:59 23:59 Intake Total 3000 2810 2366 Output Total 2150 5225 1000 Balance 850 -6738 1366 Meds/Results Medications: Active Medications Generic Name Dose Route Start Last Admin Trade Name Freq PRN Reason Stop Dose Admin Acetaminophen 1,000 mg 02/13/22 14:50 Acetaminophen 500 Mg Tablet PO Q6H PRN Mild Pain (1-3) or Fever Hydrocodone Bitart/Acetaminophen 1 tab 02/13/22 14:50 02/13/22 22:52 Hydrocodone/Acetaminophen (*Crx) 5-325 Mg Tablet PO 1 tab Q6H PRN Administration Pain Rated 4-6 Atorvastatin Calcium 10 mg 02/13/22 14:50 02/14/22 09:10 Atorvastatin 10 Mg Tablet PO 10 mg DAILY VICTOR HUGO Administration Benzocaine 1 lozenge 02/12/22 13:23 Benzocaine/Menthol (*Bkc) 18 Ea Lozenge PO PRN PRN Sore Throat Cyanocobalamin 1,000 mcg 02/14/22 09:00 02/14/22 09:10 Cyanocobalamin 1,000 Mcg Tablet PO 1,000 mcg QAM VICTOR HUGO Administration Diphenhydramine HCl 25 mg 02/13/22 14:48 Diphenhydramine Hcl Cap 25 Mg Capsule PO HS PRN Sleep Escitalopram Oxalate 10 mg 02/13/22 14:50 02/14/22 09:10 Escitalopram Oxalate 10 Mg Tablet PO 10 mg DAILY VICTOR HUGO Administration Home Med 1 each 02/13/22 09:00 02/13/22 13:44 Nystatin Powder (Home Med) RIGHT
[2022-02-14] MEDS: HYDROcodone/acetaminophen (*CRX) 5-325 MG TABLET 1 TAB PO (13:04)
--- NOTE | 2022-02-14 13:21 | P.DS_ITS ---
DS: Admitting Diagnosis Discharge Date 02/14/2022 Admitting Diagnosis Small-bowel obstruction Crohn's disease Long-term use of anticoagulation, Coumadin Ileostomy DS: Discharge Diagnosis Discharge Diagnosis (1) SBO (small bowel obstruction): Onset Date: ~02/12/22 Code(s): K56.609 - Unspecified intestinal obstruction, unspecified as to partial versus complete obstruction Status: Acute Assessment and Plan: * Abdominal xray shows ileus vs small-bowel obstruction * Abd CT moderately dilated small bowel to the stoma, could be ileus but can't exclude ostomy stricturing * Small bowel follow through: Diffuse mildly dilated small bowel without tr ansition point and with normal progression of contrast to the right lower quadrant end ileostomy within 2 hours. This could represent either an ileus or low-grade obstruction/stricture at the level of the ostomy. * NG tube has been placed * General surgery has been consulted * Stool noted in the ostomy bag * IV fluids for hydration cut in half and will be DC'd if he is able to tolerate liquids * Dilaudid for pain control, [place] for pain has been added * Zofran for nausea * Diet advanced per surgery (2) Crohn's disease: Onset Date: Unknown Qualifiers: Gastrointestinal tract location: unspecified location Digestive disease complication type: with intestinal obstruction Qualified Code(s): K50.912 - Crohn's disease, unspecified, with intestinal obstruction Code(s): K50.90 - Crohn's disease, unspecified, without complications Status: Acute Assessment and Plan: * Known history of Crohns maintained on Pentasa * Hold Pentasa due to NPO status * Gastroenterology consulted * IV fluids, pain medications and nausea medications * Dr. 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 The patient reported that morning he changed his ileostomy bag. As the day progressed he began having left-sided abdominal pain. Pain acutely worsened after 5:00 p.m.. When he went to evaluate his ostomy he realize that he had some of the plastic of the bag covering part of his ostomy. He subsequently changed his bag. At that time his ostomy output was his usual watery with flex which is what happened when he does not eat. He had only eaten oatmeal on the morning of the . He had nausea and vomiting and was unable to tolerate any food. He would have episodes of worsening cramping pain at that dose times is pain would an 8/10 in intensity. He denies any blood in his ostomy output or emesis. He has not had any fevers or chills. He denies any chest pain or shortness of breath. While in the emergency depa
--- NOTE | 2022-02-14 13:21 | PM.DS ---
DS: Admitting Diagnosis Discharge Date 02/14/2022 Admitting Diagnosis Small-bowel obstruction Crohn's disease Long-term use of anticoagulation, Coumadin Ileostomy DS: Discharge Diagnosis Discharge Diagnosis (1) SBO (small bowel obstruction): Onset Date: ~02/12/22 Code(s): K56.609 - Unspecified intestinal obstruction, unspecified as to partial versus complete obstruction Status: Acute Assessment and Plan: Abdominal xray shows ileus vs small-bowel obstruction Abd CT moderately dilated small bowel to the stoma, could be ileus but can't exclude ostomy stricturing Small bowel follow through: Diffuse mildly dilated small bowel without transition point and with normal progression of contrast to the right lower quadrant end ileostomy within 2 hours. This could represent either an ileus or low-grade obstruction/stricture at the level of the ostomy. NG tube has been placed General surgery has been consulted Stool noted in the ostomy bag IV fluids for hydration cut in half and will be DC'd if he is able to tolerate liquids Dilaudid for pain control, [place] for pain has been added Zofran for nausea Diet advanced per surgery (2) Crohn's disease: Onset Date: Unknown Qualifiers: Gastrointestinal tract location: unspecified location Digestive disease complication type: with intestinal obstruction Qualified Code(s): K50.912 - Crohn's disease, unspecified, with intestinal obstruction Code(s): K50.90 - Crohn's disease, unspecified, without complications Status: Acute Assessment and Plan: Known history of Crohns maintained on Pentasa Hold Pentasa due to NPO status Gastroenterology consulted IV fluids, pain medications and nausea medications Dr. 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 The patient reported that morning he changed his ileostomy bag. As the day progressed he began having left-sided abdominal pain. Pain acutely worsened after 5:00 p.m.. When he went to evaluate his ostomy he realize that he had some of the plastic of the bag covering part of his ostomy. He subsequently changed his bag. At that time his ostomy output was his usual watery with flex which is what happened when he does not eat. He had only eaten oatmeal on the morning of the . He had nausea and vomiting and was unable to tolerate any food. He would have episodes of worsening cramping pain at that dose times is pain would an 8/10 in intensity. He denies any blood in his ostomy output or emesis. He has not had any fevers or chills. He denies any chest pain or shortness of breath. While in the emergency department patient had labs and imaging obtained which revealed a leukocytosis of 15.7, hemoglobin 15.6, hematocrit 48.6, platelet 268, sodium 133, potassium 4.6, BUN 18 and creatinine is 0.8, normal LFTs and elevated lactic acid at 2.4. CT of the abdomen and pelvis without contrast revealed post colectomy with ostomy in the right lower quadrant, dilated loops of small bowel with fluid-filled and air-filled levels up to 3 cm in tr
== END 2022-02-14 15:14 | disposition home or self-care (01) | DRG 394 ==
LOC: ANHED 04:20 → ANH3MEDSUR 08:02
PROVIDERS: Nurse Practitioner; Nurse Practitioner Family; Admitting Provider Internal Medicine; Emergency Provider Emergency Medicine; PCP Student in an Organized Health Care Education/Training Program; Visit Provider Nurse Practitioner Family
DX: K94.13 Enterostomy malfunction (principal); K56.609 Unspecified intestinal obstruction, unspecified as to partial versus complete obstruction; K56.7 Ileus, unspecified; K50.90 Crohn's disease, unspecified, without complications; I10 Essential (primary) hypertension; I25.10 Atherosclerotic heart disease of native coronary artery without angina pectoris; Z20.822 Contact with and (suspected) exposure to COVID-19; E78.5 Hyperlipidemia, unspecified; Z79.01 Long term (current) use of anticoagulants; Z86.711 Personal history of pulmonary embolism; Z86.718 Personal history of other venous thrombosis and embolism; Z93.2 Ileostomy status; Z95.5 Presence of coronary angioplasty implant and graft; Z98.42 Cataract extraction status, left eye; Z98.41 Cataract extraction status, right eye; Z96.1 Presence of intraocular lens; Z96.651 Presence of right artificial knee joint; Z87.891 Personal history of nicotine dependence
CPT/HCPCS: 36415; 74018; 74019; 74176; 74250; 80048; 80053; 81001; 83605; 83690; 83735; 85025; 85610; 85730; 87040; 96361; 96374; 96375; 96376; 99285; A9270; C9803; J0131; J1170; J2405; J3480; J7030; U0003; U0005

== ENCOUNTER 2022-02-17 19:46 | Observation (INO) | payer OTHER, SELFPAY ==
[2022-02-17] VITALS (12 sets, daily range): BP systolic 114–136; BP diastolic 56–67; PULSE 76–88; RESP 13–19; TEMP 36; O2SAT 96–100
--- NOTE | ~2022-02-17 | XR_ITS ---
EXAMINATION: XR abdomen obstructive series DATE: 02/19/2022 05:34 INDICATION: Small bowel obstruction. TECHNIQUE: Upright and supine views of the abdomen on 3 radiographs were obtained. COMPARISON: Small bowel series 02/13/2022, CT abdomen and pelvis 02/17/2022 FINDINGS: There are multiple dilated loops of small bowel. There are surgical clips in the abdomen. IMPRESSION: 1. Persistently dilated small bowel, likely adynamic ileus. Reviewed, dictated and finalized at location A.
--- NOTE | ~2022-02-17 | US_ITS ---
EXAMINATION: US renal BI EXAM DATE: 02/18/2022 14:15 INDICATION: Acute kidney insufficiency. TECHNIQUE: Multiple grayscale and Doppler images of the kidneys were obtained (by a technologist who performed the scan) and subsequently reviewed. No prior kidney ultrasound for comparison. FINDINGS: Right kidney: There is normal contour and echogenicity. It measures 10.5 x 5.1 x 5.9 centimeters. T here are no focal renal lesions identified. There is no hydronephrosis. Left kidney: There is normal contour and echogenicity. It measures 10.3 x 4.4 x 6.1 centimeters. Th ere are no focal renal lesions identified. There is no hydronephrosis. Bladder unremarkable. IMPRESSION: 1. Sonographically unremarkable kidneys. Reviewed, dictated and finalized at location A.
--- NOTE | ~2022-02-17 | CT_ITS ---
EXAMINATION: CT abdomen pelvis wo con DATE: 02/17/2022 20:16 INDICATION: Left lower quadrant pain. History of Crohn's. Recent admission for SBO. TECHNIQUE: Computed tomography (CT) of the abdomen and pelvis was performed without intravenous contr ast. Automated exposure control and iterative reconstruction technique were employed. The dose-length product was 660.51 mGy-cm. COMPARISON: 02/12/2022. FINDINGS: Lower thorax: Moderate coronary artery calcification. Liver: Innumerable liver cysts. Biliary/Gallbladder: No bile duct dilation. Normal gallbladder. Spleen: No mass. No splenomegaly. Pancreas: No mass or duct dilation. Adrenals:No mass. Kidneys: Subcentimeter right mid pole hemorrhagic cyst. No stone, or hydronephrosis. GI tract: Right lower quadrant ostomy. Slightly increased dilation of several loops of bowel in the p roximal small bowel, with decreased dilation in more distal small bowel. Slightly increased wall thic kening in proximal small bowel may reflect infectious or inflammatory enteritis. No pneumatosis. Stat us post colectomy. Duodenal diverticulum. Normal appendix. Mesentery/Peritoneum: No ascites or mass. No pneumoperitoneum. Retroperitoneum: No mass. Atherosclerotic abdominal aortic calcifications. Pelvis: Mild bladder wall thickening, likely on the basis of outlet obstruction. Small bladder stones . Prostatomegaly. Bilateral hydroceles. Bones/Soft Tissues: Fat-containing left inguinal hernia.No acute osseous finding. Additional Findings: None. IMPRESSION: Equivocal changes of ileus/bowel obstruction, with slightly increased proximal small bowel dilation a nd bowel wall thickening, and improving decompression of more distal small bowel. Reviewed, dictated and finalized at location K. IMPRESSION: Equivocal changes of ileus/bowel obstruction, with slightly increased proximal small bowel dilation and bowel wall thickening, and improving decompression of more distal small bowel.
--- NOTE | 2022-02-17 19:57 | ECG_ITS ---
Measurements Intervals [place] Rate: 77 P: 31 KS: 134 QRS: -37 QRSD: 106 T: 61 QT: 386 QTc: 437 Interpretive Statements SINUS RHYTHM LEFTWARD AXIS VOLTAGE CRITERIA FOR LVH, CONSIDER NORMAL VARIANT Electronically Signed On 02-18-2022 8:47:57 CDT by Jareth Smith M.D.
--- NOTE | 2022-02-17 20:26 | ED.WEAKNESS ---
HPI - Weakness General Chief complaint: Dizziness Stated complaint: LIGHT HEADED AND DIZZY Time Seen by Provider: 02/17/22 19:51 Source: patient History of Present Illness HPI Narrative: Patient presents with fatigue. Patient reports he was recently admitted approximately 1 week ago for a bowel obstruction and was treated with bowel rest things improved and he was discharged home a couple days ago. Reports on discharge she was still feeling weak did not feel back to 100% but he was discharged. He continued monitoring his symptoms and reports he has just generalized fatigue for came to the ER for evaluation. Reports continues to have some lower abdominal pain is reported no change in his ostomy reported some nausea but no vomiting denies any fevers. Reports some difficulty urinating since being in the hospital denies any dysuria or hematuria. Denies any fevers, cough, congestion denies any chest pain or shortness of breath Related Data Home Medications Medication Instructions Recorded Confirmed atorvastatin 10 mg PO DAILY 05/19/20 02/18/22 lisinopril 5 mg PO QAM 05/19/20 02/18/22 metoprolol tartrate 25 mg PO BID 05/19/20 02/18/22 nitroglycerin [Nitrostat] 0.4 mg SUBLINGUAL Q5-15M PRN 05/19/20 02/18/22 Glucosamine Complex-MSM 1 cap PO BID 01/18/21 02/18/22 multivitamin 1 tablet PO DAILY 01/18/21 02/18/22 B12 Active 1,000 mcg PO DAILY 04/08/21 02/18/22 lutein 20 mg PO DAILY 04/08/21 02/18/22 warfarin 10 mg tablet 8 mg PO 5XW tablet 05/01/21 02/18/22 diphenhydramine HCl [Benadryl] 25 mg PO HS PRN 02/12/22 02/18/22 escitalopram oxalate [Lexapro] 10 mg PO DAILY 02/12/22 02/18/22 ofloxacin 10 drp RIGHT EAR DAILY 02/12/22 02/18/22 primidone [Mysoline] 100 mg PO BID 02/12/22 02/18/22 tizanidine 4 mg PO PRN 02/12/22 02/18/22 Allergies Allergy/AdvReac Type Severity Reaction Status Date / Time Iodine and Iodide Containing Allergy Severe Swelling Verified 02/17/22 19:53 Produc of Lip/Tongue/Throat shellfish derived Allergy Severe Swelling Verified 02/17/22 19:53 of Lip/Tongue/Throat Review of Systems Review of Systems: CONSTITUTIONAL: Denies fever, chills, or sweats. EYES: Denies visual changes, redness, or discharge. ENT: Denies rhinorrhea, congestion, sore throat, or otalgia. CARDIOVASCULAR: Denies chest pain, palpitations, or edema. RESPIRATORY: Denies cough or dyspnea. GASTROINTESTINAL: Denies vomiting, or diarrhea. GENITOURINARY: Denies dysuria or hematuria. SKIN: Denies rash or itching. MUSCULOSKELETAL: Denies back pain, joint pain, or myalgia. NEUROLOGIC: Denies headache, numbness, dizziness, or focal weakness. PSYCHIATRIC: Denies anxiety or depression. All systems reviewed & are unremarkable except as noted in HPI and below PMFSH Past Medical History Medical History Coronary artery disease (~2012) Status post stent in 2012. Crohn's disease Status post total colectomy with ileostomy. 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 Deep venous thrombosis Left lower extremity x2. Essential tremor (Unknown) Gastrointestinal bleed Related to Crohn's disease. Hospitalized in October 2019 and March 2021. History of Jared's gangrene Hyperlipemia (Unknown) Hypertension Pulmonary embolism Surgical History Surgical History History of appendectomy History of arthroplasty of right knee (~02/05/21) History of coronary artery stent placement (~2012) x1. Patient of Dr. Griffin. History of hip surgery (~2010) Pinning of left hip fracture with subsequent hardware removal. History of ileostomy (~1995) History of incisional hernia repair in [place] History of right mastoidectomy History of total colectomy (~1995) Had previous partial resections and eventual total colectomy with ileostomy Status post cataract extraction of both eyes wi
[2022-02-17 20:37] LABS: Basophils Absolute Auto 0.1 K/mm3 (0.0-0.1); Basophils Percent Auto 0.6 % (0.2-1.2); Eosinophils Percent Auto 0.2 % (0-4.4); Hematocrit 47.4 % (42.0-52.0); Hemoglobin 15.5 g/dL (14.0-18.0); Immature Granulocyte Absolute 0.67 K/mm3 (0.00-0.031); Immature Granulocyte Percent A 6.2 % (0-0.5); Lymphocytes Percent Auto 15.7 % (18.3-44.2); Mean Corpuscular HGB Conc 32.7 g/dl (32-36); Mean Corpuscular Hemoglobin 31.8 pg (26-34); Mean Corpuscular Volume 97.3 fl (80-100); Mean Platelet Volume 9.8 fl (7.4-10.4); Monocytes Absolute Auto 1.1 K/mm3 (0.1-0.6); Monocytes Percent Auto 10.3 % (2.6-8.5); Neutrophils Absolute Auto 7.3 K/mm3 (1.3-6.7); Platelet Count Result 330 k/mm3 (150-375); Red Blood Count 4.87 M/mm3 (4.6-6.20); Red Cell Distribution Width 13.1 % (11.5-14.5); White Blood Count 10.8 K/mm3 (4.5-10.0)
[2022-02-17 20:53] LABS: INR 1.3; Partial Thromboplastin Time 31.9 SECONDS (22.3-36.8); Prothrombin Time 15.7 Seconds (11.1-14.7)
[2022-02-17] MEDS: SODIUM CHLORIDE 0.9% IV 500 ML 999 ML IV CONT (20:54)
[2022-02-17 20:55] LABS: Alanine Aminotransferase 24 U/L (4-50); Albumin Level 4.6 g/dL (3.5-5.1); Alkaline Phosphatase 80 U/L (38-126); Anion Gap 13 mmol/L (8-16); Aspartate Amino Transferase 39 U/L (17-59); Bilirubin,Total 0.7 mg/dL (0.2-1.3); Blood Urea Nitrogen 41 mg/dL (9-20); Calcium 9.6 mg/dL (8.4-10.2); Carbon Dioxide 26 mmol/L (22-30); Chloride 86 mmol/L (98-107); Estimated CRCL calculation 29 ml/min; Estimated Glomerular Filt Rate 29; Glucose 109 mg/dL (65-110); Magnesium 2.3 mg/dL (1.6-2.3); Potassium 4.1 mmol/L (3.4-5.0); Sodium 125 mmol/L (137-145)
[2022-02-17 20:58] LABS: Glucose Point of Care 101 mg/dl (65-105)
[2022-02-17] MEDS: SODIUM CHLORIDE 0.9% IV 1,000 ML 999 ML IV CONT (22:15)
[2022-02-17 22:44] LABS: Add Urine Microscopic? YES; Appearance Urine Cloudy (Clear); Bilirubin Urine Negative (Negative); Blood Urine Negative (Negative); Color Urine Amber (Yellow); Glucose Urine UA Negative (Negative); Ketones Urine Trace mg/dL (Negative); Leukocyte Esterase Ur Negative LEU/UL (Negative); Mucus Urine Rare /lpf; Nitrate Urine Negative (Negative); Protein Urine 1+ mg/dL (Negative); RBC Urine 0-2 /hpf (0-2); Specific Grav Ur 1.023 (1.001-1.035); Squamous Epithelial Cell Urine Rare /hpf (Few); Urobilinogen Urine Negative mg/dL (<2.0); WBC Urine 0-3 /hpf
[2022-02-17 22:45] LABS: Creatinine Urine 300.8 mg/dL
[2022-02-17 22:58] LABS: Sodium Urine Random < 5 meq/L
[2022-02-18] VITALS (8 sets, daily range): BP systolic 102–124; BP diastolic 57–82; PULSE 69–87; RESP 18; TEMP 35.7–36.6; O2SAT 94–100; BMI 28.2
--- NOTE | 2022-02-18 00:33 | ADMGEN ---
This patient, Ezequiel Madrigal, was admitted to Medical Room 247-. Patient/family oriented to hospital policies and general routines including ID bracelet, bed and alarms, visiting hours, pain management, procedures, bathroom and other care routines, personal items, smoking policy, room service/diet, and visiting hours. Information on how to activate the Rapid Response Team has been discussed. Patient/Family are encouraged to report perceived risks to care and to ask questions if they do not understand what they are told or what they should do.
[2022-02-18] MEDS: SODIUM CHLORIDE 0.9% IV 1,000 ML 125 ML IV CONT ×3 (01:07→20:56)
--- NOTE | 2022-02-18 05:13 | PM.IMHP ---
H&P: HPI History of Present Illness Date/Time: 02/18/22 05:13 Chief Complaint: Dizzy and lightheaded Narrative: 76-year-old male with past medical history of Crohn's disease status post ileostomy who presented to the ER with dizziness and lightheadedness since the . Patient had been admitted the hospital 02/12/2022 through 02/14/2022 due to ileus versus small-bowel obstruction. He had a small-bowel follow-through that was consistent with ileus or low-grade obstruction or stricture at the level of the ostomy. The patient reports that he actually did not feel good on the day that he was discharged from the hospital. He still felt weak and lightheaded with activity. He reports that when he axis starts to ambulate he actually gets dizzy with the room spinning. Is symptoms resolve when he lays down. He has had an 18 lb weight loss over the last 2 weeks and a little over 12 lb weight loss since I last admitted the patient on the . He reports generalized decreased appetite. He has been able to eat a clear liquid diet occasionally is still having some left lower quadrant abdominal pain that is sharp and crampy. He has been able to eat a few crackers and 8 some cream of wheat yesterday. He also ate some black tarry Jell-O. He has not noticed any change in his ostomy output except for increased flatulence in the bag. He has noticed a weak urine stream and sensation of incomplete bladder emptying that was actually occurring for the last couple of months but is been more exaggerated since his last hospital stay. He has had significant decreased urine output since he was discharged from the hospital. He denies any dysuria. He reports that in the ER he was unable to produce a urine specimen in a tried to straight cath and but the catheter was too big. He reported that they had to use a catheter that they would usually use on a patient who has a large prostate. He denies known history of BPH. He has had persistent intermittent nausea but no vomiting. He denies any chest pain or shortness of breath. He did state that when EMS came to pick him up from his house his blood pressure was in the 90s systolic. He reports that this is very unusual for him he states that is unusual for his blood pressures to be down in the 110s let alone in the 90s. He denies any fevers or chills. He has noticed feeling confused over the last few days. He denies any headache or visual changes. He reports generalized weakness but no localized weakness. He has no dysmetria on exam. He does feel little bit better now than he did on arrival to the ER. After my evaluation [employer] check the patient's orthostatic vital signs any did have significant orthostatic changes in blood blood pressure and pulse when going from supine to sitting. Denies any headache, syncope or head injury. He has chronic essential tremor of his right hand is unchanged from baseline. Review of Systems Review of Systems: 12 systems were reviewed with pertinent positives and negatives per HPI. Except as documented in the HPI, all other systems were reviewed and are negative. [facility] Past Medical History Medical History Coronary artery disease (~2012) Status post stent in 2012. Crohn's disease Status post total colectomy with ileostomy. 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 Deep venous thrombosis Left lower extremity x2. Essential tremor (Unknown) Gastrointestinal bleed Related to Crohn's disease. Hospitalized in October 2019 and March 2021. History of Jared's gangrene Hyperlipemia (Unknown) Hypertension Pulmonary embolism Surgical History Surgical History History of appendectomy History of arthroplasty of right knee (~02/05/21) History of coronary artery stent placement (~2012) x1. Patient of Dr. Griffin. History of hi
[2022-02-18 06:05] LABS: Hemoglobin 13.3 g/dL (14.0-18.0); Mean Corpuscular HGB Conc 32.4 g/dl (32-36); Mean Corpuscular Hemoglobin 31.7 pg (26-34); Mean Corpuscular Volume 97.6 fl (80-100); Mean Platelet Volume 9.8 fl (7.4-10.4); Platelet Count Result 222 k/mm3 (150-375); Red Cell Distribution Width 13.1 % (11.5-14.5); White Blood Count 7.3 K/mm3 (4.5-10.0)
[2022-02-18 06:09] LABS: Anion Gap 7 mmol/L (8-16); Blood Urea Nitrogen 40 mg/dL (9-20); Carbon Dioxide 24 mmol/L (22-30); Chloride 95 mmol/L (98-107); Estimated CRCL calculation 37 ml/min; Estimated Glomerular Filt Rate 46; Glucose 94 mg/dL (65-110); Potassium 3.3 mmol/L (3.4-5.0); Sodium 126 mmol/L (137-145)
[2022-02-18] MEDS: SODIUM CHLORIDE 0.9% IV 1,000 ML 999 ML IV CONT (08:13)
[2022-02-18] MEDS: ENOXAPARIN 100 MG/ML SYRINGE 85 MG SUB-Q ×2 (08:14→20:56)
[2022-02-18] MEDS: POTASSIUM CHLORIDE 20 MEQ TABLET 40 MEQ PO (08:15)
[2022-02-18] MEDS: TAMSULOSIN HCL 0.4 MG CAPSULE PO (08:15)
[2022-02-18] MEDS: PRIMIDONE 50 MG TABLET 100 MG PO ×2 (08:16→16:56)
[2022-02-18] MEDS: OFLOXACIN 0.3% OPHTH SOLN 5 ML BTL 10 DROP RIGHT EAR (08:16)
[2022-02-18] MEDS: ESCITALOPRAM OXALATE 10 MG TABLET PO (08:16)
[2022-02-18] MEDS: ATORVASTATIN 10 MG TABLET PO (08:16)
[2022-02-18] MEDS: MESALAMINE 250 MG CAP CR 2000 MG PO ×2 (08:17→16:56)
--- NOTE | 2022-02-18 09:57 | PM.CNGS ---
Assessment and Plan Assessment and plan (1) Ileus: Code(s): K56.7 - Ileus, unspecified Status: Acute Assessment and Plan: CT scan reviewed and discussed with the patient in detail. He still has proximal small bowel dilation with some wall thickening but improvement of distal small bowel dilatation. He continues to have output from his ileostomy and is not having any vomiting. Okay to continue clear liquids. It is possible that his Crohn's disease could be playing a role in his current issues, therefore we would recommend GI consultation. Agree with continuing his mesalamine while awaiting GI consult. No indication for urgent surgical intervention. Will repeat plain films tomorrow morning. Thank you for allowing us to see the patient in consultation and we will continue to follow along with you. (2) NISA (acute kidney injury): Code(s): N17.9 - Acute kidney failure, unspecified Status: Acute Assessment and Plan: Creatinine improving, 2.2 on admission and down to 1.5. Continue IV fluids and monitoring. Management per Hospitalist. (3) Acute hyponatremia: Code(s): E87.1 - Hypo-osmolality and hyponatremia Status: Acute Assessment and Plan: Continue IV fluids and monitor labs. (4) Subtherapeutic international normalized ratio (INR): Code(s): R79.1 - Abnormal coagulation profile Status: Acute Assessment and Plan: Patient missed multiple doses of warfarin at home. INR 1.3 on admission. Warfarin has been restarted as well as therapeutic-dosed Lovenox until INR therapeutic. Management per Hospitalist. (5) Weakness: Code(s): R53.1 - Weakness Status: Acute (6) Crohn's disease: Onset Date: Unknown Qualifiers: Gastrointestinal tract location: unspecified location Digestive disease complication type: with intestinal obstruction Qualified Code(s): K50.912 - Crohn's disease, unspecified, with intestinal obstruction Code(s): K50.90 - Crohn's disease, unspecified, without complications Status: Acute Assessment and Plan: Discussed case with Hospitalist and recommendation of consulting GI. Will defer any adjustments in his medication for Crohn's to GI. (7) Current use of half-way anticoagulation: Code(s): Z79.01 - tank terminal gauger (current) use of anticoagulants Status: Acute (8) DVT (deep venous thrombosis): Code(s): I82.409 - Acute embolism and thrombosis of unspecified deep veins of unspecified lower extremity Status: Acute Assessment and Plan: Recurrent DVT and hx of PE. Currently on warfarin therapy. (9) Coronary artery disease: Onset Date: ~2012 Code(s): I25.10 - Atherosclerotic heart disease of [place] coronary artery without angina pectoris Status: Acute (10) Ileostomy in place: Code(s): Z93.2 - Ileostomy status Status: Acute Assessment and Plan: Ostomy functioning well. Unable to visualize stoma on exam this morning with the bag in place. Monitor output and can evaluate stoma when bag is changed - to mention Dr. Preciado did examine the stoma on his last visit with digital palpation. See plan above. (11) Hypertension: Code(s): I10 - Essential (primary) hypertension Status: Acute Additional Plan I have discussed the patient's case and plan of care with Dr. Preciado. History of Present Illness Consult details Consult date: 02/18/22 Reason for consult: other (Ileus ) Requesting physician: Blair Howe MD Narrative: This is a 76-year-old male who is known to our service from a recent hospitalization for a small bowel obstruction from 02/12/2022 through 02/14/2022. The patient has a history of Crohn's disease who is status post a total colectomy with an ileostomy. He was treated conservatively with NG tube decompression and bowel rest. It was felt that he could have caused a mechanical obstruction from accidentally covering his ileostom
--- NOTE | 2022-02-18 12:12 | PM.IMPN ---
Progress Note: A&P Assessment and Plan (1) NISA (acute kidney injury): Code(s): N17.9 - Acute kidney failure, unspecified Status: Acute Assessment and Plan: Baseline creatinine is 0.8 as recently as 4 days ago. Creatinine is 1.5 today down from 2.2 upon admission. Likely etiology is dehydration/poor intake due to his recent ileus. We will continue IV fluids and clear liquids. No evidence of UTI. Renal ultrasound ordered, and Nephrology has been consulted. Patient has had issues with retention of urine recently. His nurse bladder scanned him today and found a postvoid residual of over 400 mL. Patient does have difficulty initiating a stream. Will have nurse repeat bladder scan after most recent avoid attempt, a posterior port residual over [address] a Bueno catheter. (2) Acute hyponatremia: Code(s): E87.1 - Hypo-osmolality and hyponatremia Status: Acute Assessment and Plan: Likely due to volume depletion. Patient has received a 1L fluid bolus, and continuous IV fluids 125 mL per hour. Sodium has improved from 125-126. We will add sodium tabs 500 b.i.d., and we will continue with IV fluid rehydration. Nephrology has been consulted for both this and his NISA. (3) Ileus: Code(s): K56.7 - Ileus, unspecified Status: Acute Assessment and Plan: CT scan suggest possible persistent incomplete bowel obstruction versus ileus. Patient has been tolerating a clear liquid diet. Will continue this at this time. General surgery has been consulted. Patient does have a history of Crohn's disease, though he was in 'remission' from [id number], he has had some recent flairs, and is no longer in remission. His crohn's may be playing a component in his CT findings and contributing to his ileus. He is not having any nausea, vomiting, hematemesis, or bleeding from his ileostomy. Surgery was consulted and advised that he appears be nonsurgical at this point, but will proceed with another small-bowel follow-through. Surgery advised to consult with GI to determine if he needs refinement of his Crohn's medications. We will continue his mesalamine at this time. (4) Subtherapeutic international normalized ratio (INR): Code(s): R79.1 - Abnormal coagulation profile Status: Acute Assessment and Plan: INR was 1.3 today, patient has reportedly been without his Coumadin for 4 days. Patient is on 8 mg warfarin Thursday through Thursday, and 10 mg on Thursday. We restarted him on this dose. We are using therapeutic Lovenox until his INR is back within range of 2-3. Recheck INR on 02/20 Of note, patient has history of multiple DVTs in the left leg, and pulmonary embolism. (5) Tympanic membrane rupture: Code(s): H72.90 - Unspecified perforation of tympanic membrane, unspecified ear Status: Acute Assessment and Plan: Undergoing treatment by Dr. Ramy Paul, scheduled to have TM surgery today. Has a history of mastoidectomy and fungal otits external for which he uses nystatin powder. SO will be bringing. Exam showed a significant amount of powder/ debris in the right EAC, unable to visualize the TM, ossicles not visible. Left EAC and TM were normal. TM rupture may be a component in patient's vertigo. (6) DVT prophylaxis: Code(s): Z29.9 - Encounter for prophylactic measures, unspecified Status: Acute Assessment and Plan: Patient on Warfarin and Lovenox. Subjective Date/time seen: 02/18/22 12:12 76 yo male with history of Crohn's w/ ileostomy, CAD, PE & DVTs on warfarin, essential tremor, hyperlipidemia, and hypertension, recently discharged from this hospital on 02/14 with ileus, who presents to our care with 4 days of dizziness and lightheadedness. He endorses significant weakness currently. He states he feels very lightheaded and dizzy when walking today. These symptoms resolve when he rests in bed. He has kept a liquid diet at home due
--- NOTE | 2022-02-18 15:08 | WPDGICN ---
Assessment and Plan Assessment and plan (1) NISA (acute kidney injury): Code(s): N17.9 - Acute kidney failure, unspecified Status: Acute Assessment and Plan: Patient admitted with azotemia. Elevated BUN and creatinine most likely on the basis of dehydration. Patient has excess fluid loss because of ileostomy. He also recently was hospitalized and kept NPO with NG tube decompression for several days. Most likely this the etiology of his renal insufficiency. Creatinine appears to be improving with rehydration at present. Plan to continue observation. Nephrology is to see patient consultation. (2) Crohn's disease: Onset Date: Unknown Qualifiers: Gastrointestinal tract location: unspecified location Digestive disease complication type: with intestinal obstruction Qualified Code(s): K50.912 - Crohn's disease, unspecified, with intestinal obstruction Code(s): K50.90 - Crohn's disease, unspecified, without complications Status: Acute Assessment and Plan: Patient with known Crohn's disease. He has a prior history of total colectomy and ileostomy. Fairly recent ileoscopy reveals some erosions consistent with small bowel disease. Small-bowel follow-through however reveals no obvious localize strictures or activity. Plan is to continue patient on Pentasa if at all possible. Hopefully this mesalamine will help control his known Crohn's disease. We will follow with you. Plan to advance to a low residue diet at present. (3) Ileostomy in place: Code(s): Z93.2 - Ileostomy status Status: Acute (4) Current use of halfway anticoagulation: Code(s): Z79.01 - lobsterman (current) use of anticoagulants Status: Acute GI Consult Note Consult date/time: 02/18/22 15:08 HPI: Ezequiel Madrigal is a 76 year old male I am asked to see because of Crohn's disease. Patient has a history of Crohn's disease diagnosed many years ago. He subsequently had total colectomy with subsequent ileostomy. Patient admitted to the hospital last week and really only home for 2 days prior to readmission. At the time of previous admission was felt to have a small-bowel obstruction. Subsequent small bowel series revealed no obstruction. His obstruction was felt to have resolved, or he may have had an ileus. Patient was started on a liquid diet without difficulty. However at the time of discharge continued to feel weak. He remained only on liquid diet over the weekend. Because of progressive weakness presented to the hospital yesterday and was found to have azotemia, suggesting dehydration. Patient states he typically loses diarrhea via his ileostomy. Patient has a known history of small bowel enteritis identified by Ileoscopy last year. He has been maintained on Pentasa as an outpatient. Currently tolerating diet without difficulty. He has mild residual left lower quadrant discomfort identified at the time of presentation last week during his previous hospital stay. Patient denies any bleeding. He has had no fevers. He does report some urinary difficulties attributed to enlarged prostate. Review of Systems Review of Systems: All systems reviewed & are unremarkable except as noted in HPI and below PMFSH Past Medical History Medical History Coronary artery disease (~2012) Status post stent in 2012. Crohn's disease Status post total colectomy with ileostomy. 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 Deep venous thrombosis Left lower extremity x2. Essential tremor (Unknown) Gastrointestinal bleed Related to Crohn's disease. Hospitalized in October 2019 and March 2021. History of Jared's gangrene Hyperlipemia (Unknown) Hypertension Pulmonary embolism Surgical History Surgical History History of appe
[2022-02-18] MEDS: SODIUM CHLORIDE 500 MG TABLET PO (16:56)
[2022-02-18] MEDS: WARFARIN (*PBKC) 4 MG TABLET 8 MG PO (16:57)
[2022-02-19] VITALS (7 sets, daily range): BP systolic 124–147; BP diastolic 62–75; PULSE 72–78; RESP 14–22; TEMP 36.3–36.9; O2SAT 97–100
[2022-02-19] MEDS: SODIUM CHLORIDE 0.9% IV 1,000 ML 125 ML IV CONT (03:39)
--- NOTE | 2022-02-19 07:23 | WPDGIPROGNO ---
Progress Note: A&P Assessment and Plan (1) Ileus: Code(s): K56.7 - Ileus, unspecified Status: Acute Assessment and Plan: Patient's ileus appears resolved. Abdomen is much softer flat with less tympany today. Tolerated diet without difficulty. Recent small-bowel follow-through revealed no obstruction. Plan to continue low residue diet for period of time. Increase activity. Okay for discharge when others agree. (2) Crohn's disease: Code(s): K50.90 - Crohn's disease, unspecified, without complications Status: Acute Assessment and Plan: Patient known to have Crohn's disease. Status post colectomy with subsequent ileostomy. Known to have small-bowel Crohn's disease by recent ileoscopy. Plan to continue Pentasa orally. Follow up with GI service in several months after discharge. (3) Ileostomy in place: Code(s): Z93.2 - Ileostomy status Status: Acute (4) Current use of extermination inspector anticoagulation: Code(s): Z79.01 - assisted (current) use of anticoagulants Status: Acute Assessment and Plan: No contraindication to long-term anticoagulation evident at this time. (5) NISA (acute kidney injury): Code(s): N17.9 - Acute kidney failure, unspecified Status: Acute Assessment and Plan: Azotemia improving with rehydration. Very suggest of the dehydration contributed to renal insufficiency. Nephrology opinion pending. Plan to discharge when tolerating diet now the pain is improved. Good bowel function noted at this time. Subjective Date/time seen: 02/19/22 07:23 Patient alert comfortable this morning. Tolerated low fiber diet without difficulty. Continues to have good ostomy function. Denies any significant abdominal pain. Review of Systems Review of Systems: All systems reviewed & are unremarkable except as noted in HPI and below Exam Narrative: Physical exam reveals patient be alert comfortable at rest. Vital signs are stable. HEENT exam reveals no icterus. Lungs are clear. Heart without murmur. Abdomen bowel sounds are present soft flat nontender. LEs tympanic than yesterday. Good amount of stool and flatus noted in the ostomy bag. Objective Data Vital Signs Vital Signs: Vital Signs - 24 hr 02/18/22 14:35 02/18/22 19:52 02/18/22 19:55 Temperature 97.0 F L 97.6 F 97.6 F Pulse Rate 73 73 73 Respiratory Rate 18 18 18 Blood Pressure 124/82 124/57 L 124/57 L Pulse Oximetry 100 100 100 02/19/22 03:43 02/19/22 03:50 Temperature 97.3 F L 97.3 F L Pulse Rate 78 78 Respiratory Rate 18 18 Blood Pressure 147/75 H 147/75 H Pulse Oximetry 97 97 Intake/Output Intake/Output: Intake & Output 02/16/22 02/17/22 02/18/22 02/19/22 23:59 23:59 23:59 23:59 Intake Total 1500 3530 1190 Output Total 200 2920 1400 Balance 1300 610 -210 Meds/Results Medications: Active Medications Generic Name Dose Route Start Last Admin Trade Name Freq PRN Reason Stop Dose Admin Atorvastatin Calcium 10 mg 02/18/22 09:00 02/18/22 08:16 Atorvastatin 10 Mg Tablet PO 10 mg DAILY VICTOR HUGO Administration Diphenhydramine HCl 25 mg 02/18/22 05:16 Diphenhydramine Hcl Cap 25 Mg Capsule PO HS PRN Sleep Enoxaparin Sodium 85 mg 02/18/22 08:00 02/18/22 20:56 Enoxaparin 100 Mg/Ml Syringe SUB-Q 85 mg Q12H VICTOR HUGO Administration Escitalopram Oxalate 10 mg 02/18/22 09:00 02/18/22 08:16 Escitalopram Oxalate 10 Mg Tablet PO 10 mg DAILY VICTOR HUGO Administration Sodium Chloride 1,000 mls @ 125 mls/hr 02/17/22 23:10 02/19/22 03:39 Normal Saline Iv IV CONT 125 mls/hr .Q8H VICTOR HUGO Administration Mesalamine 2,000 mg 02/18/22 09:00 02/18/22 16:56 Mesalamine 250 Mg Cap Cr PO 03/20/22 08:59 2,000 mg BID VICTOR HUGO Administration Ofloxacin 3 drop 02/19/22 09:00 Ofloxacin 0.3% Ophth Soln 5 Ml Btl RIGHT EAR DAILY VICTOR HUGO Ondansetron HCl 4 mg 02/17/22 23:07 Ondansetron Inj 4 Mg/2 Ml Vial IV PUSH
[2022-02-19 07:53] LABS: Basophils Absolute Auto 0.1 K/mm3 (0.0-0.1); Basophils Percent Auto 1.1 % (0.2-1.2); Eosinophils Percent Auto 0.7 % (0-4.4); Hematocrit 41.8 % (42.0-52.0); Hemoglobin 13.5 g/dL (14.0-18.0); Immature Granulocyte Absolute 0.41 K/mm3 (0.00-0.031); Immature Granulocyte Percent A 9.1 % (0-0.5); Mean Corpuscular HGB Conc 32.3 g/dl (32-36); Mean Corpuscular Volume 99.1 fl (80-100); Mean Platelet Volume 9.3 fl (7.4-10.4); Monocytes Absolute Auto 0.5 K/mm3 (0.1-0.6); Monocytes Percent Auto 10.4 % (2.6-8.5); Neutrophils Absolute Auto 2.2 K/mm3 (1.3-6.7); Neutrophils Percent Auto 47.7 % (45.5-73.1); Platelet Count Result 224 k/mm3 (150-375); Red Blood Count 4.22 M/mm3 (4.6-6.20); Red Cell Distribution Width 13.2 % (11.5-14.5); White Blood Count 4.5 K/mm3 (4.5-10.0)
[2022-02-19 08:03] LABS: INR 1.4; Prothrombin Time 16.2 Seconds (11.1-14.7)
[2022-02-19 08:15] LABS: Alanine Aminotransferase 18 U/L (4-50); Albumin Level 3.6 g/dL (3.5-5.1); Alkaline Phosphatase 66 U/L (38-126); Anion Gap 5 mmol/L (8-16); Aspartate Amino Transferase 28 U/L (17-59); Bilirubin,Total 0.4 mg/dL (0.2-1.3); Blood Urea Nitrogen 16 mg/dL (9-20); Calcium 8.5 mg/dL (8.4-10.2); Carbon Dioxide 27 mmol/L (22-30); Chloride 103 mmol/L (98-107); Estimated CRCL calculation 60 ml/min; Estimated Glomerular Filt Rate > 60; Glucose 96 mg/dL (65-110); Potassium 4.1 mmol/L (3.4-5.0); Sodium 135 mmol/L (137-145)
[2022-02-19] MEDS: ENOXAPARIN 100 MG/ML SYRINGE 85 MG SUB-Q ×2 (08:30→20:19)
[2022-02-19] MEDS: POTASSIUM CHLORIDE 20 MEQ TABLET 40 MEQ PO (08:30)
[2022-02-19] MEDS: ATORVASTATIN 10 MG TABLET PO (08:31)
[2022-02-19] MEDS: ESCITALOPRAM OXALATE 10 MG TABLET PO (08:31)
[2022-02-19] MEDS: PRIMIDONE 50 MG TABLET 100 MG PO ×2 (08:31→17:35)
[2022-02-19] MEDS: TAMSULOSIN HCL 0.4 MG CAPSULE PO (08:31)
[2022-02-19] MEDS: MESALAMINE 250 MG CAP CR 2000 MG PO ×2 (08:31→17:35)
[2022-02-19] MEDS: OFLOXACIN 0.3% OPHTH SOLN 5 ML BTL 3 DROP RIGHT EAR (08:32)
--- NOTE | 2022-02-19 08:41 | PM.CNNEP ---
Assessment and Plan Additional Plan 1. Faiza has acute kidney injury. His baseline creatinine is normal. He was admitted with low blood pressure and dehydration. His creatinine was 2.2. He was given IV fluids and his creatinine fell to 1.5 yesterday. His urine sodium is low. They were unable to place a Bueno catheter yesterday and he had very little urine output. It is hard to know whether the the low urine output was because of his prostate or whether it was because of the dehydration but I suspect a little both. Will continue IV fluids for now and see how today's labs returned case inspector. 2. The patient has hyponatremia. His sodium has been low in the past. Dating back as far as September of 2019. However it is very mildly low. Several things cause sodium to be low. He was dehydrated on admission and this is probably causing his sodium to be a little lower than usual. Cancer can do this but he had has no history of this. Abdominal CT has been negative. MANAGER SALT issues can do this but he has no symptoms of this. Pulmonary issues can do this as well. Chest x-ray is negative any has no pulmonary symptoms. He is on no medications that do this. Will check a TSH and cortisol level. 3. The patient has Crohn's disease. This is quiescent. 4. He has hypertension. His blood pressure is under good control right now. It was low when he came in. Antihypertensives were held. We can full these back in as he gets better. 5. He has had pulmonary emboli and DVTs in the past. He is on anticoagulants. History of Present Illness Reason for Consult Consult date: 02/19/22 Chief Complaint Chief complaint: Acute kidney injury History of Present Illness Narrative: Faiza is a very pleasant 76-year-old gentleman who has multiple medical problems including Crohn's disease status post ileostomy for colon resection, coronary disease status post VT and stent in 2012, pulmonary embolism, on Coumadin, hypertension, hyperlipidemia, DVTs, essential tremor, and history of [place] gangrene. The patient was in hospital in late January because of obstruction of his colon. This is due to significant constipation apparently. He was treated symptomatically and improved. His bowels were moving well. On discharge his bowels were good but he still felt funny. He was somewhat lightheaded. At home he did not eat very well. He did drink some fluid. He was not making very much urine. He became more and more lightheaded and mildly nauseated so he came back to the emergency room. In the ER his blood pressure was in the 90s. He was not making much urine. He was unable to give them a samples they tried to use a Bueno catheter but he has got a large prostate so this would not pass. his creatinine was elevated. The patient was felt to be dehydrated . He was given IV fluids and some Flomax for his prostate. He feels better this morning. Blood pressure is better. He is making more urine. He denies any bloody urine foamy urine kidney stones or bladder infections. He has no pain with urination. He says that he gets up frequently at night to urinate When he is feeling good. Review of Systems Constitutional: Constitutional: Reports no additional constitutional complaints Eyes: Eyes: Reports no additional eye complaints ENT: Reports system reviewed and no additional complaints, except as documented Cardiovascular: Cardiovascular: Reports no additional cardiovascular complaints Respiratory: Respiratory: Reports no additional respiratory complaints Gastrointestinal: Gastrointestinal: Reports no additional gastrointestinal complaints Genitourinary: Genitourinary: Reports no additional male genitourinary complaints Musculoskeletal: Musculoskeletal: Reports no additional musculoskeletal complaints Integumentary/Breasts: Skin/Breast: Reports system reviewed and no additional complaints, except as docu Neurologic: Reports system reviewed and no additio
[2022-02-19 10:29] LABS: Thyroid Stimulating Hormone Reflex 0.717 uIU/mL (0.465-4.68)
[2022-02-19] MEDS: DEXTROSE 5% IN WATER 500 ML 250 ML IVPB (11:15)
[2022-02-19] MEDS: DESMOPRESSIN ACETATE 4 MCG/ML AMP 2 MCG IV PUSH (11:16)
--- NOTE | 2022-02-19 13:46 | PM.IMPN ---
Progress Note: A&P Assessment and Plan (1) NISA (acute kidney injury): Code(s): N17.9 - Acute kidney failure, unspecified Status: Acute Assessment and Plan: -creat 2.2 upon admission -Baseline creatinine is 0.8 as recently as 5 days ago. -Likely etiology is dehydration/poor intake due to his recent ileus. -We will continue IV fluids and clear liquids. -No evidence of UTI. Renal ultrasound unremarkable - Nephrology has been consulted. -improved to 0.9 today (2) Acute hyponatremia: Code(s): E87.1 - Hypo-osmolality and hyponatremia Status: Acute Assessment and Plan: -Likely due to volume depletion. -Patient has received a 1L fluid bolus, and continuous IV fluids 125 mL per hour. -Sodium tabs were added but discontinued this AM -Sodium has improved from 125 to 135 over roughly 6 hours. He was given a 500 ml bolus of D5%. -Nephrology has been consulted for both this and his NISA -of note he is on Lexapro which could be a contributing factor (3) Ileus: Code(s): K56.7 - Ileus, unspecified Status: Acute Assessment and Plan: -CT scan suggest possible persistent incomplete bowel obstruction versus ileus. -Patient was advanced to low fiber diet which he is tolerating without difficulty. -General surgery has been consulted and recommended GI consultation. No indication for surgery at this time. -Patient does have a history of Crohn's disease, though he was in 'remission' from [id number], he has had some recent flairs, and is no longer in remission. -His crohn's may be playing a component in his CT findings and contributing to his ileus. -He is not having any nausea, vomiting, hematemesis, or bleeding from his ileostomy. Good bowel function noted at this time. -Per Dr. Banerjee GI pt is stable for discharge from GI standpoint. Will continue low fiber diet, increased physical activity. Also continue Pentasa. Follow up with GI outpatient in 2-3 months. (4) Subtherapeutic international normalized ratio (INR): Code(s): R79.1 - Abnormal coagulation profile Status: Acute Assessment and Plan: -INR was 1.4 today, patient has reportedly been without his Coumadin for 4 days. Patient is on 8 mg warfarin Thursday through Thursday, and 10 mg on Thursday. We restarted him on this dose. We are using therapeutic Lovenox until his INR is back within range of 2-3. 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 (5) Tympanic membrane rupture: Code(s): H72.90 - Unspecified perforation of tympanic membrane, unspecified ear Status: Acute Assessment and Plan: -Undergoing treatment by Dr. Ramy Paul, scheduled to have TM surgery this week but postponed it. -Has a history of mastoidectomy and fungal otits external for which he uses nystatin powder. -SO will be bringing. Exam showed a significant amount of powder/ debris in the right EAC, unable to visualize the TM, ossicles not visible. Left EAC and TM were normal. TM rupture may be a component in patient's vertigo. (6) DVT prophylaxis: Code(s): Z29.9 - Encounter for prophylactic measures, unspecified Status: Acute Assessment and Plan: -Patient on Warfarin and Lovenox. (7) Urinary retention: Code(s): R33.9 - Retention of urine, unspecified Status: Acute Assessment and Plan: -Patient has had issues with retention of urine recently. -His nurse bladder scanned him 02/18/22 and found a postvoid residual of over 400 mL. -Patient does have difficulty initiating a stream -Started flomax yesterday with significant improvement Subjective Date/time seen: 02/19/22 13:46 Interval history: 76-year-old gentleman who has multiple medical problems including Crohn's disease status post ileostomy for colon resection, coronary disease status post MO and stent in 2012, pulmona
[2022-02-19 15:19] LABS: Sodium 127 mmol/L (137-145)
--- NOTE | 2022-02-19 15:55 | PM.PNGS ---
Progress Note: A&P Assessment and Plan (1) Ileus: Code(s): K56.7 - Ileus, unspecified Status: Acute Assessment and Plan: Resolving. Ileostomy functioning well. No signs of obstruction or indication for surgical intervention. Agree with continuing a low fiber diet on discharge. Follow-up only as needed. Will sign off at this time. Call if there are any surgical needs in the future. Okay to discharge when okay with all other services. 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: Code(s): Z79.01 - roasterman (current) use of anticoagulants Status: Acute (6) DVT (deep venous thrombosis): Code(s): I82.409 - Acute embolism and thrombosis of unspecified deep veins of unspecified lower extremity Status: Acute (7) Coronary artery disease: Onset Date: ~2012 Code(s): I25.10 - Atherosclerotic heart disease of craig coronary artery without angina pectoris Status: Acute (8) Ileostomy in place: Code(s): Z93.2 - Ileostomy status Status: Acute (9) Hypertension: Code(s): I10 - Essential (primary) hypertension Status: Acute Additional Plan I have discussed the patient's case and plan of care with Dr. Preciado. Subjective Subjective Date/Time Seen: 02/19/22 15:55 Patient reports: no new complaints, feels better, pain is less, tolerating a regular diet (low fiber) and afebrile Interval history: Patient seen and examined. He reports feeling much better today. He has been tolerating a low fiber diet since dinner last night. Denies any nausea, vomiting, or bloating. He was able to get up and walk in the room today and still had some dizziness with standing, but he feels this has improved. No other complaints at this time. Ostomy functioning well. Review of Systems Review of Systems: All systems reviewed & are unremarkable except as noted in HPI and below Exam Const: General: comfortable, no acute distress and alert Orientation/consciousness: patient oriented x3 GI: Inspection: non-distended, scar (large midline scar) and other (Ileostomy with liquid brown/green output in bag) GI Palp: Yes Soft to palpation, No Tenderness to palpation present (GI), No Guarding due to palpation present (GI) and No Rebound tenderness present Auscultation: normal bowel sounds Other: Ileostomy functioning well Neuro: General: moves all extremities Extrem: General: normal to inspection Psych: Insight: Good insight present (Psych) Judgement: Good judgement present (Psych) Objective Data Vital Signs Vital Signs: Vital Signs - 24 hr 02/18/22 19:52 02/18/22 19:55 02/19/22 03:43 Temperature 97.6 F 97.6 F 97.3 F L Pulse Rate 73 73 78 Respiratory Rate 18 18 18 Blood Pressure 124/57 L 124/57 L 147/75 H Pulse Oximetry 100 100 97 02/19/22 03:50 02/19/22 11:14 02/19/22 12:30 Temperature 97.3 F L Pulse Rate 78 75 72 Respiratory Rate 18 Blood Pressure 147/75 H 136/68 124/62 Pulse Oximetry 97 98 02/19/22 14:25 Temperature 98.5 F Pulse Rate 73 Respiratory Rate 22 H Blood Pressure 135/66 Pulse Oximetry 100 Intake/Output Intake/Output: Intake & Output 02/16/22 02/17/22 02/18/22 02/19/22 23:59 23:59 23:59 23:59 Intake Total 1500 3530 2270 Output Total 200 2920 1400 Balance 1300 610 870 Meds/Results Medications: Active Medications Generic Name Dose Route
[2022-02-19] MEDS: WARFARIN (*PBKC) 4 MG TABLET 8 MG PO (17:35)
[2022-02-20 05:59] LABS: Basophils Absolute Auto 0.1 K/mm3 (0.0-0.1); Basophils Percent Auto 1.1 % (0.2-1.2); Eosinophils Absolute Auto 0.1 K/mm3 (0-0.3); Hematocrit 35.2 % (42.0-52.0); Hemoglobin 11.6 g/dL (14.0-18.0); Immature Granulocyte Absolute 0.29 K/mm3 (0.00-0.031); Immature Granulocyte Percent A 5.5 % (0-0.5); Lymphocytes Absolute Auto 1.37 K/mm3 (0.9-3.2); Lymphocytes Percent Auto 26.1 % (18.3-44.2); Mean Corpuscular Hemoglobin 31.7 pg (26-34); Mean Corpuscular Volume 96.2 fl (80-100); Mean Platelet Volume 9.6 fl (7.4-10.4); Monocytes Absolute Auto 0.6 K/mm3 (0.1-0.6); Monocytes Percent Auto 11.6 % (2.6-8.5); Neutrophils Absolute Auto 2.9 K/mm3 (1.3-6.7); Neutrophils Percent Auto 54.7 % (45.5-73.1); Platelet Count Result 193 k/mm3 (150-375); Red Blood Count 3.66 M/mm3 (4.6-6.20); Red Cell Distribution Width 12.6 % (11.5-14.5); White Blood Count 5.2 K/mm3 (4.5-10.0)
[2022-02-20 06:16] LABS: Alanine Aminotransferase 14 U/L (4-50); Alkaline Phosphatase 47 U/L (38-126); Anion Gap 4 mmol/L (8-16); Aspartate Amino Transferase 23 U/L (17-59); Bilirubin,Total 0.4 mg/dL (0.2-1.3); Blood Urea Nitrogen 11 mg/dL (9-20); Calcium 7.9 mg/dL (8.4-10.2); Carbon Dioxide 24 mmol/L (22-30); Chloride 101 mmol/L (98-107); Estimated CRCL calculation 67 ml/min; Estimated Glomerular Filt Rate > 60; Glucose 92 mg/dL (65-110); Phosphorus 2.3 mg/dL (2.5-4.5); Potassium 3.7 mmol/L (3.4-5.0); Sodium 129 mmol/L (137-145)
[2022-02-20 06:25] VITALS: BP 132/68; PULSE 64; RESP 14; TEMP 36.4; O2SAT 97
[2022-02-20 07:31] LABS: Glucose Point of Care 138 mg/dl (65-105)
[2022-02-20] MEDS: ENOXAPARIN 100 MG/ML SYRINGE 85 MG SUB-Q (08:53)
[2022-02-20] MEDS: TAMSULOSIN HCL 0.4 MG CAPSULE PO (08:57)
[2022-02-20] MEDS: ESCITALOPRAM OXALATE 10 MG TABLET PO (08:57)
[2022-02-20] MEDS: ATORVASTATIN 10 MG TABLET PO (08:57)
[2022-02-20] MEDS: PRIMIDONE 50 MG TABLET 100 MG PO (08:58)
[2022-02-20] MEDS: MESALAMINE 250 MG CAP CR 2000 MG PO (08:58)
[2022-02-20] MEDS: OFLOXACIN 0.3% OPHTH SOLN 5 ML BTL 3 DROP RIGHT EAR (08:59)
--- NOTE | 2022-02-20 09:48 | PM.DS ---
DS: Admitting Diagnosis Discharge Date 02/20/22 Admitting Diagnosis NISA DS: Discharge Diagnosis Discharge Diagnosis (1) NISA (acute kidney injury): Code(s): N17.9 - Acute kidney failure, unspecified Status: Acute Assessment and Plan: -creat 2.2 upon admission -Baseline creatinine is 0.8 as recently as 5 days ago. -Likely etiology is dehydration/poor intake due to his recent ileus. -Treated with IV fluids and clear liquids. -No evidence of UTI. Renal ultrasound unremarkable -Nephrology was consulted. -improved to 0.8 today -recheck labs outpatient Thursday and Thursday (2) Acute hyponatremia: Code(s): E87.1 - Hypo-osmolality and hyponatremia Status: Acute Assessment and Plan: -Likely due to volume depletion. -Patient has received a 1L fluid bolus, and continuous IV fluids 125 mL per hour. -Sodium tabs were added but discontinued yesterday -Sodium overcorrected from 125 to 135 over roughly 6 hours yesterday. He was given a 500 ml bolus of D5% and this morning he is at 129. -of note he is on Lexapro x3-4 months which could be a contributing factor -Nephrology has been consulted for both this and his NISA. Discussed case with Dr. Gonzalez this morning who states patient is stable for discharge at this time. He can continue his Lexapro. We will recheck a BMP on Thursday and Thursday. He already has follow up scheduled with his pcp on Thursday as well. (3) Ileus: Code(s): K56.7 - Ileus, unspecified Status: Acute Assessment and Plan: -CT scan suggest possible persistent incomplete bowel obstruction versus ileus. -Patient was advanced to low fiber diet which he is tolerating without difficulty. -General surgery was been consulted and recommended GI consultation. No indication for surgery at this time. They have signed off. -Patient does have a history of Crohn's disease, though he was in 'remission' from [id number], he has had some recent flairs, and is no longer in remission. -His crohn's may be playing a component in his CT findings and contributing to his ileus. -He is not having any nausea, vomiting, hematemesis, or bleeding from his ileostomy. Good bowel function noted at this time. -Per Dr. Banerjee GI pt is stable for discharge from GI standpoint. Will continue low fiber diet, increased physical activity. Also continue Pentasa. Follow up with GI outpatient in 2-3 months. (4) Subtherapeutic international normalized ratio (INR): Code(s): R79.1 - Abnormal coagulation profile Status: Acute Assessment and Plan: -INR was 1.4 yesterday, patient has reportedly been without his Coumadin for 4 days prior to arrival. Patient is on 8 mg warfarin Thursday through Thursday, and 10 mg on Thursday. We restarted him on this dose. We are using therapeutic Lovenox until his INR is back within range of 2-3. 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 Also has hx of GI bleed. -INR 1.5 today. Discussed with patient who has given himself Lovenox for years in the past prior to starting coumadin. We will plan to continue 3 more days of therapeutic Lovenox bridge in conjunction with his warfarin. I spoke w/ his PCP Dr. Lund today who confirmed patient has an appt scheduled on Thursday and agrees with plan to bridge with lovenox. We will have patient get labs done on Thursday and again on Thursday to check his INR. Will also check a H/H as pt has hx of GI bleed. Had a slight drop from 13 to 11 on admission but this is likely dilutional as he was receiving IVF. Pt states his last GI bleed he noticed blood in his ostomy bag right away. Strict return precautions were provided to patient regarding GI bleed. He is aware he needs to get labs both Thursday and Thursday. Plan was discussed at length, all questions and concerns addressed to patient's satisfaction. (5) Tympanic membrane rupture: Code(s): H72.90 -
[2022-02-20 10:20] LABS: INR 1.5; Prothrombin Time 17.2 Seconds (11.1-14.7)
[2022-02-20 11:59] LABS: Glucose Point of Care 109 mg/dl (65-105)
--- NOTE | 2022-02-20 12:07 | PCNFU ---
Nutrition Follow-Up Complete: Suboptimal po intake related to diet order as evidenced by clear liquid status goal: Meet nutritional needs to maintain wt Patient is meeting current goal. No new goal. Pt current nutrition is Low Fiber/ 1500 ml Fluid Restriction. Last recorded weight is 84.2 kg-no new weight to report. Bowel Motility: ostomy Labs Reviewed:PO4 7.9, Na 129,K 3.0,Hct 35.2,Hgb 11.6 Meds Noted:Lipitor, Lovenox, Lexapro, Pentasa, Mysoline, Flomax, Skin: WNL Additional Notes: Nutrition follow up. Spoke with patient today, he is tolerating low fiber diet. Oral intake greater than 75% of meals. Drinking Ensure clear TID providing an additional 240 kcals and 8 gms protein. Agree with diet orders. Monitor diet order, intake, wt, labs. Follow up in 7 days.
--- NOTE | 2022-02-20 12:24 | WPDGIPROGNO ---
Progress Note: A&P Assessment and Plan (1) Ileus: Code(s): K56.7 - Ileus, unspecified Status: Acute Assessment and Plan: Ileus appears resolved. No obvious obstruction. Recommend continuing low residue diet for now. Discharge of others agree. (2) NISA (acute kidney injury): Code(s): N17.9 - Acute kidney failure, unspecified Status: Acute Assessment and Plan: Patient has resolved renal function. Appears to have been dehydrated at admission. Plan to increase fluid intake to maintain adequate hydration. (3) Crohn's disease: Onset Date: Unknown Qualifiers: Gastrointestinal tract location: unspecified location Digestive disease complication type: with intestinal obstruction Qualified Code(s): K50.912 - Crohn's disease, unspecified, with intestinal obstruction Code(s): K50.90 - Crohn's disease, unspecified, without complications Status: Acute Assessment and Plan: Crohn's disease clinically stable. Patient has a history of colectomy with subsequent ileostomy. Continue Pentasa orally after discharge. Follow up in the GI office in 2-3 months. Subjective Date/time seen: 02/20/22 12:24 Patient alert comfortable this morning. Tolerating diet. Denies abdominal pain. Good bowel function through ileostomy. Review of Systems Review of Systems: All systems reviewed & are unremarkable except as noted in HPI and below Exam Narrative: Physical exam reveals patient be alert comfortable at rest abdomen is soft bowel sounds present nontender with no organomegaly. Ileostomy with brown stool and gas in ostomy bag. Objective Data Vital Signs Vital Signs: Vital Signs - 24 hr 02/19/22 12:30 02/19/22 14:25 02/19/22 20:00 Temperature 98.5 F Pulse Rate 72 73 72 Respiratory Rate 22 H 14 Blood Pressure 124/62 135/66 Pulse Oximetry 100 100 02/19/22 21:05 02/20/22 06:25 Temperature 97.5 F L 97.6 F Pulse Rate 72 64 Respiratory Rate 14 14 Blood Pressure 135/66 132/68 Pulse Oximetry 100 97 Intake/Output Intake/Output: Intake & Output 02/17/22 02/18/22 02/19/22 02/20/22 23:59 23:59 23:59 23:59 Intake Total 1500 3530 4070 540 Output Total 200 2920 3100 715 Balance 1300 610 970 -175 Meds/Results Medications: Active Medications Generic Name Dose Route Start Last Admin Trade Name Freq PRN Reason Stop Dose Admin Atorvastatin Calcium 10 mg 02/18/22 09:00 02/20/22 08:57 Atorvastatin 10 Mg Tablet PO 10 mg DAILY VICTOR HUGO Administration Diphenhydramine HCl 25 mg 02/18/22 05:16 Diphenhydramine Hcl Cap 25 Mg Capsule PO HS PRN Sleep Enoxaparin Sodium 85 mg 02/18/22 08:00 02/20/22 08:53 Enoxaparin 100 Mg/Ml Syringe SUB-Q 85 mg Q12H VICTOR HUGO Administration Escitalopram Oxalate 10 mg 02/18/22 09:00 02/20/22 08:57 Escitalopram Oxalate 10 Mg Tablet PO 10 mg DAILY VICTOR HUGO Administration Mesalamine 2,000 mg 02/18/22 09:00 02/20/22 08:58 Mesalamine 250 Mg Cap Cr PO 03/20/22 08:59 2,000 mg BID VICTOR HUGO Administration Ofloxacin 3 drop 02/19/22 09:00 02/20/22 08:59 Ofloxacin 0.3% Ophth Soln 5 Ml Btl RIGHT EAR 3 drop DAILY VICTOR HUGO Administration Ondansetron HCl 4 mg 02/17/22 23:07 Ondansetron Inj 4 Mg/2 Ml Vial IV PUSH Q4H PRN Nausea Primidone 100 mg 02/18/22 09:00 02/20/22 08:58 Primidone 50 Mg Tablet PO 100 mg BID VICTOR HUGO Administration Tamsulosin HCl 0.4 mg 02/18/22 09:00 02/20/22 08:57 Tamsulosin Hcl 0.4 Mg Capsule PO 0.4 mg QAM VICTOR HUGO Administration Warfarin Sodium 10 mg 02/23/22 17:00 Warfarin (*Pbkc) 10 Mg Tablet PO [place] [facility] Warfarin Sodium 8 mg 02/18/22 17:00 02/19/22 17:35 Warfarin (*Pbkc) 4 Mg Tablet PO 8 mg [id number] VICTOR HUGO Administration Radiology Results: ITS Impressions Abdomen/Pelvis CT 02/17/22 20:30 IMPRESSION: Equivocal changes of ileus/bowel obstruction, with slightly increased proximal small bowel dilation and
--- NOTE | 2022-02-20 14:06 | PC.NURSE ---
On 02/20/22, the student, [[place]], provided care and completed [facility] documentation on this patient. I have reviewed the student's documentation and agree with the findings.
[2022-02-23 05:07] LABS: Albumin 3.1 g/dL (3.8-4.8); Alpha 1 Globulin 0.4 g/dL (0.2-0.3); Beta 1 Globulin 0.4 g/dL (0.4-0.6); Gamma Globulin 0.6 g/dL (0.8-1.7); Protein, Total 5.8 g/dL (6.1-8.1)
== END 2022-02-20 13:20 | disposition home or self-care (01) ==
LOC: ANHED 22:14 → ANH2MED 23:46
PROVIDERS: Internal Medicine Nephrology; Physician Assistant; Admitting Provider Internal Medicine; Emergency Provider Emergency Medicine; PCP Student in an Organized Health Care Education/Training Program; Visit Provider Hospitalist
DX: N17.9 Acute kidney failure, unspecified (principal); K56.7 Ileus, unspecified; E87.1 Hypo-osmolality and hyponatremia; R79.1 Abnormal coagulation profile; R33.9 Retention of urine, unspecified; R53.1 Weakness; R42 Dizziness and giddiness; K50.10 Crohn's disease of large intestine without complications; I25.10 Atherosclerotic heart disease of native coronary artery without angina pectoris; G25.0 Essential tremor; I10 Essential (primary) hypertension; E78.5 Hyperlipidemia, unspecified; H72.90 Unspecified perforation of tympanic membrane, unspecified ear; Z79.01 Long term (current) use of anticoagulants; Z90.49 Acquired absence of other specified parts of digestive tract; Z86.711 Personal history of pulmonary embolism; Z86.718 Personal history of other venous thrombosis and embolism; Z95.5 Presence of coronary angioplasty implant and graft; Z93.2 Ileostomy status; Z87.891 Personal history of nicotine dependence
CPT/HCPCS: 36415; 51701; 74019; 74176; 76775; 80048; 80053; 81001; 82533; 82570; 82948; 83735; 84100; 84155; 84165; 84295; 84300; 84443; 85025; 85027; 85610; 85730; 93005; 96360; 96361; 96372; 96374; 97161; 97165; 99285; A9270; G0378; J1650; J2597; J7030; J7040; J7060

== ENCOUNTER 2022-04-16 10:41 | Emergency (ER) | payer OTHER, SELFPAY ==
--- NOTE | ~2022-04-16 | CT_ITS ---
EXAMINATION: CT diagnostic chest wo con DATE: 04/16/2022 12:44 INDICATION: fall, L 8-10 rib fx, Warfarin, r/o pulm contusion TECHNIQUE: Computed tomography (CT) of the chest was performed without intravenous contrast. Addition al 3D reconstructions utilizing coronal maximum intensity projection (MIP) were performed. Automated exposure control and iterative reconstruction technique were employed. The dose-length product was 21 8.71 mGy-cm. COMPARISON: None FINDINGS: Mild emphysema. Mild elevation of the left hemidiaphragm with mild left basilar atelectasis. No pneum onia, pulmonary edema or pleural effusion. Heart size is normal. Atherosclerotic coronary artery calc ifications and possible coronary artery stenting. No pericardial effusion. Thoracic aorta is normal i n caliber. No pathologically enlarged thoracic lymphadenopathy. Multiple hepatic cysts, the largest i n the left hepatic lobe measuring up to 3 cm. Visualized upper abdomen is otherwise unremarkable. Mil d thoracic spondylosis. Minimally displaced anterior left sixth rib fracture. Additional fractures of the anterior eighth-10th ribs seen on prior radiographs are not included within the field of imaging . IMPRESSION: 1. Mild elevation of the left hemidiaphragm with mild compressive left basilar atelectasis. No other acute cardiopulmonary disease. 2. Nondisplaced anterior left sixth rib fracture. Additional previous identified anterior left eighth -10th rib fractures are not included within the field of imaging. 3. Mild emphysema. Reviewed, dictated and finalized at location B. IMPRESSION: 1. Mild elevation of the left hemidiaphragm with mild compressive left basilar atelectasis. No other acute cardiopulmonary disease. 2. Nondisplaced anterior left sixth rib fracture. Additional previous identifie d anterior left eighth-10th rib fractures are not included within the field of imaging. 3. Mild emphysema.
--- NOTE | ~2022-04-16 | XR_ITS ---
EXAMINATION: [id number] DATE: 04/16/2022 11:36 INDICATION: Left rib pain. Fall 2 days ago. TECHNIQUE: A frontal view of the chest and 2 views on 3 radiographs of the left ribs were obtained. COMPARISON: Chest 2 views 01/18/2021 FINDINGS: There is mild atelectasis at the lung bases. There is a small left pleural effusion. No pne umothorax. The heart size is normal. There are fractures of left 8th-10th ribs. IMPRESSION: 1. Fractures of left 8th-10th ribs. 2. Small left pleural effusion. 3. Mild atelectasis at the lung bases. Reviewed, dictated and finalized at location A.
[2022-04-16 11:07] VITALS: BP 120/68; PULSE 90; RESP 20; TEMP 36.3; O2SAT 98
--- NOTE | 2022-04-16 12:37 | ED.FALL ---
HPI - Fall General Chief Complaint: Fall Stated Complaint: fall/abd pain Time Seen by Provider: 04/16/22 11:28 Source: patient Mode of arrival: ambulatory Limitations: no limitations History of Present Illness HPI Narrative: Patient is a 76-year-old male who presents to the ED with report of left rib pain. Patient reports he tripped and fell on Thursday afternoon and hit his left-sided ribs against the edge of a concrete sidewalk. He complains of pain to his left-sided ribs since then. He states the pain became worse today and he felt like he was unable to take a deep breath due to the pain. He called his PCP about this and was referred to the ED for further evaluation. Patient took a tramadol and Tylenol around 10 AM this morning, which did not provide much relief. Patient is currently on warfarin due to a history of blood clots. His last INR checked last week was 2.3. Related Data Home Medications Medication Instructions Recorded Confirmed atorvastatin 10 mg tablet 10 mg PO DAILY 05/19/20 02/18/22 lisinopril 5 mg tablet 5 mg PO QAM 05/19/20 02/18/22 metoprolol tartrate 25 mg tablet 25 mg PO BID 05/19/20 02/18/22 nitroglycerin 0.4 mg sublingual 0.4 mg sublingual Q5-15M PRN Chest 05/19/20 02/18/22 tablet (Nitrostat) Pain [id number]-vitC 1 cap PO BID 01/18/21 02/18/22 capsule (Glucosamine Complex-MSM) multivitamin 1 tablet PO DAILY 01/18/21 02/18/22 lutein 20 mg capsule 20 mg PO DAILY 04/08/21 02/18/22 mecobalamin (vitamin B12) 1,000 1,000 mcg PO DAILY 04/08/21 02/18/22 mcg chewable tablet (B12 Active) warfarin 10 mg tablet 8 mg PO 5XW 05/01/21 02/18/22 diphenhydramine HCl 25 mg capsule 25 mg PO HS PRN Sleep 02/12/22 02/18/22 (Benadryl) escitalopram oxalate 10 mg tablet 10 mg PO DAILY 02/12/22 02/18/22 (Lexapro) ofloxacin 0.3 % ear drops 10 drp RIGHT EAR DAILY 02/12/22 02/18/22 primidone 50 mg tablet (Mysoline) 100 mg PO BID 02/12/22 02/18/22 tizanidine 4 mg tablet 4 mg PO PRN 02/12/22 02/18/22 Allergies Allergy/AdvReac Type Severity Reaction Status Date / Time Iodine and Iodide Containing Allergy Severe Swelling Verified 04/02/22 08:22 Produc of Lip/Tongue/Throat shellfish derived Allergy Severe Swelling Verified 04/02/22 08:22 of Lip/Tongue/Throat ibuprofen AdvReac Gastrointestinal Verified 04/16/22 11:20 Upset Review of Systems Review of Systems: CONSTITUTIONAL: Denies fever, chills, or sweats. EYES: Denies visual changes. CARDIOVASCULAR: Denies chest pain. RESPIRATORY: Reports pain with deep inspiration. Denies cough or dyspnea. GASTROINTESTINAL: Denies abdominal pain, nausea, vomiting. SKIN: Reports abrasion to left knee. MUSCULOSKELETAL: Reports pain to left posterior and lateral ribs. Denies back pain, joint pain NEUROLOGIC: Denies head injury, LOC, dizziness, lightheadedness, headache, numbness, or weakness. All systems reviewed & are unremarkable except as noted in HPI and below PMFSH Past Medical History Medical History Coronary artery disease (~2012) Status post stent in 2012. Crohn's disease Status post total colectomy with ileostomy. 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 Deep venous thrombosis Left lower extremity x2. Essential tremor (Unknown) Gastrointestinal bleed Related to Crohn's disease. Hospitalized in October 2019 and March 2021. History of Jared's gangrene Hyperlipemia (Unknown) Hypertension Pulmonary embolism Surgical History Surgical History History of appendectomy History of arthroplasty of right knee (~02/05/21) History of coronary artery stent placement (~2012) x1. Patient of Dr. Griffin. History of hip surgery (~2010) Pinning of left hip fracture with subsequent hardware removal. History of ileostomy (~1995) History of incisional hernia rep
[2022-04-16 13:16] LABS: INR 3.2; Prothrombin Time 31.9 Seconds (11.1-14.7)
[2022-04-16 13:17] LABS: Partial Thromboplastin Time 64.1 SECONDS (22.3-36.8)
== END 2022-04-16 14:18 | disposition home or self-care (01) ==
PROVIDERS: Physician Assistant; Emergency Provider Emergency Medicine; PCP Student in an Organized Health Care Education/Training Program
DX: S22.42XA Multiple fractures of ribs, left side, initial encounter for closed fracture (principal); I25.10 Atherosclerotic heart disease of native coronary artery without angina pectoris; E78.5 Hyperlipidemia, unspecified; I10 Essential (primary) hypertension; K50.90 Crohn's disease, unspecified, without complications; Z86.718 Personal history of other venous thrombosis and embolism; Z86.711 Personal history of pulmonary embolism; Z79.01 Long term (current) use of anticoagulants; Z96.651 Presence of right artificial knee joint; Z95.5 Presence of coronary angioplasty implant and graft; Z90.49 Acquired absence of other specified parts of digestive tract; Z98.42 Cataract extraction status, left eye; Z98.41 Cataract extraction status, right eye; Z96.1 Presence of intraocular lens; Z87.891 Personal history of nicotine dependence; W01.0XXA Fall on same level from slipping, tripping and stumbling without subsequent striking against object, initial encounter
CPT/HCPCS: 36415; 71101; 71250; 85610; 85730; 99284

== ENCOUNTER 2022-07-15 06:40 | Emergency (ER) | payer OTHER, SELFPAY ==
--- NOTE | ~2022-07-15 | XR_ITS ---
EXAMINATION: XR knee LT 3V DATE: 07/15/2022 07:47 INDICATION: Left knee injury and pain. TECHNIQUE: 3 views of left knee were obtained. COMPARISON: None. FINDINGS: Bone alignment is normal. No fracture. There is severe osteoarthritis of medial compartment , moderate osteoarthritis of patellofemoral compartment, and mild osteoarthritis of lateral compartme nt. No knee joint effusion. IMPRESSION: 1. Severe left knee osteoarthritis. Reviewed, dictated and finalized at location A.
[2022-07-15 06:48] VITALS: BP 122/91; PULSE 64; RESP 20; TEMP 36.2; O2SAT 95
--- NOTE | 2022-07-15 07:26 | ED.LOWEXIN ---
HPI - Extremity Injury (Lower) General Chief Complaint: Extremity Injury, Lower Stated Complaint: Possible blot clot in left leg. Time Seen by Provider: 07/15/22 07:26 Source: patient Mode of arrival: ambulatory Limitations: no limitations History of Present Illness HPI Narrative: 77 years old white male came to the emergency room because of pain behind left knee woke up with it yesterday morning. Patient denies any swelling of the leg or pain of the calf muscle, history of deep vein thrombosis currently on warfarin. History of right knee surgery and advanced left knee arthritis did not have any surgery on it yet. Patient reported possible twist over the last couple 3 days while getting off a chair. Related Data Home Medications Medication Instructions Recorded Confirmed atorvastatin 10 mg tablet 10 mg PO DAILY 05/19/20 02/18/22 lisinopril 5 mg tablet 5 mg PO QAM 05/19/20 02/18/22 metoprolol tartrate 25 mg tablet 25 mg PO BID 05/19/20 02/18/22 nitroglycerin 0.4 mg sublingual 0.4 mg sublingual Q5-15M PRN Chest 05/19/20 02/18/22 tablet (Nitrostat) Pain vnngmlonvyn-zdd-xbsrdojxo-vitC 1 cap PO BID 01/18/21 02/18/22 capsule (Glucosamine Complex-MSM capsule) multivitamin 1 tablet PO DAILY 01/18/21 02/18/22 lutein 20 mg capsule 20 mg PO DAILY 04/08/21 02/18/22 mecobalamin (vitamin B12) 1,000 1,000 mcg PO DAILY 04/08/21 02/18/22 mcg chewable tablet (B12 Active) warfarin 10 mg tablet 8 mg PO 5XW 05/01/21 02/18/22 diphenhydramine HCl 25 mg capsule 25 mg PO HS PRN Sleep 02/12/22 02/18/22 (Benadryl) escitalopram oxalate 10 mg tablet 10 mg PO DAILY 02/12/22 02/18/22 (Lexapro) ofloxacin 0.3 % ear drops 10 drp RIGHT EAR DAILY 02/12/22 02/18/22 primidone 50 mg tablet (Mysoline) 100 mg PO BID 02/12/22 02/18/22 tizanidine 4 mg tablet 4 mg PO PRN 02/12/22 02/18/22 Allergies Allergy/AdvReac Type Severity Reaction Status Date / Time Iodine and Iodide Containing Allergy Severe Swelling Verified 07/15/22 06:58 Produc of Lip/Tongue/Throat shellfish derived Allergy Severe Swelling Verified 07/15/22 06:58 of Lip/Tongue/Throat ibuprofen AdvReac Gastrointestinal Verified 07/15/22 06:58 Upset Review of Systems Review of Systems: All systems reviewed & are unremarkable except as noted in HPI and below PMFSH Past Medical History Medical History Coronary artery disease (~2012) Status post stent in 2012. Crohn's disease Status post total colectomy with ileostomy. 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 Deep venous thrombosis Left lower extremity x2. Essential tremor (Unknown) Gastrointestinal bleed Related to Crohn's disease. Hospitalized in October 2019 and March 2021. History of Jared's gangrene Hyperlipemia (Unknown) Hypertension Pulmonary embolism Surgical History Surgical History History of appendectomy History of arthroplasty of right knee (~02/05/21) History of coronary artery stent placement (~2012) x1. Patient of Dr. Griffin. History of hip surgery (~2010) Pinning of left hip fracture with subsequent hardware removal. History of ileostomy (~1995) History of incisional hernia repair in [place] History of right mastoidectomy History of total colectomy (~1995) Had previous partial resections and eventual total colectomy with ileostomy Status post cataract extraction of both eyes with insertion of intraocular lens Status post debridement Status post debridement of a large gangrenous infection in the left groin and genital region, likely Jared's gangrene. Status post right knee replacement (01/2021) Family History Family History Other Heart disease Hypertension Social History Social History Social
[2022-07-15 08:25] VITALS: BP 137/83; PULSE 80; RESP 16; O2SAT 97
== END 2022-07-15 08:25 | disposition home or self-care (01) ==
PROVIDERS: Emergency Provider Emergency Medicine; PCP Student in an Organized Health Care Education/Training Program
DX: M17.12 Unilateral primary osteoarthritis, left knee (principal); I25.10 Atherosclerotic heart disease of native coronary artery without angina pectoris; K50.90 Crohn's disease, unspecified, without complications; Z79.01 Long term (current) use of anticoagulants; I10 Essential (primary) hypertension; E78.5 Hyperlipidemia, unspecified
CPT/HCPCS: 73562; 99283

== ENCOUNTER 2023-11-29 20:18 | Emergency (ER) | payer OTHER, MEDICAID, SELFPAY ==
[2023-11-29 20:22] VITALS: BP 161/68; PULSE 88; RESP 18; TEMP 36.7; O2SAT 99
--- NOTE | 2023-11-29 20:55 | ED.GENADULT ---
HPI - General Adult General Chief complaint: Ear Stated complaint: left ear foreign body Time Seen by Provider: 11/29/23 20:47 History of Present Illness HPI narrative: 78-year-old male with a piece of his hearing aid lodged in his ear. Related Data Home Medications Medication Instructions Recorded Confirmed lisinopril 5 mg tablet 5 mg PO QAM 05/19/20 02/18/22 metoprolol tartrate 25 mg tablet 25 mg PO BID 05/19/20 02/18/22 nitroglycerin 0.4 mg sublingual 0.4 mg sublingual Q5-15M PRN Chest 05/19/20 02/18/22 tablet (Nitrostat) Pain multivitamin 1 tablet PO DAILY 01/18/21 02/18/22 mecobalamin (vitamin B12) 1,000 1,000 mcg PO DAILY 04/08/21 02/18/22 mcg chewable tablet (B12 Active) diphenhydramine HCl 25 mg capsule 25 mg PO HS PRN Sleep 02/12/22 02/18/22 (Benadryl) escitalopram oxalate 10 mg tablet 10 mg PO DAILY 02/12/22 02/18/22 (Lexapro) primidone 50 mg tablet (Mysoline) 100 mg PO BID 02/12/22 02/18/22 tizanidine 4 mg tablet 4 mg PO PRN 02/12/22 02/18/22 rivaroxaban 20 mg tablet 20 mg PO DAILY 04/01/23 Allergies Allergy/AdvReac Type Severity Reaction Status Date / Time Iodine and Iodide Containing Allergy Severe Swelling Verified 04/01/23 14:43 Produc of Lip/Tongue/Throat shellfish derived Allergy Severe Swelling Verified 04/01/23 14:43 of Lip/Tongue/Throat ibuprofen AdvReac Gastrointestinal Verified 04/01/23 14:43 Upset PMFSH Past Medical History Medical History Coronary artery disease (~2012) Status post stent in 2012. Crohn's disease Status post total colectomy with ileostomy. 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 Deep venous thrombosis Left lower extremity x2. Essential tremor (Unknown) Gastrointestinal bleed Related to Crohn's disease. Hospitalized in October 2019 and March 2021. History of Jared's gangrene Hyperlipemia (Unknown) Hypertension Pulmonary embolism Surgical History Surgical History History of appendectomy History of arthroplasty of right knee (~02/05/21) History of coronary artery stent placement (~2012) x1. Patient of Dr. Griffin. History of hip surgery (~2010) Pinning of left hip fracture with subsequent hardware removal. History of ileostomy (~1995) History of incisional hernia repair in [place] History of right mastoidectomy History of total colectomy (~1995) Had previous partial resections and eventual total colectomy with ileostomy Status post cataract extraction of both eyes with insertion of intraocular lens Status post debridement Status post debridement of a large gangrenous infection in the left groin and genital region, likely Jared's gangrene. Status post right knee replacement (01/2021) Family History Family History Other Heart disease Hypertension Social History Social History Social History: Surrogate decision maker: Ethan Madrigal, son. Code status: Full code. Smoking packs per day: 1 Smoking cigarettes per day: 20.0 Years smoked: 35 Smoking pack-years: 35.00 Smoking status: Former smoker Additional smoking assessment comments: quit 20 years ago Alcohol intake: never Drinks per week: 1 Alcohol use details: 1 wine/day. Previously drank in excess for about 30 years. Substance use: never Substance use type: does not use Living arrangements: alone Additional living arrangements comments: The patient is since 2019 and lives in his own home in [place]. He has 3 adult sons 2 of which live locally and 1 daughter. 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
== END 2023-11-29 21:10 | disposition home or self-care (01) ==
LOC: ANHED 21:04
PROVIDERS: Emergency Provider Emergency Medicine; PCP Student in an Organized Health Care Education/Training Program
DX: T16.2XXA Foreign body in left ear, initial encounter (principal); I25.10 Atherosclerotic heart disease of native coronary artery without angina pectoris; I10 Essential (primary) hypertension; K50.90 Crohn's disease, unspecified, without complications; E78.5 Hyperlipidemia, unspecified; Z95.5 Presence of coronary angioplasty implant and graft; Z96.651 Presence of right artificial knee joint; Z96.1 Presence of intraocular lens; Z98.42 Cataract extraction status, left eye; Z98.41 Cataract extraction status, right eye; Z86.718 Personal history of other venous thrombosis and embolism; Z86.711 Personal history of pulmonary embolism; Z87.891 Personal history of nicotine dependence; Z90.49 Acquired absence of other specified parts of digestive tract; Z79.01 Long term (current) use of anticoagulants
CPT/HCPCS: 69200; 99282

== ENCOUNTER 2024-08-29 23:51 | Inpatient (IN) | payer OTHER, MEDICAID, SELFPAY ==
--- NOTE | ~2024-08-29 | XR_ITS ---
XR abdomen gastric tube insert INDICATION: Evaluate NG tube position. TECHNIQUE: Limited KUB perform for evaluating NG tube . COMPARISON: FINDINGS: NG tube tip in the stomach. Visualized bowel gas pattern is unremarkable.Small left pleura l effusion. There is airspace disease of the left mid and lower lung, consistent with pneumonia. IMPRESSION: 1: NG tube tip in the stomach. Reviewed, dictated and finalized at location B.
--- NOTE | ~2024-08-29 | XR_ITS ---
XR abdomen gastric tube rechec Ordering provider: Stephanie Bernard History: . confirm placement . Comparison: None. FINDINGS: BOWEL: Dilated small bowel loops are seen with air-fluid levels suggestive of obstruction. Follow-up advised. ORGANOMEGALY: None. SIGNIFICANT PATHOLOGIC CALCIFICATIONS: None. OTHER: No free air is seen under the diaphragm. Right hip arthroplasty. Fixation of the left hip by plate and screws. Degenerative changes of the spi ne. Postoperative changes in the pelvis. IMPRESSION: Dilated small bowel loops suggestive of obstruction. Follow-up advised. Reviewed, dictated and finalized at location A.
--- NOTE | ~2024-08-29 | CT_ITS ---
EXAMINATION: CT chest abdomen pelvis wo con DATE: 09/03/2024 12:02 CDT INDICATION: Elevated lactic acid. TECHNIQUE: Computed tomography (CT) of the chest, abdomen, and pelvis was performed without intraveno us contrast. The dose-length product was 1597.70 mGy-cm. Automated exposure control and iterative rec onstruction technique were employed. COMPARISON: Chest x-ray dated 09/03/2024 FINDINGS: Gallbladder is distended. The spleen, pancreas, there is unremarkable. There are surgical c hanges in the anterior abdominal wall. There is a Bueno catheter in the bladder. Small right pleural effusion. Extensive bilateral airspace consolidation, consistent with pneumonia. There are multiple low-density masses of the liver, not well characterized without contrast. The sple en, pancreas, adrenal glands and kidneys are unremarkable. Gallbladder is present. There are dilated small bowel loops throughout the abdomen. Status post colectomy. There is a diverting ileostomy in th e right lower abdomen. Bowel obstruction cannot be excluded as the distal small bowel is decompressed . IMPRESSION: 1. Extensive patchy bilateral airspace consolidation, consistent with pneumonia. 2: Small right pleural effusion. 3: Dilated small bowel with air-fluid levels and relatively decompressed distal small bowel, compatib le with obstruction. 4: Multiple low-density masses of the liver, not well characterized without contrast. Consider benig n masses such as cysts and hemangiomas versus metastatic disease. Reviewed, dictated and finalized at location B. IMPRESSION: 1. Extensive patchy bilateral airspace consolidation, consistent with pneumonia . 2: Small right pleural effusion. 3: Dilated small bowel with air-fluid levels and relatively decompressed distal small bowel, compatible with obstruction. 4: Multiple low-density masses of the liver, not well characterized without co ntrast. Consider benign masses such as cysts and hemangiomas versus metastatic disease.
--- NOTE | ~2024-08-29 | CT_ITS ---
Non-contrast CT scan of the Abdomen and Pelvis Clinical indication: Abdominal pain, decreased ileostomy output Technique: 2.5 mm axial scans were obtained through the abdomen and pelvis without intravenous or or al contrast. Dose reduction technique was used on this scan by utilizing automated exposure control a nd iterative reconstruction technique. The dose-length product (DLP) was 880.33 mGy-cm. COMPARISON: 02/17/2022 Findings: Images through the lung bases reveal mild bibasilar atelectatic changes. There is no evidence of renal or ureteral calculi. The kidneys and the ureters are nondilated. Stable small probable hyperdense right renal cyst. Numerous hepatic cysts are unchanged. The spleen, pancreas, gallbladder, and adrenals appear normal. There are atherosclerotic calcifications of the aorta. . Status post colectomy with ileostomy. There is diffuse distention of small bowel loops, with fecaliza tion of the distal ileal contents leading to the ileostomy, with apparent narrowing just at the ileos irina orifice. Images through the pelvis were performed. There is no evidence of ascites or lymphadenopathy. Urinary bladder stone present. Prostate gland is enlarged. Moderate left hydrocele noted. Impression: Small bowel obstruction, with transition point at the ileostomy orifice, versus possibly diffuse smal l bowel ileus. Urinary bladder stone. Moderate left hydrocele. Reviewed, dictated and finalized at [facility]. Impression: Small bowel obstruction, with transition point at the ileostomy orifice, versus possibly diffuse small bowel ileus. Urinary bladder stone. Moderate left hydrocele.
--- NOTE | ~2024-08-29 | XR_ITS ---
EXAMINATION: XR sm bowel follow through WS DATE: 08/31/2024 13:13 INDICATION: Crohn's disease with small bowel obstruction TECHNIQUE: Cranberry Sorter radiograph(s) of the abdomen was/were obtained. Water-soluble oral contrast was admi nistered through the patient's existing nasogastric tube, and sequential radiographs of the abdomen w ere obtained over the course of 5 hours. COMPARISON: CT dated 08/30/2024 FINDINGS: Cranberry Sorter radiograph demonstrates nasogastric tube with distal tip in proximal side port in the body the stomach. There are couple surgical clips in the left lower quadrant of the abdomen and small amount o f material in the left hemipelvis. There are persistent mildly dilated loops of gas-filled small russell l consistent with obstruction versus ileus. Patient is status post total colectomy with right lower q uadrant end ileostomy. Contrast fills a moderate-sized diverticulum arising from the third portion of the duodenum. There is slow progression of contrast through the proximal to mid small bowel but with minimal progression in the interval between 1 and 5 hours. No evident contrast identified either wit hin the bowel or in the ostomy in the right lower quadrant. There is no evident abnormal mucosal fold thickening or nodularity along the contrast opacified small bowel. IMPRESSION: 1. Mildly dilated small bowel with very slow progression of contrast which has not yet reached the di stal small bowel where the right lower quadrant and ileostomy over the course of 5 hours of observati on. This be consistent with either ileus or obstruction. Could consider obtaining an additional KUB a t 5:00 PM. Reviewed, dictated and finalized at location A. IMPRESSION: 1. Mildly dilated small bowel with very slow progression of contrast which has not yet reached the distal small bowel where the right lower quadrant and ileos irina over the course of 5 hours of observation. This be consistent with either ileus or obstruction. Could consider obtaining an additional KUB at 5:00 PM.
--- NOTE | ~2024-08-29 | NM_ITS ---
EXAMINATION: NM lung vent and perfusion DATE: 09/01/2024 13:22 INDICATION: Acute respiratory failure with hypoxia TECHNIQUE: 6.9 mCi xenon-133 by inhalation and 4.5 mCi Tc-99m MAA by intravenous route. Scintigraphi c images of the chest were obtained. COMPARISON: Chest radiograph dated 09/01/2024 FINDINGS: There is an unmatched ventilation defect at the bilateral lower lungs on the posterior scintigrams. N o corresponding perfusion defect but prominent airspace opacities on the chest radiograph suspicious for pneumonia. Small perfusion defect at the anterior segment of the right upper lobe with correspond ing mild airspace opacity on the chest radiograph. IMPRESSION: 1. Low probability for pulmonary embolism. Reviewed, dictated and finalized at location A.
--- NOTE | ~2024-08-29 | CT_ITS ---
Clinical Indication: Shortness of breath, pneumonia CT Scan of the Chest, Abdomen, and Pelvis without Contrast: Technique: Contiguous sections were acquired throughout the chest, abdomen, and pelvis without IV con trast administration. Dose reduction technique was used on this scan by utilizing automated exposure control and iterative reconstruction technique. The dose-length product (DLP) was 1461.42 mGy-cm. Comparison: 08/30/2024 Findings: There is no evidence of any significant mediastinal, hilar or axillary lymphadenopathy. The mediastin al soft tissues appear normal. Minimal pericardial effusion noted. No definite pleural effusions. There is extensive dense consolidation of the entire left lower lobe, with air bronchograms. There is additional dense dependent consolidation the right lower lobe. There is additional patchy consolidat ion in the bilateral upper lobes. Right middle lobe clear. Stable hepatic cysts. The spleen, pancreas, gallbladder, adrenals and kidneys are within normal limit s. There are atherosclerotic calcifications of the aorta. No lymphadenopathy. Status post total colectomy with right lower quadrant ileostomy. There is extensive small bowel dilat ation. Distal small bowel is decompressed. Transition point not well delineated, but small bowel obst ruction is suspected. Bueno catheter in place in the urinary bladder. Urinary bladder stone again noted. Prostate gland is enlarged. Impression: Multifocal bilateral pneumonia with probable extensive left lower lobe and partial right lower lobe a telectasis. Suspected small bowel obstruction, as detailed above. Status post colectomy with ileostomy. Reviewed, dictated and finalized at [facility] [place]. Impression: Multifocal bilateral pneumonia with probable extensive left lower lobe and part ial right lower lobe atelectasis. Suspected small bowel obstruction, as detailed above. Status post colectomy wit h ileostomy.
--- NOTE | ~2024-08-29 | XR_ITS ---
XR chest PICC line 09/03/2024 08:49 Indication: PICC line placement Procedure: AP portable chest Comparison: Comparison to multiple prior studies sequentially, with oldest reviewed study dated 08/16. Findings: Interval placement of left subclavian PICC line, tip in the caudal aspect of the SVC. Persi stent patchy bilateral airspace disease, compatible with pneumonia. NG tube in the stomach. Endotrach eal tube position unchanged. Impression: 1: Stable persistent patchy bilateral airspace disease, compatible with pneumonia. Reviewed, dictated and finalized at location B. Impression: 1: Stable persistent patchy bilateral airspace disease, compatible with pneumon ia.
--- NOTE | ~2024-08-29 | XR_ITS ---
EXAMINATION: [id number] DATE: 09/01/2024 07:42 INDICATION: Small bowel obstruction. TECHNIQUE: Portable supine views of the abdomen were obtained in the AP, RPO and LPO projections. COMPARISON: None. FINDINGS: The contrast previously seen in the proximal to mid small bowel has advanced, now seen within multipl e loops of more distal small bowel in the right lower quadrant which were previously unopacified. The previously contrast opacified loops of more proximal small bowel on the upper abdomen are gas-filled and remain mildly dilated. Surgical clips in the left lower quadrant and pelvis lungs sutures anteri merrill in the pelvis possibly along the abdominal wall. Partially visualized bipolar type right hip hem iarthroplasty. Dense material along the prior fixation screw tracks at the left femoral head and neck . Mild lumbar levocurvature with mild to moderate spondylosis. IMPRESSION: 1. Persistent mildly dilated loops of proximal to mid small bowel with contrast now advanced into the distal small bowel consistent with ileus versus partial small bowel obstruction. Reviewed, dictated and finalized at location A.
--- NOTE | ~2024-08-29 | XR_ITS ---
XR chest 2V 09/01/2024 13:09 Indication: Dyspnea. Procedure: 2 view chest Comparison: 01/18/2021 Findings: Bilateral lower lobe pneumonia. Possible small left effusion. No pneumothorax. No acute oss eous abnormality. Impression: 1: Bilateral lower lobe pneumonia. Reviewed, dictated and finalized at location B. Impression: 1: Bilateral lower lobe pneumonia.
--- NOTE | ~2024-08-29 | US_ITS ---
EXAMINATION: US venous doppler [facility] DATE: 09/01/2024 17:13 INDICATION: Dyspnea TECHNIQUE: Grayscale ultrasound images without and with compression and Doppler ultrasound images of the bilateral lower extremity veins were obtained. COMPARISON: 04/16/2021 FINDINGS: The visualized portions of right common femoral vein, profunda (deep) femoral vein, femoral vein, pop liteal vein, posterior tibial veins, peroneal veins, gastrocnemius vein and greater saphenous vein ou tflow are patent. The left popliteal vein is partially compressible with nonocclusive age-indeterminate thrombus. The v isualized portions of left common femoral vein, profunda femoral vein, femoral vein, posterior tibial veins, peroneal veins, gastrocnemius vein and greater saphenous vein outflow are patent. IMPRESSION: 1. Left popliteal vein partially compressible with age-indeterminate nonocclusive deep venous thromb osis. 2. No deep venous anastomosis in the right lower limb. Reviewed, dictated and finalized at location A. IMPRESSION: 1. Left popliteal vein partially compressible with age-indeterminate nonocclus laura deep venous thrombosis. 2. No deep venous anastomosis in the right lower limb.
--- NOTE | ~2024-08-29 | CT_ITS ---
EXAMINATION: CT brain wo con DATE: 09/02/2024 11:40 INDICATION: Possible stroke TECHNIQUE: Computed tomography (CT) of the head was performed without intravenous contrast. Sagittal and coronal reconstructions were performed. Automated exposure control and iterative reconstruction t echnique were employed. The dose-length product was 605.33 mGy-cm. COMPARISON: None FINDINGS: No acute intracranial hemorrhage, acute infarction or abnormal extra axial fluid collection. There is moderate scattered white matter hypoattenuation consistent with chronic small vessel ischemic diseas e. Ventricles are normal and symmetric. No mass/mass effect. Changes of bilateral intraocular lens r eplacement. Paranasal sinuses and the left mastoid air cells and middle ear cavities are clear. Statu s post right mastoidectomy with residual fluid versus soft tissue at the mastectomy space extending i nto the middle ear cavity along side the ossicles. IMPRESSION: 1. No acute intracranial process. 2. Moderate scattered white matter hypoattenuation consistent with chronic small vessel ischemic dise ase. Reviewed, dictated and finalized at location A. IMPRESSION: 1. No acute intracranial process. 2. Moderate scattered white matter hypoattenuation consistent with chronic smal l vessel ischemic disease.
--- NOTE | ~2024-08-29 | XR_ITS ---
Portable chest x-ray Comparison: 09/01/2024 Clinical History: Shortness of breath Findings: Patchy bilateral airspace disease is present, especially left lower lobe, right lower lobe , and minimally in the right upper lobe. Cardiomediastinal silhouette is stable. Bones and soft tiss ues are unremarkable. Impression: Patchy bilateral airspace consolidation, suspicious for bilateral pneumonia. Reviewed, dictated and finalized at location . Impression: Patchy bilateral airspace consolidation, suspicious for bilateral pneumonia.
--- NOTE | ~2024-08-29 | XR_ITS ---
Upright portable view of the abdomen Clinical history: NG tube placement Findings: NG tube in satisfactory position. Dilated small bowel compatible small bowel obstruction. N o free air evident. No abnormal mass lesion or calcification is seen. Osseous structures are intact. Impression: NG tube in satisfactory position. Small bowel obstruction. Reviewed, dictated and finalized at location . Impression: NG tube in satisfactory position. Small bowel obstruction.
--- NOTE | ~2024-08-29 | XR_ITS ---
EXAMINATION: XR abdomen gastric tube rechec DATE: 08/30/2024 12:58 INDICATION: Nasogastric tube placement TECHNIQUE: A supine view of the abdomen and lower chest was obtained for evaluation of feeding tube placement. COMPARISON: 08/30/2024 at 11:32 AM FINDINGS: Nasogastric tube tip in proximal side port in the body the stomach. There are a few loops of persiste ntly dilated small bowel in the visualized upper abdomen consistent small bowel obstruction. Heart si ze is normal. IMPRESSION: 1. Nasogastric tube in the stomach. 2. Small bowel obstruction. Reviewed, dictated and finalized at location A.
--- NOTE | ~2024-08-29 | XR_ITS ---
XR chest ET placement 09/02/2024 09:23 Indication: Endotracheal tube placement Procedure: AP portable chest Comparison: Comparison to multiple prior studies sequentially, with oldest reviewed study dated 05/2018. Findings: Endotracheal tube tip 4.5 cm above the ann marie. NG tube in the stomach. There is bilateral a irspace disease, more confluent in the left lung base. Small pleural effusions. No pneumothorax. Impression: 1: Bilateral airspace disease which may represent edema and/or pneumonia. Reviewed, dictated and finalized at location B. Impression: 1: Bilateral airspace disease which may represent edema and/or pneumonia.
--- NOTE | ~2024-08-29 | XR_ITS ---
XR chest 1V portable 09/03/2024 06:16 Indication: Pneumonia. Acute respiratory failure. Procedure: AP portable chest Comparison: Comparison to multiple prior studies sequentially, with oldest reviewed study dated 03/2020. Findings: There is bilateral airspace disease, left greater than right. There is increasing confluenc e and multiple locations of the left lung, consistent with pneumonia. Small left pleural effusion. No pneumothorax. Endotracheal tube tip 3.6 cm above the ann marie. NG tube in the stomach. Impression: 1: Extensive bilateral airspace disease, left greater than right increasing confluence in the left belgica ng, consistent with pneumonia. Edema less favored. 2: Small left pleural effusion. Reviewed, dictated and finalized at location B. Impression: 1: Extensive bilateral airspace disease, left greater than right increasing con fluence in the left lung, consistent with pneumonia. Edema less favored. 2: Small left pleural effusion.
[2024-08-29 23:53] VITALS: BP 145/74; PULSE 97; RESP 14; TEMP 36.5; O2SAT 97
[2024-08-30] VITALS (11 sets, daily range): BP systolic 113–154; BP diastolic 56–86; PULSE 79–100; RESP 16–18; TEMP 36.6–37.1; O2SAT 92–100
[2024-08-30] MEDS: ONDANSETRON INJ 4 MG/2 ML VIAL IV PUSH ×4 (00:17→15:33)
[2024-08-30] MEDS: MORPHINE SULFATE (*CRX) 4 MG/ML INJ IV PUSH ×4 (00:17→15:14)
[2024-08-30 00:21] LABS: Basophils Percent Auto 0.4 % (0.2-1.2); Eosinophils Absolute Auto 0.1 K/mm3 (0-0.3); Eosinophils Percent Auto 0.7 % (0-4.4); Hemoglobin 14.3 g/dL (14.0-18.0); Immature Granulocyte Absolute 0.02 K/mm3 (0.00-0.031); Immature Granulocyte Percent A 0.2 % (0-0.5); Lymphocytes Absolute Auto 0.87 K/mm3 (0.9-3.2); Lymphocytes Percent Auto 10.7 % (18.3-44.2); Mean Corpuscular HGB Conc 33.3 g/dl (32-36); Mean Corpuscular Hemoglobin 33.3 pg (26-34); Mean Corpuscular Volume 100.2 fl (80-100); Mean Platelet Volume 9.3 fl (7.4-10.4); Monocytes Absolute Auto 0.5 K/mm3 (0.1-0.6); Monocytes Percent Auto 6.2 % (2.6-8.5); Neutrophils Absolute Auto 6.6 K/mm3 (1.3-6.7); Neutrophils Percent Auto 81.8 % (45.5-73.1); Platelet Count Result 185 k/mm3 (150-375); Red Blood Count 4.29 M/mm3 (4.6-6.20); Red Cell Distribution Width 13.2 % (11.5-14.5); White Blood Count 8.1 K/mm3 (4.5-10.0)
[2024-08-30 00:33] LABS: Lactic Acid Reflex 1.2 mmol/L (0.7-2.0)
[2024-08-30 00:34] LABS: Alanine Aminotransferase 17 U/L (6-50); Albumin Level 4.4 g/dL (3.5-5.1); Alkaline Phosphatase 97 U/L (38-126); Anion Gap 8 mmol/L (4-12); Aspartate Amino Transferase 30 U/L (17-59); Bilirubin,Total 0.4 mg/dL (0.2-1.3); Blood Urea Nitrogen 16 mg/dL (9-20); Calcium 9.7 mg/dL (8.4-10.2); Carbon Dioxide 26 mmol/L (22-30); Chloride 102 mmol/L (98-107); Estimated CRCL calculation 66 ml/min; Estimated Glomerular Filt Rate > 60; Glucose 136 mg/dL (65-110); Lipase 66 U/L (23-300); Sodium 136 mmol/L (137-145)
--- NOTE | 2024-08-30 00:41 | ED.ABDPAIN ---
HPI - Abdominal Pain General Chief Complaint: Abdominal Pain <ORQUIDEA Chaparro Filed: 08/30/24 03:05> Stated Complaint: blockage in ileostomy <ORQUIDEA Chaparro Filed: 08/30/24 03:05> Time Seen by Provider: 08/30/24 00:00 <ORQUIDEA Chaparro Last Filed: 08/30/24 03:05> Source: patient and old records reviewed <ORQUIDEA Chaparro Filed: 08/30/24 03:05> Mode of arrival: ambulatory <ORQUIDEA Chaparro Filed: 08/30/24 03:05> Limitations: no limitations <ORQUIDEA Chaparro Filed: 08/30/24 03:05> History of Present Illness HPI narrative: Patient is a 79-year-old male who presents to the ED with report of abdominal pain. Patient has history of previous colectomy with ileostomy related to Crohn's disease performed in 1995. He reports today he has had decreased output from his ileostomy since about 2:00 p.m.. He complains of diffuse abdominal pain, abdominal bloating. He also began vomiting prior to arrival and has had several episodes of emesis in the ED. He states this feels similar to when he has had an obstruction in the past. Per records, he was seen for something similar in 2021. Patient denies known fevers. <ORQUIDEA Chaparro Filed: 08/30/24 03:05> Related Data Home Medications: Home Medications Medication Instructions Recorded Confirmed lisinopril 5 mg tablet 5 mg PO QAM 05/19/20 08/30/24 metoprolol tartrate 25 mg tablet 25 mg PO BID 05/19/20 08/30/24 nitroglycerin 0.4 mg sublingual 0.4 mg sublingual Q5-15M PRN Chest 05/19/20 08/30/24 tablet (Nitrostat) Pain mecobalamin (vitamin B12) 1,000 1,000 mcg PO DAILY 04/08/21 08/30/24 mcg chewable tablet (B12 Active) diphenhydramine HCl 25 mg capsule 25 mg PO HS PRN Sleep 02/12/22 08/30/24 (Benadryl) escitalopram oxalate 10 mg tablet 10 mg PO DAILY 02/12/22 08/30/24 (Lexapro) primidone 50 mg tablet (Mysoline) 200 mg PO BID 02/12/22 08/30/24 tizanidine 4 mg tablet 4 mg PO PRN PRN muscle spasms 02/12/22 08/30/24 rivaroxaban 20 mg tablet 10 mg PO QPM 04/01/23 08/30/24 mesalamine 500 mg capsule,extended 2,000 mg PO BID 08/30/24 08/30/24 release (Pentasa) rosuvastatin 5 mg tablet 5 mg PO DAILY 08/30/24 08/30/24 <Cecilia Schuler PA-C - Last Filed: 08/30/24 03:05> Allergies/Adverse Reactions: Allergies Allergy/AdvReac Type Severity Reaction Status Date / Time Iodine and Iodide Containing Allergy Severe Swelling Verified 08/30/24 03:06 Produc of Lip/Tongue/Throat shellfish derived Allergy Severe Swelling Verified 08/30/24 03:06 of Lip/Tongue/Throat ibuprofen AdvReac Gastrointestinal Verified 08/30/24 03:06 Upset <Cecilia Schuler PA-C - Last Filed: 08/30/24 03:05> Review of Systems Review of Systems: All systems reviewed & are unremarkable except as noted in HPI. <Cecilia Schuler PA-C - Last Filed: 08/30/24 03:05> All systems reviewed & are unremarkable except as noted in HPI and below <Cecilia Schuler PA-C - Last Filed: 08/30/24 03:05> [facility] Past Medical History Medical History: Medical History Coronary artery disease (~2012) Status post stent in 2012. Crohn's disease Status post total colectomy with ileostomy. 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 Deep venous thrombosis Left lower extremity x2. Essential tremor (Unknown) Gastrointestinal bleed Related to Crohn's disease. Hospitalized in October 2019 and March 2021. History of Jared's gangrene Hyperlipemia (Unknown) Hypertension Pulmonary embolism <Cecilia Schuler PA-C - Last Filed: 08/30/24 03:05> Surgical History Surgical History: Surgical History History of appendectomy History o
[2024-08-30] MEDS: MORPHINE SULFATE (*CRX) 2 MG/ML INJ IV PUSH (01:49)
[2024-08-30] MEDS: SODIUM CHLORIDE 0.9% IV 1,000 ML 999 ML IV CONT (01:49)
--- NOTE | 2024-08-30 02:12 | PC.NURSE ---
Per EDP Dr. Bejarano NG tube is okay to fisher sponge hooking to intermittent suction after viewing x-ray
[2024-08-30] MEDS: SODIUM CHLORIDE 0.9% IV 1,000 ML 100 ML IV CONT ×2 (03:05→13:42)
--- NOTE | 2024-08-30 06:07 | PC.NURSE ---
Patient admitted Rm 251 @ 0344, vitals signs stable.
--- NOTE | 2024-08-30 11:13 | PM.CNGS ---
Assessment and Plan Assessment and plan (1) SBO (small bowel obstruction): Onset Date: ~02/12/22 Code(s): K56.609 - Unspecified intestinal obstruction, unspecified as to partial versus complete obstruction Status: Acute Assessment and Plan: CT scan shows evidence of a SBO with transition point at the ileostomy orifice. It is likely that this is secondary to some roughage he ate yesterday, which also correlates with the onset of his symptoms. It does not appear to be related to intra-abdominal adhesions, and there are no findings on CT to suggest a flare-up of his Crohn's, but this is certainly another consideration. We would recommend to continue conservative measures for now with NG tube decompression, bowel rest, IV fluids, and analgesics as needed. He has multiple previous abdominal surgeries and co-morbidities that would increase his risks of surgery. The staff is currently having issues with the NG tube functioning properly. We will repeat a KUB to check placement and troubleshoot the NG. May consider a water-soluble SBS to further evaluate the obstruction if the NG tube is functioning well and still no improvement in symptoms. (2) Crohn's disease: Onset Date: Unknown Qualifiers: Gastrointestinal tract location: unspecified location Digestive disease complication type: unspecified complication Qualified Code(s): K50.919 - Crohn's disease, unspecified, with unspecified complications Code(s): K50.90 - Crohn's disease, unspecified, without complications Status: Acute Assessment and Plan: Has been in remission for years currently on Pentasa. CT does not show any evidence of ileitis or bowel wall thickening concerning for Crohn's flare-up. See plan above. 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 Xarelto on hold. Okay to use Lovenox for DVT prophylaxis. (4) History of colectomy: Code(s): Z90.49 - Acquired absence of other specified parts of digestive tract Status: Acute Assessment and Plan: Remote history of subtotal colectomy in 1995 with end ileostomy. (5) Hx of ileostomy: Code(s): Z98.890 - Other specified postprocedural states Status: Acute (6) Coronary artery disease: Onset Date: ~2012 Code(s): I25.10 - Atherosclerotic heart disease of [place] coronary artery without angina pectoris Status: Acute Plan I have discussed the patient's case and plan of care with Dr. Llamas. Thank you for allowing us to see the patient in consultation and we will continue to follow along with you. History of Present Illness Consult details Consult date: 08/30/24 Reason for consult: other (Small bowel obstruction) Requesting physician: Cecilia Schuler PA-C Narrative: This is a 79-year-old man with history of Crohn's in remission on Pentasa s/p subtotal colectomy with end ileostomy in 1995, who presented to the ED last night with complaints of abdominal pain and vomiting. Yesterday for lunch, he ate a sandwich and potato salad. He states that typically he would mesh up the potatoes, but yesterday he ate although potatoes whole. Shortly after eating, he noticed some bloating and abdominal pain. He did have his ileostomy bag fill up around lunch, but has not had any output or gas passing through since about 2:30 p.m. yesterday. He tried to lay down and thought this may help, but he began to feel nauseous. His abdominal pain and bloating got worse and he began vomiting. Therefore, he came into the ED for evaluation. Vital signs were stable. Labs were unremarkable. CT scan of the abdomen and pelvis showed a small-bowel obstruction with fecalization of the distal ileal contents leading to the ileostomy with apparent narrowing just at the ileostomy orifice. The patient was admitted t
--- NOTE | 2024-08-30 11:14 | PM.IMHP ---
H&P: HPI History of Present Illness Date/Time: 08/30/24 11:14 Chief Complaint: Abdominal pain and bloating. Narrative: Patient is a 79-year-old male who presents to the ED with report of abdominal pain. Patient has history of previous colectomy with ileostomy related to Crohn's disease performed in 1995. He reports today he has had decreased output from his ileostomy since about 2:00 p.m.. He complains of diffuse abdominal pain, abdominal bloating. He also began vomiting prior to arrival and has had several episodes of emesis in the ED. He states this feels similar to when he has had an obstruction in the past. Per records, he was seen for something similar in 2021. Patient denies known fevers. WBC 8.7. Lactic Acid 1.2. Normal electrolytes and kidney function. Patient made NPO with NG tube to suction. Surgery to see patient. Patient on medicine floor continues to have some nausea but no emesis. Reports pain in abdomen is an 8 , pain is constant, cramping, throbbing, and he feels bloated. Patient reports feeling dizzy at times and weak. Patient denies chest pain, palpitations, shortness of breath, or headache. Patient reports that he ate some potato salad yesterday that he thinks clogged up his ileostomy. Review of Systems Review of Systems: All systems reviewed & are unremarkable except as noted in HPI and below PMFSH Past Medical History Medical History (Updated 08/30/24 @ 14:45 by Anisha Seaman, CAROL) Coronary artery disease (~2012) Status post stent in 2012. Crohn's disease Status post total colectomy with ileostomy. Current use of assisted anticoagulation Chronic secondary to recurrent DVT and pulmonary embolism. Deep venous thrombosis Left lower extremity x2. Essential tremor (Unknown) Gastrointestinal bleed Related to Crohn's disease. Hospitalized in October 2019 and March 2021. History of Jared's gangrene Hyperlipemia (Unknown) Hypertension Pulmonary embolism Surgical History Surgical History History of appendectomy History of arthroplasty of right knee (~02/05/21) History of coronary artery stent placement (~2012) x1. Patient of Dr. Griffin. History of hip surgery (~2010) Pinning of left hip fracture with subsequent hardware removal. History of ileostomy (~1995) History of incisional hernia repair Incisional hernia repair with mesh in [place] prior to his subtotal colectomy History of inguinal hernia repair Over 30 years ago, does not recall if they used mesh or not History of right mastoidectomy History of total colectomy (~1995) Had previous partial resections and eventual subtotal colectomy with end ileostomy Status post cataract extraction of both eyes with insertion of intraocular lens Status post debridement Status post debridement of a large gangrenous infection in the left groin and genital region, likely Jared's gangrene. Status post right knee replacement (01/2021) Family History Family History Other Heart disease Hypertension Social History Social History Social History: Surrogate decision maker: Ehtan Madrigal, son. Code status: Full code. Smoking packs per day: 1 Smoking cigarettes per day: 20.0 Years smoked: 35 Smoking pack-years: 35.00 Smoking status: Former smoker Tobacco type: cigarettes Additional smoking assessment comments: quit 20 years ago Alcohol intake: never Drinks per week: 1 Alcohol use details: 1 wine/day. Previously drank in excess for about 30 years. Substance use: never Substance use type: does not use Do You Feel Safe in your Home?: Yes Lack of Transportation: No Lack of Food: Never True Current Housing: I Have Housing Concerned About Future Housing: No Difficulty Paying Gas/Electric Bills: No Difficulty Paying for Meds: No Currently
--- NOTE | 2024-08-30 11:49 | PC.NURSE ---
On 08/30/24, the student, [Jennifer Cota], provided care and completed [facility] documentation on this patient. I have reviewed the student's documentation and agree with the findings.
[2024-08-30 11:56] LABS: Glucose Point of Care 123 mg/dl (65-105)
[2024-08-30 12:24] LABS: Basophils Percent Auto 0.2 % (0.2-1.2); Eosinophils Percent Auto 0.1 % (0-4.4); Hematocrit 41.8 % (42.0-52.0); Hemoglobin 13.5 g/dL (14.0-18.0); Immature Granulocyte Absolute 0.02 K/mm3 (0.00-0.031); Immature Granulocyte Percent A 0.2 % (0-0.5); Immature Platelet Fraction Pct 1.7 % (0.9-11.2); Lymphocytes Absolute Auto 0.47 K/mm3 (0.9-3.2); Lymphocytes Percent Auto 5.4 % (18.3-44.2); Mean Corpuscular HGB Conc 32.3 g/dl (32-36); Mean Corpuscular Hemoglobin 32.9 pg (26-34); Mean Platelet Volume 10.2 fl (7.4-10.4); Monocytes Absolute Auto 0.6 K/mm3 (0.1-0.6); Neutrophils Absolute Auto 7.6 K/mm3 (1.3-6.7); Neutrophils Percent Auto 87.1 % (45.5-73.1); Platelet Count Result 194 k/mm3 (150-375); Red Cell Distribution Width 13.2 % (11.5-14.5); White Blood Count 8.7 K/mm3 (4.5-10.0)
[2024-08-30] MEDS: ENOXAPARIN 80 MG/0.8 ML SYRINGE SUB-Q (13:52)
[2024-08-30] MEDS: METOPROLOL TARTRATE INJ 5 MG/5 ML VIAL IV PUSH (14:14)
[2024-08-30 16:00] LABS: Add Urine Microscopic? YES; Appearance Urine Clear (Clear); Bacteria Urine None Seen /hpf; Bilirubin Urine Negative (Negative); Blood Urine Negative (Negative); Color Urine Dark Yellow (Yellow); Glucose Urine UA Negative (Negative); Hyaline Casts Urine Present /lpf; Ketones Urine Trace mg/dL (Negative); Leukocyte Esterase Ur Negative LEU/UL (Negative); Nitrate Urine Negative (Negative); Protein Urine Trace mg/dL (Negative); RBC Urine 0-2 /hpf (0-2); Specific Grav Ur 1.028 (1.001-1.035); Squamous Epithelial Cell Urine None Seen /hpf (Few); Urobilinogen Urine 0.2 mg/dL (<2.0); WBC Urine 0-5 /hpf (0-3)
[2024-08-30 18:41] LABS: Glucose Point of Care 120 mg/dl (65-105)
[2024-08-31] MEDS: SODIUM CHLORIDE 0.9% IV 1,000 ML 100 ML IV CONT ×3 (00:18→16:53)
[2024-08-31] MEDS: MORPHINE SULFATE (*CRX) 4 MG/ML INJ IV PUSH ×5 (00:22→20:28)
[2024-08-31] MEDS: ONDANSETRON INJ 4 MG/2 ML VIAL IV PUSH ×4 (00:22→20:21)
[2024-08-31] MEDS: ENOXAPARIN 80 MG/0.8 ML SYRINGE SUB-Q ×2 (02:44→13:15)
[2024-08-31 04:13] VITALS: BP 152/74; PULSE 87; RESP 18; TEMP 36.9; O2SAT 94
[2024-08-31 04:54] LABS: Glucose Point of Care 112 mg/dl (65-105)
[2024-08-31 04:54] LABS: Glucose Point of Care 113 mg/dl (65-105)
[2024-08-31 05:16] LABS: Basophils Percent Auto 0.5 % (0.2-1.2); Eosinophils Percent Auto 0.2 % (0-4.4); Hematocrit 42.7 % (42.0-52.0); Hemoglobin 13.2 g/dL (14.0-18.0); Lymphocytes Absolute Auto 0.53 K/mm3 (0.9-3.2); Lymphocytes Percent Auto 12.4 % (18.3-44.2); Mean Corpuscular HGB Conc 30.9 g/dl (32-36); Mean Corpuscular Hemoglobin 31.8 pg (26-34); Mean Corpuscular Volume 102.9 fl (80-100); Mean Platelet Volume 9.8 fl (7.4-10.4); Monocytes Percent Auto 22.6 % (2.6-8.5); Neutrophils Absolute Auto 2.8 K/mm3 (1.3-6.7); Neutrophils Percent Auto 64.3 % (45.5-73.1); Platelet Count Result 189 k/mm3 (150-375); Red Blood Count 4.15 M/mm3 (4.6-6.20); Red Cell Distribution Width 13.3 % (11.5-14.5); White Blood Count 4.3 K/mm3 (4.5-10.0)
[2024-08-31 05:34] LABS: Alanine Aminotransferase 16 U/L (6-50); Albumin Level 3.5 g/dL (3.5-5.1); Alkaline Phosphatase 75 U/L (38-126); Anion Gap 4 mmol/L (4-12); Aspartate Amino Transferase 23 U/L (17-59); Bilirubin,Total 0.5 mg/dL (0.2-1.3); Blood Urea Nitrogen 15 mg/dL (9-20); Calcium 8.7 mg/dL (8.4-10.2); Carbon Dioxide 31 mmol/L (22-30); Chloride 102 mmol/L (98-107); Estimated CRCL calculation 66 ml/min; Estimated Glomerular Filt Rate > 60; Glucose 117 mg/dL (65-110); Potassium 4.7 mmol/L (3.4-5.0); Sodium 137 mmol/L (137-145)
--- NOTE | 2024-08-31 07:11 | PM.IMPN ---
Progress Note: A&P Assessment and Plan (1) SBO (small bowel obstruction): Onset Date: ~02/12/22 Code(s): K56.609 - Unspecified intestinal obstruction, unspecified as to partial versus complete obstruction Status: Acute Assessment and Plan: CT abdomen/pelvis 08/30: Small bowel obstruction, with transition point at the ileostomy orifice, versus possibly diffuse small bowel ileus. - Monitor I&Os, vital signs, neuro status and patient is a fall risk - Monitor serum electrolytes and CBC - Place NG tube for non operative management, NG tube to low intermittent suction. Monitor output. - NS @ 100 ml/hr - Blood cultures obtained on 08/30: pending - Ileostomy having small amount of liquid output today - Surgery consulted with the following recommendations: CT scan shows evidence of a SBO with transition point at the ileostomy orifice. It is likely that this is secondary to some roughage he ate yesterday, which also correlates with the onset of his symptoms. It does not appear to be related to intra-abdominal adhesions, and there are no findings on CT to suggest a flare-up of his Crohn's, but this is certainly another consideration. We would recommend to continue conservative measures for now with NG tube decompression, bowel rest, IV fluids, and analgesics as needed. He has multiple previous abdominal surgeries and co-morbidities that would increase his risks of surgery. water-soluble SBS to further evaluate the obstruction (2) Crohn's disease: Onset Date: Unknown Qualifiers: Digestive disease complication type: unspecified complication Gastrointestinal tract location: unspecified location Qualified Code(s): K50.919 - Crohn's disease, unspecified, with unspecified complications Code(s): K50.90 - Crohn's disease, unspecified, without complications Status: Acute Assessment and Plan: Patient has been in remission for years with Pentasa regimen. CT does not show any evidence of ileitis or bowel wall thickening concerning for Crohn's flare-up. (3) Current use of emt intermediate anticoagulation: Code(s): Z79.01 - [facility] (current) use of anticoagulants Status: Acute Assessment and Plan: HOLD Xarelto. Patient is on chronic anticoagulation for history of DVT and PE. Lovenox 80 mg subq q 12. (4) History of colectomy: Code(s): Z90.49 - Acquired absence of other specified parts of digestive tract Status: Acute Assessment and Plan: Remote history of subtotal colectomy in 1995 with end ileostomy. (5) Hx of ileostomy: Code(s): Z98.890 - Other specified postprocedural states Status: Acute Assessment and Plan: Monitor drainage and bloating. NG tube to suction. (6) Coronary artery disease: Onset Date: ~2012 Code(s): I25.10 - Atherosclerotic heart disease of [place] coronary artery without angina pectoris Status: Acute Assessment and Plan: Change Metoprolol to IV PRN while NPO and NG tube to suction. (7) Nausea: Code(s): R11.0 - Nausea Status: Acute Assessment and Plan: Ondansetron 4 mg ivp q 4 PRN. (8) Dizziness: Code(s): R42 - Dizziness and giddiness Status: Acute Assessment and Plan: NS@100 ml/hr. Time Spent With Patient Time with patient: 25 - 35 minutes Subjective Date/time seen: 08/31/24 07:11 Interval history: 79-year-old man with history of Crohn's in remission on Pentasa s/p subtotal colectomy with end ileostomy in 1995, recurrent DVTs, pulmonary embolism, hypertension, coronary artery disease who presented to the hospital with complaints of abdominal pain and vomiting. Patient is pleasant lying comfortably in bed. He continues to endorse abdominal pain/cramping with associated nausea. His NG tube is clamped at time of assessment for the SBS. He has a small amount of liquid stool in his ostomy. He denies chest pain, shortness of nena
--- NOTE | 2024-08-31 11:03 | PM.PNGS ---
Progress Note: A&P Assessment and Plan (1) SBO (small bowel obstruction): Onset Date: ~02/12/22 Code(s): K56.609 - Unspecified intestinal obstruction, unspecified as to partial versus complete obstruction Status: Acute Assessment and Plan: ilesotomy c some fxn, still quite tender on exam, await SBS, cont bowel rest and NG decompression for now Subjective Subjective Date/Time Seen: 08/31/24 11:03 Interval history: still quite a bit of crampy abd pain, ileostomy is slowly beginning to fxn Review of Systems Review of Systems: All systems reviewed & are unremarkable except as noted in HPI and below Exam Const: General: cooperative, no acute distress and uncomfortable Resp: Auscultation: clear to auscultation bilaterally Cardio: Rate: regular rate Rhythm: regular rhythm GI: Inspection: normal to inspection, distended and incision GI Palp: Yes abdominal tenderness, Yes Soft to palpation, Yes Tenderness to palpation present (GI), No Guarding due to palpation present (GI) and No Rigid due to palpation Other: ileostomy c moderate output Objective Data Vital Signs Vital Signs: Vital Signs - 24 hr 08/30/24 11:20 08/30/24 14:12 08/30/24 14:14 Temperature Pulse Rate 90 84 84 Respiratory Rate 16 18 Blood Pressure 134/56 L 154/68 H Pulse Oximetry 94 93 Oxygen Delivery 08/30/24 14:00 08/30/24 17:27 08/30/24 19:35 Temperature 36.8 C Pulse Rate 90 84 Respiratory Rate 18 18 Blood Pressure 154/73 H 113/86 Pulse Oximetry 92 93 Oxygen Delivery Room Air 08/30/24 20:02 08/30/24 20:07 08/31/24 04:13 Temperature 37.1 C 36.9 C Pulse Rate 100 87 Respiratory Rate 18 18 Blood Pressure 149/72 H 149/72 H 152/74 H Pulse Oximetry 94 94 Oxygen Delivery Intake/Output Intake/Output: Intake & Output 08/28/24 08/29/24 08/30/24 08/31/24 23:59 23:59 23:59 23:59 Intake Total 3000 896.7 Output Total 700 300 Balance 2300 596.7 Meds/Results Medications: Active Medications Generic Name Dose Route Start Last Admin Trade Name Freq PRN Reason Stop Dose Admin Cyanocobalamin 1,000 mcg 08/30/24 09:00 08/30/24 10:26 Cyanocobalamin 1,000 Mcg Tablet FEED TUBE Not Given QAM VICTOR HUGO Dextrose 12.5 gm 08/30/24 02:51 Dextrose 50% 25 Gm/50 Ml Syringe IV PUSH PRN PRN Hypoglycemia Protocol Enoxaparin Sodium 80 mg 08/30/24 14:00 08/31/24 02:44 Enoxaparin 80 Mg/0.8 Ml Syringe SUB-Q 80 mg Q12H VICTOR HUGO Administration Escitalopram Oxalate 10 mg 08/30/24 09:00 08/30/24 10:26 Escitalopram Oxalate 10 Mg Tablet FEED TUBE Not Given DAILY VICTOR HUGO Glucagon 1 mg 08/30/24 02:51 Glucagon For Inj 1 Mg Vial IM PRN PRN Hypoglycemia Protocol Glucose 15 gm 08/30/24 07:53 Glucose Oral Gel 15 Gm Of Glucse In 37.5 Gm Tube FEED TUBE PRN PRN Hypoglycemia Protocol Sodium Chloride 1,000 mls @ 100 mls/hr 08/30/24 02:55 08/31/24 09:16 Normal Saline Iv IV CONT 100 mls/hr .Q10H VICTOR HUGO Administration Dextrose 1,000 mls @ 100 mls/hr 08/30/24 02:51 Dextrose 5% 1,000 Ml IVPB PRN PRN Hypoglycemia Protocol Lisinopril 5 mg 08/30/24 09:00 08/30/24 11:23 Lisinopril 5 Mg Tablet FEED TUBE Not Given QAM [facility] Mesalamine 2,000 mg 08/30/24 08:00 Mesalamine 250 Mg Cap Cr PO BIDWM [facility] Metoprolol Tartrate 25 mg 08/30/24 09:00 08/30/24 11:23 Metoprolol Tartrate 25 Mg Tablet FEED TUBE Not Given Q12HR VICTOR HUGO Metoprolol Tartrate 5 mg 08/30/24 13:31 08/30/24 14:14 Metoprolol Tartrate Inj 5 Mg/5 Ml Vial IV PUSH 5 mg Q12H PRN Administration Tachycardia Miscellaneous Information 0 each 08/30/24 00:01 Mesalamine (Delzicol) Was Held Because It Cannot Be Administered Via Tube - We Carry Mesal XX 09/29/24 00:00 CLARIFY [facility] Morphine Sulfate 4 mg 08/30/24 02:51 10/16/24 04:24 Morphine Sulfate (*Crx) 4 Mg/Ml Inj IV PUSH 4 mg Q2H PRN Adm
[2024-08-31 12:24] LABS: Glucose Point of Care 134 mg/dl (65-105)
[2024-08-31 14:00] VITALS: BP 164/78; PULSE 107; RESP 17; TEMP 36.3; O2SAT 87
[2024-08-31 18:44] LABS: Glucose Point of Care 148 mg/dl (65-105)
[2024-08-31 18:56] VITALS: O2SAT 92
[2024-08-31 19:40] VITALS: PULSE 107; RESP 17; O2SAT 92
[2024-08-31 22:00] VITALS: BP 135/75; PULSE 123; RESP 18; TEMP 37.6; O2SAT 90
[2024-09-01 00:09] LABS: Glucose Point of Care 135 mg/dl (65-105)
[2024-09-01] MEDS: ENOXAPARIN 80 MG/0.8 ML SYRINGE SUB-Q ×2 (03:29→13:32)
[2024-09-01 05:34] LABS: Basophils Percent Auto 0.9 % (0.2-1.2); Hematocrit 42.4 % (42.0-52.0); Hemoglobin 13.6 g/dL (14.0-18.0); Immature Granulocyte Absolute 0.04 K/mm3 (0.00-0.031); Immature Granulocyte Percent A 1.2 % (0-0.5); Lymphocytes Absolute Auto 0.48 K/mm3 (0.9-3.2); Lymphocytes Percent Auto 14.9 % (18.3-44.2); Mean Corpuscular HGB Conc 32.1 g/dl (32-36); Mean Corpuscular Hemoglobin 32.5 pg (26-34); Mean Corpuscular Volume 101.4 fl (80-100); Mean Platelet Volume 9.9 fl (7.4-10.4); Monocytes Absolute Auto 0.3 K/mm3 (0.1-0.6); Monocytes Percent Auto 9.9 % (2.6-8.5); Neutrophils Absolute Auto 2.4 K/mm3 (1.3-6.7); Neutrophils Percent Auto 73.1 % (45.5-73.1); Platelet Count Result 198 k/mm3 (150-375); Red Blood Count 4.18 M/mm3 (4.6-6.20); Red Cell Distribution Width 13.4 % (11.5-14.5); White Blood Count 3.2 K/mm3 (4.5-10.0)
[2024-09-01 05:51] LABS: Alanine Aminotransferase 17 U/L (6-50); Albumin Level 3.6 g/dL (3.5-5.1); Alkaline Phosphatase 69 U/L (38-126); Anion Gap 6 mmol/L (4-12); Aspartate Amino Transferase 23 U/L (17-59); Bilirubin,Total 0.9 mg/dL (0.2-1.3); Blood Urea Nitrogen 26 mg/dL (9-20); Calcium 9.1 mg/dL (8.4-10.2); Carbon Dioxide 32 mmol/L (22-30); Chloride 102 mmol/L (98-107); Estimated CRCL calculation 42 ml/min; Estimated Glomerular Filt Rate 53; Glucose 125 mg/dL (65-110); Potassium 3.7 mmol/L (3.4-5.0); Sodium 140 mmol/L (137-145)
[2024-09-01 06:00] VITALS: BP 115/45; PULSE 110; RESP 18; TEMP 36.9; O2SAT 90
[2024-09-01 06:25] LABS: Glucose Point of Care 132 mg/dl (65-105)
--- NOTE | 2024-09-01 07:09 | PM.IMPN ---
Progress Note: A&P Assessment and Plan (1) Acute respiratory failure with hypoxia: Code(s): J96.01 - Acute respiratory failure with hypoxia Status: Acute Assessment and Plan: Placed on oxygen overnight for a desaturation to 87% on room air. Also noted that patient has become increasingly tachycardic overnight into the 110-120s. He has a history of DVT and PE which he was on xarelto for however given that he is NPO he has been getting therapeutic lovenox at this time. - Ddx: PE vs pneumonia vs other - Possible that the tachycardia is secondary to holding his metoprolol due to the SBO. 5 mg metoprolol IV PRN ordered. - Will obtain a VQ scan due to patients severe allergy of throat swelling to contrast. (2) SBO (small bowel obstruction): Onset Date: ~02/12/22 Code(s): K56.609 - Unspecified intestinal obstruction, unspecified as to partial versus complete obstruction Status: Acute Assessment and Plan: CT abdomen/pelvis 08/30: Small bowel obstruction, with transition point at the ileostomy orifice, versus possibly diffuse small bowel ileus. - Monitor I&Os, vital signs, neuro status and patient is a fall risk - Monitor serum electrolytes and CBC - Place NG tube for non operative management, NG tube to low intermittent suction. Monitor output. - NS @ 100 ml/hr - Blood cultures obtained on 08/30: NGTD - Ileostomy having small amount of liquid output today - SBS: Mildly dilated small bowel with very slow progression of contrast which has not yet reached the distal small bowel where the right lower quadrant and ileostomy over the course of 5 hours of observation. This be consistent with either ileus or obstruction. - Surgery consulted with the following recommendations: CT scan shows evidence of a SBO with transition point at the ileostomy orifice. It is likely that this is secondary to some roughage he ate yesterday, which also correlates with the onset of his symptoms. It does not appear to be related to intra-abdominal adhesions, and there are no findings on CT to suggest a flare-up of his Crohn's, but this is certainly another consideration. He has multiple previous abdominal surgeries and co-morbidities that would increase his risks of surgery. Clamping trial started, remove jessica NG tube and start clears if he does well (3) Crohn's disease: Onset Date: Unknown Qualifiers: Digestive disease complication type: unspecified complication Gastrointestinal tract location: unspecified location Qualified Code(s): K50.919 - Crohn's disease, unspecified, with unspecified complications Code(s): K50.90 - Crohn's disease, unspecified, without complications Status: Acute Assessment and Plan: Patient has been in remission for years with Pentasa regimen. CT does not show any evidence of ileitis or bowel wall thickening concerning for Crohn's flare-up. 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 Patient is on chronic anticoagulation for history of DVT and PE. Lovenox 80 mg subq q 12. (5) History of colectomy: Code(s): Z90.49 - Acquired absence of other specified parts of digestive tract Status: Acute Assessment and Plan: Remote history of subtotal colectomy in 1995 with end ileostomy. (6) Hx of ileostomy: Code(s): Z98.890 - Other specified postprocedural states Status: Acute Assessment and Plan: Monitor drainage and bloating. NG tube to suction. (7) Coronary artery disease: Onset Date: ~2012 Code(s): I25.10 - Atherosclerotic heart disease of [place] coronary artery without angina pectoris Status: Acute Assessment and Plan: Change Metoprolol to IV PRN while NPO and NG tube to suction. (8) Nausea: Code(s): R11.0 - Nausea Status: Acute Assessment
--- NOTE | 2024-09-01 09:18 | PM.PNGS ---
Progress Note: A&P Assessment and Plan (1) SBO (small bowel obstruction): Onset Date: ~02/12/22 Code(s): K56.609 - Unspecified intestinal obstruction, unspecified as to partial versus complete obstruction Status: Acute Assessment and Plan: Seems to be resolving. SBS showed slow transit with no contrast in distal small bowel at 5 hours. Abdominal x-ray this morning showed ileus vs partial SBO with contrast advanced to the distal small bowel. He has good ileostomy output and symptoms improved today. Abd exam improved. Will start a clamping trial and remove the NG tube and start clears later today if he does well. Continue IV fluids. Encouraged increasing activity. Plan I have discussed the patient's case and plan of care with Dr. Llamas. Subjective Subjective Date/Time Seen: 09/01/24 09:18 Patient reports: no new complaints, feels better and bowel movement Interval history: Patient feeling better today. He has mild soreness in the LLQ, but reports abdominal pain is much improved. No nausea. He has emptied his ostomy multiple times since last night. He has had about 1650 cc out of the ileostomy through the night and this morning. He reports the first time he emptied the bag, he could see the contents of what looked like the potato salad he ate the day his symptoms began. Now the output is all liquid and more clear. Exam Const: General: comfortable and no acute distress GI: Inspection: other (less distended) GI Palp: Yes Soft to palpation, Yes Tenderness to palpation present (GI) (very mild TTP in LLQ), No Guarding due to palpation present (GI), No Rebound tenderness present and Yes Other GI palpation findings present (ileostomy with large amount of chacon liquid output) Auscultation: Hypoactive bowel sounds present Objective Data Vital Signs Vital Signs: Vital Signs - 24 hr 08/31/24 14:00 08/31/24 18:56 08/31/24 19:40 Temperature 97.4 F L Pulse Rate 107 H 107 H Respiratory Rate 17 17 Blood Pressure 164/78 H Pulse Oximetry 87 L 92 92 Oxygen Delivery Room Air Oxygen Flow Rate 4 08/31/24 22:00 09/01/24 06:00 Temperature 99.7 F H 98.5 F Pulse Rate 123 H 110 H Respiratory Rate 18 18 Blood Pressure 135/75 115/45 L Pulse Oximetry 90 90 Oxygen Delivery Oxygen Flow Rate Intake/Output Intake/Output: Intake & Output 08/29/24 08/30/24 08/31/24 09/01/24 23:59 23:59 23:59 23:59 Intake Total 3000 1658.4 Output Total 700 2400 1950 Balance 2300 -741.6 -1950 Meds/Results Medications: Active Medications Generic Name Dose Route Start Last Admin Trade Name Freq PRN Reason Stop Dose Admin Cyanocobalamin 1,000 mcg 08/30/24 09:00 08/30/24 10:26 Cyanocobalamin 1,000 Mcg Tablet FEED TUBE Not Given QAM VICTOR HUGO Dextrose 12.5 gm 08/30/24 02:51 Dextrose 50% 25 Gm/50 Ml Syringe IV PUSH PRN PRN Hypoglycemia Protocol Enoxaparin Sodium 80 mg 08/30/24 14:00 09/01/24 03:29 Enoxaparin 80 Mg/0.8 Ml Syringe SUB-Q 80 mg Q12H VICTOR HUGO Administration Escitalopram Oxalate 10 mg 08/30/24 09:00 08/30/24 10:26 Escitalopram Oxalate 10 Mg Tablet FEED TUBE Not Given DAILY VICTOR HUGO Glucagon 1 mg 08/30/24 02:51 Glucagon For Inj 1 Mg Vial IM PRN PRN Hypoglycemia Protocol Glucose 15 gm 08/30/24 07:53 Glucose Oral Gel 15 Gm Of Glucse In 37.5 Gm Tube FEED TUBE PRN PRN Hypoglycemia Protocol Sodium Chloride 1,000 mls @ 100 mls/hr 08/30/24 02:55 08/31/24 16:53 Normal Saline Iv IV CONT 100 mls/hr .Q10H VICTOR HUGO Administration Dextrose 1,000 mls @ 100 mls/hr 08/30/24 02:51 Dextrose 5% 1,000 Ml IVPB PRN PRN Hypoglycemia Protocol Lisinopril 5 mg 08/30/24 09:00 08/30/24 11:23 Lisinopril 5 Mg Tablet FEED TUBE Not Given QAM VICTOR HUGO Mesalamine 2,000 mg 08/30/24 08:00 Mesalamine 250 Mg Cap Cr PO BIDWM VICTOR HUGO Metoprolol Tartrate 25 mg 08/30/24 09:00 08/30/24 11:23 Metoprolol
[2024-09-01 11:57] LABS: Glucose Point of Care 118 mg/dl (65-105)
[2024-09-01 13:31] VITALS: PULSE 100
[2024-09-01] MEDS: METOPROLOL TARTRATE INJ 5 MG/5 ML VIAL IV PUSH (13:31)
[2024-09-01 14:00] VITALS: BP 132/57; PULSE 89; RESP 16; TEMP 36.9; O2SAT 97
[2024-09-01] MEDS: SODIUM CHLORIDE 0.9% IV 1,000 ML 100 ML IV CONT (14:00)
[2024-09-01 15:34] VITALS: O2SAT 88
[2024-09-01 16:05] VITALS: O2SAT 96
[2024-09-01 20:43] VITALS: BP 136/62; PULSE 94; RESP 18; TEMP 37.4; O2SAT 97
[2024-09-01 21:19] LABS: Glucose Point of Care 107 mg/dl (65-105)
[2024-09-02] VITALS (107 sets, daily range): BP systolic 75–135; BP diastolic 41–76; PULSE 103–150; RESP 18–91; TEMP 37.6–40.1; O2SAT 82–98; BMI 28.0
--- NOTE | 2024-09-02 | ECHO_ITS ---
Patient Info Name: Ezequiel Madrigal Age: 79 years : 1945 Gender: Male Ht: 69 in Wt: 190 lbs BSA: 2.07 m2 HR: 142 bpm BP: 108 / 84 mmHg Heart Rhythm: Sinus Rhythm, Tachycardia Technical Quality: Fair Exam Date: 09/02/2024 10:16 AM Exam Location: Echo Lab Patient Status: Inpatient Admit Date: 08/30/2024 Staff Ordering Physician: Abbi Tovar PA-C Counter Molder: Eladio Lo RDCS Attending Provider: Abbi Tovar PA-C Referring Physician: Guy GERARD; Exam Type: CA echo dop color flow w con Study Info Indications - SVT Complete two-dimensional, color flow and Doppler transthoracic echocardiogram is performed with contrast to opacify the left ventricle and to improve the deliniation of the left ventricle endocardial borders. Summary 1. Very technically difficult study with limited views. 2. Left ventricular chamber dimension is normal. 3. There is mildly increased left ventricular wall thickness. 4. Left ventricular ejection fraction is mildly reduced, estimated at 40-45%%. 5. Right ventricular chamber dimension is normal. 6. Right ventricular systolic function is normal. 7. There is trivial anterior pericardial effusion. 8. No significant valvular disease noted. Left Ventricle Left ventricular chamber dimension is normal. There is mildly increased left ventricular wall thickness. The left ventricular diastolic function is abnormal. Left ventricular ejection fraction is mildly reduced, estimated at 40-45%%. Right Ventricle Right ventricular chamber dimension is normal. Right ventricular systolic function is normal. Left Atria Left atrial chamber dimension is normal. Right Atria Right atrial chamber dimension is normal. Atrial Septum Intact interatrial septum visualized by color flow imaging. Aortic Valve The aortic valve is not well visualized. There is no aortic valve stenosis. There is no aortic valve regurgitation. Pulmonic Valve The pulmonic valve is not well visualized. Mitral Valve There is trace mitral valve regurgitation. Tricuspid Valve There is trace tricuspid valve regurgitation. Pericardium/Pleural There is trivial anterior pericardial effusion. Inferior Vena Cava Inferior vena cava is not well visualized. Aorta The aortic root size at the sinus of Valsalva is normal. Left Ventricular Outflow Tract Name Value Normal LVOT 2D LVOT Diameter 1.99 cm LVOT Doppler LVOT Peak Gradient 3 mmHg LVOT Mean Gradient 2 mmHg LVOT VTI 8.84 cm LVOT VTI/AV VTI Ratio 1.09 LVOT Stroke Volume 27.46 ml LVOT CO 3.36 l/min LVOT CI 1.62 L/min/m2 Mitral Valve Name Value Normal MV Doppler MV Decel Hendricks 710.97 cm/s2 MV PHT 0 s
[2024-09-02] MEDS: ONDANSETRON INJ 4 MG/2 ML VIAL IV PUSH (00:19)
--- NOTE | 2024-09-02 02:30 | PC.NURSE ---
Pt transferred to IMU 201. I attempted to reach family with no response. Informed IMU RN Antonio.
[2024-09-02] MEDS: dilTIAZem HCl INJ 25 MG/5 ML VIAL 10 MG IV PUSH (03:00)
[2024-09-02 03:42] LABS: Basophils Absolute Auto 0.1 K/mm3 (0.0-0.1); Basophils Percent Auto 1.7 % (0.2-1.2); Eosinophils Percent Auto 0.3 % (0-4.4); Hematocrit 43.7 % (42.0-52.0); Hemoglobin 13.9 g/dL (14.0-18.0); Immature Granulocyte Absolute 0.12 K/mm3 (0.00-0.031); Immature Granulocyte Percent A 4.1 % (0-0.5); Lymphocytes Percent Auto 34.4 % (18.3-44.2); Mean Corpuscular HGB Conc 31.8 g/dl (32-36); Mean Corpuscular Hemoglobin 32.3 pg (26-34); Mean Corpuscular Volume 101.6 fl (80-100); Mean Platelet Volume 9.7 fl (7.4-10.4); Monocytes Absolute Auto 0.1 K/mm3 (0.1-0.6); Monocytes Percent Auto 2.1 % (2.6-8.5); Neutrophils Absolute Auto 1.7 K/mm3 (1.3-6.7); Neutrophils Percent Auto 57.4 % (45.5-73.1); Platelet Count Result 232 k/mm3 (150-375); Red Cell Distribution Width 13.2 % (11.5-14.5); White Blood Count 2.9 K/mm3 (4.5-10.0)
--- NOTE | 2024-09-02 03:43 | PC.NURSE ---
Addendum entered by Regla Tovar RN 09/02/24 03:47: Rapid response called at 0200 Original Note: Called into patient room, pt short of breath with labored respirations. O2 Saturation 68% on 2L increased O2 to 5 L with saturation only going up to 78, Hr 150 and patient remains short of breath. Rapid response team called at this time.
[2024-09-02 03:54] LABS: Alanine Aminotransferase 24 U/L (6-50); Albumin Level 3.8 g/dL (3.5-5.1); Alkaline Phosphatase 82 U/L (38-126); Anion Gap 9 mmol/L (4-12); Aspartate Amino Transferase 37 U/L (17-59); Bilirubin,Total 1.1 mg/dL (0.2-1.3); Blood Urea Nitrogen 26 mg/dL (9-20); Calcium 9.1 mg/dL (8.4-10.2); Carbon Dioxide 32 mmol/L (22-30); Chloride 94 mmol/L (98-107); Estimated CRCL calculation 45 ml/min; Estimated Glomerular Filt Rate 59; Glucose 162 mg/dL (65-110); Sodium 135 mmol/L (137-145)
[2024-09-02 03:55] LABS: INR 1.3; Prothrombin Time 16.2 Seconds (11.1-14.7)
[2024-09-02 03:56] LABS: Magnesium 2.2 mg/dL (1.6-2.3); NT Pro B Type Natriuretic Pept 372 pg/mL (19.9-100); Phosphorus 3.2 mg/dL (2.5-4.5); Troponin I 0.018 ng/mL (0.000-0.034)
[2024-09-02] MEDS: BUMETANIDE INJ 1 MG/4 ML VIAL 2.5 MG IV PUSH (04:13)
[2024-09-02] MEDS: dilTIAZem 100 MG/100 ML 100 MG/100 ML BAG 10 MG IV CONT (04:15)
[2024-09-02] MEDS: MORPHINE SULFATE (*CRX) 2 MG/ML INJ 1 MG IV PUSH (04:16)
[2024-09-02] MEDS: ENOXAPARIN 80 MG/0.8 ML SYRINGE SUB-Q (04:51)
--- NOTE | 2024-09-02 05:50 | P.PNCROSS_ITS ---
Event Note Event Note Event Note: Rapid response was called to patient's room. Upon arrival is noted patient tac hypneic audible crackles. Subjective: It hard to breathe Objective: Patient moderate respiratory distress, tachypneic, diaphoretic. Vitals: BP 150/72 respiratory rate 40 heart rate 160 General: Patient is sitting in bed in moderate respiratory distress HEENT: Atraumatic normocephalic PERRLA EOM intact supple no JVD Respiratory: Crackles throughout diminished breath sound bilaterally Cardiovascular: Tachycardic Abdomen: Colostomy bag in place Extremities: No edema, no clubbing, no cyanosis Skin: Intact Central nervous system: Awake alert oriented x3 Assessment and plan: 1. Acute hypoxic respiratory failure: Placed on BiPAP received breathing treatment x1 2.: Fluid overload: Receive Lasix 40 IV times once, Bumex IV times once, morphine 1 mg IV x2 3.: SVT: Transferred to IMU started diltiazem drip after diltiazem IV push 10 mg x 2
--- NOTE | 2024-09-02 06:16 | PC.NURSE ---
This patient, Ezequiel Madrigal, was received from [facility] on 09/02/24 at 0230. Patient/family oriented to unit policies and routines
--- NOTE | 2024-09-02 06:46 | PM.IMPN ---
Progress Note: A&P Assessment and Plan (1) Sepsis: Code(s): A41.9 - Sepsis, unspecified organism Status: Acute Assessment and Plan: Meets SIRS criteria: febrile, tachycardic, tachypnea - lactic acid ordered - 30 ml/kg fluid bolus ordered - suspected source: pneumonia vs SBO vs other - blood cultures drawn on 08/30: NGTD - repeat cultures drawn on 09/02: ordered - sputum cultures ordered - CXR: Patchy bilateral airspace consolidation, suspicious for bilateral pneumonia. - CT chest wo ordered to further evaluate pneumonia - CT abdomen wo ordered to further evaluate SBO - started on HAP tx: azithromycin, vancomycin and cefepime on 09/02 (2) Acute respiratory failure with hypoxia: Code(s): J96.01 - Acute respiratory failure with hypoxia Status: Acute Assessment and Plan: Placed on oxygen overnight for a desaturation to 87% on room air. Also noted that patient has become increasingly tachycardic overnight into the 110-120s. He has a history of DVT and PE which he was on xarelto for however given that he is NPO he has been getting therapeutic lovenox at this time. - Ddx: PE vs pneumonia vs other - Possible that the tachycardia is secondary to holding his metoprolol due to the SBO. 5 mg metoprolol IV PRN ordered. - Will obtain a VQ scan due to patients severe allergy of throat swelling to contrast. 09/02: Overnight a rapid response was called for respiratory distress, tachypnea (RR 40) and tachycardia (HR 160). On exam crackles were heard bilaterally and chest XR was showing bilateral airspace consolidation, suspicious for bilateral pneumonia. Patient recieved lasix, bumex and morphine. He was started on HAP treatment and transferred to the IMU on bipap for respiratory distress. He recieved diltiazem 10 mg x1 and was started on a diltiazem drip for tachycardia. - Requiring Bipap 100% O2 and breathing > 30 bpm - Discussed patient with Dr. Gomez and he will be transferred to ICU at this time (3) Pneumonia: Code(s): J18.9 - Pneumonia, unspecified organism Status: Acute Assessment and Plan: CXR: Patchy bilateral airspace consolidation, suspicious for bilateral pneumonia. Chest CT wo ordered to further evaluate pneumonia - started on HAP tx: azithromycin, vancomycin and cefepime on 09/02 - Viral PCR: Flu/COVID/RSV ordered - MRSA ordered - Sputum culture ordered - Requiring bipap (baseline RA) - Monitor vital signs, I&Os, neuro status and patient is a fall risk - Follow WBC, serum electrolytes, temperature curves and cultures (4) SVT (supraventricular tachycardia): Code(s): I47.10 - Supraventricular tachycardia, unspecified Status: Acute Assessment and Plan: Overnight a rapid response was called for respiratory distress, tachypnea (RR 40) and tachycardia (HR 160). He recieved diltiazem 10 mg x1 and was started on a diltiazem drip for tachycardia. - Remains tachycardic into the 150s, started on diltiazem drip overnight - Tachycardia likely secondary to worsening sepsis, given sepsis bolus - EKG ordered - Echo ordered - Continue telemetry - Cardiology consulted (5) SBO (small bowel obstruction): Onset Date: ~02/12/22 Code(s): K56.609 - Unspecified intestinal obstruction, unspecified as to partial versus complete obstruction Status: Acute Assessment and Plan: CT abdomen/pelvis 08/30: Small bowel obstruction, with transition point at the ileostomy orifice, versus possibly diffuse small bowel ileus. CT abdomen/pelvis 09/02: ordered to reevaluate given patient now septic - Monitor I&Os, vital signs, neuro status and patient is a fall risk - Monitor serum electrolytes and CBC - NS @ 100 ml/hr - Blood cultures obtained on 08/30: NGTD - Repeat blood cultures obtained on 09/02: ordered - Ileostomy having small amount of liquid output today - SBS: Mildly dilated small bowel with very slow progression of contrast which has not yet reached the dis
--- NOTE | 2024-09-02 06:49 | ECG_ITS ---
Test Date: 2024-09-02 02:21:11 Measurements Intervals [place] Rate: 161 P: 0 [place]: 0 QRS: -17 QRSD: 108 T: 56 QT: 303 QTc: 496 Interpretive Statements SINUS TACHYCARDIA NONSPECIFIC ST & T-WAVE ABNORMALITY ABNORMAL RHYTHM ECG No previous ECG available for comparison Electronically Signed On 09-02-2024 13:38:44 CDT by Tom Gonzáles M.D.
[2024-09-02 07:57] LABS: Glucose Point of Care 139 mg/dl (65-105)
[2024-09-02] MEDS: ACETAMINOPHEN 325 MG TABLET 650 MG PO ×2 (08:00→20:57)
--- NOTE | 2024-09-02 08:09 | ECG_ITS ---
Test Date: 2024-09-02 08:04:22 Measurements Intervals [place] Rate: 139 P: 42 [place]: 129 QRS: -34 QRSD: 101 T: 91 QT: 315 QTc: 479 Interpretive Statements SINUS TACHYCARDIA MARKED LEFT AXIS DEVIATION [QRS AXIS < -30] ST DEVIATION AND MODERATE T-WAVE ABNORMALITY, CONSIDER LATERAL ISCHEMIA [-0.1+ mV T WAVE IN I/aVL/V5/V6] INTERPRETATION BASED ON A DEFAULT AGE OF 40 YEARS Compared to ECG 09/02/2024 02:21:11 HEART RATE IS SLOWER NOW Electronically Signed On 09-02-2024 13:42:00 CDT by Tom Gonzáles M.D.
[2024-09-02 08:29] LABS: Lactic Acid Reflex 4.5 mmol/L (0.7-2.0)
--- NOTE | 2024-09-02 08:38 | PM.CNCAR ---
Assessment and Plan Assessment and plan (1) Tachycardia: Code(s): R00.0 - Tachycardia, unspecified Status: Acute Assessment and Plan: Sinus tachycardia secondary to sepsis, shock. Treat underlying cause. Cardiology will follow along on an as needed basis, please call with questions (2) Acute respiratory failure with hypoxia: Code(s): J96.01 - Acute respiratory failure with hypoxia Status: Acute Assessment and Plan: He is now mechanically ventilated. Management per critical care. (3) Shock: Code(s): R57.9 - Shock, unspecified Status: Acute Assessment and Plan: Septic shock. Abx and pressor support per critical care team. (4) SBO (small bowel obstruction): Onset Date: ~02/12/22 Code(s): K56.609 - Unspecified intestinal obstruction, unspecified as to partial versus complete obstruction Status: Acute Assessment and Plan: Surgery is following History of Present Illness History of Present Illness Consult date/time: 09/02/24 08:38 Requesting physician: Abbi Tovar PA-C Reason For Visit: SBO, Hx of colectomy with ileostomy Narrative: Ezequiel Madrigal is a 79 year old male with history of Crohn's disease with colectomy and ileostomy performed in 1995. He presented to the emergency department with complaints of abdominal pain and decreased ileostomy output. Cardiology is consulted because of tachycardia. He was being treated for small bowel obstruction and was clinically improving, however, earlier this morning he developed respiratory distress and is now intubated in the ICU and on pressors. I was able to obtain history from his daughter who is at the bedside. She reports history of coronary artery disease with stenting in 2012 but no other known cardiac problems. Review of Systems Review of Systems: All systems reviewed & are unremarkable except as noted in HPI and below PMFSH Past Medical History Medical History Coronary artery disease (~2012) Status post stent in 2012. Crohn's disease Status post total colectomy with ileostomy. 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 Deep venous thrombosis Left lower extremity x2. Essential tremor (Unknown) Gastrointestinal bleed Related to Crohn's disease. Hospitalized in October 2019 and March 2021. History of Jared's gangrene Hyperlipemia (Unknown) Hypertension Pulmonary embolism Surgical History Surgical History History of appendectomy History of arthroplasty of right knee (~02/05/21) History of coronary artery stent placement (~2012) x1. Patient of Dr. Griffin. History of hip surgery (~2010) Pinning of left hip fracture with subsequent hardware removal. History of ileostomy (~1995) History of incisional hernia repair Incisional hernia repair with mesh in [place] prior to his subtotal colectomy History of inguinal hernia repair Over 30 years ago, does not recall if they used mesh or not History of right mastoidectomy History of total colectomy (~1995) Had previous partial resections and eventual subtotal colectomy with end ileostomy Status post cataract extraction of both eyes with insertion of intraocular lens Status post debridement Status post debridement of a large gangrenous infection in the left groin and genital region, likely Jared's gangrene. Status post right knee replacement (01/2021) Family History Family History Other Heart disease Hypertension Social History Social History Social History: Surrogate decision maker: Ethan Madrigal, son. Code status: Full code. Smoking packs per day: 1 Smoking cigarettes per day: 20.0 Years smoked: 35 Smoking pack-years:
[2024-09-02 08:58] LABS: Influenza A QL RT-PCR Negative (Negative); Influenza B QL RT-PCR Negative (Negative); RSV RNA, RT-PCR Negative (Negative); SARS-CoV-2 RNA PCR Negative (Negative)
[2024-09-02] MEDS: ETOMIDATE 20 MG/10 ML AMPUL 24 MG IV PUSH (08:59)
--- NOTE | 2024-09-02 09:04 | PCPTNOTE ---
The patient treatment was not able to be completed on 09/02/2024 due to patient transferring to ICU and change in medical status. Will plan to continue treatment per plan of care.
[2024-09-02] MEDS: FENTANYL 2,500MCG/NS250ML(*CRX 2,500 MCG/250 ML BAG IV CONT (09:05)
[2024-09-02] MEDS: MIDAZOLAM 100MG/NS 100ML(*CRX) 100 MG/100 ML BAG IV CONT (09:10)
[2024-09-02] MEDS: ROCURONIUM BROMIDE 50 MG/5 ML VIAL IV PUSH ×3 (09:12→11:54)
[2024-09-02] MEDS: METOPROLOL TARTRATE INJ 5 MG/5 ML VIAL IV PUSH (09:13)
[2024-09-02 09:30] LABS: Base Excess ABG 2.5 mEq/l (+/-2.0); Fractional Inspired Oxygen 100 %; HCO3 ABG 25.5 mEq/l (22.0-26.0); Oxygen Content ABG 17.6 %vol (16.0-22.0); PCO2 ABG 34.7 mmHg (35.0-45.0); PO2 FiO2 Ratio Arterial Blood 0.44 %; Total Hemoglobin 14.7 g/dL (12.0-18.0); pH ABG 7.484 (7.350-7.450)
[2024-09-02 09:33] LABS: Oxygen Saturation ABG 84.1 % (95.0-100.0); PO2 ABG 44.3 mmHg (80.0-100.0)
[2024-09-02 09:34] LABS: Modified Allen's Test Pass; Oxyhemoglobin 85.4 % THb (90.0-100.0); Site Drawn RIGHT RADIAL
[2024-09-02 09:35] LABS: Device AMBU BAG
[2024-09-02 09:35] LABS: MRSA (PCR) NOT DETECTED (NOT DETECTE)
--- NOTE | 2024-09-02 09:37 | PM.PNGS ---
Progress Note: A&P Assessment and Plan (1) SBO (small bowel obstruction): Onset Date: ~02/12/22 Code(s): K56.609 - Unspecified intestinal obstruction, unspecified as to partial versus complete obstruction Status: Acute Assessment and Plan: SBO resolving yesterday and he was clinically improving. Worsening tachycardia and tachypnea this morning. He is febrile. He is now intubated and sedated in the ICU. His exam this morning after intubation is limited given the sedation, but his abdominal exam was reportedly benign this morning prior to intubation. CT scan chest/abdomen/pelvis today showed multifocal pneumonia and suspected small bowel obstruction. No free intraperitoneal air. Will continue to monitor for now with NG tube decompression and bowel rest. Continue critical care management. (2) Acute respiratory failure with hypoxia: Code(s): J96.01 - Acute respiratory failure with hypoxia Status: Acute Assessment and Plan: Intubated in ICU. Management per can cleaner (3) Pneumonia: Code(s): J18.9 - Pneumonia, unspecified organism Status: Acute Assessment and Plan: Continue antibiotics and critical care management (4) Sepsis: Code(s): A41.9 - Sepsis, unspecified organism Status: Acute (5) SVT (supraventricular tachycardia): Code(s): I47.10 - Supraventricular tachycardia, unspecified Status: Acute Plan I have discussed the patient's case and plan of care with Dr. Llamas. Subjective Subjective Date/Time Seen: 09/02/24 08:57 Interval history: Yesterday, when the patient was seen, his abdominal pain had resolved. He was having lots of ileostomy output. I had ordered an NG tube clamping trial, which he apparently tolerated. He was also mildly tachycardic yesterday and tachypneic. He was on 4 L nasal cannula. Overnight, he became more tachycardic and tachypneic. This morning, he is febrile. He had a rapid response called and found to be in acute hypoxic respiratory failure with fluid overload and in SVT. He was placed on BiPAP, diuresed, and transferred to IMU. He was started on diltiazem. He has continued to get worse and transferred to ICU this morning. I spoke with the can cleaner and arrived almost immediately after he was intubated in the ICU. I was told by staff that he denied any abdominal pain prior to intubation. Initially, Exam Const: General: ill appearing Orientation/consciousness: patient obtunded (Sedated and intubated) Cardio: Rate: tachycardic GI: Inspection: other (Mildly distended) GI Palp: Yes Soft to palpation and Yes Other GI palpation findings present (Exam limited as patient is sedated) Auscultation: Hypoactive bowel sounds present Other: Ileostomy with small amount of out output in the bag Objective Data Vital Signs Vital Signs: Vital Signs - 24 hr 09/01/24 13:31 09/01/24 14:00 09/01/24 15:34 Temperature 98.4 F Pulse Rate 100 89 Respiratory Rate 16 Blood Pressure 132/57 L Pulse Oximetry 97 Pulse Oximetry [At Rest Prior to Therapy Session] 88 L Oxygen Delivery Room Air Oxygen Flow Rate Fraction of Inspired Oxygen 09/01/24 16:05 09/01/24 20:43 09/02/24 04:15 Temperature 99.4 F Pulse Rate 94 144 H Respiratory Rate 18 Blood Pressure 136/62 135/72 Pulse Oximetry 97 Pulse Oximetry [At Rest Prior to Therapy Session] 96 Oxygen Delivery Nasal Cannula Oxygen Flow Rate 2 Fraction of Inspired Oxygen 09/02/24 02:45 09/02/24 05:04 09/02/24 05:59 Temperature 101.1 F H 101.0 F H Pulse Rate 150 H 148 H 150 H Respiratory Rate 33 H 32 H 32 H Blood Pressure 126/71 134/76 Pulse Oximetry 92 98 92 Pulse Oximetry [At Rest Prior to Therapy Session] Oxygen Delivery BiPAP Oxygen Flow Rate Fraction of Inspired Oxygen 09/02/24 03:00 09/02/24 04:00 09/02/24 06:00 Temperature Pulse Rate 145 H Respiratory Rate Blood Pressure Pulse Oximet
[2024-09-02] MEDS: NOREPINEPHRINE 8 MG/D5W 250 ML 8 MG/250 ML BAG 9.38 MG IV CONT (09:40)
[2024-09-02] MEDS: TENECTEPLASE 50 MG/10 ML VIAL 45 MG IV PUSH (10:06)
[2024-09-02] MEDS: MIDAZOLAM HCL (*CRX) 2 MG/2 ML VIAL IV PUSH (10:08)
[2024-09-02] MEDS: SODIUM CHLORIDE 0.9% IV 1,000 ML 999 ML IV CONT (10:08)
[2024-09-02] MEDS: PERFLUTREN LIPID MICROSPHERES 1.5 ML VIAL DILUTED TO 10 ML TOTAL VOLUME IV PUSH (10:20)
[2024-09-02] MEDS: POTASSIUM CHLORIDE INJ 40 MEQ in SODIUM CHLORIDE 0.9% IV 500 ML 130 MEQ IVPB (10:47)
[2024-09-02] MEDS: CEFEPIME 2 GM/NS 50 ML 2 GM/50 ML BAG IVPB ×2 (10:47→22:51)
--- NOTE | 2024-09-02 10:58 | IVDEFINITY ---
Prior to administration of IV Definity the patient was educated on the risks and benefits of the imaging enhancing agent including potential adverse side effects. The patient verbalized understanding. Allergies were verified. No exclusion criteria were identified and at least one of the following inclusion criteria were met: 1) physician request, 2) patient technically difficult to image (per the [place] [employer] guidelines of two or more segments not discernable within the apical view), or 3) questionable left ventricular function. ?
--- NOTE | 2024-09-02 11:08 | WPDPROCEDUR ---
Procedures Intubation Intubation Date: 09/02/24 Intubation Time: 08:50 Consent: Consent was obtained from the patient, explained to him the rationale for intubation since he was tachycardic, tachypneic and hypoxic. He was agreeable to intubation and mechanical ventilation. I also updated his significant other A pre-procedural Time-Out was completed immediately before starting the procedure and confirmed: Patient Identification, Site, Procedure, Patient Position and the Availability of Requisite Equipment: Yes Sedative: etomidate Paralytic: rocuronium Laryngoscope: fiber optic video scope Assist device used: fiber optic device ET tube size: 8 Tube secured depth (cm): 25 Tube secured location: lips Tube placement confirmation: visualized tube passing through cords, equal breath sounds bilaterally, no breath sounds over epigastrium and confirmation by capnometry Patient tolerated procedure: well Intubation complications: none
--- NOTE | 2024-09-02 11:10 | WPDCNINT ---
Assessment and Plan Assessment and plan (1) Acute respiratory failure with hypoxia: Code(s): J96.01 - Acute respiratory failure with hypoxia Status: Acute Assessment and Plan: 09/02/2024: Patient was tachycardic, tachypneic, hypoxic, hypotensive this morning. Patient was in impending respiratory failure, discussed with patient and he was agreeable with intubation and mechanical ventilation -patient is brought to the ICU from the intermediate Unit, intubated and placed on mechanical ventilation. Intubation was uneventful with post intubation patient remains significantly hypoxic in the 70s, patient was tachycardic in the 130s to 140s, hypotensive with systolic blood pressures dropping to 70s. Given the symptoms and severe hypoxia, immediate ABG showed normal pH, normal pCO2, normal bicarb but severe hypoxia. Given the spectrum of signs and symptoms and history of DVT and pulmonary embolism discuss with family regarding tenecteplase to which they were agreeable. Tenecteplase planes was administered, O2 sats increased from 70s to 90s on about 10-15 minutes. -currently on CMV mode of ventilation, 100% FiO2, peep of 5 -will start DuoNeb -sedated with fentanyl and Versed infusion 09/02/2024: CT scan of the chest abdomen and pelvis: -Multifocal bilateral pneumonia with probable extensive left lower lobe and partial right lower lobe atelectasis. -Suspected small bowel obstruction, as detailed above. Status post colectomy with ileostomy. (2) Shock: Code(s): R57.9 - Shock, unspecified Status: Acute Assessment and Plan: Shock likely obstructive, likely secondary to pulmonary embolism -will obtain proBNP and troponin -could be related to septic shock secondary pneumonia on CT scan of the chest -started patient on stress dose steroids, -patient was given 1 L IV fluid bolus -status post tenecteplase, oxygenation improved -continue norepinephrine and vasopressin, maintain MAP > 65 mmHg at all times for adequate end organ perfusion -continue vancomycin, cefepime azithromycin (3) DVT (deep venous thrombosis): Code(s): I82.409 - Acute embolism and thrombosis of unspecified deep veins of unspecified lower extremity Status: Acute Assessment and Plan: Nonocclusive DVT of the left popliteal vein, patient was on therapeutic Lovenox 09/01/2024: Venous Dopplers Left popliteal vein partially compressible with age-indeterminate nonocclusive deep venous thrombosis. 2. No deep venous anastomosis in the right lower limb. (4) SBO (small bowel obstruction): Onset Date: ~02/12/22 Code(s): K56.609 - Unspecified intestinal obstruction, unspecified as to partial versus complete obstruction Status: Acute Assessment and Plan: Small-bowel obstruction on admission, patient was treated with NG decompression, bowel rest, IV fluids, analgesia for pain (5) Crohn's disease: Onset Date: Unknown Qualifiers: Gastrointestinal tract location: unspecified location Digestive disease complication type: unspecified complication Qualified Code(s): K50.919 - Crohn's disease, unspecified, with unspecified complications Code(s): K50.90 - Crohn's disease, unspecified, without complications Status: Acute Assessment and Plan: History of Crohn's disease (6) Hypertension: Code(s): I10 - Essential (primary) hypertension Status: Acute Assessment and Plan: Patient currently in shock, hypotensive, will hold all antihypertensive (7) Anisocoria: Code(s): H57.02 - Anisocoria Status: Acute Assessment and Plan: Right pupil larger than the left status post tenecteplase -stat CT scan of the brain, showed no acute intracranial process, moderate scattered white matter hypoattenuation consistent with chronic small-vessel ischemic disease. Plan DVT prophylaxis: Status post tenecteplase Stress ulcer prophylaxis: Protonix IV q.12 Nutrition: NPO Co
[2024-09-02 11:28] LABS: Reflex Lactic Acid Yes or No Add Lactic
--- NOTE | 2024-09-02 11:41 | PM.PNGS ---
Subjective Subjective Date/Time Seen: 09/02/24 11:41 Interval history: entered in error Objective Data Vital Signs Vital Signs: Vital Signs - 24 hr 09/01/24 13:31 09/01/24 14:00 09/01/24 15:34 Temperature 36.9 C Pulse Rate 100 89 Respiratory Rate 16 Blood Pressure 132/57 L Pulse Oximetry 97 Pulse Oximetry [At Rest Prior to Therapy Session] 88 L Oxygen Delivery Room Air Oxygen Flow Rate Fraction of Inspired Oxygen 09/01/24 16:05 09/01/24 20:43 09/02/24 04:15 Temperature 37.4 C Pulse Rate 94 144 H Respiratory Rate 18 Blood Pressure 136/62 135/72 Pulse Oximetry 97 Pulse Oximetry [At Rest Prior to Therapy Session] 96 Oxygen Delivery Nasal Cannula Oxygen Flow Rate 2 Fraction of Inspired Oxygen 09/02/24 02:45 09/02/24 05:04 09/02/24 05:59 Temperature 38.4 C H 38.3 C H Pulse Rate 150 H 148 H 150 H Respiratory Rate 33 H 32 H 32 H Blood Pressure 126/71 134/76 Pulse Oximetry 92 98 92 Pulse Oximetry [At Rest Prior to Therapy Session] Oxygen Delivery BiPAP Oxygen Flow Rate Fraction of Inspired Oxygen 09/02/24 03:00 09/02/24 04:00 09/02/24 06:00 Temperature Pulse Rate 145 H Respiratory Rate Blood Pressure Pulse Oximetry Pulse Oximetry [At Rest Prior to Therapy Session] Oxygen Delivery BiPAP BiPAP Oxygen Flow Rate Fraction of Inspired Oxygen 100 100 09/02/24 06:00 09/02/24 07:24 09/02/24 08:00 Temperature 39.7 C H 39.7 C H Pulse Rate 139 H 142 H Respiratory Rate 36 H Blood Pressure 108/54 L Pulse Oximetry 91 Pulse Oximetry [At Rest Prior to Therapy Session] Oxygen Delivery Oxygen Flow Rate Fraction of Inspired Oxygen 09/02/24 08:00 09/02/24 08:00 09/02/24 09:13 Temperature Pulse Rate 142 H 142 H 148 H Respiratory Rate 30 H Blood Pressure 108/54 L Pulse Oximetry 94 Pulse Oximetry [At Rest Prior to Therapy Session] Oxygen Delivery BiPAP Oxygen Flow Rate Fraction of Inspired Oxygen 100 09/02/24 09:05 09/02/24 09:10 09/02/24 09:40 Temperature Pulse Rate 131 H 131 H 129 H Respiratory Rate 26 H 36 H Blood Pressure Pulse Oximetry Pulse Oximetry [At Rest Prior to Therapy Session] Oxygen Delivery Oxygen Flow Rate Fraction of Inspired Oxygen 09/02/24 09:45 09/02/24 09:00 09/02/24 08:40 Temperature 39.9 C H Pulse Rate 130 H 141 H Respiratory Rate 36 H Blood Pressure 81/60 L Pulse Oximetry 89 L Pulse Oximetry [At Rest Prior to Therapy Session] Oxygen Delivery BiPAP Oxygen Flow Rate Fraction of Inspired Oxygen 09/02/24 11:03 Temperature Pulse Rate 103 H Respiratory Rate Blood Pressure Pulse Oximetry 93 Pulse Oximetry [At Rest Prior to Therapy Session] Oxygen Delivery Mechanical Ventilation Oxygen Flow Rate Fraction of Inspired Oxygen Intake/Output Intake/Output: Intake & Output 08/30/24 08/31/24 09/01/24 09/02/24 23:59 23:59 23:59 23:59 Intake Total 3000 1658.4 2250 158.3 Output Total 700 2400 2700 1250 Balance 2300 -741.6 -450 -1091.7 Meds/Results Medications: Active Medications Generic Name Dose Route Start Last Admin Trade Name Freq PRN Reason Stop Dose Admin Acetaminophen 650 mg 09/02/24 07:57 09/02/24 08:00 Acetaminophen 325 Mg Tablet PO 650 mg Q4H PRN Administration Mild Pain (1-3) or Fever Cyanocobalamin 1,000 mcg 08/30/24 09:00 08/30/24 10:26 Cyanocobalamin 1,000 Mcg Tablet FEED TUBE Not Given QAM VICTOR HUGO Dextrose 12.5 gm 08/30/24 02:51 Dextrose 50% 25 Gm/50 Ml Syringe IV PUSH PRN PRN Hypoglycemia Protocol Escitalopram Oxalate 10 mg 08/30/24 09:00 08/30/24 10:26 Escitalopram Oxalate 10 Mg Tablet FEED TUBE Not Given DAILY VICTOR HUGO Glucagon 1 mg 08/30/24 02:51 Glucagon For Inj 1 Mg Vial IM PRN PRN Hypoglycemia Protocol Glucose 15 gm 08/30/24 07:53 Glucose Oral Gel 15 Gm Of Glucse In 37.5 Gm Tube FEED TUBE
--- NOTE | 2024-09-02 11:50 | PCDIET ---
Nutrition Recommendations: Vital AF 1.2 at 20 ml/hr advance by 10 ml q 4 hours to goal rate of 60 ml/hr. Tube feedings at 60 ml/hr will providing 73% kcal needs at 25 kcal/kg and 95% protein needs at 1.2-1.4 gm/kg. Recommend this rate for 72 hours then will reevaluate for goal rate. Flush 30 ml q 4 hours.
[2024-09-02] MEDS: VANCOMYCIN 1,250 MG/NS 250 ML 1,250 MG/250 ML BAG 166.67 MG IVPB (11:54)
[2024-09-02] MEDS: VASOPRESSIN INJ 100 UNITS in DEXTROSE 5% 95 ML IV CONT (12:01)
[2024-09-02] MEDS: HYDROCORTISONE SODIUM SUCCINATE 100 MG/2 ML VIAL IV PUSH ×2 (12:03→20:24)
[2024-09-02] MEDS: SODIUM CHLORIDE 0.9% IV 500 ML IV CONT (12:11)
[2024-09-02] MEDS: VANCOMYCIN 1,000 MG/NS 250 ML 1,000 MG/250 ML BAG 250 MG IVPB (12:48)
[2024-09-02] MEDS: PANTOPRAZOLE SODIUM IV 40 MG VIAL IV PUSH ×2 (12:48→20:24)
[2024-09-02] MEDS: IPRATROPIUM 0.5 MG/ALBUTEROL SULFATE 2.5 MG AMPUL.NEB 3 ML INHALATION ×2 (13:57→20:50)
[2024-09-02] MEDS: AZITHROMYCIN 500 MG/NS 250 ML 500 MG/250 ML BAG 250 MG IVPB (14:39)
[2024-09-02] MEDS: SODIUM CHLORIDE 0.9% IV 1,000 ML 75 ML IV CONT (14:46)
[2024-09-02] MEDS: NOREPINEPHRINE 8 MG/D5W 250 ML 8 MG/250 ML BAG 45 MG IV CONT (16:29)
[2024-09-02 16:32] LABS: Add Urine Microscopic? YES; Appearance Urine Turbid (Clear); Bacteria Urine None Seen /hpf; Bilirubin Urine Negative (Negative); Blood Urine 1+ (Negative); Color Urine Yellow (Yellow); Glucose Urine UA Negative (Negative); Granular Casts Urine Present /lpf; Ketones Urine Negative (Negative); Leukocyte Esterase Ur Negative LEU/UL (Negative); Nitrate Urine Negative (Negative); Non Pathogenic Casts >20; Protein Urine 1+ mg/dL (Negative); Specific Grav Ur 1.009 (1.001-1.035); Squamous Epithelial Cell Urine Moderate /hpf (Few); Urobilinogen Urine 0.2 mg/dL (<2.0); WBC Urine 0-5 /hpf (0-3)
[2024-09-02] MEDS: MINERAL OIL/WHITE PETROLATUM OINTMENT 1 APPLIC EACH EYE (20:25)
[2024-09-02] MEDS: NOREPINEPHRINE 8 MG/D5W 250 ML 8 MG/250 ML BAG 54.38 MG IV CONT (21:12)
[2024-09-03] VITALS (57 sets, daily range): BP systolic 83–128; BP diastolic 39–73; PULSE 106–180; RESP 26–31; TEMP 36.6–37.6; O2SAT 88–100
[2024-09-03] MEDS: NOREPINEPHRINE 8 MG/D5W 250 ML 8 MG/250 ML BAG 54.38 MG IV CONT (01:54)
[2024-09-03] MEDS: IPRATROPIUM 0.5 MG/ALBUTEROL SULFATE 2.5 MG AMPUL.NEB 3 ML INHALATION ×3 (02:20→13:40)
[2024-09-03] MEDS: HYDROCORTISONE SODIUM SUCCINATE 100 MG/2 ML VIAL IV PUSH ×3 (03:48→20:30)
[2024-09-03] MEDS: MIDAZOLAM 100MG/NS 100ML(*CRX) 100 MG/100 ML BAG IV CONT (06:24)
[2024-09-03] MEDS: NOREPINEPHRINE 8 MG/D5W 250 ML 8 MG/250 ML BAG 52.5 MG IV CONT ×2 (06:51→11:37)
[2024-09-03 07:18] LABS: Alveolar/Arterial O2 Gradient 619.3 mmHg; Base Excess ABG -3.8 mEq/l (+/-2.0); Carboxyhemoglobin 0.3 % THb (0-2.0); Fractional Inspired Oxygen 100 %; Methemoglobin ABG 0.4 %THb (0-1.5); Oxygen Content ABG 16.7 %vol (16.0-22.0); PCO2 ABG 42.5 mmHg (35.0-45.0); PO2 ABG 51.2 mmHg (80.0-100.0); PO2 FiO2 Ratio Arterial Blood 0.51 %; Reduced Hemoglobin 12.6 %THb (0-5.0); Total Hemoglobin 13.7 g/dL (12.0-18.0); pH ABG 7.331 (7.350-7.450)
[2024-09-03 07:19] LABS: Hematocrit 41.3 % (42.0-52.0); Hemoglobin 12.8 g/dL (14.0-18.0); Mean Corpuscular Hemoglobin 31.5 pg (26-34); Mean Corpuscular Volume 101.7 fl (80-100); Mean Platelet Volume 10.6 fl (7.4-10.4); Platelet Count Result 147 k/mm3 (150-375); Red Blood Count 4.06 M/mm3 (4.6-6.20); Red Cell Distribution Width 13.6 % (11.5-14.5); White Blood Count 8.9 K/mm3 (4.5-10.0)
[2024-09-03 07:20] LABS: Oxygen Saturation ABG 83.8 % (95.0-100.0); Oxyhemoglobin 86.7 % THb (90.0-100.0); Site Drawn RIGHT BRACHIAL
[2024-09-03 07:21] LABS: Arterial Blood Gas PEEP 5 cmH2O; Arterial Blood Gas Tidal Volume 450 ml; Arterial Blood Gas Vent Mode CMV; Arterial Blood Gas Ventilator rate 26 /MIN; Device VENTILATOR
[2024-09-03 07:30] LABS: INR 1.6; Prothrombin Time 19.1 Seconds (11.1-14.7)
[2024-09-03 07:31] LABS: Partial Thromboplastin Time 44.9 Seconds (22.3-36.8)
[2024-09-03 07:45] LABS: Alanine Aminotransferase 40 U/L (6-50); Alkaline Phosphatase 51 U/L (38-126); Anion Gap 11 mmol/L (4-12); Aspartate Amino Transferase 50 U/L (17-59); Bilirubin,Total 1.2 mg/dL (0.2-1.3); Blood Urea Nitrogen 46 mg/dL (9-20); Calcium 7.7 mg/dL (8.4-10.2); Carbon Dioxide 22 mmol/L (22-30); Chloride 102 mmol/L (98-107); Estimated CRCL calculation 25 ml/min; Estimated Glomerular Filt Rate 25; Glucose 152 mg/dL (65-110); Magnesium 2.1 mg/dL (1.6-2.3); Phosphorus 3.8 mg/dL (2.5-4.5); Potassium 3.2 mmol/L (3.4-5.0); Sodium 135 mmol/L (137-145)
[2024-09-03 07:45] LABS: Lactic Acid Reflex 4.6 mmol/L (0.7-2.0)
[2024-09-03] MEDS: ROCURONIUM BROMIDE 50 MG/5 ML VIAL IV PUSH (08:20)
[2024-09-03] MEDS: LACTATED RINGERS 500 ML IV CONT (08:22)
[2024-09-03 09:11] LABS: Band Neutrophils Percent 35 % (0-6); Lymphocytes Absolute Manual 0.62 K/mm3 (1.1-4.5); Metamyelocytes Percent 1 %; Monocytes Absolute Manual 1.06 K/mm3 (0.1-0.90); Monocytes Percent Manual 12 % (3-9); Neutrophils Absolute Manual 7.12 K/mm3 (1.3-6.7); Neutrophils Percent Manual 45 % (46-73); Nucleated Red Blood Cells 1 %; Total Cells Counted 100
[2024-09-03 09:12] LABS: Platelet Estimate Adequate (Adequate); Schistocytes None Seen
--- NOTE | 2024-09-03 09:32 | P.PCNBED_ITS ---
Procedures Arterial Line Arterial Line Date: 09/03/24 Arterial Line Time: 09:15 Discussed with the patient/family/POA, the placement of an arterial catheter, including its clinical necessity/indication and associated potential risks, benefits and alternatives.: Yes Patient/family/POA and/or understands and acknowledges the need to proceed with the arterial catheter insertion as an important element of the patient's clinical management.: Yes Time Out Performed: Yes Patient Position: supine Adapted Physical Education Aide Prep: sterile gown, sterile gloves, mask and hat Site: right and femoral Site Prep: chlorhexidine and sterile drape Skin Anesthesia: 1% lidocaine Technique used: ultrasound-guided Size (Gauge): 14 Length: 12 cm Closure/Dressing: suture, transparent dressing, hemostatic product, antimicrobial product and securement product Patient tolerated procedure: well and no complications Complications: none
[2024-09-03] MEDS: POTASSIUM CHLORIDE 20 MEQ PACKET (FOR LIQUID) FEED TUBE (09:42)
[2024-09-03] MEDS: POTASSIUM CHLORIDE 20 MEQ PACKET (FOR LIQUID) 40 MEQ FEED TUBE ×2 (09:42→13:57)
[2024-09-03] MEDS: ALBUMIN HUMAN 25% 25 GM/100 ML 100 ML IVPB ×3 (09:43→17:01)
[2024-09-03] MEDS: PANTOPRAZOLE SODIUM IV 40 MG VIAL IV PUSH ×2 (09:44→20:30)
[2024-09-03 10:15] LABS: Reflex Lactic Acid Yes or No Add Lactic
[2024-09-03] MEDS: FENTANYL 2,500MCG/NS250ML(*CRX 2,500 MCG/250 ML BAG 10 MCG IV CONT (10:33)
[2024-09-03 11:12] LABS: Hemoglobin 11.6 g/dL (14.0-18.0); Immature Platelet Fraction Pct 5.2 % (0.9-11.2); Mean Corpuscular HGB Conc 33.1 g/dl (32-36); Mean Corpuscular Hemoglobin 33.3 pg (26-34); Mean Corpuscular Volume 100.6 fl (80-100); Mean Platelet Volume 10.9 fl (7.4-10.4); Platelet Count Result 130 k/mm3 (150-375); Red Blood Count 3.48 M/mm3 (4.6-6.20); Red Cell Distribution Width 13.5 % (11.5-14.5); White Blood Count 9.6 K/mm3 (4.5-10.0)
[2024-09-03 11:23] LABS: INR 1.7; Partial Thromboplastin Time 49.5 Seconds (22.3-36.8); Prothrombin Time 19.9 Seconds (11.1-14.7)
[2024-09-03] MEDS: CISATRACURIUM BESYLATE 200 MG in DEXTROSE 5% 80 ML 8.41 ML IV CONT ×2 (11:24→22:15)
--- NOTE | 2024-09-03 11:24 | PC.NURSE ---
prone orders in, ready to prone when I recieved a phone call from Dr. Gomez with Dr. Ewing to order stat CT chest/abd/pelvis. once scan is taken then to prone patient.
[2024-09-03 11:46] LABS: Band Neutrophils Percent 41 % (0-6); Lymphocytes Absolute Manual 0.86 K/mm3 (1.1-4.5); Metamyelocytes Percent 6 %; Monocytes Absolute Manual 1.15 K/mm3 (0.1-0.90); Monocytes Percent Manual 12 % (3-9); Neutrophils Percent Manual 32 % (46-73); Platelet Estimate Adequate (Adequate); Schistocytes None Seen; Total Cells Counted 100
[2024-09-03 11:47] LABS: Hypochromasia 1+
--- NOTE | 2024-09-03 12:00 | WPDINTPN ---
Progress Note: A&P Assessment and Plan (1) Shock: Code(s): R57.9 - Shock, unspecified Status: Acute Assessment and Plan: Shock likely obstructive - secondary to pulmonary embolism, septic secondary pneumonia -will obtain proBNP and troponin -could be related to septic shock secondary pneumonia on CT scan of the chest -continue stress dose steroids, -status post tenecteplase, oxygenation improved -continue norepinephrine and vasopressin, maintain MAP > 65 mmHg at all times for adequate end organ perfusion -continue vancomycin, cefepime azithromycin -will give albumin, patient in negative fluid balance (2) Acute respiratory failure with hypoxia: Code(s): J96.01 - Acute respiratory failure with hypoxia Status: Acute Assessment and Plan: 09/02/2024: Patient was tachycardic, tachypneic, hypoxic, hypotensive this morning. Patient was in impending respiratory failure, discussed with patient and he was agreeable with intubation and mechanical ventilation -patient is brought to the ICU from the intermediate Unit, intubated and placed on mechanical ventilation. Intubation was uneventful with post intubation patient remains significantly hypoxic in the 70s, patient was tachycardic in the 130s to 140s, hypotensive with systolic blood pressures dropping to 70s. Given the symptoms and severe hypoxia, immediate ABG showed normal pH, normal pCO2, normal bicarb but severe hypoxia. Given the spectrum of signs and symptoms and history of DVT and pulmonary embolism discuss with family regarding tenecteplase to which they were agreeable. Tenecteplase planes was administered, O2 sats increased from 70s to 90s on about 10-15 minutes. -currently on CMV mode of ventilation, 100% FiO2, peep of 5, patient is not peep responsive -continue bronchodilators -sedated with fentanyl and Versed infusion -patient remains hypoxemic, will place in prone position -monitor ABGs 09/02/2024: CT scan of the chest abdomen and pelvis: -Multifocal bilateral pneumonia with probable extensive left lower lobe and partial right lower lobe atelectasis. -Suspected small bowel obstruction, as detailed above. Status post colectomy with ileostomy. (3) Pulmonary embolism: Code(s): I26.99 - Other pulmonary embolism without acute cor pulmonale Status: Acute Assessment and Plan: As above (4) Pneumonia: Code(s): J18.9 - Pneumonia, unspecified organism Status: Acute Assessment and Plan: Chest x-ray bilateral infiltrates compatible with pneumonia -continue antibiotics as above 09/03: CT scan of the chest showed: 1. Extensive patchy bilateral airspace consolidation, consistent with pneumonia.2: Small right pleural effusion (5) DVT (deep venous thrombosis): Code(s): I82.409 - Acute embolism and thrombosis of unspecified deep veins of unspecified lower extremity Status: Acute Assessment and Plan: Nonocclusive DVT of the left popliteal vein, patient was on therapeutic Lovenox 09/01/2024: Venous Dopplers Left popliteal vein partially compressible with age-indeterminate nonocclusive deep venous thrombosis. 2. No deep venous anastomosis in the right lower limb. (6) SBO (small bowel obstruction): Onset Date: ~02/12/22 Code(s): K56.609 - Unspecified intestinal obstruction, unspecified as to partial versus complete obstruction Status: Acute Assessment and Plan: Small-bowel obstruction on admission, patient was treated with NG decompression, bowel rest, IV fluids, analgesia for pain -discuss with surgery, recommended obtaining CT scan of abdomen and pelvis given elevated lactic acid this morning to 4.6 09/02: CT abdomen and pelvis showed: Dilated small bowel with air-fluid levels and relatively decompressed distal small bowel, compatible with obstruction. Multiple low-density masses of the liver, not well characterized without contrast. Consider benign masses such as cysts and hemangiom
[2024-09-03] MEDS: MINERAL OIL/WHITE PETROLATUM OINTMENT 1 APPLIC EACH EYE ×2 (12:54→20:31)
[2024-09-03] MEDS: CEFEPIME 2 GM/NS 50 ML 2 GM/50 ML BAG IVPB ×2 (12:54→23:08)
[2024-09-03] MEDS: HEPARIN SOD/D5W 100 UNITS/ML 25,000 UNITS/250 ML BAG 14 UNITS IV CONT (12:58)
[2024-09-03 13:16] LABS: Alveolar/Arterial O2 Gradient 573.2 mmHg; Base Excess ABG -5.6 mEq/l (+/-2.0); Carboxyhemoglobin 0.3 % THb (0-2.0); Fractional Inspired Oxygen 100 %; HCO3 ABG 21.5 mEq/l (22.0-26.0); Methemoglobin ABG 0.4 %THb (0-1.5); Oxygen Content ABG 17.1 %vol (16.0-22.0); Oxygen Saturation ABG 95.8 % (95.0-100.0); PCO2 ABG 48.5 mmHg (35.0-45.0); PO2 ABG 91.3 mmHg (80.0-100.0); PO2 FiO2 Ratio Arterial Blood 0.91 %; Reduced Hemoglobin 3.3 %THb (0-5.0); Total Hemoglobin 12.6 g/dL (12.0-18.0)
[2024-09-03 13:17] LABS: Anion Gap 11 mmol/L (4-12); Blood Urea Nitrogen 43 mg/dL (9-20); Calcium 7.1 mg/dL (8.4-10.2); Carbon Dioxide 23 mmol/L (22-30); Chloride 97 mmol/L (98-107); Estimated CRCL calculation 27 ml/min; Estimated Glomerular Filt Rate 28; Glucose 290 mg/dL (65-110); Potassium 3.1 mmol/L (3.4-5.0); Sodium 131 mmol/L (137-145)
--- NOTE | 2024-09-03 13:17 | PM.PNGS ---
Progress Note: A&P Assessment and Plan (1) Acute respiratory failure with hypoxia: Code(s): J96.01 - Acute respiratory failure with hypoxia Status: Acute Assessment and Plan: Oxygenation still low on 100% FiO2 and +5 of PEEP. This would seem to be the most likely reason for his rising lactate and left shift. I spoke with Dr. Gomez about the patient. After his CT scan, he plans to ventilate him in the prone position. Patient received Tenecteplase yesterday morning and did have an immediate increase in his sats from 70s to 90s. However, his saturations have sent since diminished despite high levels of oxygen administration. Do not feel that small bowel obstruction or other abdominal source is the cause of his respiratory difficulties. Continue to monitor closely. (2) Pneumonia: Qualifiers: Pneumonia type: aspiration pneumonia Aspiration pneumonia type: due to vomit Laterality: bilateral Lung location: unspecified part of lung Qualified Code(s): J69.0 - Pneumonitis due to inhalation of food and vomit Code(s): J18.9 - Pneumonia, unspecified organism Status: Acute Assessment and Plan: Imaging strongly suggests pneumonia which is bilateral and most likely from aspiration. Discussed this with Dr. Gomez as well. Unable to give IV contrast due to severe allergy to contrast as well as acute kidney injury. Initial perfusion scan showed low probability of pulmonary embolism. Patient did have an initial good response to Tenecteplase although his hypoxia has since worsened. Patient is anticoagulated. Continue IV antibiotics and respiratory care per Dr. Gomez. (3) Sepsis: Qualifiers: Sepsis type: sepsis due to unspecified organism Sepsis acute organ dysfunction status: with acute organ dysfunction Severe sepsis acute organ dysfunction type: acute renal failure Acute renal failure type: unspecified Severe sepsis shock status: with septic shock Qualified Code(s): A41.9 - Sepsis, unspecified organism; R65.21 - Severe sepsis with septic shock; N17.9 - Acute kidney failure, unspecified Code(s): A41.9 - Sepsis, unspecified organism Status: Acute Assessment and Plan: Do not feel this is due to bowel ischemia or infarction. Most likely due to pneumonia. (4) Shock: Code(s): R57.9 - Shock, unspecified Status: Acute Assessment and Plan: See above (5) SBO (small bowel obstruction): Onset Date: ~02/12/22 Code(s): K56.609 - Unspecified intestinal obstruction, unspecified as to partial versus complete obstruction Status: Acute Assessment and Plan: CT scan suggestive of persistent small bowel obstruction. Patient has good bowel sounds and definitely has ileostomy output. He has an orogastric tube in his stomach but it is sitting in a large amount of fluid in the stomach. Will reorder 0G tube orders of constant medium to high suction with irrigation. (6) Ileostomy in place: Code(s): Z93.2 - Ileostomy status Status: Acute Assessment and Plan: Having output but has not had bag changed since sometime last night (7) Crohn's disease: Qualifiers: Gastrointestinal tract location: large intestine Digestive disease complication type: unspecified complication Qualified Code(s): K50.119 - Crohn's disease of large intestine with unspecified complications Code(s): K50.90 - Crohn's disease, unspecified, without complications Status: Acute Assessment and Plan: Has had proctocolectomy with permanent ileostomy (8) Pulmonary embolism: Qualifiers: Pulmonary embolism type: unspecified Chronicity: acute Acute cor pulmonale presence: unspecified Qualified Code(s): I26.99 - Other pulmonary embolism without acute cor pulmonale Code(s): I26.99 - Other pulmonary embolism without acute cor pulmonale Status: Acute Assessment and Plan: Not able to accurately kallei
[2024-09-03 13:23] LABS: Site Drawn ARTLINE; pH ABG 7.264 (7.350-7.450)
[2024-09-03 13:24] LABS: Arterial Blood Gas PEEP 5 cmH2O; Arterial Blood Gas Tidal Volume 450 ml; Arterial Blood Gas Vent Mode CMV; Arterial Blood Gas Ventilator rate 26 /MIN; Device VENTILATOR
[2024-09-03] MEDS: AZITHROMYCIN 500 MG/NS 250 ML 500 MG/250 ML BAG 250 MG IVPB (13:29)
[2024-09-03 13:36] LABS: NT Pro B Type Natriuretic Pept 22400 pg/mL (19.9-100); Troponin I 0.282 ng/mL (0.000-0.034)
[2024-09-03 13:45] LABS: Glucose Point of Care 116 mg/dl (65-105)
[2024-09-03] MEDS: KCL 40 MEQ/WATER 100 ML 100 ML 25 ML IVPB (13:54)
[2024-09-03] MEDS: CENTRAL LINE FLUSH 10 ML IV PUSH ×2 (13:57→22:00)
--- NOTE | 2024-09-03 14:04 | PM.IMPN ---
Progress Note: A&P Assessment and Plan (1) Shock: Code(s): R57.9 - Shock, unspecified Status: Acute Assessment and Plan: Shock likely obstructive - secondary to pulmonary embolism, septic secondary pneumonia -could be related to septic shock secondary pneumonia on CT scan of the chest -continue stress dose steroids, -status post tenecteplase, oxygenation improved -continue norepinephrine and vasopressin, maintain MAP > 65 mmHg at all times for adequate end organ perfusion -continue vancomycin, cefepime azithromycin -will give albumin, patient in negative fluid balance (2) Acute respiratory failure with hypoxia: Code(s): J96.01 - Acute respiratory failure with hypoxia Status: Acute Assessment and Plan: 09/02/2024: Patient was tachycardic, tachypneic, hypoxic, hypotensive this morning. Patient was in impending respiratory failure, discussed with patient and he was agreeable with intubation and mechanical ventilation -patient is brought to the ICU from the intermediate Unit, intubated and placed on mechanical ventilation. Intubation was uneventful with post intubation patient remains significantly hypoxic in the 70s, patient was tachycardic in the 130s to 140s, hypotensive with systolic blood pressures dropping to 70s. Given the symptoms and severe hypoxia, immediate ABG showed normal pH, normal pCO2, normal bicarb but severe hypoxia. Given the spectrum of signs and symptoms and history of DVT and pulmonary embolism discuss with family regarding tenecteplase to which they were agreeable. Tenecteplase planes was administered, O2 sats increased from 70s to 90s on about 10-15 minutes. -currently on CMV mode of ventilation, 100% FiO2, peep of 5, patient is not peep responsive -continue bronchodilators -sedated with fentanyl and Versed infusion -patient remains hypoxemic, will place in prone position -monitor ABGs 09/02/2024: CT scan of the chest abdomen and pelvis: -Multifocal bilateral pneumonia with probable extensive left lower lobe and partial right lower lobe atelectasis. -Suspected small bowel obstruction, as detailed above. Status post colectomy with ileostomy. (3) Pulmonary embolism: Qualifiers: Pulmonary embolism type: unspecified Chronicity: acute Acute cor pulmonale presence: unspecified Qualified Code(s): I26.99 - Other pulmonary embolism without acute cor pulmonale Code(s): I26.99 - Other pulmonary embolism without acute cor pulmonale Status: Acute Assessment and Plan: As above (4) Pneumonia: Qualifiers: Pneumonia type: aspiration pneumonia Aspiration pneumonia type: due to vomit Laterality: bilateral Lung location: unspecified part of lung Qualified Code(s): J69.0 - Pneumonitis due to inhalation of food and vomit Code(s): J18.9 - Pneumonia, unspecified organism Status: Acute Assessment and Plan: Chest x-ray bilateral infiltrates compatible with pneumonia -continue antibiotics as above 09/03: CT scan of the chest showed: 1. Extensive patchy bilateral airspace consolidation, consistent with pneumonia.2: Small right pleural effusion (5) DVT (deep venous thrombosis): Code(s): I82.409 - Acute embolism and thrombosis of unspecified deep veins of unspecified lower extremity Status: Acute Assessment and Plan: Nonocclusive DVT of the left popliteal vein, patient was on therapeutic Lovenox 09/01/2024: Venous Dopplers Left popliteal vein partially compressible with age-indeterminate nonocclusive deep venous thrombosis. 2. No deep venous anastomosis in the right lower limb. (6) SBO (small bowel obstruction): Onset Date: ~02/12/22 Code(s): K56.609 - Unspecified intestinal obstruction, unspecified as to partial versus complete obstruction Status: Acute Assessment and Plan: Small-bowel obstruction on admission, patient was treated with NG decompression, bowel rest, IV fluids, analgesia for pain -
[2024-09-03 18:10] LABS: Glucose Point of Care 107 mg/dl (65-105)
[2024-09-03] MEDS: NOREPINEPHRINE 8 MG/D5W 250 ML 8 MG/250 ML BAG 35.63 MG IV CONT (18:25)
[2024-09-03] MEDS: PHENTOLAMINE MESYLATE 5 MG/ML VIAL XX (19:44)
[2024-09-03] MEDS: LEVALBUTEROL NEB 1.25 MG/3 ML INHALATION (19:51)
[2024-09-03] MEDS: IPRATROPIUM BR 0.02% INH SOLN 0.5 MG/2.5 ML VIAL INHALATION (19:51)
[2024-09-03 20:13] LABS: Alveolar/Arterial O2 Gradient 393.8 mmHg; Base Excess ABG -5.5 mEq/l (+/-2.0); Carboxyhemoglobin 0.3 % THb (0-2.0); Fractional Inspired Oxygen 100 %; HCO3 ABG 19.9 mEq/l (22.0-26.0); Methemoglobin ABG 0.5 %THb (0-1.5); Oxygen Content ABG 17.5 %vol (16.0-22.0); Oxygen Saturation ABG 99.6 % (95.0-100.0); Oxyhemoglobin 98.9 % THb (90.0-100.0); PCO2 ABG 38.7 mmHg (35.0-45.0); PO2 ABG 280.5 mmHg (80.0-100.0); PO2 FiO2 Ratio Arterial Blood 2.81 %; Reduced Hemoglobin 0.3 %THb (0-5.0); Total Hemoglobin 12.1 g/dL (12.0-18.0)
[2024-09-03 20:14] LABS: Device VENTILATOR; Modified Allen's Test Pass; Site Drawn ARTLINE
[2024-09-03 20:15] LABS: Arterial Blood Gas PEEP 10 cmH2O; Arterial Blood Gas Tidal Volume 450 ml; Arterial Blood Gas Vent Mode CMV; Arterial Blood Gas Ventilator rate 26 /MIN
[2024-09-03 20:26] LABS: Anion Gap 12 mmol/L (4-12); Blood Urea Nitrogen 49 mg/dL (9-20); Calcium 7.6 mg/dL (8.4-10.2); Carbon Dioxide 20 mmol/L (22-30); Chloride 103 mmol/L (98-107); Estimated CRCL calculation 29 ml/min; Estimated Glomerular Filt Rate 29; Glucose 124 mg/dL (65-110); Potassium 4.5 mmol/L (3.4-5.0); Sodium 135 mmol/L (137-145)
--- NOTE | 2024-09-03 20:27 | PC.NURSE ---
RN at bedside at 0815, patient tachypneic at 31 breaths per minute. Verbal orders per Dr. Gomez to give 50 mg Rocuronium IV push x1. Rocuronium 50 mg IV pushed administered at 0820.
--- NOTE | 2024-09-03 20:30 | PC.NURSE ---
Vascular access registrar at bedside at 0820, orders received for PICC line placement. Consent obtained from family. PICC line inserted at 0834, order per Dr. Patricia pereira to use at 0849. Post PICC line chest X-ray confirmation ordered and obtained. Vasopressors (Levophed and vasopressin IV gtts) transferred from peripheral IV to PICC line post confirmation at 0854.
--- NOTE | 2024-09-03 20:34 | PC.NURSE ---
RN at bedside, Right femoral arterial line inserted at bedside per Dr. Gomez at 0926. Consent obtained by family. Procedure tolerated well. Good arterial waveform.
--- NOTE | 2024-09-03 20:36 | PC.NURSE ---
RN off floor in CT with patient from 1130 to 1206. Patient traveled by bed with ventilator, monitor, PICC and arterial line/ all gtts in place at infusing rate. Verbal order to continue vasopressors at current rate until return from CT, verbal order to continue 100% FiO2 on vent for low pO2 on ABG per . Verbal order to prone patient once returned from CT.
--- NOTE | 2024-09-03 20:39 | PC.NURSE ---
Patient proned at 1216. Tolerated well. Patient to remain proned x16 hours per MD verbal orders-DR. Gomez. RN to monitor tolerance.
--- NOTE | 2024-09-03 20:40 | PC.NURSE ---
Repeat ABG's resulted at 1323, notified of results. Verbal order to continue 100% FiO2 r/t low pO2 per Dr. Gomez. Verbal order okay to start weaning Levophed gtt first, continue vasopressin gtt at 0.04 mcg for now.
--- NOTE | 2024-09-03 20:43 | PC.NURSE ---
DR. Gomez called at 1850 with updates. Updated on worsening of left forearm/extremity. Possible extravasation from previous IV site. IV removed earlier today and limb continuously monitored. Verbal orders for phentolamine to infiltrate to site, okay with K-pad to area. Patient now on 19mcg of Levophed and 0.04 units of vasopressin, verbal order to continue weaning Levophed gtt, once gtt is at 10mcg, okay to start weaning Vasopressin gtt.
--- NOTE | 2024-09-03 21:52 | ECG_ITS ---
Test Date: 2024-09-03 21:54:50 Measurements Intervals [place] Rate: 172 P: 0 DC: 0 QRS: 208 QRSD: 110 T: 180 QT: 271 QTc: 460 Interpretive Statements ATRIAL FIBRILLATION WITH RAPID VENTRICULAR RESPONSE INCOMPLETE RIGHT BUNDLE BRANCH BLOCK [90+ ms QRS DURATION, TERMINAL R IN V1/V2, 40+ ms S IN I/aVL/V4/V5/V6] TRANSPOSITION OF RIGHT AND LEFT ARM LEAD CONSIDER PREVIOUS ANTERIOR INFARCTION ABNORMAL ECG Compared to ECG 09/02/2024 08:04:22 ATRIAL FIBRILLATION REPLACES SINUS RHYTHM ARM LEAD REVERSAL, ALTERED LEAD POSITION Electronically Signed On 09-04-2024 09:03:52 CDT by Davi Christine M.D.
--- NOTE | 2024-09-03 21:57 | ECG_ITS ---
Test Date: 2024-09-03 21:59:22 Measurements Intervals [place] Rate: 32 P: 0 MD: 0 QRS: 208 QRSD: 100 T: 0 QT: 267 QTc: 197 Interpretive Statements ATRIAL FIBRILLATION WITH PROFOUNDLY SLOW VENTRICULAR RESPONSE INCOMPLETE RIGHT BUNDLE BRANCH BLOCK [90+ ms QRS DURATION, TERMINAL R IN V1/V2, 40+ ms S IN I/aVL/V4/V5/V6] CONSIDER PREVIOUS ANTERIOR INFARCTION ABNORMAL ECG COMPARED TO EARLIER TODAY HEART RATE IS MARKEDLY REDUCED Electronically Signed On 09-04-2024 09:05:01 CDT by Davi Christine M.D.
[2024-09-03] MEDS: ADENOSINE IV SOLN 6 MG/2 ML VIAL IV PUSH (21:59)
[2024-09-03] MEDS: ADENOSINE IV SOLN 6 MG/2 ML VIAL 12 MG IV PUSH (22:01)
[2024-09-03] MEDS: AMIODARONE 150 MG/D5W 100 ML 150 MG/100 ML BAG 600 MG IV CONT (22:08)
--- NOTE | 2024-09-03 22:14 | ECG_ITS ---
Test Date: 2024-09-03 22:13:11 Measurements Intervals [place] Rate: 138 P: 0 ME: 0 QRS: 208 QRSD: 107 T: 29 QT: 282 QTc: 428 Interpretive Statements ATRIAL FIBRILLATION WITH RAPID VENTRICULAR RESPONSE INCOMPLETE RIGHT BUNDLE BRANCH BLOCK [90+ ms QRS DURATION, TERMINAL R IN V1/V2, 40+ ms S IN I/aVL/V4/V5/V6] CONSIDER PREVIOUS ANTERIOR INFARCTION ABNORMAL ECG Compared to ECG 09/03/2024 21:59:22 HEART RATE RESPONSE IS NOW ACCELERATED Electronically Signed On 09-04-2024 09:06:17 CDT by Davi Christine M.D.
[2024-09-03] MEDS: AMIODARONE 360 MG/D5W 200 ML 360 MG/200 ML BAG 33.33 MG IV CONT (22:20)
--- NOTE | 2024-09-03 22:35 | PC.NURSE ---
[address] Santana called and on her way. Pads on patient and connected to crash cart. EKG leads placed and 6mg adenosine getting drawn up in anticipation of order. Detailed note to follow.
--- NOTE | 2024-09-03 22:44 | PC.NURSE ---
Dr. Gomez was called and updated about the patient's condition and the subsequent conversation with the family. Specifically we discussed in detail the severe event in which the patient was treated for SVT and then rapid AFIB. the patient's current condition, and the family's decision to change the patient's code status to no CPR. A detailed note regarding the event will be written at a later time.
[2024-09-03] MEDS: VANCOMYCIN 1,500 MG/NS 500 ML 1,500 MG/500 ML BAG 250 MG IVPB (23:08)
[2024-09-04] VITALS: BP 103/51; PULSE 145; PULSE 156; RESP 26; TEMP 38.1; O2SAT 100
[2024-09-04] MEDS: NOREPINEPHRINE 8 MG/D5W 250 ML 8 MG/250 ML BAG 56.25 MG IV CONT
[2024-09-04] MEDS: ALBUMIN HUMAN 25% 25 GM/100 ML 100 ML IVPB (00:12)
[2024-09-04 02:00] VITALS: BP 98/57; PULSE 141; PULSE 144; RESP 26; TEMP 38.6; O2SAT 96
[2024-09-04 02:15] VITALS: PULSE 149; RESP 26; O2SAT 100
[2024-09-04] MEDS: IPRATROPIUM BR 0.02% INH SOLN 0.5 MG/2.5 ML VIAL INHALATION (02:15)
[2024-09-04] MEDS: LEVALBUTEROL NEB 1.25 MG/3 ML INHALATION (02:15)
[2024-09-04 02:31] VITALS: PULSE 136; RESP 26
--- NOTE | 2024-09-04 03:57 | PC.NURSE ---
MTS called and made aware that patient is on vent and family wishes to withdraw. Due to presence of reflexes before nimbex administered and age the patient is not a candidate for organ donation and we will need to call with time of .
[2024-09-04 04:00] VITALS: BP 105/84; PULSE 139; RESP 26
[2024-09-04] MEDS: MORPHINE SULFATE (*CRX) 4 MG/ML INJ 10 MG IV PUSH (04:02)
[2024-09-04] MEDS: MIDAZOLAM HCL (*CRX) 2 MG/2 ML VIAL 4 MG IV PUSH (04:03)
--- NOTE | 2024-09-04 04:48 | PC.NURSE ---
At approx. 2150 on 09/03, this RN was in performing care for the patient when his monitor began alarming for a high HR. The rate was hitting 180s 190s and sustaining, so help was recruited, the crash cart was retrieved, the hedis registered nurse rn was notified and ACLS was initiated. Adenosine was prepared and on verbal order from the MD 6 mg was administered at approximately 2158 using the clock in the room. This did not have the desired effect and 12mg was given at 220 per VRBO. After a pause the rhythm resumed at a slightly lower rate in the 150s-160s and was clearly determined to be AFIB RVR. At 2206 The patient was given 150mg IVP Amio. At 2207 we started an amio drip. The patient's blood pressure began to drop further at this point and a VRBO order to increase it to 30mcg was given from the provider and executed at 2208 with good effect. At 2211 and IV bolus of Amio was given and the drip continued.
--- NOTE | 2024-09-04 04:55 | PC.NURSE ---
Nayana at [employer] states patient can be released to [facility]; need to call with name of home once determined. David at [facility] states patient is a candidate and is continuing further assessment for donation. OK to take patient to [facility] at this time; reference number [id number].
--- NOTE | 2024-09-04 06:28 | PC.NURSE ---
Received call from Mary Ann at [facility]; [facility] to pursue tissue donation. Asked to hold patient in [facility] and transfer time to [facility] supplied to [facility]. [facility] will call after contacting family.
--- NOTE | 2024-09-04 09:16 | PM.DDS ---
Discharge Summary Date and Time Date of : 09/04/24 Time of : 04:19 Provider Pronounced By: 2 RNs Name of First RN That Pronounced: Melyssa Brown RN Name of Second RN That Pronounced: Flako Cardoso RN Probable Cause of Probable Cause of : Septic shock Pneumonia small-bowel obstruction Summary Hospital Course: This is a 8-year-old male with past medical history of coronary artery disease stent in 2012, Crohn's disease status post ileostomy secondary to Crohn's disease in 1995 long-term anticoagulation use secondary to chronic and recurrent DVT and PE essential tremor GI bleed history of Jared gangrene, hypertension, hyperlipidemia presents to the ED on 08/30/2024 with complaints of abdominal pain and bloating. CT abdomen pelvis showed small-bowel obstruction with transition point in the ostomy are face. General surgery was consulted. NG tube was placed. He was placed on bowel rest IV fluids and analgesia. On 09/02/24 had hypoxic respiratory failure needing BiPAP placement subsequently need to be intubated with severe hypoxia. Post intubation patient also became hypotensive requiring vasopressors. For possibility of PE due to severe hypoxia patient was also treated with tenecteplase and also was started on broad-spectrum antibiotics as CT evaluation showed multifocal pneumonia. On 09/03/2024 patient decompensated further with new onset atrial fibrillation with rapid ventricular rate and increasing requirement of vasopressors. Family withdrew care at that point and was initiated comfort measures. Patient was extubated and subsequently . Additional Data Confirmation of as documented by pronouncing clinician: Pupillary Reflex, Palpable Pulses, Response to Stimuli, Heart Tones and Breath Sounds Name of Provider Notified: Dr Santana Time Provider Notified: 04:33 Provider Requests Autopsy: No Family Requests Autopsy: No [employer] Notified: Yes Date [facility] Notified of : 09/04/24 Time [facility] Notified of : 04:48
== END 2024-09-04 04:19 | disposition expired | DRG 871 ==
LOC: ANHED 08-30 01:47 → ANH2MED 08-30 03:17 → ANHICU 09-02 13:56 → ANH2MED 09-05 09:39 → ANHICU 09-05 09:39 → ANHIMU 09-05 09:39
PROVIDERS: Internal Medicine; Nurse Practitioner Family; Student in an Organized Health Care Education/Training Program; Admitting Provider Internal Medicine; Emergency Provider Physician Assistant; PCP Student in an Organized Health Care Education/Training Program; Visit Provider Internal Medicine
DX: A41.9 Sepsis, unspecified organism (principal); J18.9 Pneumonia, unspecified organism; R65.21 Severe sepsis with septic shock; J96.01 Acute respiratory failure with hypoxia; K56.609 Unspecified intestinal obstruction, unspecified as to partial versus complete obstruction; K50.919 Crohn's disease, unspecified, with unspecified complications; I82.432 Acute embolism and thrombosis of left popliteal vein; I47.10 Supraventricular tachycardia, unspecified; N17.9 Acute kidney failure, unspecified; E78.5 Hyperlipidemia, unspecified; H57.02 Anisocoria; I25.10 Atherosclerotic heart disease of native coronary artery without angina pectoris; I10 Essential (primary) hypertension; Z90.49 Acquired absence of other specified parts of digestive tract; Z79.01 Long term (current) use of anticoagulants; Z20.822 Contact with and (suspected) exposure to COVID-19; Z95.5 Presence of coronary angioplasty implant and graft; Z86.718 Personal history of other venous thrombosis and embolism; Z86.711 Personal history of pulmonary embolism; Z96.651 Presence of right artificial knee joint; Z98.41 Cataract extraction status, right eye; Z98.42 Cataract extraction status, left eye; Z96.1 Presence of intraocular lens; Z87.891 Personal history of nicotine dependence
CPT/HCPCS: 31500; 36415; 36569; 36600; 70450; 71045; 71046; 71250; 74021; 74176; 74250; 78582; 80048; 80053; 81001; 82375; 82805; 82948; 83050; 83605; 83690; 83735; 83880; 84100; 84484; 85018; 85025; 85055; 85610; 85730; 87040; 87070; 87186; 87205; 87637; 87641; 93005; 93970; 94002; 94003; 94640; 96361; 96374; 96375; 96376; 97161; 97165; 99285; A9270; A9540; A9558; C8929; G0378; J0153; J0171; J0282; J0456; J0692; J1644; J1650; J1720; J1939; J2250; J2270; J2405; J2470; J2760; J3010; J3101; J3370; J3480; J7030; J7040; J7120; P9047; Q9957